=== PATIENT | female | born 1940 | race Caucasian/White ===

== ENCOUNTER 2020-03-16 07:57 | Outpatient (REF) | payer MEDICARE, SELFPAY ==
[2020-03-16 11:24] LABS: Hematocrit 42.5 % (37-47); Hemoglobin 13.8 g/dl (12.0-16.0); Mean Corpuscular HGB Conc 32.5 g/dl (31.0-35.0); Mean Corpuscular Hemoglobin 29.2 pg (27.0-33.0); Mean Corpuscular Volume 89.9 fL (80-98); Mean Platelet Volume 10.1 fL (9.4-12.3); Platelet Count 266 X10*3/uL (160-400); Red Blood Count 4.73 X10*6/uL (4.20-5.50); Red Cell Distribution Width 13.2 % (11.0-16.0); White Blood Count 9.8 X10*3/uL (4.8-10.8)
[2020-03-16 11:44] LABS: Estimated Average Glucose 180 mg/dL; Hemoglobin A1c % 7.9 %
[2020-03-16 12:00] LABS: Alanine Aminotransferase 17 U/L (0-31); Albumin Level 3.8 g/dL (3.5-5.0); Alkaline Phosphatase 76 U/L (39-117); Anion Gap 14 (12-20); Aspartate Amino Transferase 21 U/L (5-31); Bilirubin Total 0.8 mg/dL (0.0-1.0); Blood Urea Nitrogen 22 mg/dL (9-16); Calcium 8.6 mg/dL (8.4-10.2); Carbon Dioxide 26 mmol/L (22-29); Chloride 103 mmol/L (96-108); Estimated Glomerular Filt Rate > 60; Glucose Fasting 116 mg/dL (60-99); Potassium 4.3 mmol/l (3.3-5.1); Sodium 139 mmol/L (135-145); Total Protein 7.3 g/dL (6.5-8.0)
== END 2020-03-16 07:58 | disposition home or self-care (01) ==
LOC: HO.HMGCLDS 07:57
PROVIDERS: PCP Internal Medicine; Visit Provider Internal Medicine
DX: E11.9 Type 2 diabetes mellitus without complications (principal); I10 Essential (primary) hypertension; E78.5 Hyperlipidemia, unspecified
CPT/HCPCS: 36415; 80053; 83036; 85027

== ENCOUNTER 2020-06-19 15:31 | Emergency (ER) | payer MEDICARE, SELFPAY ==
--- NOTE | ~2020-06-19 | XR_ITS ---
EXAMINATION: LUMBAR SPINE AND RIGHT HIP X-RAY CLINICAL INFORMATION: Pain post fall COMPARISON: Lumbar spine x-ray December 2018 TECHNIQUE: 3 views of the lumbar spine and 2 views of the right hip and one view of the pelvis FINDINGS: Lumbar spine: Bone alignment is normal. No fracture or dislocation is seen. There is degenerative disc disease at L5-S1. There is lower lumbar spine facet arthritis. There is evidence of atherosclerotic disease. Right hip: Bone alignment is normal. No fracture or dislocation is seen. There is bilateral hip arthritis with joint space narrowing and osteophyte formation. Bones of the pelvis are unremarkable. There is evidence of atherosclerotic disease. XR/XR hip RT min 2V IMPRESSION: Degenerative changes. No fracture or dislocation seen.
--- NOTE | ~2020-06-19 | XR_ITS ---
EXAMINATION: LUMBAR SPINE AND RIGHT HIP X-RAY CLINICAL INFORMATION: Pain post fall COMPARISON: Lumbar spine x-ray December 2018 TECHNIQUE: 3 views of the lumbar spine and 2 views of the right hip and one view of the pelvis FINDINGS: Lumbar spine: Bone alignment is normal. No fracture or dislocation is seen. There is degenerative disc disease at L5-S1. There is lower lumbar spine facet arthritis. There is evidence of atherosclerotic disease. Right hip: Bone alignment is normal. No fracture or dislocation is seen. There is bilateral hip arthritis with joint space narrowing and osteophyte formation. Bones of the pelvis are unremarkable. There is evidence of atherosclerotic disease. XR/XR lumbar spine 2-3V IMPRESSION: Degenerative changes. No fracture or dislocation seen.
[2020-06-19 15:39] VITALS: BP 154/71; BP 158/70; PULSE 77; PULSE 88; RESP 16; TEMP 36.6; O2SAT 97; BMI 28.3
[2020-06-19 15:46] VITALS: BP 154/71; PULSE 73; RESP 20; TEMP 36.6; O2SAT 96
[2020-06-19 15:56] LABS: Glucose, Whole Blood 227 mg/dL (60-115)
--- NOTE | 2020-06-19 16:17 | ED.FALL ---
HPI - Fall General Chief Complaint: Fall Stated Complaint: mechanical fall Time Seen by Provider: 06/19/20 16:09 Source: patient Mode of arrival: ambulatory Limitations: no limitations History of Present Illness HPI Narrative: The patient comes emergency room complaining of lumbar pain. Patient states she was shopping at [employer], she was going down the electric stairs, by the time she reached the bottom, patient tripped and fell on her right side. Patient was able to get up and walk. Patient complaining of lumbar pain, and mild sided right hip pain. Patient did not take any pain medication and declined any medication. Patient did not hit her head, did not lose consciousness, denies being on any blood thinners. Patient has no pain anywhere else. Patient denies numbness or tingling in lower extremities, denies urinary/fecal incontinence or retention. MD complaint: fall Related Data Home Medications Medication Instructions Recorded Confirmed atorvastatin 80 mg tablet 80 mg PO DAILY 03/22/20 03/22/20 blood sugar diagnostic #10 ea 03/22/20 03/22/20 insulin glargine 100 unit/mL (3 unit SUBCUT 03/22/20 03/22/20 mL) subcutaneous pen Previous Rx's Medication Instructions Recorded carvedilol 25 mg tablet 25 mg PO BID #180 tab 02/10/20 lisinopril 40 mg tablet 40 mg PO DAILY #90 tab 02/10/20 amlodipine 10 mg tablet 10 mg PO DAILY #90 tab 03/13/20 metformin 1,000 mg tablet 1,000 mg PO BID #180 tab 06/06/20 Allergies Allergy/AdvReac Type Severity Reaction Status Date / Time Iodinated Contrast Media Allergy Unknown ANAPHYLAXIS Verified 06/19/20 15:48 [IV CONTRAST] Review of Systems Review of Systems: Constitutional : No Weight loss, No Fever, No Chills, No Night Sweats, No Fatigue, No Malaise ENT/Mouth : No Hearing loss, No Ear Pain, No Nasal Congestion, No Sinus Pain, No Hoarseness, No sore throat, No Rhinorrhea, No Swallowing Difficulty Eyes: No Eye Pain, No Swelling, No Redness, No Foreign Body, No Discharge, No Vision Changes Cardiovascular : No Chest Pain, No SOB, No Dyspnea on Exertion, No Orthopnea, No Edema, No Palpitations Respiratory : No Cough, No Sputum, No Wheezing, No Smoke Exposure, No Dyspnea Gastrointestinal : No Nausea, No Vomiting, No Diarrhea, No Constipation, No abdominal Pain, No Hematochezia, No Melena Genitourinary : no irregular bleeding, No Dysuria, No Urinary Frequency, No Hematuria, No Urinary Incontinence, No Urgency, No Flank Pain, No Urinary Flow Changes, No Hesitancy Musculoskeletal : Complaining of mild lumbar pain and mild right-sided hip pain on the posterior aspect, No Myalgias, No Joint Swelling Skin : No Skin Lesions, No rash Neuro : No Weakness, No Numbness, No Paresthesias, No Loss of Consciousness, No Dizziness, No Headache Psych : No Anxiety/Panic, No Depression, No SI/HI/AH/VH, No Social Issues, Heme/Lymph: No Bruising, No Bleeding,No Lymphadenopathy Endocrine : No Polyuria, No Polydipsia, No Temperature Intolerance [facility] Past Medical History Medical History CVA (cerebral vascular accident) Diabetes History of mammogram HTN (hypertension) Hyperlipidemia Surgical History H/O colonoscopy No pertinent past surgical history Family History Family History (Updated 03/21/20 @ 07:40 by NAVI Reed, [facility]) Father Unknown family medical history Mother Unknown family medical history Social History Social History (Updated 03/22/20 @ 07:57 by Jodi Damon [facility]) Alcohol intake: never Smoking Status: Never smoker Use of substances other than those prescribed or required for medical reasons: No Advance Directives: No Advance Directives Information Provided: No Physical Exam Vital Signs: Vital Signs: Last Vital Signs Temp 97.8 F 06/19/20 15:46 Pulse 73 06/19/20 15:46 Resp 20 06/19/20 15:46 BP 154/71 H 06/19/20 15:46 Pulse Ox 96 06/19/20 15:46 Body Mass Index 28.3 Appearance: Alert. Oriented X3. No acute distress. Eyes: Pupils equal, round and reactive to light. ENT: Pharynx normal. Neck: Normal inspection. Neck supple. No lymph nodes noted. No crepitus CVS: Normal heart rate and rhythm. Pulses normal. Normal S1 and S2 Respiratory: No respiratory distress. Breath sounds normal. No Wheezing. No rales Abdomen: Soft and nontender. No rigidity. No distention. good BS x4 Skin: Skin warm and dry. Normal skin color. Normal skin turgor. No abrasions Extremities: No lower extremity edema. Patient is able to flex and extend bilateral knees, bilateral hips, normal rotation on both hips, negative straight leg raise test bilaterally, mild pain to palpation over posterior aspect of the right hip and over the lumbar region, no ecchymosis or abrasions Neuro: Oriented X 3. No motor deficit. No sensory deficit. Moving all extermities. No slurred speech. Course Course Course Narrative: I discussed with the patient that her x-rays show no acute pathology. MDM - Fall Lab Data Labs: Lab Results 06/19/20 Range/Units 15:51 POC Glucose 227 H (60-115) mg/dL Imaging Data Right hip and lumbar x-ray: Radiologist's impression: FINDINGS: Lumbar spine: Bone alignment is normal. No fracture or dislocation is seen. There is degenerative disc disease at L5-S1. There is lower lumbar spine facet arthritis. There is evidence of atherosclerotic disease. Right hip: Bone alignment is normal. No fracture or dislocation is seen. There is bilateral hip arthritis with joint space narrowing and osteophyte formation. Bones of the pelvis are unremarkable. There is evidence of atherosclerotic disease. XR/XR hip RT min 2V IMPRESSION: Degenerative changes. No fracture or dislocation seen. Discharge Plan Discharge Clinical Impression: Fall Qualifiers: Encounter type: initial encounter Qualified Code(s): W19.XXXA - Unspecified fall, initial encounter Pain in lower back Qualifiers: Chronicity: acute Back pain laterality: right Sciatica presence: without sciatica Qualified Code(s): M54.5 - Low back pain Patient Disposition: Home, Self-Care Instructions: Acute Low Back Pain (ED) Additional Instructions: Please follow-up with your primary care physician tomorrow. If you have any worsening or new symptoms, please return to the emergency room or call 911 Prescriptions: No Action carvedilol 25 mg tablet 25 mg PO BID Qty: 180 RF: 2 lisinopril 40 mg tablet 40 mg PO DAILY Qty: 90 RF: 2 amlodipine 10 mg tablet 10 mg PO DAILY Qty: 90 RF: 3 metformin 1,000 mg tablet 1,000 mg PO BID Qty: 180 RF: 3 Basaglar KwikPen U-100 Insulin 100 unit/mL (3 mL) insulin pen subcut RF: 0 (DME) Freestyle [employer] Strip See Rx Instructions ea .ROUTE BID Qty: 10 RF: 0 atorvastatin 80 mg tablet 80 mg PO DAILY RF: 0
[2020-06-19] MEDS: Acetaminophen 325 MG TABLET 650 MG PO (17:27)
[2020-06-19 17:29] VITALS: BP 155/65; PULSE 78; RESP 16; TEMP 36.6; O2SAT 96
--- NOTE | 2020-06-19 17:30 | PC.NURSE ---
Pt ambulate with steady gait to bathroom.
== END 2020-06-19 17:49 | disposition home or self-care (01) ==
PROVIDERS: Emergency Provider Emergency Medicine; PCP Internal Medicine
DX: G89.11 Acute pain due to trauma (principal); M54.5 Low back pain; I10 Essential (primary) hypertension; E11.9 Type 2 diabetes mellitus without complications; E78.5 Hyperlipidemia, unspecified; Z86.73 Personal history of transient ischemic attack (TIA), and cerebral infarction without residual deficits; Z79.4 Long term (current) use of insulin
CPT/HCPCS: 72100; 73502; 82947; 99283; 99284

== ENCOUNTER 2020-07-18 07:43 | Outpatient (REF) | payer MEDICARE, SELFPAY ==
[2020-07-18 10:28] LABS: Estimated Average Glucose 186 mg/dL; Hemoglobin A1c % 8.1 %
[2020-07-18 10:42] LABS: Alanine Aminotransferase 19 U/L (0-31); Albumin Level 3.8 g/dL (3.5-5.0); Alkaline Phosphatase 97 U/L (39-117); Anion Gap 12 (12-20); Aspartate Amino Transferase 19 U/L (5-31); Bilirubin Total 1.1 mg/dL (0.0-1.0); Blood Urea Nitrogen 20 mg/dL (9-16); Calcium 8.8 mg/dL (8.4-10.2); Carbon Dioxide 29 mmol/L (22-29); Chloride 102 mmol/L (96-108); Cholesterol 152 mg/dL; Estimated Glomerular Filt Rate > 60; Glucose Fasting 109 mg/dL (60-99); HDL Cholesterol 53 mg/dL; LDL Cholesterol Calculated 83 mg/dl; Potassium 4.1 mmol/L (3.3-5.1); Sodium 139 mmol/L (135-145); Total Protein 7.2 g/dL (6.5-8.0); Triglycerides 84 mg/dL
[2020-07-18 10:54] LABS: Creatinine Urine 91.15 mg/dL; Microalbum/Creatinine Ratio Ur 25.2 ug/mg cr
== END 2020-07-18 07:44 | disposition home or self-care (01) ==
LOC: HO.10HDL 07:43
PROVIDERS: Visit Provider Internal Medicine
DX: E78.5 Hyperlipidemia, unspecified (principal); E11.9 Type 2 diabetes mellitus without complications; I10 Essential (primary) hypertension
CPT/HCPCS: 36415; 80053; 80061; 82043; 83036

== ENCOUNTER 2020-11-09 07:13 | Outpatient (REF) | payer MEDICARE, SELFPAY ==
[2020-11-09 11:40] LABS: Estimated Average Glucose 186 mg/dL; Hemoglobin A1c % 8.1 %
[2020-11-09 11:51] LABS: Alanine Aminotransferase 20 U/L (0-31); Albumin Level 3.7 g/dL (3.5-5.0); Alkaline Phosphatase 86 U/L (39-117); Anion Gap 12 (12-20); Aspartate Amino Transferase 22 U/L (5-31); Bilirubin Total 1.1 mg/dL (0.0-1.0); Blood Urea Nitrogen 18 mg/dL (9-16); Calcium 8.9 mg/dL (8.4-10.2); Carbon Dioxide 28 mmol/L (22-29); Chloride 104 mmol/L (96-108); Cholesterol 120 mg/dL; Creatinine Urine 106.48 mg/dL; Estimated Glomerular Filt Rate > 60; Glucose Fasting 96 mg/dL (60-99); HDL Cholesterol 45 mg/dL; LDL Cholesterol Calculated 59 mg/dl; Microalbum/Creatinine Ratio Ur 29.1 ug/mg cr; Potassium 3.9 mmol/L (3.3-5.1); Sodium 140 mmol/L (135-145); Total Protein 7.1 g/dL (6.5-8.0); Triglycerides 80 mg/dL
== END 2020-11-09 07:14 | disposition home or self-care (01) ==
LOC: HO.HMGCLDS 07:13
PROVIDERS: PCP Internal Medicine; Visit Provider Internal Medicine
DX: E11.9 Type 2 diabetes mellitus without complications (principal); E78.5 Hyperlipidemia, unspecified; I10 Essential (primary) hypertension
CPT/HCPCS: 36415; 80053; 80061; 82043; 83036

== ENCOUNTER 2021-03-08 07:43 | Outpatient (REF) | payer MEDICARE, SELFPAY ==
[2021-03-08 10:30] LABS: Hematocrit 40.6 % (37.0-47.0); Hemoglobin 13.3 g/dl (12.0-16.0); Mean Corpuscular HGB Conc 32.8 g/dl (31.0-35.0); Mean Corpuscular Hemoglobin 29.4 pg (27.0-33.0); Mean Corpuscular Volume 89.6 fL (80.0-98.0); Platelet Count 255 X10*3/uL (160-400); Red Blood Count 4.53 X10*6/uL (4.20-5.50); Red Cell Distribution Width 13.4 % (11.0-16.0); White Blood Count 9.1 X10*3/uL (4.8-10.8)
[2021-03-08 10:43] LABS: Alanine Aminotransferase 20 U/L (0-31); Albumin Level 3.8 g/dL (3.5-5.0); Alkaline Phosphatase 83 U/L (39-117); Anion Gap 13 (12-20); Aspartate Amino Transferase 21 U/L (5-31); Bilirubin Total 0.9 mg/dL (0.0-1.0); Blood Urea Nitrogen 24 mg/dL (9-16); Carbon Dioxide 27 mmol/L (22-29); Chloride 103 mmol/L (96-108); Estimated Glomerular Filt Rate > 60; Glucose Fasting 101 mg/dL (60-99); Potassium 3.9 mmol/L (3.3-5.1); Sodium 139 mmol/L (135-145); Total Protein 7.1 g/dL (6.5-8.0)
[2021-03-08 10:52] LABS: Estimated Average Glucose 189 mg/dL; Hemoglobin A1c % 8.2 %
== END 2021-03-08 07:44 | disposition home or self-care (01) ==
LOC: HO.10HDL 07:43
PROVIDERS: Visit Provider Internal Medicine
DX: E11.9 Type 2 diabetes mellitus without complications (principal); E78.5 Hyperlipidemia, unspecified; I10 Essential (primary) hypertension
CPT/HCPCS: 36415; 80053; 83036; 85027

== ENCOUNTER 2021-07-30 07:51 | Outpatient (REF) | payer MEDICARE, SELFPAY ==
[2021-07-30 11:09] LABS: Hematocrit 41.4 % (37.0-47.0); Hemoglobin 13.5 g/dl (12.0-16.0); Mean Corpuscular HGB Conc 32.6 g/dl (31.0-35.0); Mean Corpuscular Hemoglobin 29.1 pg (27.0-33.0); Mean Corpuscular Volume 89.2 fL (80.0-98.0); Mean Platelet Volume 9.9 fL (9.4-12.3); Platelet Count 285 X10*3/uL (160-400); Red Blood Count 4.64 X10*6/uL (4.20-5.50); Red Cell Distribution Width 13.9 % (11.0-16.0); White Blood Count 9.5 X10*3/uL (4.8-10.8)
[2021-07-30 11:20] LABS: Alanine Aminotransferase 25 U/L (0-31); Albumin Level 3.8 g/dL (3.5-5.0); Alkaline Phosphatase 90 U/L (39-117); Anion Gap 10 (12-20); Aspartate Amino Transferase 20 U/L (5-31); Bilirubin Total 1.2 mg/dL (0.0-1.0); Blood Urea Nitrogen 24 mg/dL (9-16); Carbon Dioxide 29 mmol/L (22-29); Chloride 103 mmol/L (96-108); Cholesterol 158 mg/dL; Estimated Average Glucose 209 mg/dL; Estimated Glomerular Filt Rate 59; Glucose Random 193 mg/dL (60-115); HDL Cholesterol 53 mg/dL; Hemoglobin A1c % 8.9 %; LDL Cholesterol Calculated 89 mg/dl; Potassium 4.4 mmol/L (3.3-5.1); Sodium 138 mmol/L (135-145); Total Protein 7.3 g/dL (6.5-8.0); Triglycerides 83 mg/dL
[2021-07-30 12:36] LABS: Creatinine Urine 80.61 mg/dL; Microalbum/Creatinine Ratio Ur 43.4 ug/mg cr
== END 2021-07-30 07:52 | disposition home or self-care (01) ==
LOC: HO.10HDL 07:51
PROVIDERS: Visit Provider Internal Medicine
DX: E11.9 Type 2 diabetes mellitus without complications (principal); E78.5 Hyperlipidemia, unspecified; I10 Essential (primary) hypertension
CPT/HCPCS: 36415; 80053; 80061; 82043; 83036; 85027

== ENCOUNTER 2021-09-24 07:56 | Outpatient (REF) | payer MEDICARE, SELFPAY ==
[2021-09-24 10:42] LABS: Estimated Average Glucose 197 mg/dL; Hemoglobin A1c % 8.5 %
[2021-09-24 10:43] LABS: Hemoglobin 13.8 g/dl (12.0-16.0); Mean Corpuscular HGB Conc 32.9 g/dl (31.0-35.0); Mean Corpuscular Hemoglobin 28.9 pg (27.0-33.0); Mean Corpuscular Volume 87.9 fL (80.0-98.0); Platelet Count 278 X10*3/uL (160-400); Red Blood Count 4.78 X10*6/uL (4.20-5.50); Red Cell Distribution Width 13.5 % (11.0-16.0); White Blood Count 9.4 X10*3/uL (4.8-10.8)
[2021-09-24 10:59] LABS: Alanine Aminotransferase 17 U/L (0-31); Albumin Level 3.7 g/dL (3.5-5.0); Alkaline Phosphatase 83 U/L (39-117); Anion Gap 11 (12-20); Aspartate Amino Transferase 19 U/L (5-31); Bilirubin Total 0.9 mg/dL (0.0-1.0); Blood Urea Nitrogen 21 mg/dL (9-16); Carbon Dioxide 27 mmol/L (22-29); Chloride 106 mmol/L (96-108); Cholesterol 125 mg/dL; Estimated Glomerular Filt Rate > 60; Glucose Fasting 59 mg/dL (60-99); HDL Cholesterol 41 mg/dL; LDL Cholesterol Calculated 69 mg/dl; Potassium 4.2 mmol/L (3.3-5.1); Sodium 140 mmol/L (135-145); Total Protein 7.1 g/dL (6.5-8.0); Triglycerides 79 mg/dL
== END 2021-09-24 07:57 | disposition home or self-care (01) ==
LOC: HO.10HDL 07:56
PROVIDERS: Visit Provider Internal Medicine
DX: E11.9 Type 2 diabetes mellitus without complications (principal); E78.5 Hyperlipidemia, unspecified; I10 Essential (primary) hypertension
CPT/HCPCS: 36415; 80053; 80061; 83036; 85027

== ENCOUNTER 2022-01-04 11:09 | Outpatient (REF) | payer MEDICARE, SELFPAY ==
--- NOTE | ~2022-01-04 | XR_ITS ---
EXAMINATION: XR HIP, LEFT CLINICAL INFORMATION: Left hip pain. COMPARISON: None TECHNIQUE: Two views of the left hip. FINDINGS: Mild bilateral hip degenerative joint changes are seen. There is no acute fracture or dislocation. The bony pelvis is intact. The soft tissues are unremarkable. XR/XR hip LT w PEL1V IMPRESSION: Mild bilateral hip osteoarthritis.
== END 2022-01-04 11:10 | disposition home or self-care (01) ==
LOC: HO.HMGCX 11:09
PROVIDERS: PCP Internal Medicine; Visit Provider Nurse Practitioner Family
DX: M46.1 Sacroiliitis, not elsewhere classified (principal)
CPT/HCPCS: 73502

== ENCOUNTER 2022-01-05 09:24 | Emergency (ER) | payer MEDICARE, SELFPAY ==
--- NOTE | ~2022-01-05 | CT_ITS ---
EXAMINATION: CT CHEST WITHOUT CONTRAST CLINICAL INFORMATION: Pericardial effusion COMPARISON: CT abdomen pelvis 01/05/2022 and 08/21/2013 TECHNIQUE: Multidetector volumetric CT imaging of the chest was done. Axial MIP volume rendering provided. Sagittal and coronal reformatted images were obtained. This CT examination was performed using dose optimization techniques as appropriate, variously including the following: *Automated exposure control *Adjustment of mA and/or kV according to patient size (this includes techniques or standardized protocols for targeted exams where dose is matched to indication/reason for exam; i.e. extremities or head) *Use of iterative reconstruction technique DLP: 220 mGy-cm FINDINGS: CHEST WALL/AXILLA: No axillary lymphadenopathy. LUNGS: Tiny calcified pulmonary granulomas. Few tiny noncalcified pulmonary micronodules for example in the right lower lobe, 9:246 and 245. Diffuse mild bronchial wall thickening with right upper lobe predominance cylindrical bronchiectasis. Right basilar atelectasis. MEDIASTINUM: Heart is mildly enlarged. Moderate to large simple fluid density pericardial effusion increased from remote priors. No mediastinal lymphadenopathy. Calcified left hilar nodes. Mitral annular calcifications. CORONARY ARTERY CALCIFICATION: Coronary artery calcification is present. PLEURA: There is no pleural effusion. UPPER ABDOMEN: Unremarkable OSSEOUS STRUCTURES: Unremarkable. CT/CT chest wo IV con IMPRESSION: Moderate to large simple fluid density pericardial effusion increased from remote priors with mild cardiomegaly. Recommend correlation with echocardiogram. Diffuse mild bronchial wall thickening suggesting airways inflammation with right upper lobe predominant bronchiectasis. Few tiny noncalcified pulmonary micronodules. Assuming patient has no history of malignancy, recommend follow-up per Fleischner Society recommendations. According to the UPDATED 2017 Fleischner Society recommendations, the advised followup imaging for solid nodules < 6 mm is: LOW RISK PATIENT: No routine follow up. HIGH RISK PATIENT: Optional CT at 12 months.
--- NOTE | ~2022-01-05 | CT_ITS ---
EXAMINATION: CT ABDOMEN AND PELVIS WITHOUT CONTRAST CLINICAL INFORMATION: Low back pain. Rule out mass or aortic aneurysm COMPARISON: Previous CT of the abdomen and pelvis most recent August 2013 and renal ultrasound most recent June 2019 TECHNIQUE: Multidetector volumetric imaging was performed from the superior aspect of the liver through the pubic symphysis. Sagittal and coronal reformatted images were obtained on the technologist's workstation. This CT examination was performed using dose optimization techniques as appropriate, variously including the following: *Automated exposure control *Adjustment of mA and/or kV according to patient size (this includes techniques or standardized protocols for targeted exams where dose is matched to indication/reason for exam; i.e. extremities or head) *Use of iterative reconstruction technique DLP: 469 mGy-cm FINDINGS: LUNG BASES: There is a moderate-sized pericardial effusion. This is slightly increased from 2014 exam. There is coronary artery and mitral annular calcification. There may be is a attenuation at the lung bases. LIVER, GALLBLADDER, AND BILIARY TREE: The liver is normal in size, shape, and attenuation. No focal hepatic lesion or biliary ductal dilatation is present. Gallbladder is difficult to evaluate due to respiratory motion artifact. The gallbladder does not appear enlarged. There may be high attenuation material in the gallbladder. This could be better evaluated with ultrasound if clinically indicated. PANCREAS: Unremarkable. SPLEEN: There are small calcifications in the spleen similar to previous exam. ADRENAL GLANDS: Unremarkable. KIDNEYS AND URETERS: There is a duplicated left renal collecting system. No stone or hydronephrosis. There is a small cyst exophytic to the lateral upper pole of the left kidney. No imaging follow-up. BLADDER: Unremarkable. GASTROINTESTINAL TRACT: There is stool in the colon suggestive of constipation. There is diverticulosis of the colon. No evidence of diverticulitis is seen. Small and large bowel is otherwise unremarkable. The appendix is normal. The stomach is normal. ABDOMINAL WALL: No significant hernia is appreciated. LYMPH NODES: Normal. VASCULAR: The abdominal aorta is normal in caliber. No aneurysm or myxoma is seen. PELVIC VISCERA: There are calcifications in the uterus probably representing calcified fibroids. Uterus and adnexa are otherwise unremarkable. OSSEOUS STRUCTURES: There are degenerative changes of the spine and hip joints. No fracture or suspicious bone lesion. CT/CT abdomen pelvis wo IV con IMPRESSION: Normal caliber abdominal aorta. No aneurysm or retroperitoneal hemorrhage. Degenerative changes of the spine. Diverticulosis and constipation. Duplicated left renal collecting system. Limited evaluation of the gallbladder due to respiratory motion artifact. There is high attenuation in the gallbladder. The gallbladder is normal in size. This could be better evaluated with ultrasound if clinically indicated. Moderate pericardial effusion increased in size from previous exam from 2014. Fleischner guidelines were followed.
[2022-01-05 09:35] VITALS: BP 140/57; PULSE 63; RESP 18; TEMP 36.2; O2SAT 96; BMI 25.7
--- NOTE | 2022-01-05 09:52 | ED.GENADULT ---
HPI - General Adult General Chief complaint: Back Pain/Injury Stated complaint: l leg pain Time Seen by Provider: 01/05/22 09:52 History of Present Illness HPI narrative: Patient complains of increasingly severe left side low back and hip pain radiating to the left thigh, there is no numbness or weakness there is no changes to bowel or bladder no incontinence no dysuria no frequency no new constipation, patient is able to walk Related Data Home Medications Medication Instructions Recorded Confirmed blood sugar diagnostic #10 ea 03/22/20 01/04/22 aspirin 325 mg tablet 325 mg PO DAILY 03/15/21 01/04/22 Previous Rx's Medication Instructions Recorded pen needle, diabetic 31 gauge x #200 ea 03/27/2106/20 amlodipine 10 mg tablet 10 mg PO DAILY #90 tabs 04/18/21 donepezil 5 mg tablet 5 mg PO DAILY #90 tabs 07/24/21 insulin glargine 100 unit/mL (3 30 unit (0.3 mL) subcut QAM #15 mL 08/02/21 mL) subcutaneous pen ([employer]oo.rsaglar KwikPen U-100 Insulin) lisinopril 40 mg tablet 40 mg PO DAILY #90 tabs 10/19/21 atorvastatin 80 mg tablet 80 mg PO DAILY #90 tabs 12/20/21 carvedilol 25 mg tablet 25 mg PO BID #180 tabs 12/20/21 metformin 1,000 mg tablet 1,000 mg PO BID #180 tabs 12/25/21 Custom heat molded inserts #3 ea 12/26/21 extra depth diabetic shoes #1 ea 12/26/21 naproxen 500 mg tablet 500 mg PO BID PRN pain 14 days #30 01/04/22 tabs acetaminophen 500 mg tablet 1,000 mg PO QID PRN pain #30 tabs 01/05/22 docusate sodium 100 mg capsule 100 mg PO BID PRN Stool softener 01/05/22 (Colace) #14 caps oxycodone 5 mg tablet 5 mg PO Q8H PRN pain #14 tabs 01/05/22 Allergies Allergy/AdvReac Type Severity Reaction Status Date / Time Iodinated Contrast Media Allergy Unknown ANAPHYLAXIS Verified 01/04/22 10:55 [IV CONTRAST] Review of Systems Review of Systems: Positive for left-sided low back pain negatives are no fever no chills no dizziness no weakness no fainting no feeling faint no headache no neck pain no chest pain no shortness of breath no exertional symptoms no dizziness no cough no abdominal pain no nausea vomiting or diarrhea no loss of appetite no dysuria no incontinence no frequency no changes to bowel or bladder, no skin rash no leg swelling no muscle weakness no loss of sensation Yes all other systems are reviewed and are negative [facility] Past Medical History Source: nursing notes reviewed Medical History Back pain CVA (cerebral vascular accident) Diabetes History of mammogram HTN (hypertension) Hyperlipidemia Surgical History H/O colonoscopy No pertinent past surgical history Family History Family History Father Unknown family medical history Mother Unknown family medical history Social History Social History Housing: House Alcohol intake: never Patient Tobacco Use Status: Never used Tobacco e-Cigarette/Vaping Use: Never Used Current occupational status: retired Cognitive needs: No Hearing needs: No Vision needs: Yes Physical Exam ED Vital Signs: Vital Signs - 24 hr 01/05/22 09:35 01/05/22 11:48 01/05/22 15:45 Temperature 97.2 F 98.2 F Pulse Rate 63 68 57 Respiratory Rate 18 16 16 Blood Pressure 140/57 H 134/58 L 148/61 H Pulse Oximetry 96 97 95 Oxygen Delivery Method Room Air Room Air Room Air BMI result Body Mass Index 25.7 General appearance is no acute distress The head is normocephalic atraumatic Pupils equal round reactive to light extraocular motions intact The neck is supple no JVD The chest is clear to auscultation bilateral the heart no murmur auscultated The abdomen is soft nontender The back had left upper gluteal and lower lumbar tenderness, skin was normal in appearance, pain was reproducible with movement, there was no focal bony tenderness Extremities full range of motion x4, no edema Skin no rash Neuro no focal motor sensory deficits, patient has normal comprehension and expression, balance was norm Course Course Course Narrative: Patient went to CT for this new onset of low back pain to rule out any chance of malignancy or enlargement of the aorta CT had incidental finding of a pericardial effusion, as well as showing degenerative changes in the back, aorta was normal and no evidence of metastatic or malignant disease Cardiology was consulted regarding the pericardial effusion, which was also detected as a smaller effusion in [address] abdomen done here Patient was not aware of the fact that she had this small effusion it had never been worked up We consulted Cardiology Dr. hester , he also saw and evaluated and examined the patient in the ER He evaluated the echo and felt there were no urgent needs to remove fluid from the pericardial effusion, he does not believe it is causing any symptoms, and it is likely been there a long time His plan for the effusion is to re-evaluate and follow in the office and repeat the echo probably in about 8 weeks Patient is aware to return to the ER any time she experiences dizziness fainting chest pain shortness of breath any exertional symptoms For the back pain she is prescribed analgesics and advised to follow closely with primary doctor On discharge patient's pain had been relieved with analgesics and had no other complaint except the pain in her back, she remained stable throughout ER visit Medical Decision Making Lab Data Labs: Lab Results 01/05/22 Range/Units 16:29 C-Reactive Protein 0.02 (< or = 0.50) mg/dL TSH 1.51 (0.32-4.0) uIU/mL Rheumatoid Factor 29.4 H (<15.0) IU/mL Discharge Plan Discharge Clinical Impression: Back pain, Pericardial effusion Patient Disposition: Home, Self-Care Additional Instructions: Discussion with the cement contractor about the pericardial effusion resulted in him doing the echocardiogram and finding that it was not an imminently dangerous effusion He will follow with you as an outpatient and will arrange for repeat echocardiogram in about 8 weeks For both the back pain and the pericardial effusion you should follow closely with primary care doctor to evaluate for what might be causing the pericardial effusion as well as for follow-up care for the back pain Return to the ER any time for symptoms related to the effusion such as chest pain shortness of breath dizziness weakness feeling faint or fainting For the back if you develop incontinence, severe pain out of control, weakness in the limbs, fever, any worse condition or any concerns return to the ER immediately Prescriptions: New oxycodone 5 mg tablet 5 mg PO Q8H PRN (Reason: pain) Qty: 14 0RF Rx Instructions: Partial Fill upon patient request. acetaminophen 500 mg tablet 1,000 mg PO QID PRN (Reason: pain) Qty: 30 0RF docusate sodium [Colace] 100 mg capsule 100 mg PO BID PRN (Reason: Stool softener) Qty: 14 0RF No Action (DME) pen needle, diabetic 31 gauge x 3/16 needle See Rx Instructions .Route Qty: 200 2RF Rx Instructions: Use to inject insulin twice a day amlodipine 10 mg tablet 10 mg PO DAILY Qty: 90 3RF donepezil 5 mg tablet 5 mg PO DAILY Qty: 90 3RF lisinopril 40 mg tablet 40 mg PO DAILY Qty: 90 3RF carvedilol 25 mg tablet 25 mg PO BID Qty: 180 3RF Rx Instructions: must administer with a meal/food atorvastatin 80 mg tablet 80 mg PO DAILY Qty: 90 3RF metformin 1,000 mg tablet 1,000 mg PO BID Qty: 180 3RF (DME) Custom heat molded inserts See Rx Instructions .Route .MEDSUPPLY Qty: 3 0RF Rx Instructions: 3 pair (DME) extra depth diabetic shoes See Rx Instructions .Route .MEDSUPPLY Qty: 1 0RF Rx Instructions: 1 pair (DME) Freestyle [employer] Strip See Rx Instructions .ROUTE BID Qty: 10 Rx Instructions: As directed aspirin 325 mg tablet 325 mg PO DAILY Basaglar KwikPen U-100 Insulin 100 unit/mL (3 mL) insulin pen 30 unit subcut QAM Qty: 15 3RF naproxen 500 mg tablet 500 mg PO BID PRN (Reason: pain) 14 Days Qty: 30 0RF Referrals: Jc Avila MD [Physician] - (Follow-up for pericardial effusion) Interventions: ED Discharge Assessment Last Done: 01/05/22 17:11 Discharge Date/Time: 01/05/22 17:11
--- OUTSIDE RECORDS SUMMARY | 2022-01-05 10:08 | XMS_ITS ---
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 Problem Other hammer M20.42 Active 4427896 [id number] toe(s) (acquired), left foot Problem Other hammer M20.41 Active 9931022 [id number] toe(s) (acquired), right foot Problem Venous I87.2 Active [id number] insufficiency ALLERGIES Substance Reaction Event Type Date Status Red Dye Unknown Non Drug Allergy Dec, Active IVP Dye Unknown Non Drug Allergy Dec, Active ENCOUNTERS Encounter Location Date Diagnosis [facility] [address] Dec, Tin ea unguium B35.1 ; Type [place], [place] 2 diabetes [place] [address] diabetic polyneu ropathy E11.42 ; Pain in right toe(s) M79.674 ; Pain in left toe(s) M79. 675 ; Other hammer toe (s) (acquired), righ t foot M20.41 ; Other h ammer toe(s) (acquired ), left foot M20.42 ; Lo calized edema R60.0 ; Ve nous insufficiency I8 7.2 ; Venous insuffici ency of both lower extre mities I87.2 and Tinea pedis B35.3 [facility] [address] Dec, Tin ea unguium B35.1 ; Type [place] 2 diabetes [place]us with [address] diabetic polyneu ropathy E11.42 ; Pain in right toe(s) M79.674 ; Pain in left toe(s) M79. 675 ; Other hammer toe (s) (acquired), righ t foot M20.41 ; Other h ammer toe(s) (acquired ), left foot M20.42 ; Lo calized edema R60.0 ; Ve nous insufficiency I8 7.2 ; Venous insuffici ency of both lower extre mities I87.2 and Tinea pedis B35.[address] [facility] Dec, Tin e[place] unguium B35.1 ; Type [place] 2 diabetes [place]us with [address] diabetic polyneu ropathy E11.42 ; Pain in right toe(s) M79.674 ; Pain in left toe(s) M79. 675 ; Other hammer toe (s) (acquired), righ t foot M20.41 ; Other h ammer toe(s) (acquired ), left foot M20.42 ; Lo calized edema R60.0 ; Ve nous insufficiency I8 7.2 and Venous insuffici ency of both lower extre mities I87.[address] Nov, Tin e[place] unguium B35.1 ; Type [place] 2 diabetes dre [place]us with [address] diabetic polyneu ropathy E11.42 ; Pain in right toe(s) M79.674 ; Pain in left toe(s) M79. 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 675 ; Other hammer toe (s) (acquired), righ t foot M20.41 ; Other h ammer toe(s) (acquired ), left foot M20.42 and Calcaneal spur, left foot M77.[address] Nov, Tin ea unguium B35.1 ; Type [place] 2 diabetes [place]us [place] [address] diabetic polyneu ropathy E11.42 ; Pain in right toe(s) M79.674 ; Pain in left toe(s) M79. 675 ; Other hammer toe (s) (acquired), righ t foot M20.41 and Other hammer toe(s) (acquired ), left foot M20.[address] Nov, Tin ea unguium B35.1 ; Type [place] 2 diabetes dre itus with [address] diabetic polyneu ropathy E11.42 ; Pain in right toe(s) M79.674 ; Pain in left toe(s) M79. 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 ; Hallux Valgus 735.0 and Tinea Pedis 110.[address] Oct, [place] [address] Jul, Shorty n in Limb 729.5 ; [place] Diabetic - [address] NIDDM/Neuropathy 250.60 ; Onychomycosis 11 0.1 ; Arthritis - Dege nerative 719.97 ; Flat Fo ot, 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 and Hallux Valgus [address] May, Shorty n in Limb 729.5 ; [place] Diabetic - [address] NIDDM/Neuropathy 250.60 ; Onychomycosis 11 0.1 ; Arthritis - Dege nerative 719.97 ; Flat Fo ot, 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 and Hallux Valgus [address] Feb, Shayna betic - [place] CT NIDDM/Neuropath y 250.60 ; [address] Onychomycosis 11 0.1 ; Pain in Limb 729.5 ; Arthritis - Degenerative 7 19.97 ; Flat Foot, Conge nital 754.61 and Hallu x Valgus 735.0 IMMUNIZATIONS Vaccine Route Administration Date Status COVID-19 Moderna Vaccine Unknown August 16, 2020 Adminis tered SOCIAL HISTORY Qualifiers Date Never Smoker REASON FOR REFERRAL FUNCTIONAL STATUS PLAN OF CARE Activity Details Follow Up 1 Year Reason: Future Appointment Provider Name:Joaquin Maza, 2022-12-23 08:00:00 AM, [address] [place], [address], Pending Test X ray : Foot, left 2V Pending Test X ray : Foot, left 2V Pending Test X ray : Foot, right 2V Future/Pending Procedure 15886-QWTD SKIN LESIONS, OVE R 4 Future/Pending Procedure 75480-GPVO SKIN LESIONS, OVE R 4 Future/Pending Procedure 94382-FOGA SKIN LESIONS, 2 T O 4 Future/Pending Procedure P9240-QMFQKDTY DYSTROPHIC NA ILS ANY # Future/Pending Procedure 09373,G6426-PNN TENDON SHEAT H/LIGAMENT Future/Pending Procedure 58187-KSTGUOZ NAIL, 1-5 Future/Pending Procedure 90068-PVZR SKIN LESIONS, 2 T O 4 Future/Pending Procedure J4533-VTGCBURT DYSTROPHIC NA ILS ANY # Future/Pending Procedure 01153-DWYEGZK NAIL, 1-5 Future/Pending Procedure 34932-OJYV SKIN LESIONS, 2 T O 4 Future/Pending Procedure 66981-ZEBU NAIL(S) Future/Pending Procedure 91423-EOBNPFD NAIL, 6 OR MOR E Future/Pending Procedure 89056-MHGD SKIN LESIONS, OVE R 4 Future/Pending Procedure 18189-SXMWIZZ NAIL, 6 OR MOR E Future/Pending Procedure 79372-DQKY SKIN LESIONS, OVE R 4 Future/Pending Procedure 33559-TLIRYTU NAIL, 6 OR MOR E Future/Pending Procedure 55789-JRTE SKIN LESIONS, OVE R 4 Future/Pending Procedure 21874-UEPEHPL NAIL, 6 OR MOR E Future/Pending Procedure 17567-IZXM SKIN LESIONS, OVE R 4 Future/Pending Procedure 64253-WVCNRXY NAIL, 6 OR MOR E Future/Pending Procedure 88495-GQLG SKIN LESIONS, 2 T O 4 VITAL SIGNS Height 5 ft 3 in in 2021-12-17 Weight 144 lbs 2021-12-17 BMI 25.51 kg/m2 2021-12-17 Heart Rate 70 /min 2017-11-19 Blood pressure systolic 120 mm Hg 2021-12-17 Blood pressure diastolic 80 mm Hg 2021-12-17 MEDICATIONS Medication Instructions Dosage Frequency Start End Duration Statu s Date Date Metformin & as directed Active Diet Manage Prod 500 MG Lisinopril 40 Orally Once a 1 tablet 24h 30 day(s) A ctive MG day Ciclopirox Externally 1 application 08 Sep, 30 days Acti ve Olamine 0.77 % Twice a day to to affected 2020 effected areas area on feet Night Splint as directed Nov, AFO - L1930 2017 Extra Depth for 1 year Active Diabetic Shoes with 3 Pair Custom heat-molded multi-density innersoles Januvia 50 MG Orally Once a 2 tablets 24h Ac tive day Physical . 2-3x/week . 3-4 weeks Not-Taki Therapy . ng Carvedilol 25 Orally Twice a 1 tablet with 12h 30 da y(s) Active MG day food Atorvastatin Orally Once a 1 tablet 24h 30 day(s) Ac tive Calcium 20 MG day glyBURIDE 5 MG Orally Once a 1 tablet 24h 30 day(s) Active day amLODIPine Orally Once a 1 tablet 24h 30 day(s) Acti ve Besylate 10 MG day baby asprin as directed Active Insulin Active PROCEDURES Procedure Date Ordered Result Body Site DEBRIDE NAIL, 6 OR MORE Dec 15, 2013 TRIMMING DYSTROPHIC NAILS ANY # Nov 19, 2017 X-RAY EXAM OF LEFT FOOT 2V Dec 01, 2017 DEBRIDE NAIL, 1-5 Nov 19, 2017 DEBRIDE NAIL, 6 OR MORE Dec 13, 2020 TRIMMING DYSTROPHIC NAILS ANY # Nov 18, 2018 DEBRIDE NAIL, 6 OR MORE Dec 09, 2019 INJ BETAMETHSN ACTAT&SOD PHOSPH-3MG Dec 01, 2017 DEBRIDE NAIL, 6 OR MORE Dec 17, 2021 TRIM SKIN LESIONS, OVER 4 May 10, 2013 X-RAY EXAM OF RIGHT FOOT 2V May 10, 2013 DEBRIDE NAIL, 6 OR MORE Feb 25, 2013 TRIM SKIN LESIONS, OVER 4 August 02, 2013 X-RAY EXAM OF LEFT FOOT 2V May 10, 2013 DEBRIDE NAIL, 6 OR MORE May 10, 2013 DEBRIDE NAIL, 6 OR MORE August 02, 2013 DEBRIDE NAIL, 1-5 Nov 18, 2018 EVAL ON FOOT DOCUMENTED Apr 13, 2014 INJ TENDON SHEATH/LIGAMENT Dec 01, 2017 TRIM SKIN LESIONS, 2 TO 4 Nov 19, 2017 TRIM SKIN LESIONS, OVER 4 Apr 13, 2014 TRIM SKIN LESIONS, OVER 4 Dec 15, 2013 EVAL ON FOOT DOCUMENTED Dec 15, 2013 DEBRIDE NAIL, 1-5 Nov 20, 2016 DEBRIDE NAIL, 6 OR MORE Apr 13, 2014 TRIM SKIN LESIONS, OVER 4 Dec 09, 2019 AFO PLASTIC/OTH MATERIAL PREFAB Dec 01, 2017 TRIM SKIN LESIONS, 2 TO 4 Nov 18, 2018 LOW EXTEMITY NEUR EXAM DOCUM Feb 25, 2013 TRIM SKIN LESIONS, OVER 4 Dec 13, 2020 TRIM NAIL(S) Nov 20, 2016 TRIM SKIN LESIONS, 2 TO 4 Nov 20, 2016 TRIM SKIN LESIONS, 2 TO 4 Feb 25, 2013 TRIM SKIN LESIONS, OVER 4 Dec 17, 2021 RESULTS Name Result Date Reference Range HEMOGLOBIN A1C (GLYCOHEMOGLOBIN) 2021-08-06 TOTAL HEMOGLOBIN (HGBA1C) 9 HEMOGLOBIN A1C (HH) HEMOGLOBIN A1C % (HH) ESTIMATED AVG GLUCOSE Hemoglobin A1c Hemoglobin A1c unknown REASON FOR VISIT Insurance Providers [facility] Member Patient Patient Patient Patient Patient Subscriber Subscriber Subscriber Group Insurance Plan Plan Plan Plan ID Relationship Address Phone Name Date of ID Name Date of No Type Insurance Insurance Insurance Coverage to Subscriber Address Phone Name Dates Medicare National [id number] Medicare self [place] [id number] Govt Sv[address] [employer] [facility] [address] [place] [address] [employer] [phone] [employer] self [place] [phone] [id number] Kenneth [phone] [facility] [address] MEDICAL (GENERAL) HISTORY Type Description Date Medical History diabetic type ll Medical History high blood pressure Surgical History bladder surgery 03/11/2013
[2022-01-05 11:48] VITALS: BP 134/58; PULSE 68; RESP 16; O2SAT 97
[2022-01-05] MEDS: oxyCODONE HCl Immed Release 5 MG TABLET 2.5 MG PO ×2 (11:50→13:13)
[2022-01-05] MEDS: Acetaminophen 325 MG TABLET 975 MG PO (13:13)
--- NOTE | 2022-01-05 13:53 | PC.NURSE ---
Provider does not want paatient on monitor at this time.
--- NOTE | 2022-01-05 14:19 | PM.CNCAR ---
History of Present Illness History of Present Illness Date of Service: 01/05/22 Requesting physician: Rey Garcia Chief complaint: back pain, pericardial effusion Narrative: 81-year-old female who is presenting from low back pain and sciatica. She had abdominal CT scan to rule out abdominal aortic aneurysm as cause for back pain which showed pericardial effusion and this was confirmed on the CT chest. She is denying any dizziness, shortness of breath or syncope. She is complaining of low back pain and is receiving some medications for that. Denying any other symptoms. No pleuritic chest pain recently. She had a small pericardial effusion previously on the CT scan from 2013. [facility] Past Medical History Medical History Back pain CVA (cerebral vascular accident) Diabetes History of mammogram HTN (hypertension) Hyperlipidemia Family History Family History Father Unknown family medical history Mother Unknown family medical history Surgical History Surgical History H/O colonoscopy No pertinent past surgical history Social History Social History Housing: House Alcohol intake: never Patient Tobacco Use Status: Never used Tobacco e-Cigarette/Vaping Use: Never Used Advance Directives: Yes Advance Directives Information Provided: Yes Advance Directives on File: No Current occupational status: retired Cognitive needs: No Hearing needs: No Vision needs: Yes Meds Allergies Allergy/AdvReac Type Severity Reaction Status Date / Time Iodinated Contrast Media Allergy Unknown ANAPHYLAXIS Verified 01/04/22 10:55 [IV CONTRAST] Home Medications Medication Instructions Recorded Confirmed Last Taken Type blood sugar diagnostic #10 ea 03/22/20 01/04/22 Unknown History aspirin 325 mg tablet 325 mg PO DAILY 03/15/21 01/04/22 Unknown History Physical Exam Vital Signs: Vital Signs: Last Vital Signs Temp 97.2 F 01/05/22 09:35 Pulse 68 01/05/22 11:48 Resp 16 01/05/22 11:48 BP 134/58 L 01/05/22 11:48 Pulse Ox 97 01/05/22 11:48 O2 Del Method 01/05/22 11:48 BMI result Body Mass Index 25.7 GENERAL APPEARANCE: in no acute distress, pleasant. NECK: no carotid bruit, no jugular venous distention. SKIN: no suspicious lesions, warm and dry. HEART: no murmurs, regular rate and rhythm. LUNGS: clear to auscultation bilaterally. ABDOMEN: soft, nontender. EXTREMITIES: no edema. PERIPHERAL PULSES: equal. NEUROLOGIC: No gross deficits, AAO X 3 Objective Imaging Radiologist's impression: Impressions Abdomen/Pelvis CT 01/05/22 10:26 IMPRESSION: Normal caliber abdominal aorta. No aneurysm or retroperitoneal hemorrhage. Degenerative changes of the spine. Diverticulosis and constipation. Duplicated left renal collecting system. Limited evaluation of the gallbladder due to respiratory motion artifact. There is high attenuation in the gallbladder. The gallbladder is normal in size. This could be better evaluated with ultrasound if clinically indicated. Moderate pericardial effusion increased in size from previous exam from 2014. Fleischner guidelines were followed. Chest CT 01/05/22 10:40 IMPRESSION: Moderate to large simple fluid density pericardial effusion increased from remote priors with mild cardiomegaly. Recommend correlation with echocardiogram. Diffuse mild bronchial wall thickening suggesting airways inflammation with right upper lobe predominant bronchiectasis. Few tiny noncalcified pulmonary micronodules. Assuming patient has no history of malignancy, recommend follow-up per Fleischner Society recommendations. According to the UPDATED 2017 Fleischner Society recommendations, the advised followup imaging for solid nodules < 6 mm is: LOW RISK PATIENT: No routine follow up. HIGH RISK PATIENT: Optional CT at 12 months. Assessment and Plan (1) Pericardial effusion: Status: Acute Plan Pleasant 81-year-old female who previously had small pericardial effusion based on CT scan in 2014 who is presenting with back pain and did not leave was found to have a moderate to large-sized pericardial effusion by CT scan. Clinically she does not have any symptoms/signs of tamponade. She does not have any symptoms of pericarditis 2. I would do an EKG to make sure there is no changes of pericarditis. Will recommend an echocardiogram and we will arrange this today to understand if there is any tamponade physiology. If there is tamponade physiology then she will need drainage of pericardial fluid and to be sent for appropriate studies. Would review the echocardiogram and then give further recommendations. Thank you for allowing me to participate in the care of your patient. Please feel free to contact me if you have any questions. Procedures Date of Service Date of Service: 01/05/22
--- NOTE | 2022-01-05 14:24 | CA_ITS ---
Transthoracic Echocardiogram Patient (Last, First, Middle): Madeline Duff J Gender: Female Date of : 1940 Age: 81 Procedure Date: 01/05/2022 Procedure Type: Transthoracic Echocardiogram Location: ER Height: 160.02 cm Weight: 65.77 kg BSA: 1.69 m2 Heart Rate: bpm BP: 134 / 58 mmHg Hat Blocking Machine Operator: MIRIAM Dry Talc Racker: Jc Avila MD Symptoms: Pericardial effusion ECG Rhythm: Sinus Conclusions: - Normal left ventricular cavity size. There is mildly increased left ventricular wall thickness. The left ventricular systolic function is hyperdynamic. The visually estimated ejection fraction is >70%. - Spectral Doppler is indicative of an impaired relaxation filling pattern. E/E prime ratio is >15, consistent with elevated filling pressures. - Normal right ventricular cavity size and systolic function. - Small to moderate circumferential pericardial effusion is present. No tamponade physiology is noted. Findings Left Ventricle Normal left ventricular cavity size. There is mildly increased left ventricular wall thickness. The left ventricular systolic function is hyperdynamic. The visually estimated ejection fraction is >70%. There is no evidence of regional wall motion abnormalities. Abnormal diastolic function is noted. Spectral Doppler is indicative of an impaired relaxation filling pattern. E/E prime ratio is >15, consistent with elevated filling pressures. Right Ventricle Normal right ventricular cavity size and systolic function. Atria The left atrium is likely dilated. Aortic Valve There is a normal trileaflet aortic valve. There is mild calcification of the aortic valve. There is no aortic valve stenosis. There is no aortic valve regurgitation. Mitral Valve There is moderate mitral annular calcification. There is no mitral valve regurgitation. There is no mitral valve stenosis. Pulmonic Valve The pulmonic valve is likely normal. Tricuspid Valve Normal tricuspid valve structure and function. There is trace tricuspid valve regurgitation. Tricuspid regurgitation envelope is inadequate for calculation of right ventricular systolic pressure. Normal right atrial pressure. Great Vessels All visible segments of the aorta are normal in size. The visualized portions of the pulmonary artery and branches are normal. Venous The inferior vena cava is normal in size and collapses less than 50% with inspiration. Pericardium/Pleural Small to moderate circumferential pericardial effusion is present. No tamponade physiology is noted. Measurements 2D Linear Measurements IVSd: 1.10 0.6-0.9/0.6-1.0 cm LVIDd: 4.04 3.9-5.3/4.2-5.9 cm LVIDd Index: 2.39 2.4-3.2/2.2-3.1 cm/m2 LVIDs: 2.80 2.0-3.6 cm LVPWd: 0.98 0.7-1.1 cm LA Diam: 3.00 2.7-3.8/3.0-4.0 cm LAIDs Index: 1.78 1.5-2.3 cm/m2 LV Mass: 169.81 67-162/88-224 g LV Mass Index: 100.48 43-95/49-115 g/m2 LVOT Diam: 1.90 3.0+(-)1.3 cm 2D Systolic Function EF 4C: 78.00 >55% EF 2C: 71.80 >55% EF BiP: 74.90 >55% Mitral Valve MV VTI: 0.61 MV Pk Sina: 2.22 MV Mn Sina: 1.09 MV Pk Grad: 20.00 MV Mn Grad: 6.00 MV Pk E: 1.72 MV PK A: 1.03 MV Decel Time: 268.00 E/A: 1.70 E'Lateral: 3.48 E'Medial: 4.03 E/E' Med: 42.70 E/E' Lat: 49.40 PHT: 78.00 MVA PHT: 2.82 MVA Continuity: 1.18 Decel [place]: 6.41 Aortic Valve AoV Pk Sina: 1.20 AoV Mn Sina: 0.81 AoV VTI: 0.27 AoV Pk Grad: 6.00 Aov Mn Grad: 3.00 MARTIN Cont.VTI: 2.69 LVOT LVOT Pk Sina: 1.00 LVOT Mn Sina: 0.65 LVOT VTI: 0.25 LVOT Pk Grad: 4.00 LVOT Mn Grad: 2.00 LVOT Diam: 1.90 LVOT Area: 2.84 Diastolic Function MV Pk E: 1.72 MV Pk A: 1.03 E/A: 1.70 E'Medial: 4.03 E/E' Med: 42.70 E' Laterial: 3.48 E/E' Lat: 49.40 Tricuspid Valve TR Pk Sina: 2.55 TR Pk Grad: 26.00 Great Vessels Aorta Ao Asc: 3.50 2.1-3.4 cm Updated in Other Vendor System with Status of Final Jc Avila MD electronically signed on 01/05/2022 4:15:08 PM with status of Final
[2022-01-05 15:45] VITALS: BP 148/61; PULSE 57; RESP 16; TEMP 36.8; O2SAT 95
[2022-01-05 16:47] LABS: C Reactive Protein 0.02 mg/dL (< or = 0.50); Rheumatoid Factor 29.4 IU/mL (<15.0)
[2022-01-05 17:09] LABS: TSH reflex Free T4 1.51 uIU/mL (0.32-4.0)
== END 2022-01-05 17:11 | disposition home or self-care (01) ==
PROVIDERS: Physician Assistant Medical; Emergency Provider Emergency Medicine; PCP Internal Medicine
DX: M54.50 Low back pain, unspecified (principal); I31.39 Other pericardial effusion (noninflammatory); E11.9 Type 2 diabetes mellitus without complications; I10 Essential (primary) hypertension; E78.5 Hyperlipidemia, unspecified; Z86.73 Personal history of transient ischemic attack (TIA), and cerebral infarction without residual deficits; Z79.4 Long term (current) use of insulin; Z79.899 Other long term (current) drug therapy; Z79.02 Long term (current) use of antithrombotics/antiplatelets
CPT/HCPCS: 36415; 71250; 74176; 84443; 86140; 86431; 93306; 99284

== ENCOUNTER 2022-01-25 07:53 | Outpatient (REF) | payer MEDICARE, SELFPAY ==
[2022-01-25 10:53] LABS: MANUAL DIFF FLAG NO
[2022-01-25 10:59] LABS: Basophils Absolute Auto 0.1 X10*3/uL (0.0-0.2); Basophils Percent Auto 0.5 % (0-2); Eosinophils Absolute Auto 0.2 X10*3/uL (0.0-0.4); Eosinophils Percent Auto 2.1 % (0-4); Hematocrit 46.3 % (37.0-47.0); Hemoglobin 15.6 g/dl (12.0-16.0); Imm Gran Abs Auto 0.03 X10*3/uL (0.00-0.03); Imm Gran Pct Auto 0.3 % (0.0-0.4); Lymphocytes Absolute Auto 2.7 X10*3/uL (1.2-4.9); Mean Corpuscular HGB Conc 33.7 g/dl (31.0-35.0); Mean Corpuscular Hemoglobin 29.5 pg (27.0-33.0); Mean Corpuscular Volume 87.5 fL (80.0-98.0); Mean Platelet Volume 9.4 fL (9.4-12.3); Monocytes Absolute Auto 1.1 X10*3/uL (0.1-1.2); Monocytes Percent Auto 9.3 % (2-11); Neutrophils Absolute Auto 7.6 x10*3/uL (2.0-8.3); Neutrophils Percent Auto 64.8 % (45-73); Platelet Count 330 X10*3/uL (160-400); Red Blood Count 5.29 X10*6/uL (4.20-5.50); White Blood Count 11.7 X10*3/uL (4.8-10.8)
[2022-01-25 11:10] LABS: Estimated Average Glucose 151 mg/dL; Hemoglobin A1c % 6.9 %
[2022-01-25 11:17] LABS: Alanine Aminotransferase 16 U/L (0-31); Alkaline Phosphatase 79 U/L (39-117); Anion Gap 17 (12-20); Aspartate Amino Transferase 19 U/L (5-31); Bilirubin Total 1.2 mg/dL (0.0-1.0); Blood Urea Nitrogen 22 mg/dL (9-16); Calcium 9.4 mg/dL (8.4-10.2); Carbon Dioxide 27 mmol/L (22-29); Chloride 99 mmol/L (96-108); Cholesterol 113 mg/dL; Estimated Glomerular Filt Rate > 60; Glucose Fasting 164 mg/dL (60-99); HDL Cholesterol 41 mg/dL; LDL Cholesterol Calculated 55 mg/dl; Potassium 4.3 mmol/L (3.3-5.1); Sodium 139 mmol/L (135-145); Total Protein 7.4 g/dL (6.5-8.0); Triglycerides 88 mg/dL
== END 2022-01-25 07:54 | disposition home or self-care (01) ==
LOC: HO.10HDL 07:53
PROVIDERS: Visit Provider Internal Medicine
DX: E11.9 Type 2 diabetes mellitus without complications (principal); E78.5 Hyperlipidemia, unspecified; I10 Essential (primary) hypertension
CPT/HCPCS: 36415; 80053; 80061; 83036; 85025

== ENCOUNTER → 2022-03-06 07:35 | Outpatient (REF) | payer MEDICARE, SELFPAY ==
--- NOTE | 2022-03-06 07:46 | CA_ITS ---
Transthoracic Echocardiogram Patient (Last, First, Middle): Madeline Duff J Gender: Female Date of : 1940 Age: 81 Procedure Date: 03/06/2022 Procedure Type: Transthoracic Echocardiogram Location: OP Height: 160.02 cm Weight: 61.24 kg BSA: 1.64 m2 Heart Rate: bpm BP: 120 / 60 mmHg Boiler Engineer: TO Referring MD: Jc Avila MD Dining Room Maid: Jc Avila MD Symptoms: I31.3 - Pericardial effusion (noninflammatory) Study Quality: Fair Conclusions: - There are no definitive echocardiographic findings of tamponade physiology. Small to moderate circumferential pericardial effusion noted. Findings Left Ventricle Normal left ventricular cavity size. The left ventricular systolic function is hyperdynamic. The visually estimated ejection fraction is >70%. Right Ventricle Normal right ventricular cavity size and systolic function. Pericardium/Pleural There are no definitive echocardiographic findings of tamponade physiology. Small to moderate circumferential pericardial effusion noted. Prior Study Comparison No significant change compared to prior study dated: 01/05/2022. Measurements Tricuspid Valve RA Press: 3.00 Updated in Other Vendor System with Status of Final Jc Avila MD electronically signed on 03/07/2022 3:42:15 PM with status of Final
== END ==
LOC: HO.CARD 07:35
PROVIDERS: PCP Internal Medicine; Visit Provider Internal Medicine Cardiovascular Disease
DX: I31.39 Other pericardial effusion (noninflammatory) (principal)
CPT/HCPCS: 93308

== ENCOUNTER 2022-03-08 | Outpatient (REF) | payer MEDICARE, SELFPAY | END 2022-03-08 00:01 | disposition home or self-care (01) | LOC: CF | PROVIDERS: Visit Provider Physician Assistant | DX: M53.3 Sacrococcygeal disorders, not elsewhere classified (principal); M54.30 Sciatica, unspecified side; G89.29 Other chronic pain; E11.9 Type 2 diabetes mellitus without complications; I10 Essential (primary) hypertension; E78.5 Hyperlipidemia, unspecified | CPT/HCPCS: 99202 ==

== ENCOUNTER 2022-04-24 09:00 | Outpatient (RCR) | payer MEDICARE, SELFPAY ==
[2022-03-20 09:48] VITALS: BP 141/65; PULSE 65
--- NOTE | 2022-03-20 10:48 | MHC.PT.EP ---
[facility] [place] Office [place] Office [place] Office [address] Vijay Coon [address] [phone] F: [phone] F: [phone] F: [phone] F: [phone] Physical Therapy Plan of Care Date of Evaluation: Date of Surgery: NA Diagnosis: Sciatica Assessment: Madeline is a 81 year old female who is referred to PT for sciatica . She reports of having sudden onset of pain in L glute which has been radiating down her L LE about 2 months back. She denies any trauma or falls. On PT examination she presented with TTP over L SI joint, L border of sacrum 5/10 pain in L LE with standing and walking, decreased lumbar ROM, decreased muscle strength, altered posture, altered SI symmetry, and altered gait. She lives with her daughter and is independent with all ADLS but modifies them due to pain. She would benefit from skilled PT to address the aforementioned impairments and improve tolerance to functional activities. Frequency and Duration: The patient will be seen 2/week for 5 weeks Short Term Goals: 1. Pt will have 50% decrease in pain which will enable to walk for 20 minutes in 2 weeks. 2. Pt will be able to move trunk through all planes of motion without pain which will enable her to dress her lower body without pain in 3 weeks. Light Bulb Tester Goals: 1. Pt will demonstrate an increase in muscle strength by 1 grade which will help her walk and negotiate stairs without pain in 5 weeks. 2. Pt will be independent with [facility] for symptom management and maintenance following d/c in 5 weeks. Treatment Plan: Modalities to reduce pain, spasms and effusion. Manual therapy to restore motion and function. Therapeutic exercise to improve strength and flexibility. Neuromuscular re-education for posture and balance. Therapeutic activities to return to functional activities of daily living. Electronically signed by: Mirtha Menezes PT DPT Please sign and return to therapist. Thank you for your referral.
--- NOTE | 2022-05-07 15:38 | MHC.PT.DC ---
[facility] [place] Office [place] Office [place] Office [address] Vijay Coon [address] [phone] F: [phone] F: [phone] F: [phone] F: [phone] Physical Therapy Discharge Report Diagnosis: Sciatica Date of Surgery: NA Date of Evaluation: 03/20/22 Date of Discharge: 05/07/22 Treatments to Date: 8 Cancellations to Date: 0 No Shows to Date: Discharge Status: Discharge Summary: 04/24 pt has attended 8 sessions of PT. Pt continues to report her pain when walking. pt has a HEP she reports doing at home however unable to demonstrate exercises in session. D/C today. Pt Ed to check back with her MD as needed. Electronically signed by: Mirtha Menezes PT DPT Please sign and return to therapist. Thank you for your referral.
== END 2022-05-07 15:38 | disposition home or self-care (01) ==
LOC: HO.PT 09:00
PROVIDERS: PCP Internal Medicine; Visit Provider Physician Assistant
DX: M54.30 Sciatica, unspecified side (principal); M70.62 Trochanteric bursitis, left hip
CPT/HCPCS: 97110; 97112; 97140; 97161

== ENCOUNTER 2022-08-19 08:23 | Outpatient (REF) | payer MEDICARE, SELFPAY ==
[2022-08-19 10:37] LABS: MANUAL DIFF FLAG NO
[2022-08-19 10:47] LABS: Basophils Absolute Auto 0.1 X10*3/uL (0.0-0.2); Basophils Percent Auto 0.4 % (0-2); Eosinophils Absolute Auto 0.4 X10*3/uL (0.0-0.4); Eosinophils Percent Auto 3.2 % (0-4); Hematocrit 39.2 % (37.0-47.0); Imm Gran Abs Auto 0.04 X10*3/uL (0.00-0.03); Imm Gran Pct Auto 0.3 % (0.0-0.4); Lymphocytes Absolute Auto 2.5 X10*3/uL (1.2-4.9); Lymphocytes Percent Auto 20.7 % (20-40); Mean Corpuscular HGB Conc 33.2 g/dl (31.0-35.0); Mean Corpuscular Volume 87.5 fL (80.0-98.0); Mean Platelet Volume 9.9 fL (9.4-12.3); Monocytes Absolute Auto 1.1 X10*3/uL (0.1-1.2); Monocytes Percent Auto 9.1 % (2-11); Neutrophils Absolute Auto 8.1 x10*3/uL (2.0-8.3); Neutrophils Percent Auto 66.3 % (45-73); Platelet Count 288 X10*3/uL (160-400); Red Blood Count 4.48 X10*6/uL (4.20-5.50); Red Cell Distribution Width 13.2 % (11.0-16.0); White Blood Count 12.3 X10*3/uL (4.8-10.8)
[2022-08-19 11:11] LABS: Alanine Aminotransferase 12 U/L (0-31); Albumin Level 3.4 g/dL (3.5-5.0); Alkaline Phosphatase 94 U/L (39-117); Anion Gap 10 (12-20); Aspartate Amino Transferase 15 U/L (5-31); Bilirubin Total 0.8 mg/dL (0.0-1.0); Blood Urea Nitrogen 20 mg/dL (9-16); Calcium 8.6 mg/dL (8.4-10.2); Carbon Dioxide 27 mmol/L (22-29); Chloride 107 mmol/L (96-108); Estimated Glomerular Filt Rate > 60; Glucose Fasting 161 mg/dL (60-99); Potassium 4.3 mmol/L (3.3-5.1); Sodium 140 mmol/L (135-145); Total Protein 6.7 g/dL (6.5-8.0)
[2022-08-19 11:22] LABS: TSH reflex Free T4 1.73 uIU/mL (0.32-4.0)
[2022-08-19 11:41] LABS: Creatinine Urine 109.34 mg/dL
[2022-08-19 12:29] LABS: Estimated Average Glucose 160 mg/dL; Hemoglobin A1c % 7.2 %
== END 2022-08-19 08:24 | disposition home or self-care (01) ==
LOC: HO.10HDL 08:23
PROVIDERS: Visit Provider Internal Medicine
DX: E11.9 Type 2 diabetes mellitus without complications (principal); E78.5 Hyperlipidemia, unspecified; I10 Essential (primary) hypertension
CPT/HCPCS: 36415; 80053; 82043; 83036; 84443; 85025

== ENCOUNTER 2022-08-20 09:16 | Outpatient (REF) | payer MEDICARE, SELFPAY ==
--- NOTE | ~2022-08-20 | XR_ITS ---
EXAMINATION: XR KNEE, LEFT CLINICAL INFORMATION: Pain COMPARISON: Previous x-ray September 2013 TECHNIQUE: Two views of the left knee. FINDINGS: Osteopenia. Bone alignment is normal. No fracture or dislocation. Joint spaces are normal. Osteophyte at the quadriceps tendon insertion to the patella and patellar tendon insertion. No joint effusion. Soft tissue arterial calcification. XR/XR knee LT 2V IMPRESSION: Osteopenia. Atherosclerotic disease.
== END 2022-08-20 09:17 | disposition home or self-care (01) ==
LOC: HO.HMGCX 09:16
PROVIDERS: PCP Internal Medicine; Visit Provider Internal Medicine
DX: M25.562 Pain in left knee (principal)
CPT/HCPCS: 73560

== ENCOUNTER 2022-10-02 08:00 | Outpatient (RCR) | payer MEDICARE, SELFPAY | END 2022-11-25 09:03 | disposition home or self-care (01) | LOC: HO.PT 08:00 | PROVIDERS: PCP Internal Medicine; Visit Provider Internal Medicine | DX: M25.562 Pain in left knee (principal) | CPT/HCPCS: 97110; 97161 ==

== ENCOUNTER 2022-12-13 07:55 | Outpatient (REF) | payer MEDICARE, SELFPAY ==
[2022-12-13 10:25] LABS: MANUAL DIFF FLAG NO
[2022-12-13 10:32] LABS: Basophils Absolute Auto 0.1 X10*3/uL (0.0-0.2); Basophils Percent Auto 0.6 % (0-2); Eosinophils Absolute Auto 0.3 X10*3/uL (0.0-0.4); Eosinophils Percent Auto 3.4 % (0-4); Hematocrit 41.2 % (37.0-47.0); Hemoglobin 13.4 g/dl (12.0-16.0); Imm Gran Abs Auto 0.02 X10*3/uL (0.00-0.03); Imm Gran Pct Auto 0.2 % (0.0-0.4); Lymphocytes Absolute Auto 2.6 X10*3/uL (1.2-4.9); Lymphocytes Percent Auto 26.7 % (20-40); Mean Corpuscular HGB Conc 32.5 g/dl (31.0-35.0); Mean Corpuscular Hemoglobin 29.3 pg (27.0-33.0); Mean Platelet Volume 10.1 fL (9.4-12.3); Monocytes Absolute Auto 1.1 X10*3/uL (0.1-1.2); Monocytes Percent Auto 11.4 % (2-11); Neutrophils Absolute Auto 5.7 x10*3/uL (2.0-8.3); Neutrophils Percent Auto 57.7 % (45-73); Platelet Count 284 X10*3/uL (160-400); Red Blood Count 4.58 X10*6/uL (4.20-5.50); Red Cell Distribution Width 14.9 % (11.0-16.0); White Blood Count 9.9 X10*3/uL (4.8-10.8)
[2022-12-13 10:46] LABS: Alanine Aminotransferase 17 U/L (0-31); Albumin Level 3.8 g/dL (3.5-5.0); Alkaline Phosphatase 84 U/L (39-117); Anion Gap 12 (12-20); Aspartate Amino Transferase 20 U/L (5-31); Bilirubin Total 1.2 mg/dL (0.0-1.0); Blood Urea Nitrogen 22 mg/dL (9-16); Calcium 9.4 mg/dL (8.4-10.2); Carbon Dioxide 28 mmol/L (22-29); Chloride 106 mmol/L (96-108); Cholesterol 131 mg/dL (<200); Estimated Glomerular Filt Rate > 60; Glucose Fasting 117 mg/dL (60-99); HDL Cholesterol 47 mg/dL (>40); LDL Cholesterol Calculated 71 mg/dL (<100); Potassium 4.1 mmol/L (3.3-5.1); Sodium 142 mmol/L (135-145); Total Protein 7.2 g/dL (6.5-8.0); Triglycerides 68 mg/dL (<150)
[2022-12-13 10:48] LABS: Estimated Average Glucose 151 mg/dL; Hemoglobin A1c % 6.9 % (<6.0)
== END 2022-12-13 07:56 | disposition home or self-care (01) ==
LOC: HO.10HDL 07:55
PROVIDERS: Visit Provider Internal Medicine
DX: I10 Essential (primary) hypertension (principal); E78.5 Hyperlipidemia, unspecified; E11.9 Type 2 diabetes mellitus without complications
CPT/HCPCS: 36415; 80053; 80061; 83036; 85025

== ENCOUNTER 2022-12-16 08:12 | Outpatient (AMB) | payer MEDICARE, SELFPAY ==
[2022-12-16 08:21] VITALS: BP 128/66; PULSE 63; O2SAT 95; BMI 24.8
--- NOTE | 2022-12-16 08:25 | AM.OFFVISMDC ---
Intake Vital Signs 12/16/22 08:21 12/16/22 08:30 Height 5 ft 3 in Weight 140 lb BMI 24.8 24.8 BP 128/66 Blood Pressure Location Lt brachial Position Sitting Pulse 63 Pulse Source Pulse Oximeter Pulse Oximetry (%) 95 Oxygen Delivery Method Room Air Intake Visit Reasons: SWV G0439 Allergies Iodinated Contrast Media [IV CONTRAST] Allergy (Unknown, Verified 12/16/22 08:25) ANAPHYLAXIS Medication List - Last Reconciled 12/16/22 by Yola Rowell MD acetaminophen 1,000 mg (2 x 500 mg) PO QID PRN amlodipine 5 mg PO DAILY aspirin 325 mg PO DAILY atorvastatin 80 mg PO DAILY blood sugar diagnostic As directed calamine phenolated 1 appl topical TID PRN carvedilol 25 mg PO BID [Custom heat molded inserts 3 pair] docusate sodium (Colace) 100 mg PO BID PRN donepezil 5 mg PO DAILY [extra depth diabetic shoes 1 pair] insulin glargine (Basaglar KwikPen U-100 Insulin) 30 units (0.3 mL) subcut QAM lidocaine 4% 1 patch topical Q24H PRN lisinopril 40 mg PO DAILY metformin 1,000 mg PO BID pen needle, diabetic Use to inject insulin twice a day HPI SWV G0439 HPI Details Pt presents for ANNUAL Initiated the conversation about Advanced Directives. Advanced Directives help? patients prepare for current and future decisions about their medical treatment? and place of care. Discussed with patient that it is a process where a patients? current condition and prognosis are reviewed, their wishes for information? regarding their illness are elicited, and likely medical dilemmas are presented? and options discussed. The form can be amended as needed, reviewed yearly and? make changes as needed IPPE/AWV ? year old presents? for her ? Annual? Wellness Visit, initial visit.? Medical / Social History Reviewed? Past Medical History ?Yes? . ? [place]? of Care / Care Team list updated ?Yes . ? Surgical/Hospitalization? History ?Yes . ? Current Medications? (including OTC and supplements) ?Yes . ? Family History ?Yes? . ? Tobacco? Control form ?Yes . ? AUDIT-C (Alcohol use) form? ?Yes . ? Illicit drug use in Social? History ?Yes . ? Current diagnosis of? depression? ?No ? Appropriate PHQ2/PHQ9? completed ?Yes . ? Data entered by ?Medical? Plan Examiner and reviewed by provider ? Fall Risk ? Fall? History? Have you had any falls with? injury in the past year? ?No . ? Have you had two or more? falls in the past year? ?No . ? Fall Risk Assessment: ?No? falls in the past year . ? HRA filled out by? the patient, reviewed by Provider and scanned. ? IPPE/AWV ? Balance? Romberg? ?Yes . ? Tandem? walk ?Yes . ? Walk and? Turn ?Yes . ? Rise from? sit to stand ?Yes . ?Vision? Corrective? lens ?Yes ? Vision? screen ? Up-to-date, has an appointment [] for vision? screening and glaucoma screening ?Hearing? Whisper? test ?pass .? Initiated the conversation about Advanced Directives. Advanced Directives help? patients prepare for current and future decisions about their medical treatment? and place of care. Discussed with patient that it is a process where a patients? current condition and prognosis are reviewed, their wishes for information? regarding their illness are elicited, and likely medical dilemmas are presented? and options discussed. The form can be amended as needed, reviewed yearly and? make changes as needed Written? Plan?Completed. See Patient? Documents. [facility] Medical History Back pain CVA (cerebral vascular accident) Diabetes History of mammogram HTN (hypertension) Hyperlipidemia Surgical History H/O colonoscopy No pertinent past surgical history Family History Father Unknown family medical history Mother Unknown family medical history Social History Housing: House Alcohol intake: never Patient Tobacco Use Status: Never used Tobacco e-Cigarette/Vaping Use: Never Used Current occupational status: retired Cognitive needs: No Hearing needs: No Vision needs: Yes Questionnaire Medicare Wellness Checkup What is your age?: 80 or older What gender do you identify with?: female During the past 4 weeks, how much have you been bothered by emotional problems such as feeling anxious, depressed, irritable, sad or downhearted, and blue?: not at all During the past 4 weeks, has your physical & emotional health limited your social activities with family, friends, neighbors, or groups?: not at all During the past 4 weeks, how much bodily pain have you generally had?: mild pain During the past 4 weeks, was someone available to help you if you needed & wanted help?: yes, as much as I wanted During the past 4 weeks, what was the hardest physical activity you could do for at least 2 minutes?: very heavy Can you get to places out of walking distance without help? (For eg., can you travel alone on buses, taxis or drive your car?): Yes Can you go shopping for groceries or clothes without someone's help?: Yes Can you prepare your own meals?: Yes Can you do your housework without help?: Yes Because of any health problems, do you need the help of another person with your personal care needs such as eating, bathing, dressing or getting around the house?: No Can you handle your own money without help?: Yes During the past 4 weeks, how would you rate your health in general?: fair During the past 4 weeks how have things been going for you?: pretty well Are you having difficulties driving your car?: no Do you always fasten your seat belt when you are in a car?: yes, usually During past 4 weeks, have you been bothered by the following: never: Falling or dizzy when standing up, Sexual problems?, Trouble eating well?, Teeth or denture problems? and Problems using the telephone? and seldom: Tiredness or fatigue? Have you fallen 2 or more times in the past year?: No Are you afraid of falling?: Yes Are you a smoker?: no During the past 4 weeks, how many drinks of wine, beer, or other alcoholic beverages did you have?: no alcohol at all Do you exercise for about 20 minutes 3 or more times a week?: no, I usually do not exercise this much Have you been given information to help with the following?: yes: Keeping track of your medications? and no: Hazards in your house that might hurt you? How often do you have trouble taking medicines the way you have been told to take them?: I seldom take medications as prescribed How confident are you that you can control & manage most of your health problems?: very confident What is your race?: White Mini Mental State Exam (MMSE) Orientation What is the (year) (season) (date) (day) (month)?: year, season, date, day and month Where are we (state) (county) (town or city) (hospital) (floor)?: state, county, town or city and hospital/clinic Registration Name of 3 unrelated objects clearly and slowly, then ask patient to repeat all 3 of them. (1st repeat determines score. Make sure they can repeat all three): object 1, object 2 and object 3 Attention & Calculation (CHOOSE ONE) Ask pt to begin with 100 & count backward by 7. Stop after 5 repeats. If pt cannot ask them to spell the word WORLD backward.: 93 Spell WORLD backwards (DLROW): 5 letters Recall Ask patient to repeat the 3 items from question #3.: object 1, object 2 and object 3 Language Show patient a wristwatch & ask what it is. Repeat for pencil.: watch and pencil Ask the patient to repeat the phrase 'No ifs, ands, or buts' after you.: correct Ask the patient to 'take a piece of paper with their right hand' 'fold paper in half' 'place paper on floor': take paper in right hand, fold paper in half and place paper on floor Print the sentence 'CLOSE YOUR EYES' on a piece. If patient actually closes eyes then score.: followed written direction Give patient a blank piece of paper & ask to write a sentence. Score if it contains a noun & verb.: sentence contains subject and verb Ask patient to copy figure of intersecting pentagons exactly. Score if all 10 angles & 2 intersects are included.: all 10 angles present & 2 are intersected Score Score: 30 Activity of Daily Living Bathing - sponge bath, tub bath or shower: receives no assistance (gets in/out by self, if usual bathing means Dressing - getting clothes from closets & drawers, including inner/outer garments & fasteners.: gets clothes & gets completely dressed without help Toileting - going to the 'toilet room' for urine/bowel elimination & cleaning self/arranging clothes: goes to toilet room, cleans self, arranges clothes without help Transfer: moves in & out of bed and chair without help (may use support object) Continence: controls urination/bowel movements completely by self Feeding: feeds self without help Total Score: 0 Information obtained from: patient Using telephone: independent Traveling: independent Shopping: independent Preparing meals: independent Housework: independent Taking medicine: independent Managing money: independent PHQ-9 Over the last 2 weeks, how often have you been bothered by any of the following problems? 1. Little interest or pleasure in doing things: not at all 2. Feeling down, depressed, or hopeless: not at all 3. Trouble falling or staying asleep, or sleeping too much: not at all 4. Feeling tired or having little energy: several days 5. Poor appetite or overeating: not at all 6. Feeling bad about yourself - or that you are a failure or have let yourself or your family down: not at all 7. Trouble concentrating on things, such as reading the newspaper or watching television: not at all 8. Moving or speaking so slowly that other people could have noticed. Or the opposite - being so fidgety or restless that you have been moving around a lot more than usual: not at all 9. Thoughts that you would be better off or of hurting yourself in some way: not at all Total score: 1 Depression Screening Interpretation: Negative Source: Developed by Drs. Garry Lock, Amanda Donovan, Moe Mariee and colleagues, with an educational herminia from [employer]. Review of Systems Const All systems reviewed & are unremarkable except as noted in HPI and below Reports no additional complaints Eyes Reports no additional complaints ENT Reports no additional complaints Card Reports no additional complaints Resp Reports no additional complaints GI Reports no additional complaints Reports no additional complaints Physical Exam Vital Signs: Last Vital Signs Pulse 63 12/16/22 08:21 BP 128/66 12/16/22 08:21 Pulse Ox 95 12/16/22 08:21 Oxygen Delivery Method Room Air 12/16/22 08:21 BMI result Body Mass Index 24.8 Const General: comfortable HEENT Head: Yes normal to inspection Neck Neck: Yes no lymphadenopathy and Yes supple Resp Effort & Inspection: normal respiratory effort Auscultation: clear to auscultation bilaterally Cardio Rhythm: regular rhythm Heart sounds: S1 normal heart sound present and S2 normal heart sound present GI Inspection: Yes normal to inspection Palpation (GI): Soft to palpation Percussion: Yes normal to percussion Auscultation: normal bowel sounds Extrem Other: TRACE PITTING EDEMA BILATERALLY Assessment & Plan Assessment & Plan (1) Hyperlipidemia: Code(s): E78.5 - Hyperlipidemia, unspecified Plan: Continue statin (2) HTN (hypertension): Comment: goal <130/80 Code(s): I10 - Essential (primary) hypertension Plan: Continue current medications (3) Diabetes: Comment: A1C <9 Code(s): E11.9 - Type 2 diabetes mellitus without complications Plan: A1c is 6.9, continue current medications ADA diet regular physical activity, follow-up in 4 months with a month before Orders: Orders Hemoglobin A1c 4 Months E11.9 - Type 2 diabetes mellitus without complications, E78.5 - Hyperlipidemia, unspecified, I10 - Essential (primary) hypertension TSH reflex Free T4 4 Months E11.9 - Type 2 diabetes mellitus without complications, E78.5 - Hyperlipidemia, unspecified, I10 - Essential (primary) hypertension Comprehensive [place]. Panel Fast 4 Months E11.9 - Type 2 diabetes mellitus without complications, E78.5 - Hyperlipidemia, unspecified, I10 - Essential (primary) hypertension Complete Blood Count Man Dif 4 Months E11.9 - Type 2 diabetes mellitus without complications, E78.5 - Hyperlipidemia, unspecified, I10 - Essential (primary) hypertension Microalbumin, Random (w Creat) 4 Months E11.9 - Type 2 diabetes mellitus without complications, E78.5 - Hyperlipidemia, unspecified, I10 - Essential (primary) hypertension Quality Reporting (2019) Depression/Bipolar (159/160/161/177) PHQ-9: Total score: 1 Coding Level of Care Code Medicare Subsequent (G0439) Diagnoses Hyperlipidemia E78.5 HTN (hypertension) I10 Diabetes E11.9 CPT Codes Advance Care Planning - Time spent: 1-15 minutes, not on file ([id number]) Advance Care Planning Advance Care Planning discussion: Exists, not on file Forms completed: Health Care Proxy Time spent: 1-15 minutes, not on file
[2022-12-16 08:30] VITALS: BMI 24.8
== END 2022-12-16 08:53 | disposition home or self-care (01) ==
PROVIDERS: Visit Provider Internal Medicine
DX: Z00.00 Encounter for general adult medical examination without abnormal findings (principal); I10 Essential (primary) hypertension; E11.9 Type 2 diabetes mellitus without complications; E78.5 Hyperlipidemia, unspecified
CPT/HCPCS: 1124F; G0439

== ENCOUNTER 2023-04-16 08:34 | Outpatient (REF) | payer MEDICARE, SELFPAY ==
[2023-04-16 09:53] LABS: Baso%MD 0.6 %; Eos%MD 2.9 %; Hematocrit 41.7 % (37.0-47.0); Hemoglobin 13.9 g/dl (12.0-16.0); IG%MD 0.3 %; Lymph%MD 24.6 %; Mean Corpuscular HGB Conc 33.3 g/dl (31.0-35.0); Mean Corpuscular Hemoglobin 29.1 pg (27.0-33.0); Mean Corpuscular Volume 87.4 fL (80.0-98.0); Mean Platelet Volume 10.3 fL (9.4-12.3); Mono%MD 9.9 %; Neut%MD 61.7 %; Platelet Count 245 X10*3/uL (160-400); Red Blood Count 4.77 X10*6/uL (4.20-5.50); Red Cell Distribution Width 13.6 % (11.0-16.0); White Blood Count 10.1 X10*3/uL (4.8-10.8)
[2023-04-16 10:11] LABS: Estimated Average Glucose 160 mg/dL; Hemoglobin A1c % 7.2 % (<6.0)
[2023-04-16 10:58] LABS: Creatinine Urine 82.44 mg/dL; Microalbum/Creatinine Ratio Ur 61.8 ug/mg cr (<30)
[2023-04-16 11:01] LABS: Alanine Aminotransferase 12 U/L (0-31); Albumin Level 3.8 g/dL (3.5-5.0); Alkaline Phosphatase 78 U/L (39-117); Anion Gap 13 (12-20); Aspartate Amino Transferase 17 U/L (5-31); Bilirubin Total 0.9 mg/dL (0.0-1.0); Blood Urea Nitrogen 25 mg/dL (9-16); Calcium 9.2 mg/dL (8.4-10.2); Carbon Dioxide 25 mmol/L (22-29); Chloride 107 mmol/L (96-108); Estimated Glomerular Filt Rate > 60; Glucose Fasting 146 mg/dL (60-99); Potassium 4.1 mmol/L (3.3-5.1); Sodium 141 mmol/L (135-145); Total Protein 7.6 g/dL (6.5-8.0)
[2023-04-16 11:02] LABS: TSH reflex Free T4 2.18 uIU/mL (0.32-4.0)
[2023-04-16 11:17] LABS: Basophils Abs Manual 0.3 X10*3/uL (0.0-0.2); Basophils Percent Manual 3 % (0-2); Lymphocytes Absolute Manual 2.9 X10*3/uL (1.2-4.9); Lymphocytes Percent Manual 29 % (20-40); Monocytes Absolute Manual 0.3 X10*3/uL (0.1-1.2); Monocytes Percent Manual 3 % (2-11); Neutrophils Percent Manual 65 % (45-73)
[2023-04-16 11:18] LABS: Band Neutrophils Percent 0 % (3-5); Neutrophils Absolute Manual 6.6 X10*3/uL (2.0-8.3); Platelet Estimate NORMAL (NORMAL); Platelet Morphology Comment NORMAL; RBC Morphology NORMAL
== END 2023-04-16 08:35 | disposition home or self-care (01) ==
LOC: HO.LAB 08:34
PROVIDERS: PCP Internal Medicine; Visit Provider Internal Medicine
DX: E78.5 Hyperlipidemia, unspecified (principal); I10 Essential (primary) hypertension; E11.9 Type 2 diabetes mellitus without complications
CPT/HCPCS: 36415; 80053; 82043; 82570; 83036; 84443; 85007; 85027

== ENCOUNTER 2023-04-17 08:05 | Outpatient (AMB) | payer MEDICARE, SELFPAY ==
[2023-04-17 08:43] VITALS: BP 128/64; PULSE 62; O2SAT 95; BMI 25.3
--- NOTE | 2023-04-17 08:43 | A.OFFPC_ITS ---
Vital Signs 04/17/23 08:43 Height 5 ft 3 in Weight 143 lb BMI 25.3 BP 128/64 Blood Pressure Location Lt brachial Position Sitting Pulse 62 Pulse Source Pulse Oximeter Pulse Oximetry (%) 95 Oxygen Delivery Method Room Air Intake Visit Reasons: 4 month follow up DM Intake Note: Pt is here today for 4 months follow up visit on DM. Allergies Iodinated Contrast Media [IV CONTRAST] Allergy (Unknown, Verified 04/17/23 08:44) ANAPHYLAXIS Medication List - Last Reconciled 04/17/23 by Yola Rowell MD acetaminophen 1,000 mg (2 x 500 mg) PO QID PRN amlodipine 5 mg PO DAILY aspirin 325 mg PO DAILY atorvastatin 80 mg PO DAILY blood sugar diagnostic As directed calamine phenolated 1 appl topical TID PRN carvedilol 25 mg PO BID [Custom heat molded inserts 3 pair] docusate sodium (Colace) 100 mg PO BID PRN donepezil 5 mg PO DAILY [extra depth diabetic shoes 1 pair] insulin glargine (Basaglar KwikPen U-100 Insulin) 30 units (0.3 mL) subcut QAM lidocaine 4% 1 patch topical Q24H PRN lisinopril 40 mg PO DAILY metformin 1,000 mg PO BID pen needle, diabetic Use to inject insulin twice a day Tobacco use date assessed: 04/17/23 Fall risk assessment: No Falls in past year Last assessed Fall Risk: 04/17/23 Dental Screening Dental Screen Date: 04/17/23 Did you have a dental visit in the last 12 months?: No Did you have a dental problem in the last 6 months where you did not have access to dental care?: No Was dental information given to patient?: Patient declined HPI 4 month follow up DM HPI Details Patient presents for the follow-up of type 2 diabetes hypertension hyperlipidemia, stable on current medications PFSH Medical History Back pain CVA (cerebral vascular accident) Diabetes History of mammogram HTN (hypertension) Hyperlipidemia Surgical History H/O colonoscopy No pertinent past surgical history Family History Father Unknown family medical history Mother Unknown family medical history Social History Housing: House Alcohol intake: never Patient Tobacco Use Status: Never used Tobacco e-Cigarette/Vaping Use: Never Used Current occupational status: retired Cognitive needs: No Hearing needs: No Vision needs: Yes Questionnaire PHQ-9 Over the last 2 weeks, how often have you been bothered by any of the following problems? 1. Little interest or pleasure in doing things: not at all 2. Feeling down, depressed, or hopeless: not at all 3. Trouble falling or staying asleep, or sleeping too much: not at all 4. Feeling tired or having little energy: not at all 5. Poor appetite or overeating: not at all 6. Feeling bad about yourself - or that you are a failure or have let yourself or your family down: not at all 7. Trouble concentrating on things, such as reading the newspaper or watching television: not at all 8. Moving or speaking so slowly that other people could have noticed. Or the opposite - being so fidgety or restless that you have been moving around a lot more than usual: not at all 9. Thoughts that you would be better off or of hurting yourself in some way: not at all Total score: 0 Depression Screening Interpretation: Negative Depression Screening Done: Yes Source: Developed by Drs. Garry Lock, Amanda Donovan, Moe Mariee and colleagues, with an educational herminia from [employer]. Thrive Questionnaire Date Thrive assessed: 04/17/23 I am a: Patient What is your living situation today?: I have a steady place to live Within the past 12 months, did the food you bought not last and you didn't have the money to get more?: Never true Within the past 12 months, did you worry whether your food would run out before you got money to buy more?: Never true Do you have trouble paying for medicines?: No Do you have trouble getting transportation to medical appointments?: No Do you have trouble paying your heating and electricity bill?: No Do you have trouble taking care of your child, family member or friend?: No Do you have trouble with day-to-day activities such as bathing, preparing meals, shopping, managing finances, etc.?: No Are you currently unemployed and looking for a job?: No Are you interested in more education?: No Please select the resources that you would like help with: None Currently or been in a relationship where the following occur: no concerns reported AUDIT C Alcohol Use Questionnaire (AUDIT-C) 1. How often do you have a drink containing alcohol?: Never 3. How often do you have six or more drinks on one occasion?: Never Total Score: 0 EMILE-7 AMB Questionnaire EMILE-7 Date EMILE - 7 assessed: 04/17/23 Feeling nervous, anxious, or on edge: 0 = Not at all Not being able to stop or control worryin = Not at all Worrying too much about different things: 0 = Not at all Trouble relaxin = Not at all Being so restless that it is hard to sit still: 0 = Not at all Becoming easily annoyed or irritable: 0 = Not at all Feeling afraid as if something awful might happen: 0 = Not at all Total EMILE-7 score (0-4 normal; 5-9 mild; 10-14 moderate; 15-21 severe): 0 Source: Developed by Drs. Garry Lock, Amanda Donovan, Moe Mariee and colleagues, with an educational herminia from [employer]. Review of Systems Const All systems reviewed & are unremarkable except as noted in HPI and below Reports no additional complaints Eyes Reports no additional complaints ENT Reports no additional complaints Card Reports no additional complaints Resp Reports no additional complaints GI Reports no additional complaints Reports no additional complaints Physical exam (Primary Care) Vital Signs: Last Vital Signs Pulse 62 04/17/23 08:43 BP 128/64 04/17/23 08:43 Pulse Ox 95 04/17/23 08:43 Oxygen Delivery Method Room Air 04/17/23 08:43 BMI result Body Mass Index 25.3 Tobacco/Smoking Status: Tobacco use Status Tobacco use date assessed 04/17/23 04/17/23 09:07 Patient Tobacco Use Status Never used Tobacco 04/17/23 09:07 e-Cigarette/Vaping Use Never Used 04/17/23 08:43 PHQ-9: PHQ-9 Score PHQ-9: Total score 0 04/17/23 09:07 Depression Screening Interpretation: Negative Thrive Assessment: Date of Thrive Assessment Date Thrive assessed 04/17/23 04/17/23 09:07 Currently or been in a relationship where the following occur: no concerns reported Const General: no acute distress HENMT Head: Yes normal to inspection General nose exam: Normal external nose present Mouth: Normal oral and palatal mucosa present Eyes General: appearance normal, both eyes and all related structures Neck Neck: Yes supple Resp Effort & Inspection: normal respiratory effort Auscultation: clear to auscultation bilaterally Cardio Rhythm: regular rhythm Heart sounds: S1 normal heart sound present and S2 normal heart sound present GI Inspection: Yes normal to inspection Palpation (GI): Soft to palpation Percussion: Yes normal to percussion Auscultation: normal bowel sounds Assessment and Plan Assessment & Plan (1) Hyperlipidemia: Code(s): E78.5 - Hyperlipidemia, unspecified Plan: Continue statin (2) HTN (hypertension): Comment: goal <130/80 Code(s): I10 - Essential (primary) hypertension Plan: Continue current medications (3) Diabetes: Comment: A1C <9 Code(s): E11.9 - Type 2 diabetes mellitus without complications Plan: A1c is 7.2, continue current treatment ADA diet activity. Follow-up in 4 months with a fasting labs before Orders: Orders Hemoglobin A1c 4 Months E11.9 - Type 2 diabetes mellitus without complications, E78.5 - Hyperlipidemia, unspecified, I10 - Essential (primary) hypertension Microalbumin, Random (w Creat) 4 Months E11.9 - Type 2 diabetes mellitus without complications, E78.5 - Hyperlipidemia, unspecified, I10 - Essential (primary) hypertension Comprehensive [place]. Panel Fast 4 Months E11.9 - Type 2 diabetes mellitus without complications, E78.5 - Hyperlipidemia, unspecified, I10 - Essential (primary) hypertension Lipid Panel 4 Months E11.9 - Type 2 diabetes mellitus without complications, E78.5 - Hyperlipidemia, unspecified, I10 - Essential (primary) hypertension Complete Blood Count Auto Diff 4 Months E11.9 - Type 2 diabetes mellitus without complications, E78.5 - Hyperlipidemia, unspecified, I10 - Essential (primary) hypertension Medications: Refilled insulin glargine (Basaglar KwikPen U-100 Insulin) 30 units (0.3 mL) subcut QAM 15 mL 3RF atorvastatin 80 mg PO DAILY 90 tabs 3RF amlodipine 5 mg PO DAILY 90 tabs 3RF Coding Level of Care Code Est Pt Level 4 (11254) Diagnoses Hyperlipidemia E78.5 HTN (hypertension) I10 Diabetes E11.9
== END 2023-04-17 09:42 | disposition home or self-care (01) ==
PROVIDERS: PCP Internal Medicine; Visit Provider Internal Medicine
DX: E78.5 Hyperlipidemia, unspecified (principal); I10 Essential (primary) hypertension; E11.69 Type 2 diabetes mellitus with other specified complication
CPT/HCPCS: 99214

== ENCOUNTER 2023-08-29 07:26 | Outpatient (REF) | payer MEDICARE, SELFPAY ==
[2023-08-29 07:36] LABS: MANUAL DIFF FLAG NO
[2023-08-29 07:45] LABS: Basophils Absolute Auto 0.1 X10*3/uL (0.0-0.2); Basophils Percent Auto 0.5 % (0-2); Eosinophils Absolute Auto 0.4 X10*3/uL (0.0-0.4); Eosinophils Percent Auto 2.9 % (0-4); Hematocrit 41.5 % (37.0-47.0); Hemoglobin 13.8 g/dl (12.0-16.0); Imm Gran Abs Auto 0.05 X10*3/uL (0.00-0.03); Imm Gran Pct Auto 0.4 % (0.0-0.4); Lymphocytes Absolute Auto 2.4 X10*3/uL (1.2-4.9); Lymphocytes Percent Auto 19.7 % (20-40); Mean Corpuscular HGB Conc 33.3 g/dl (31.0-35.0); Mean Corpuscular Hemoglobin 29.6 pg (27.0-33.0); Mean Corpuscular Volume 89.1 fL (80.0-98.0); Mean Platelet Volume 9.2 fL (9.4-12.3); Monocytes Absolute Auto 1.3 X10*3/uL (0.1-1.2); Monocytes Percent Auto 10.6 % (2-11); Neutrophils Percent Auto 65.9 % (45-73); Platelet Count 264 X10*3/uL (160-400); Red Blood Count 4.66 X10*6/uL (4.20-5.50); Red Cell Distribution Width 14.1 % (11.0-16.0); White Blood Count 12.1 X10*3/uL (4.8-10.8)
[2023-08-29 08:05] LABS: Estimated Average Glucose 186 mg/dL; Hemoglobin A1c % 8.1 % (<6.0)
[2023-08-29 08:14] LABS: Alanine Aminotransferase 16 U/L (0-31); Albumin Level 3.7 g/dL (3.5-5.0); Alkaline Phosphatase 83 U/L (39-117); Anion Gap 12 (12-20); Aspartate Amino Transferase 19 U/L (5-31); Blood Urea Nitrogen 20 mg/dL (9-16); Carbon Dioxide 28 mmol/L (22-29); Chloride 107 mmol/L (96-108); Cholesterol 122 mg/dL (<200); Estimated Glomerular Filt Rate > 60; Glucose Fasting 126 mg/dL (60-99); HDL Cholesterol 41 mg/dL (>40); LDL Cholesterol Calculated 67 mg/dL (<100); Potassium 4.1 mmol/L (3.3-5.1); Sodium 143 mmol/L (135-145); Total Protein 7.4 g/dL (6.5-8.0); Triglycerides 74 mg/dL (<150)
[2023-08-29 09:27] LABS: Creatinine Urine 103.76 mg/dL; Microalbum/Creatinine Ratio Ur 35.6 ug/mg cr (<30)
== END 2023-08-29 07:27 | disposition home or self-care (01) ==
LOC: HO.LAB 07:26
PROVIDERS: PCP Internal Medicine; Visit Provider Internal Medicine
DX: I10 Essential (primary) hypertension (principal); E11.9 Type 2 diabetes mellitus without complications; E78.5 Hyperlipidemia, unspecified
CPT/HCPCS: 36415; 80053; 80061; 82043; 82570; 83036; 85025

== ENCOUNTER 2023-09-02 08:00 | Outpatient (AMB) | payer MEDICARE, SELFPAY ==
[2023-09-02 08:22] VITALS: PULSE 64; O2SAT 94; BMI 25.5
--- NOTE | 2023-09-02 08:22 | A.OFFPC_ITS ---
Vital Signs 09/02/23 08:22 Height 5 ft 3 in Weight 144 lb BMI 25.5 Pulse 64 Pulse Source Pulse Oximeter Pulse Oximetry (%) 94 Oxygen Delivery Method Room Air Intake Visit Reasons: 4 Month follow up Intake Note: Pt is here today for 4 months follow up visit. Allergies Iodinated Contrast Media [IV CONTRAST] Allergy (Unknown, Verified 09/02/23 08:29) ANAPHYLAXIS Medication List - Last Reconciled 09/02/23 by Yola Rowell MD acetaminophen 1,000 mg (2 x 500 mg) PO QID PRN amlodipine 5 mg PO DAILY aspirin 325 mg PO DAILY atorvastatin 80 mg PO DAILY blood sugar diagnostic As directed calamine phenolated 1 appl topical TID PRN carvedilol 25 mg PO BID [Custom heat molded inserts 3 pair] docusate sodium (Colace) 100 mg PO BID PRN donepezil 5 mg PO DAILY [extra depth diabetic shoes 1 pair] insulin glargine (Basaglar KwikPen U-100 Insulin) 30 units (0.3 mL) subcut QAM lidocaine 4% 1 patch topical Q24H PRN lisinopril 40 mg PO DAILY metformin 1,000 mg PO BID pen needle, diabetic Use to inject insulin twice a day Tobacco use date assessed: 09/02/23 Fall risk assessment: No Falls in past year Last assessed Fall Risk: 09/02/23 Dental Screening Dental Screen Date: 09/02/23 Did you have a dental visit in the last 12 months?: No Did you have a dental problem in the last 6 months where you did not have access to dental care?: No Was dental information given to patient?: Patient declined HPI 4 Month follow up HPI Details Pt presents for f/u DM 2, hyperlipid, HTN, stable on current medications [facility] Medical History (Updated 09/02/23 @ 14:43 by Yola Rowell MD) Back pain History of mammogram CVA (cerebral vascular accident) Diabetes Hyperlipidemia HTN (hypertension) Surgical History H/O colonoscopy No pertinent past surgical history Family History Father Unknown family medical history Mother Unknown family medical history Social History (Reviewed 09/02/23 @ 08:33 by DANY Morejon Housing: House Alcohol intake: never Patient Tobacco Use Status: Never used Tobacco e-Cigarette/Vaping Use: Never Used service: No Current occupational status: retired Cognitive needs: No Hearing needs: No Vision needs: Yes Questionnaire Thrive Questionnaire Date Thrive assessed: 04/17/23 EMILE-7 AMB Questionnaire EMILE-7 Date EMILE - 7 assessed: 04/17/23 Source: Developed by Drs. Garry Lock, Amanda Donovan, Moe Mariee and colleagues, with an educational herminia from [employer]. Review of Systems Const All systems reviewed & are unremarkable except as noted in HPI and below Eyes Reports no additional complaints ENT Reports no additional complaints Card Reports no additional complaints Resp Reports no additional complaints GI Reports no additional complaints Reports no additional complaints Physical exam (Primary Care) Vital Signs: Last Vital Signs Pulse 64 09/02/23 08:22 Pulse Ox 94 09/02/23 08:22 Oxygen Delivery Method Room Air 09/02/23 08:22 BMI result Body Mass Index 25.5 Tobacco/Smoking Status: Tobacco use Status Tobacco use date assessed 09/02/23 09/02/23 08:34 Patient Tobacco Use Status Never used Tobacco 09/02/23 08:34 e-Cigarette/Vaping Use Never Used 09/02/23 08:23 Thrive Assessment: Date of Thrive Assessment Date Thrive assessed 04/17/23 09/02/23 08:23 Const General: no acute distress HENMT Head: Yes normal to inspection Eyes General: appearance normal, both eyes and all related structures Resp Effort & Inspection: normal respiratory effort Auscultation: clear to auscultation bilaterally Cardio Rhythm: regular rhythm Heart sounds: S1 normal heart sound present and S2 normal heart sound present GI Inspection: Yes normal to inspection Palpation (GI): Soft to palpation Assessment and Plan Assessment & Plan (1) Ankle pain, left: Code(s): M25.572 - Pain in left ankle and joints of left foot Plan: Check x-ray of left ankle patient declined physical therapy (2) Hyperlipidemia: Code(s): E78.5 - Hyperlipidemia, unspecified Plan: Continue statin (3) HTN (hypertension): Comment: goal <130/80 Code(s): I10 - Essential (primary) hypertension Plan: Continue current medications (4) Diabetes: Comment: A1C <9 Code(s): E11.9 - Type 2 diabetes mellitus without complications Plan: A1c is 8.2, ADA diet increase physical activity discussed with the patient ,follow-up in 3 months with a fasting labs before Orders: Orders Microalbumin, Random (w Creat) 3 Months E11.9 - Type 2 diabetes mellitus without complications, E78.5 - Hyperlipidemia, unspecified, I10 - Essential (primary) hypertension Comprehensive [place]. Panel Fast 3 Months E11.9 - Type 2 diabetes mellitus without complications, E78.5 - Hyperlipidemia, unspecified, I10 - Essential (primary) hypertension Hemoglobin A1c 3 Months E11.9 - Type 2 diabetes mellitus without complications, E78.5 - Hyperlipidemia, unspecified, I10 - Essential (primary) hypertension Lipid Panel 3 Months E11.9 - Type 2 diabetes mellitus without complications, E78.5 - Hyperlipidemia, unspecified, I10 - Essential (primary) hypertension Coding Level of Care Code Est Pt Level 4 (00764) Diagnoses Ankle pain, left M25.572 Hyperlipidemia E78.5 HTN (hypertension) I10 Diabetes E11.9
== END 2023-09-02 11:58 | disposition home or self-care (01) ==
PROVIDERS: PCP Internal Medicine; Visit Provider Internal Medicine
DX: M25.572 Pain in left ankle and joints of left foot (principal); E78.5 Hyperlipidemia, unspecified; I10 Essential (primary) hypertension; E11.69 Type 2 diabetes mellitus with other specified complication
CPT/HCPCS: 99214

== ENCOUNTER 2023-09-02 09:20 | Outpatient (REF) | payer MEDICARE, SELFPAY ==
--- NOTE | ~2023-09-02 | XR_ITS ---
EXAMINATION: XR ANKLE, LEFT CLINICAL INFORMATION: Pain in left ankle and joints of foot. COMPARISON: None available. TECHNIQUE: AP, lateral, and mortise views of the left ankle. FINDINGS: Bones are diffusely demineralized. Extensive vascular calcifications. Large dorsal and plantar calcaneal spurs. Ankle joint effusion. Soft tissue swelling particularly along the medial aspect of the ankle. Ankle mortise maintained. Hypertrophic change with bony exostoses along the inferior aspect of the medial malleolus. Multiple ossicles along the inferior aspect of the medial malleolus of indeterminate age and etiology. Small density overlying the distal shaft of the fibula may represent a bony lesion such as a bone island versus soft tissue calcification. XR/XR ankle LT min 3V IMPRESSION: Multiple ossicles/hypertrophic change along the inferior aspect of the medial malleolus of indeterminate age and etiology. Hypertrophic change with bony exostoses along the inferior aspect of the medial malleolus. Correlation with clinical exam recommended to determine further management including possible additional imaging.
== END 2023-09-02 09:21 | disposition home or self-care (01) ==
LOC: HO.HMGCX 09:20
PROVIDERS: PCP Internal Medicine; Visit Provider Internal Medicine
DX: M25.572 Pain in left ankle and joints of left foot (principal)
CPT/HCPCS: 73610

== ENCOUNTER 2023-10-31 09:43 | Outpatient (AMB) | payer MEDICARE, SELFPAY ==
[2023-10-31 09:45] VITALS: BMI 25.5
--- NOTE | 2023-10-31 09:45 | MHC.OFFVIS ---
Vital Signs 10/31/23 09:45 Height 5 ft 3 in Weight 144 lb BMI 25.5 Intake Visit Reasons: New prob- LT ankle pain & JT of LT foot Intake Note: Madeline is a 82 year old female who presents today with her daughter for a evaluation of her left ankle pain. Patient reports off and on pain for about a year. No hx of injury. She states that her pain starts from her great toe and it radiates up to her [place]. Pain is worse when the weather changes. Patient is having numbness and tingling in her toes for about a year. Allergies Iodinated Contrast Media [IV CONTRAST] Allergy (Unknown, Verified 10/31/23 09:51) ANAPHYLAXIS poison den extract Adverse Reaction (Verified 10/31/23 09:52) Swelling HPI HPI New prob- LT ankle pain & JT of LT foot: Details: 82-year-old female who presents in the office today for an evaluation of left ankle pain. The patient was seen by her PCP on 09/02/23 with a complaint of left ankle pain. X-rays were obtained and they discussed physical therapy. However, this was declined. ? ? While in the office today, the patient reports having intermittent pain for the past year from her left foot radiating up to her left hip. She confirms numbness and tingling that also radiated up the left lower extremity. Her daughter reports the pain, numbness, and tingling are affecting her ability and willingness to ambulate. She denies any known injury. ? ? Patient is currently followed by a Site Inspector, Dr. Maza. ? ? Patient has a significant medical history of diabetes mellitus. ? ? Patient presents in the office today with her daughter Carmen, who is translating for her. Her daughter expresses issues with getting her mother to appointments. ? [facility] Medical History (Updated 10/31/23 @ 10:11 by Bridgette Hopper) Back pain History of mammogram CVA (cerebral vascular accident) Diabetes Hyperlipidemia HTN (hypertension) Surgical History H/O colonoscopy No pertinent past surgical history Family History Father Unknown family medical history Mother Unknown family medical history Social History (Reviewed 10/31/23 @ 09:52 by Yonis Salcedo Housing: House Alcohol intake: never Patient Tobacco Use Status: Never used Tobacco e-Cigarette/Vaping Use: Never Used service: No Current occupational status: retired Cognitive needs: No Hearing needs: No Vision needs: Yes Review of Systems Const All systems reviewed & are unremarkable except as noted in HPI and below Physical Exam Vital Signs: BMI result Body Mass Index 25.5 Const General: cooperative and no acute distress Orientation/consciousness: patient oriented x3 Resp Effort & Inspection: normal respiratory effort and able to speak in complete sentences Cardio Peripheral pulses: Peripheral pulses 2+ throughout Skin General skin exam: no rashes or lesions noted Neuro General: patient oriented x3 Extrem Other: Left ankle/foot: Normal to inspection. No ecchymosis, erythema, or edema. Patient is able to demonstrate dorsiflexion, plantar flexion, pronation and supination. Negative anterior drawer. Reports numbness and tingling from the lower back down to the left foot. Pedal Pulse intact.? ? Assessment & Plan Assessment & Plan (1) Osteoarthritis of left foot: Code(s): M19.072 - Primary osteoarthritis, left ankle and foot Category: Medical (2) Osteoarthritis of left ankle: Code(s): M19.072 - Primary osteoarthritis, left ankle and foot Category: Medical (3) Lumbar radiculopathy: Code(s): M54.16 - Radiculopathy, lumbar region Category: Medical Plan Ms. Duff is a 82-year-old female who presents in the office today for an evaluation of left ankle pain. The patient was seen by her PCP on 09/02/23 with a complaint of left ankle pain. X-rays were obtained and they discussed physical therapy. However, this was declined. ? ? While in the office today, the patient reports having intermittent pain for the past year from her left foot radiating up to her left hip. She confirms numbness and tingling that also radiated up the left lower extremity. Her daughter reports the pain, numbness, and tingling are affecting her ability and willingness to ambulate. She denies any known injury. ? ? Patient is currently followed by a Site Inspector, Dr. Maza. ? ? Patient has a significant medical history of diabetes mellitus. ? ? Patient presents in the office today with her daughter Carmen, who is translating for her. Her daughter expresses issues with getting her mother to appointments.? ? We discussed a referral to [facility] for possible cortisone injection. We also discussed a referral to [facility] due to the patient's daughter expressed a concern about not being able to take her mother to the appointment due to her upcoming work schedule. Her daughter declined a referral to [facility]. Therefore, a referral to [facility] was placed today. We also discussed possibly a referral to Physiatry for further evaluation of her lower back. A referral to Physiatry was made in the office today. I also let the patient and her daughter know they are able to call her current Site Inspector if they will do a cortisone injection. Follow-up will be PRN, or sooner if needed. ? ? X-rays of the left ankle, obtained on 09/02/23 revealed:? Multiple ossicles/hypertrophic change along the inferior aspect of the? medial malleolus of indeterminate age and etiology. Hypertrophic change? with bony exostoses along the inferior aspect of the medial malleolus. ? ? Correlation with clinical exam recommended to determine further? management including possible additional imaging.? Orders: Referrals Orthopedics Referral M19.079 - Primary osteoarthritis, unspecified ankle and foot, M25.572 - Pain in left ankle and joints of left foot Patient Instructions: Scribed by Bridgette Hopper medical billing coordinator, for Fozia Vallejo PA-C on 10/31/2023 at 10:04 am, EST.? Coding Level of Care Code New Pt Level 3 (78116) Diagnoses Osteoarthritis of left foot M19.072 Osteoarthritis of left ankle M19.072 Lumbar radiculopathy M54.16
== END 2023-10-31 10:03 | disposition home or self-care (01) ==
PROVIDERS: PCP Internal Medicine; Visit Provider Physician Assistant
DX: M19.072 Primary osteoarthritis, left ankle and foot (principal); M54.16 Radiculopathy, lumbar region
CPT/HCPCS: 99213

== ENCOUNTER → 2023-10-31 09:43 | Outpatient (BNVA) | payer MEDICARE, SELFPAY | PROVIDERS: PCP Internal Medicine; Visit Provider Physician Assistant | DX: M19.072 Primary osteoarthritis, left ankle and foot (principal); M54.16 Radiculopathy, lumbar region | CPT/HCPCS: 99212 ==

== ENCOUNTER 2023-12-09 14:50 | Outpatient (AMB) | payer MEDICARE, SELFPAY ==
--- NOTE | 2023-12-09 14:55 | A.OFFVIS_ITS ---
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 Pt states she has intermittent pain for the past year from her left foot radiating up to her left hip. Pt states she had a cortisone injection on the top of her foot on 11/10/[address] Irizarry which the pt states didn't help her pain.Patients daughter states she cant walk long distances and states she has pain when she walks up and down stairs. Accompanied by: Daughter Allergies Iodinated Contrast Media [IV CONTRAST] Allergy (Unknown, Verified 12/09/23 14:55) ANAPHYLAXIS poison den extract Adverse Reaction (Verified 12/09/23 14:55) Swelling Medication List - Last Reconciled 12/09/23 by Nanda Carreon MD acetaminophen 1,000 mg (2 x 500 mg) PO QID PRN amlodipine 5 mg PO DAILY aspirin 325 mg PO DAILY atorvastatin 80 mg PO DAILY blood sugar diagnostic As directed blood sugar diagnostic (FreeStyle Lite Strips) Test blood sugar 3 times per day blood-glucose meter (FreeStyle Lite Meter kit) As directed calamine phenolated 1 appl topical TID PRN carvedilol 25 mg PO BID [Custom heat molded inserts 3 pair] donepezil 5 mg PO DAILY [extra depth diabetic shoes 1 pair] insulin glargine (Basaglar KwikPen U-100 Insulin) 30 units (0.3 mL) subcut QAM lancets (FreeStyle Lancets) Test blood sugar 3 times per day lisinopril 40 mg PO DAILY metformin 1,000 mg PO BID pen needle, diabetic Use to inject insulin twice a day HPI Comments Details: Here with daughter who helps with history and translation. She was seen by ortho left ankle/foot pain. 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 Maza who did injection 11/10/2023. Denies any improvement after injection. Referred to physiatry for back pain but patient/daughter says it is actually pain on left ankle that goes up to knee. Before she was stating that foot pain went up to hip but today it does not. She denies back pain or any proximal pain that radiates down to left foot. History of DM, with pins/needles on big toe. Which now she says spread to fingers. Functional decline since onset of pain. But still drives. [facility] Medical History (Updated 12/09/23 @ 15:34 by Nanda Carreon MD) Back pain History of mammogram CVA (cerebral vascular accident) Diabetes Hyperlipidemia HTN (hypertension) Surgical History H/O colonoscopy No pertinent past surgical history Family History Father Unknown family medical history Mother Unknown family medical history Social History Housing: House Alcohol intake: never Patient Tobacco Use Status: Never used Tobacco e-Cigarette/Vaping Use: Never Used service: No Current occupational status: retired Cognitive needs: No Hearing needs: No Vision needs: Yes Review of Systems Const All systems reviewed & are unremarkable except as noted in HPI and below Physical Exam Constitutional: Patient appears to be in no acute distress, well nourished and well developed. Patient was appropriately conversant and oriented. MSK: No specific abnormalities found on inspection of the spine and all extremities. No pain with palpation over the lumbar area. Lumbar ROM was full. Neurological: 4/5 on left EHL and dorsiflexion. Rest of MMT 5/5. Gallegos?s negative bilaterally. Babinski was down going bilaterally. Clonus was negative. Gait is non-antalgic without loss of balance but very careful. Results Reviewed Results Reviewed: Lumbar x-ray done 2020 reported spondylosis especially L5-S1. 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 Discussed with patient and daughter how pain/numbness can spread in a stocking- glove distribution. Dear interested in starting physical therapy for mobility and to get her back independent functionally. I recommend at least a cane for better gait and stability. Lower suspicion that this is lumbar radiculopathy because symptoms started distally. Weakness on left foot can be neuropathy, but can also be lumbar L5 radiculopathy. Still continued PT. Will re-evaluate after 4-6 weeks. Assessment and plan discussed with patient, and patient was agreeable. All questions were answered thoroughly. Nanda Carreon MD, PERRY Board Certified, [place] [employer] and Rehabilitation (ABPMR) Board Certified, [place] Board [employer] Electrodiagnostic [employer] (ABEM) Orders: Orders PT Evaluation and Treatment Today E11.40 - Type 2 diabetes mellitus with diabetic neuropathy, unspecified, M54.16 - Radiculopathy, lumbar region Coding Level of Care Code New Pt Level 4 (68772) Diagnoses Diabetic polyneuropathy associated with type 2 diabetes mellitus E11.42 Diabetes mellitus complication detail: diabetic polyneuropathy Diabetes mellitus type: type 2 Lumbar radiculopathy M54.16
== END 2023-12-09 15:34 | disposition home or self-care (01) ==
PROVIDERS: PCP Internal Medicine; Visit Provider Physical Medicine & Rehabilitation
DX: E11.42 Type 2 diabetes mellitus with diabetic polyneuropathy (principal); M54.16 Radiculopathy, lumbar region
CPT/HCPCS: 99203

== ENCOUNTER → 2023-12-09 14:50 | Outpatient (BNVA) | payer MEDICARE, SELFPAY | PROVIDERS: PCP Internal Medicine; Visit Provider Physical Medicine & Rehabilitation | DX: E11.42 Type 2 diabetes mellitus with diabetic polyneuropathy (principal); M54.16 Radiculopathy, lumbar region | CPT/HCPCS: 99202 ==

== ENCOUNTER 2023-12-16 07:14 | Outpatient (REF) | payer MEDICARE, SELFPAY ==
[2023-12-16 08:05] LABS: Estimated Average Glucose 183 mg/dL
[2023-12-16 08:19] LABS: Creatinine Urine 75.44 mg/dL; Microalbum/Creatinine Ratio Ur 66.2 ug/mg cr (<30)
[2023-12-16 08:20] LABS: Alanine Aminotransferase 19 U/L (0-31); Albumin Level 3.7 g/dL (3.5-5.0); Alkaline Phosphatase 88 U/L (39-117); Anion Gap 12 (12-20); Aspartate Amino Transferase 18 U/L (5-31); Bilirubin Total 1.1 mg/dL (0.0-1.0); Blood Urea Nitrogen 21 mg/dL (9-16); Carbon Dioxide 27 mmol/L (22-29); Chloride 106 mmol/L (96-108); Cholesterol 133 mg/dL (<200); Estimated Glomerular Filt Rate > 60; Glucose Fasting 117 mg/dL (60-99); HDL Cholesterol 43 mg/dL (>40); LDL Cholesterol Calculated 76 mg/dL (<100); Sodium 141 mmol/L (135-145); Total Protein 7.1 g/dL (6.5-8.0); Triglycerides 71 mg/dL (<150)
== END 2023-12-16 07:15 | disposition home or self-care (01) ==
LOC: HO.LAB 07:14
PROVIDERS: PCP Internal Medicine; Visit Provider Internal Medicine
DX: E78.5 Hyperlipidemia, unspecified (principal); I10 Essential (primary) hypertension; E11.9 Type 2 diabetes mellitus without complications
CPT/HCPCS: 36415; 80053; 80061; 82043; 82570; 83036

== ENCOUNTER 2023-12-19 08:28 | Outpatient (AMB) | payer MEDICARE, SELFPAY ==
[2023-12-19 08:36] VITALS: BP 138/78; PULSE 66; O2SAT 94; BMI 25.3
--- NOTE | 2023-12-19 08:36 | AM.OFFVISMDC ---
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 Accompanied by: Self / Same As Patient Allergies Iodinated Contrast Media [IV CONTRAST] Allergy (Unknown, Verified 12/19/23 08:37) ANAPHYLAXIS poison den extract Adverse Reaction (Verified 12/19/23 08:37) Swelling Medication List - Last Reconciled 12/19/23 by Yola Rowell MD acetaminophen 1,000 mg (2 x 500 mg) PO QID PRN amlodipine 5 mg PO DAILY aspirin 325 mg PO DAILY atorvastatin 80 mg PO DAILY blood sugar diagnostic As directed blood sugar diagnostic (FreeStyle Lite Strips) Test blood sugar 3 times per day blood-glucose meter (FreeStyle Lite Meter kit) As directed calamine phenolated 1 appl topical TID PRN carvedilol 25 mg PO BID [Custom heat molded inserts 3 pair] donepezil 5 mg PO DAILY [extra depth diabetic shoes 1 pair] insulin glargine (Basaglar KwikPen U-100 Insulin) 30 units (0.3 mL) subcut QAM lancets (FreeStyle Lancets) Test blood sugar 3 times per day lisinopril 40 mg PO DAILY metformin 1,000 mg PO BID pen needle, diabetic Use to inject insulin twice a day Do you need a note to return to daycare/school/sports/work: No HPI [facility] G0439 HPI Details Initiated the conversation about Advanced Directives. Advanced Directives help? patients prepare for current and future decisions about their medical treatment? and place of care. Discussed with patient that it is a process where a patients? current condition and prognosis are reviewed, their wishes for information? regarding their illness are elicited, and likely medical dilemmas are presented? and options discussed. The form can be amended as needed, reviewed yearly and? make changes as needed IPPE/AWV ? year old presents? for her ? Annual? Wellness Visit, initial visit.? Medical / Social History Reviewed? Past Medical History ?Yes? . ? [place]? of Care / Care Team list updated ?Yes . ? Surgical/Hospitalization? History ?Yes . ? Current Medications? (including OTC and supplements) ?Yes . ? Family History ?Yes? . ? Tobacco? Control form ?Yes . ? AUDIT-C (Alcohol use) form? ?Yes . ? Illicit drug use in Social? History ?Yes . ? Current diagnosis of? depression? ?No ? Appropriate PHQ2/PHQ9? completed ?Yes . ? Data entered by ?Medical? [employer] Seagrass Gatherer and reviewed by provider ? Fall Risk ? Fall? History? Have you had any falls with? injury in the past year? ?No . ? Have you had two or more? falls in the past year? ?No . ? Fall Risk Assessment: ?No? falls in the past year . ? HRA filled out by? the patient, reviewed by Provider and scanned. ? IPPE/AWV ? Balance? Romberg? ?Yes . ? Tandem? walk ?Yes . ? Walk and? Turn ?Yes . ? Rise from? sit to stand ?Yes . ?Vision? Corrective? lens ?Yes ? Vision? screen ? Up-to-date, has an appointment [] for vision? screening and glaucoma screening ?Hearing? Whisper? test ?pass .? Initiated the conversation about Advanced Directives. Advanced Directives help? patients prepare for current and future decisions about their medical treatment? and place of care. Discussed with patient that it is a process where a patients? current condition and prognosis are reviewed, their wishes for information? regarding their illness are elicited, and likely medical dilemmas are presented? and options discussed. The form can be amended as needed, reviewed yearly and? make changes as needed Written? Plan?Completed. See Patient? Documents. [facility] Medical History Back pain History of mammogram CVA (cerebral vascular accident) Diabetes Hyperlipidemia HTN (hypertension) Surgical History H/O colonoscopy No pertinent past surgical history Family History Father Unknown family medical history Mother Unknown family medical history Social History Housing: House Alcohol intake: never Patient Tobacco Use Status: Never used Tobacco e-Cigarette/Vaping Use: Never Used service: No Current occupational status: retired Cognitive needs: No Hearing needs: No Vision needs: Yes Questionnaire Mini Mental State Exam (MMSE) Orientation What is the (year) (season) (date) (day) (month)?: year, season, date, day and month Where are we (state) (county) (town or city) (hospital) (floor)?: state, county, town or city and floor Registration Name of 3 unrelated objects clearly and slowly, then ask patient to repeat all 3 of them. (1st repeat determines score. Make sure they can repeat all three): object 1, object 2 and object 3 Attention & Calculation (CHOOSE ONE) Spell WORLD backwards (DLROW): 5 letters Recall Ask patient to repeat the 3 items from question #3.: object 1, object 2 and object 3 Language Show patient a wristwatch & ask what it is. Repeat for pencil.: watch and pencil Ask the patient to repeat the phrase 'No ifs, ands, or buts' after you.: correct Ask the patient to 'take a piece of paper with their right hand' 'fold paper in half' 'place paper on floor': take paper in right hand, fold paper in half and place paper on floor Print the sentence 'CLOSE YOUR EYES' on a piece. If patient actually closes eyes then score.: followed written direction Give patient a blank piece of paper & ask to write a sentence. Score if it contains a noun & verb.: sentence contains subject and verb Score Score: 28 Review of Systems Const All systems reviewed & are unremarkable except as noted in HPI and below Reports no additional complaints Eyes Reports no additional complaints ENT Reports no additional complaints Card Reports no additional complaints Resp Reports no additional complaints GI Reports no additional complaints Reports no additional complaints Musc Reports no additional complaints Physical Exam Vital Signs: Last Vital Signs Pulse 66 12/19/23 08:36 BP 138/78 12/19/23 08:36 Pulse Ox 94 12/19/23 08:36 BMI result Body Mass Index 25.3 Const General: no acute distress HEENT Head: Yes normal to inspection Ears: hearing grossly normal bilaterally Neck Neck: Yes supple Resp Effort & Inspection: normal respiratory effort Auscultation: clear to auscultation bilaterally Cardio Rhythm: regular rhythm Heart sounds: S1 normal heart sound present and S2 normal heart sound present GI Inspection: Yes normal to inspection Palpation (GI): Soft to palpation Percussion: Yes normal to percussion Auscultation: normal bowel sounds Extrem Other: Diabetic foot exam decreased sensation to monofilament bilaterally General: Yes no clubbing, cyanosis or edema Assessment & Plan Assessment & Plan (1) HTN (hypertension): Comment: goal <130/80 Code(s): I10 - Essential (primary) hypertension Plan: Continue current medications (2) Hyperlipidemia: Code(s): E78.5 - Hyperlipidemia, unspecified Plan: Continue statin (3) Diabetes: Comment: A1C <9 Code(s): E11.9 - Type 2 diabetes mellitus without complications Plan: A1c is 8.0, ADA diet increase exercise discussed with the patient continue current medications. It is medically necessary for patient to have diabetic shoes due to diabetic neuropathy and increase risk of diabetic ulcers (4) Annual physical exam: Code(s): Z00.00 - Encounter for general adult medical examination without abnormal findings Plan: Well-balanced diet regular physical activity discussed with the patient (5) Diabetic neuropathy: Code(s): E11.40 - Type 2 diabetes mellitus with diabetic neuropathy, unspecified Qualifiers: Diabetes mellitus type: type 2 Diabetes mellitus complication detail: diabetic polyneuropathy Qualified Code(s): E11.42 - Type 2 diabetes mellitus with diabetic polyneuropathy Plan: It is medically necessary for patient to have diabetic shoes to prevent diabetic ulcers Orders: Orders Hemoglobin A1c 4 Months E11.9 - Type 2 diabetes mellitus without complications, E78.5 - Hyperlipidemia, unspecified, I10 - Essential (primary) hypertension, Z00.00 - Encounter for general adult medical examination without abnormal findings Complete Blood Count Auto Diff 4 Months E11.9 - Type 2 diabetes mellitus without complications, E78.5 - Hyperlipidemia, unspecified, I10 - Essential (primary) hypertension, Z00.00 - Encounter for general adult medical examination without abnormal findings Microalbumin, Random (w Creat) 4 Months E11.9 - Type 2 diabetes mellitus without complications, E78.5 - Hyperlipidemia, unspecified, I10 - Essential (primary) hypertension, Z00.00 - Encounter for general adult medical examination without abnormal findings Comprehensive Beals. Panel Fast 4 Months E11.9 - Type 2 diabetes mellitus without complications, E78.5 - Hyperlipidemia, unspecified, I10 - Essential (primary) hypertension, Z00.00 - Encounter for general adult medical examination without abnormal findings Lipid Panel 4 Months E11.9 - Type 2 diabetes mellitus without complications, E78.5 - Hyperlipidemia, unspecified, I10 - Essential (primary) hypertension, Z00.00 - Encounter for general adult medical examination without abnormal findings Medications: New diabetic supplies, miscellan. diabetic shoes 1 ea 1RF E11.42 - Type 2 diabetes mellitus with diabetic polyneuropathy, E11.9 - Type 2 diabetes mellitus without complications Coding Level of Care Code Medicare Subsequent (G0439) Diagnoses HTN (hypertension) I10 Hyperlipidemia E78.5 Diabetes E11.9 Annual physical exam Z00.00 Diabetic polyneuropathy associated with type 2 diabetes mellitus E11.42 Diabetes mellitus type: type 2 Diabetes mellitus complication detail: diabetic polyneuropathy CPT Codes Advance Care Planning - Time spent: 1-15 minutes, not on file ([id number]) Advance Care Planning Advance Care Planning discussion: Exists, not on file Forms completed: Health Care Proxy Time spent: 1-15 minutes, not on file Did not discuss due to Cultural/Spiritual beliefs: Yes
== END 2023-12-19 09:17 | disposition home or self-care (01) ==
PROVIDERS: PCP Internal Medicine; Visit Provider Internal Medicine
DX: Z00.00 Encounter for general adult medical examination without abnormal findings (principal); E11.69 Type 2 diabetes mellitus with other specified complication; E11.42 Type 2 diabetes mellitus with diabetic polyneuropathy; I10 Essential (primary) hypertension; E78.5 Hyperlipidemia, unspecified
CPT/HCPCS: 1124F; G0439

== ENCOUNTER 2024-01-20 09:00 | Outpatient (RCR) | payer MEDICARE, SELFPAY ==
--- NOTE | 2024-03-12 10:08 | MHC.PT.DC ---
[facility] [place] Office [place] Office [place] Office [address] Vijay Coon [address] [phone] F: [phone] F: [phone] F: [phone] F: [phone] Physical Therapy Discharge Report Diagnosis: LOW BACK PAIN WITH LEFT LE RADICULOPATHY (KP) Date of Surgery: Date of Evaluation: 12/29/23 Date of Discharge: 01/22/24 Treatments to Date: 7 Cancellations to Date: 0 No Shows to Date: 0 Discharge Status: Patient Elected to Stop Recommend MD Follow-up Discharge Summary: KAYS SYMPTOMS HAVE NOT CHANGED WITH THERAPY. SHE FINDS RELIEF WITH HEATING PAD AND HAS A HOME PROGRAM WITH WHICH SHE IS INDEPENDENT. Electronically signed by: KEENAN HALL PT DPT Please sign and return to therapist. Thank you for your referral.
== END 2024-03-12 10:08 | disposition home or self-care (01) ==
LOC: HO.PT 09:00
PROVIDERS: PCP Internal Medicine; Visit Provider Physical Medicine & Rehabilitation
DX: M54.16 Radiculopathy, lumbar region (principal); E11.40 Type 2 diabetes mellitus with diabetic neuropathy, unspecified
CPT/HCPCS: 97110; 97161

== ENCOUNTER 2024-02-01 08:40 | Emergency (ER) | payer MEDICARE, SELFPAY ==
--- NOTE | ~2024-02-01 | XR_ITS ---
EXAMINATION: XR HIP, RIGHT WITH AP PELVIS CLINICAL INFORMATION: Right hip pain COMPARISON: Pelvic x-rays of 01/04/2022 and pelvic and right hip x-rays of 06/19/2020 TECHNIQUE: Two views of the right hip. AP view of the pelvis. FINDINGS: The femoral heads are well-seated in their expected acetabula. Narrowing of the hip joint spaces is noted with small osteophytic changes along the superior lateral margins of the acetabula. There is no evidence of acute fracture or dislocation in the pelvis and right hip. Changes of enthesopathy are noted at the iliac spines, ischial tuberosities and greater trochanters. Prominent vascular calcifications are noted. There are coarse popcorn type calcifications in the pelvis representing calcified fibroids. No suspicious lytic or blastic osseous lesions are noted. XR/XR hip RT w PEL1V IMPRESSION: No evidence of acute fracture or dislocation in the pelvis and right hip. Mild degenerative/arthritic changes at the bilateral hips. Electronically signed by: Arjun Dumont MD 02/01/2024 09:55 AM EDT
[2024-02-01 08:54] VITALS: BP 139/64; PULSE 69; RESP 18; TEMP 36.5; O2SAT 94; BMI 25.3
--- NOTE | 2024-02-01 09:00 | ED_ITS ---
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 Patient's daughter at bedside helped with providing history. She is now minimally bearing weight on the right leg and has been ambulating with a cane at home. The pain is more in her gluteal area and is traveling down to her knee. She has a history of chronic hip pain for which she seen by Dr. Carreon which has referred her to physical therapy twice with minimal benefit. She has tried topical muscle rubs with minimal relief. Patient states that her PCP has identified mild osteoarthritis of the right hip. No recent falls. Denies SCOTT, N/V, SOB, or chest pain. Relieving factors: none Exacerbating factors: movement Associated symptoms: denies other symptoms Treatments prior to arrival: other (physical therapy) Related Data Home Medications ?Medication ?Instructions ?Recorded ?Confirmed blood sugar diagnostic #10 ea 03/22/20 12/19/23 aspirin 325 mg tablet 325 mg PO DAILY 03/15/21 12/19/23 Previous Rx's ?Medication ?Instructions ?Recorded pen needle, diabetic 31 gauge x #200 ea 03/27/2106/20 acetaminophen 500 mg tablet 1,000 mg (2 x 500 mg) PO QID PRN 01/05/22 pain #30 tabs Custom heat molded inserts #3 ea 01/29/22 extra depth diabetic shoes #1 ea 01/29/22 calamine phenolated lotion 1 appl topical TID PRN itching 10/10/22 #180 mL metformin 1,000 mg tablet 1,000 mg PO BID #180 tabs 11/22/22 amlodipine 5 mg tablet 5 mg PO DAILY #90 tabs 04/17/23 atorvastatin 80 mg tablet 80 mg PO DAILY #90 tabs 04/17/23 insulin glargine 100 unit/mL (3 30 unit (0.3 mL) subcut QAM #15 mL 04/17/23 mL) subcutaneous pen (Basaglar KwikPen U-100 Insulin) donepezil 5 mg tablet 5 mg PO DAILY #90 tabs 08/12/23 blood sugar diagnostic (FreeStyle #100 ea 09/10/23 Lite Strips) blood-glucose meter (FreeStyle #1 ea 09/10/23 Lite Meter kit) lancets 28 gauge (FreeStyle #100 ea 09/10/23 Lancets) carvedilol 25 mg tablet 25 mg PO BID #180 tabs 11/12/23 diabetic supplies, miscellan. #1 ea 12/19/23 lisinopril 40 mg tablet 40 mg PO DAILY #90 tabs 01/16/24 Allergies Allergy/AdvReac Type Severity Reaction Status Date / Time Iodinated Contrast Media Allergy Unknown ANAPHYLAXIS Verified 02/01/24 08:55 [IV CONTRAST] poison den extract AdvReac Swelling Verified 02/01/24 08:55 Review of Systems Constitutional: Constitutional: Reports no additional constitutional complaints, Denies chills, Denies fever(s) and Denies night sweats Eyes: Eyes: Reports no additional eye complaints, Denies blurry vision, Denies change in vision, Denies diplopia, Denies eye discharge, Denies loss of vision and Denies eye pain ENT: Denies dizziness Cardiovascular: Cardiovascular: Reports no additional cardiovascular complaints, Denies chest pain, Denies lightheadedness, Denies Loss of Consciousness and Denies dyspnea Respiratory: Respiratory: Reports no additional respiratory complaints and Denies dyspnea Gastrointestinal: Gastrointestinal: Reports no additional gastrointestinal complaints, Denies abdominal pain, Denies melena, Denies hematochezia, Denies change in bowel habits and Denies change in stool character Genitourinary: Genitourinary: Denies hematuria, Denies urinary frequency, Denies dysuria, Denies urinary incontinence, Denies urinary hesitancy and Denies urinary urgency Musculoskeletal: Musculoskeletal: Denies numbness, Reports radiating pain into limb (radiating from R glute down thigh to knee) and Denies tingling Comments: pain in R gluteal area Neurologic: Denies dizziness, Denies loss of vision, Denies numbness, Denies Sensory deficit (Neuro) and Denies tingling Psychiatric: Psychiatric: Reports no additional psychiatric complaints Endocrine: Endocrine: Reports no additional endocrine complaints Hematologic/Lymphatic: Hematologic/Lymphatic: Reports no additional hematologic/lymphatic complaints Allergic/Immunologic: Allergic/Immunologic: Reports no additional aller gic/immunologic complaints PMFSH Past Medical History Attestation statement: The following information was validated with the patient. (all information validated with the patient's daughter) Source: old records reviewed, obtained from family (patient's daughter provided additional history and confirmed the history provided by the patient.) and nursing notes reviewed Medical History Back pain History of mammogram CVA (cerebral vascular accident) Diabetes Hyperlipidemia HTN (hypertension) Surgical History H/O colonoscopy No pertinent past surgical history Family History Family History Father Unknown family medical history Mother Unknown family medical history Social History Social History Housing: House Alcohol intake: current Alcohol intake frequency: holidays/special occasions only Patient Tobacco Use Status: Never used Tobacco Smoked in Last 30 Days: No e-Cigarette/Vaping Use: Never Used Use of substances other than those prescribed or required for medical reasons: No Advance Directives: Yes Advance Directives Information Provided: Yes Advance Directives on File: No Do you have a plan to hurt others: No Plan service: No Current occupational status: retired Cognitive needs: No Hearing needs: No Vision needs: Yes Physical Exam ED Vital Signs: Vital Signs - 24 hr 02/01/24 08:54 Temperature 97.7 F Pulse Rate 69 Respiratory Rate 18 Blood Pressure 139/64 Pulse Oximetry 94 Oxygen Delivery Method Room Air BMI result Body Mass Index 25.3 Const General: cooperative, no acute distress, alert and awake Nutritional Appearance: well nourished Orientation/consciousness: patient oriented x3 Limitations: no limitations HENMT Head: Yes normal to inspection and Yes atraumatic Ears: hearing grossly normal bilaterally and external ears normal General nose exam: Normal external nose present, no nasal discharge noted and no epistaxis Face and sinus: Yes normal facial exam, No abrasion and No laceration Mouth: Normal oral and palatal mucosa present, no drooling and no muffled voice Eyes General: appearance normal, both eyes and all related structures Periorbital: periorbital findings normal Eyelids: Yes eyelids normal Conjunctivae: conjunctivae normal Pupils: Equal, round and reactive pupils present EOM: EOMs intact bilaterally Neck Neck: Yes normal visual inspection, Yes full ROM and Yes no lymphadenopathy Chest Chest palpation & inspection: normal inspection of the chest Resp Effort & Inspection: normal respiratory effort and able to speak in complete sentences Auscultation: no rhonchi and no wheezes Cardio Rate: regular rate Rhythm: regular rhythm Heart sounds: no gallops, no murmurs and no rubs GI Inspection: Yes normal to inspection and No distended Neuro General: patient oriented x3 and moves all extremities Cranial nerves: Yes Equal, round and reactive pupils present Cognition (Neuro): normal cognition Motor exam (neuro): 5/5 motor strength present throughout Sensory Exam: No Sensory deficit (Neuro) Extrem General: Yes normal to inspection, Yes full ROM, Yes capillary refill normal and Yes other (tenderness to palpation over lateral aspect of R glute) Right lower extremity: normal to inspection and full ROM Psych Appearance: grossly normal Mental Status: mental status grossly normal Affect: normal affect Attitude: cooperative Thought process: Normal thought process present Thought content: Normal thought content present Insight: Good insight present (Psych) Medical Decision Making Medical Decision Making MDM Narrative: Patient is an 83 year old assigned female at with a history of OA, ne uropathy, lumbar radiculopathy, HTN, HLD, and DM presenting to the emergency department today with right hip pain. Patient's physical exam was as noted in the physical exam portion of this note. Patient's right hip x-ray showed no acute process but did show OA. I explained my physical exam findings as well as all test results to the patient and the patient's daughter. I answered all questions asked by the patient and the patient's daughter. Patient received IM Toradol which, upon re-evaluation, she stated it helped her symptoms. I stressed the importance of the patient taking her medication as directed (either prescribed or as the over the counter packaging recommends). I stressed the importance of the patient following up with her primary care provider and an orthopedic provider. I stressed the importance of the patient returning to the emergency department immediately if her symptoms were to worsen or if she were to develop any dizziness, shortness of breath, difficulty breathing, chest pain, blurry vision, loss of vision, nausea, vomiting, abdominal pain, fever, chills, back pain, or any other complaints. Patient and the patient's daughter verbalized agreement and understanding with this treatment plan and discharge. Differential Diagnosis Differential Diagnoses: The differential diagnosis associated with the prese ntation includes Osteoarthritis Right hip pain Chronic pain Gluteal bursitis Admission/Observation Consideration of admission/observation: Escalation of care including admission/observation considered Patient would have been admitted to the hospital had her work up had any findings where hospital admission was appropriate and her clinical presentation warranted hospital admission. Independent Interpretation I performed an independent interpretation of an: Plain X-Ray Interpretation: My interpretation is in agreement with the radiologist's impression of this imaging study. EXAMINATION: XR HIP, RIGHT WITH AP PELVIS CLINICAL INFORMATION: Right hip pain COMPARISON: Pelvic x-rays of 01/04/2022 and pelvic and right hip x-rays of 06/19/2020 TECHNIQUE: Two views of the right hip. AP view of the pelvis. FINDINGS: The femoral heads are well-seated in their expected acetabula. Narrowing of the hip joint spaces is noted with small osteophytic changes along the superior lateral margins of the acetabula. There is no evidence of acute fracture or dislocation in the pelvis and right hip. Changes of enthesopathy are noted at the iliac spines, ischial tuberosities and greater trochanters. Prominent vascular calcifications are noted. There are coarse popcorn type calcifications in the pelvis representing calcified fibroids. No suspicious lytic or blastic osseous lesions are noted. XR/XR hip RT w PEL1V IMPRESSION: No evidence of acute fracture or dislocation in the pelvis and right hip. Mild degenerative/arthritic changes at the bilateral hips. Electronically signed by: Arjun Dumont MD 02/01/2024 09:55 AM EDT Dictated By: Arjun Dumont MD Signed By: Electronically signed by Arjun Dumont MD 02/01/24 0945 Radiology Impression Discussion of test interpretation with radiology: I have reviewed the radiologist's reading. Independent Historian Clinical information obtained from an independent historian. History obtained from or confirmed by: Other (patient's daughter provided additional history and confirmed the history provided by the patient.) Discharge Plan Discharge Clinical Impression: Chronic hip pain, Osteoarthritis Patient Disposition: Home, Self-Care Instructions: Osteoarthritis (DC), Chronic Pain (ED) Additional Instructions: Follow up with your primary care provider and your orthopedic provider. Return to the emergency department immediately if your symptoms worsen or if you develop any dizziness, shortness of breath, difficulty breathing, chest pain, blurry vision, loss of vision, nausea, vomiting, abdominal pain, fever, chills, back pain, or any other complaints. Prescriptions: No Action (DME) pen needle, diabetic 31 gauge x 3/16 needle See Rx Instructions .Route Qty: 200 2RF Rx Instructions: Use to inject insulin twice a day metformin 1,000 mg tablet 1,000 mg PO BID Qty: 180 3RF donepezil 5 mg tablet 5 mg PO DAILY Qty: 90 3RF (DME) blood-glucose meter [FreeStyle Lite Meter] Kit See Rx Instructions .Route Qty: 1 0RF Rx Instructions: As directed (DME) lancets [FreeStyle Lancets] 28 gauge misc See Rx Instructions .Route Qty: 100 5RF Rx Instructions: Test blood sugar 3 times per day (DME) FreeStyle Lite Strips Strip See Rx Instructions .Route Qty: 100 5RF Rx Instructions: Test blood sugar 3 times per day carvedilol 25 mg tablet 25 mg PO BID Qty: 180 3RF Rx Instructions: must administer with a meal/food lisinopril 40 mg tablet 40 mg PO DAILY Qty: 90 3RF acetaminophen 500 mg tablet 1,000 mg PO QID PRN (Reason: pain) Qty: 30 0RF (DME) Freestyle InsuLinx Strip See Rx Instructions .ROUTE BID Qty: 10 Rx Instructions: As directed aspirin 325 mg tablet 325 mg PO DAILY (DME) Custom heat molded inserts See Rx Instructions .Route .MEDSUPPLY Qty: 3 0RF Rx Instructions: 3 pair (DME) extra depth diabetic shoes See Rx Instructions .Route .MEDSUPPLY Qty: 1 0RF Rx Instructions: 1 pair calamine phenolated Lotion 1 appl topical TID PRN (Reason: itching) Qty: 180 0RF Basaglar KwikPen U-100 Insulin 100 unit/mL (3 mL) insulin pen 30 unit subcut QAM Qty: 15 3RF atorvastatin 80 mg tablet 80 mg PO DAILY Qty: 90 3RF amlodipine 5 mg tablet 5 mg PO DAILY Qty: 90 3RF (DME) diabetic supplies, miscellan. Misc See Rx Instructions .Route Qty: 1 1RF Rx Instructions: diabetic shoes Referrals: Yola Rowell MD [Primary Care Provider] - Print Language: Uzbek
[2024-02-01 10:50] VITALS: BP 127/66; PULSE 64; RESP 18; TEMP 37.1; O2SAT 95
[2024-02-01] MEDS: Ketorolac Tromethamine 15 MG/ML VIAL IM (10:52)
[2024-02-01 10:57] VITALS: BP 127/66; PULSE 64; RESP 18; TEMP 37.1; O2SAT 95
== END 2024-02-01 10:58 | disposition home or self-care (01) ==
PROVIDERS: Emergency Provider Emergency Medicine; PCP Internal Medicine
DX: M16.11 Unilateral primary osteoarthritis, right hip (principal); M25.551 Pain in right hip; I10 Essential (primary) hypertension; Z79.899 Other long term (current) drug therapy
CPT/HCPCS: 73502; 96372; 99284; J1885

== ENCOUNTER 2024-02-12 08:56 | Outpatient (AMB) | payer MEDICARE, SELFPAY ==
--- NOTE | 2024-02-12 09:10 | A.OFFVIS_ITS ---
Intake Visit Reasons: OV : Low back pain, no known injury-follow up Intake Note: Madeline is a 83 year old female who presents today with her daughter Carmen for a follow up visit of her low back pain. She utilizes a cane today for ambulation. Patient's daughter reports her back pain is worse than before. She went to [facility] ED two weeks ago and received an injection for her pain. Yesterday she went to stand up and experienced severe pain in her right hip. Patient reports she did PT and it was not helpful. When she applies heat to her back she finds relief. She also finds relief with Tylenol at night. Denies numbness and tingling. Allergies Iodinated Contrast Media [IV CONTRAST] Allergy (Unknown, Verified 02/12/24 09:19) ANAPHYLAXIS poison den extract Adverse Reaction (Verified 02/12/24 09:19) Swelling HPI Comments Details: Here with daughter who helps with history and translation. She was seen by ortho left ankle/foot pain. She was referred to [facility] for injection, but ended up going to her slope hoist operator Dr. Maza who did injection 11/10/2023. Denies any improvement after injection. Referred to physiatry for back pain but patient/daughter says it is actually pain on left ankle that goes up to knee. Before she was stating that foot pain went up to hip but today it does not. She denies back pain or any proximal pain that radiates down to left foot. History of DM, with pins/needles on big toe. Which now she says spread to fingers. Functional decline since onset of pain. But still drives. Noted notes from PCP. Patient had gone to ED for right hip pain 02/01/24. 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 She is complaining of right hip pain, points to lateral side. Does not radiate down. No new numbness. It wasn't from a fall. Says it was gradual onset. Denies groin pain. Needing cane. [facility] Medical History Back pain History of mammogram CVA (cerebral vascular accident) Diabetes Hyperlipidemia HTN (hypertension) Surgical History H/O colonoscopy No pertinent past surgical history Family History Father Unknown family medical history Mother Unknown family medical history Social History Housing: House Alcohol intake: current Alcohol intake frequency: holidays/special occasions only Patient Tobacco Use Status: Never used Tobacco e-Cigarette/Vaping Use: Never Used service: No Current occupational status: retired Cognitive needs: No Hearing needs: No Vision needs: Yes Physical Exam Constitutional: Patient appears to be in no acute distress, well nourished and well developed. Patient was appropriately conversant and oriented. MSK: Focal tenderness in right piriformis area. Milder tenderness over right greater trochanter. Denies tenderness over lumbar spine. Neurological: Babinski was down going bilaterally. Clonus was negative. Gait is non-antalgic without loss of balance but very careful. Office Procedures Therapeutic Injection Therapeutic Injection Details: Consent obtained. Patient preferred to stand up, flex forward towards the bed. Focal tenderness, approximately middle third along line from sacrum to greater trochangter palpated and identified, right. Area is cleansed with betadine solution. Using a 27 gauge needle, do ml of 2% lidocaine is injected. Patient tolerated procedure well without complications. Post-injection instructions given. 18542-[id number] Point Injection 1 or 2 sites All charges added?: Procedure code (CPT) selection complete Results Reviewed Results Reviewed: Ordering Physician: Leonora Cheng Date of Service: 02/01/24 Procedure(s): XR hip RT w PEL1V Accession Number(s): [id number] cc: Yola Rowell MD; Leonora Cheng~ EXAMINATION: XR HIP, RIGHT WITH AP PELVIS CLINICAL INFORMATION: Right hip pain COMPARISON: Pelvic x-rays of 01/04/2022 and pelvic and right hip x-rays of 06/19/2020 TECHNIQUE: Two views of the right hip. AP view of the pelvis. FINDINGS: The femoral heads are well-seated in their expected acetabula. Narrowing of the hip joint spaces is noted with small osteophytic changes along the superior lateral margins of the acetabula. There is no evidence of acute fracture or dislocation in the pelvis and right hip. Changes of enthesopathy are noted at the iliac spines, ischial tuberosities and greater trochanters. Prominent vascular calcifications are noted. There are coarse popcorn type calcifications in the pelvis representing calcified fibroids. No suspicious lytic or blastic osseous lesions are noted. XR/XR hip RT w PEL1V IMPRESSION: No evidence of acute fracture or dislocation in the pelvis and right hip. Mild degenerative/arthritic changes at the bilateral hips. Electronically signed by: Arjun Dumont MD 02/01/2024 09:55 AM EDT RP Workstation: [email or web address] Ordering Physician: ADDY HERNANDEZ MD Date of Service: 06/19/20 Procedure(s): XR lumbar spine 2-3V Accession Number(s): [id number] cc: ADDY HERNANDEZ MD~ EXAMINATION: LUMBAR SPINE AND RIGHT HIP X-RAY CLINICAL INFORMATION: Pain post fall COMPARISON: Lumbar spine x-ray December 2018 TECHNIQUE: 3 views of the lumbar spine and 2 views of the right hip and one view of the pelvis FINDINGS: Lumbar spine: Bone alignment is normal. No fracture or dislocation is seen. There is degenerative disc disease at L5-S1. There is lower lumbar spine facet arthritis. There is evidence of atherosclerotic disease. Right hip: Bone alignment is normal. No fracture or dislocation is seen. There is bilateral hip arthritis with joint space narrowing and osteophyte formation. Bones of the pelvis are unremarkable. There is evidence of atherosclerotic disease. XR/XR lumbar spine 2-3V IMPRESSION: Degenerative changes. No fracture or dislocation seen. Assessment & Plan Assessment & Plan (1) Piriformis syndrome of right side: Code(s): G57.01 - Lesion of sciatic nerve, right lower limb Category: Medical (2) Trochanteric bursitis, right hip: Code(s): M70.61 - Trochanteric bursitis, right hip Category: Medical (3) Diabetic neuropathy: Code(s): E11.40 - Type 2 diabetes mellitus with diabetic neuropathy, unspecified Category: Medical Qualifiers: Diabetes mellitus type: type 2 Diabetes mellitus complication detail: diabetic polyneuropathy Qualified Code(s): E11.42 - Type 2 diabetes mellitus with diabetic polyneuropathy Plan Previously seen for left-sided symptoms, which we thought was from neuropathy. Patient has poorly controlled diabetes. Main concern today is right hip/buttocks pain. Denies lower back/lumbar pain. On exam it appears to have just tenderness on right piriformis and milder on greater trochanter. Offered to do piriformis injection but she has poorly controlled diabetes. We decided on doing a diagnostic trigger point injection to right piriformis, with lidocaine only. We will see if that at least helps her a little bit. We will see her in about 2 weeks to re-evaluate, possibly do a steroid injection if needed at that time. Patient tolerated trigger point injection well. Assessment and plan discussed with patient, and patient was agreeable. All questions were answered thoroughly. Follow up 2 weeks. Nanda Carreon MD, PERRY Board Certified, [place] [employer] and [employer] (ABPMR) Board Certified, [place] [employer] Electro[employer] (ABEM) Orders: Orders AMB Trigger Point Injection Today M79.18 - Myalgia, other site Coding Level of Care Code Est Pt Level 4 (00183) Diagnoses Piriformis syndrome of right side G57.01 Trochanteric bursitis, right hip M70.61 Diabetic polyneuropathy associated with type 2 diabetes mellitus E11.42 Diabetes mellitus type: type 2 Diabetes mellitus complication detail: diabetic polyneuropathy CPT Codes Therapeutic Injection - Ther Injection 1: 89447-[place] Point Injection 1 or 2 sites ([id number])
== END 2024-02-12 10:05 | disposition home or self-care (01) ==
LOC: HO.HOS 08:57
PROVIDERS: PCP Internal Medicine; Visit Provider Physical Medicine & Rehabilitation
DX: G57.01 Lesion of sciatic nerve, right lower limb (principal); M70.61 Trochanteric bursitis, right hip; E11.42 Type 2 diabetes mellitus with diabetic polyneuropathy
CPT/HCPCS: 20552; 99214

== ENCOUNTER → 2024-02-12 08:56 | Outpatient (BNVA) | payer MEDICARE, SELFPAY | PROVIDERS: PCP Internal Medicine; Visit Provider Physical Medicine & Rehabilitation | DX: G57.01 Lesion of sciatic nerve, right lower limb (principal); M70.61 Trochanteric bursitis, right hip; E11.42 Type 2 diabetes mellitus with diabetic polyneuropathy; M79.18 Myalgia, other site | CPT/HCPCS: 20552; 99212; J2003 ==

== ENCOUNTER 2024-02-27 11:10 | Outpatient (AMB) | payer MEDICARE, SELFPAY ==
[2024-02-27 11:11] VITALS: BMI 25.2
--- NOTE | 2024-02-27 11:11 | A.OFFVIS_ITS ---
Vital Signs 02/27/24 11:11 Height 5 ft 3 in Weight 142 lb BMI 25.2 Intake Visit Reasons: OV-lower back pain-2 week follow up Intake Note: Madeline is an 83 year old female who presents today with her daughter Carmen for a follow up visit of her low back pain. Patient states the injection did not help. She is taking Tylenol at night to help alleviate the pain. Allergies Iodinated Contrast Media [IV CONTRAST] Allergy (Unknown, Verified 02/27/24 11:11) ANAPHYLAXIS poison den extract Adverse Reaction (Verified 02/27/24 11:11) Swelling HPI Comments Details: Here with daughter who helps with history and translation. She was seen by ortho left ankle/foot pain. She was referred to Arpita Tapia for injection, but ended up going to her furnace door tender Dr. Maza who did injection 11/10/2023. Denies any improvement after injection. Referred to physiatry for back pain but patient/daughter says it is actually pain on left ankle that goes up to knee. Before she was stating that foot pain went up to hip but today it does not. She denies back pain or any proximal pain that radiates down to left foot. History of DM, with pins/needles on big toe. Which now she says spread to fingers. Functional decline since onset of pain. But still drives. Noted notes from PCP. Patient had gone to ED for right hip pain 02/01/24. 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 On last visit, she was complaining of right hip pain, points to lateral side. Does not radiate down. No new numbness. It wasn't from a fall. Says it was gradual onset. Denies groin pain. Needing cane. On exam it appears to have just tenderness on right piriformis and milder on greater trochanter. Offered to do piriformis injection but she has poorly controlled diabetes. We decided on doing a diagnostic trigger point injection to right piriformis, with lidocaine only. She says that it actually helped for one hour only. I explained that it was just lidocaine and that would still be improvement . But then the pain returned right away. Same area of pain. She has had steroid injection on the foot before without severe complications. Blood sugars went up to about 200. She denies any ongoing infection straight now. They would like to try steroid injection to piriformis today. [facility] Medical History Back pain History of mammogram CVA (cerebral vascular accident) Diabetes Hyperlipidemia HTN (hypertension) Surgical History H/O colonoscopy No pertinent past surgical history Family History Father Unknown family medical history Mother Unknown family medical history Social History Housing: House Alcohol intake: current Alcohol intake frequency: holidays/special occasions only Patient Tobacco Use Status: Never used Tobacco e-Cigarette/Vaping Use: Never Used service: No Current occupational status: retired Cognitive needs: No Hearing needs: No Vision needs: Yes Physical Exam Vital Signs: BMI result Body Mass Index 25.2 Constitutional: Patient appears to be in no acute distress, well nourished and well developed. Patient was appropriately conversant and oriented. MSK: Focal tenderness in right piriformis area. Milder tenderness over right greater trochanter. Denies tenderness over lumbar spine. Neurological: Babinski was down going bilaterally. Clonus was negative. Gait is antalgic without loss of balance but very careful. Office Procedures Therapeutic Injection Therapeutic Injection Details: Consent obtained. Patient lies prone. Focal tenderness, approximately middle third along line from sacrum to greater trochangter palpated and identified, right side. Area is cleansed with betadine solution. Using a 27 gauge needle., 2 1/2 inch needle, 20mg Kenalog with 3 ml of 2% lidocaine is injected. Patient tolerated procedure well without complications. Post-injection instructions given. 36013-Dctypao Point Injection 1 or 2 sites All charges added?: Procedure code (CPT) selection complete Office Meds triamcinolone acetonide 40 mg/mL suspension for injection Performing Provider: Nanda Carreon MD Performing Location: [facility] Documented (not given) by: Nanda Carreon MD on 02/27/24 11:34 Dose Route Admin Location Dispensed Lot Number Expiration Date NDC Joint Terminal Attack Controller 20 mg IM mL Assessment & Plan Assessment & Plan (1) Piriformis syndrome of right side: Code(s): G57.01 - Lesion of sciatic nerve, right lower limb Category: Medical Plan Steroid injection to right piriformis performed. Patient tolerated procedure well. Also referring her to physical therapy to work on piriformis specifically. Assessment and plan discussed with patient, and patient was agreeable. All questions were answered thoroughly. Follow-up 1 month. Nanda Carreon MD, PERRY Board Certified, [place] [employer] and Rehabilitation (ABPMR) Board Certified, [place] [employer] Electrodiagnostic Medicine (ABEM) Orders: Orders AMB Trigger Point Injection Today G57.01 - Lesion of sciatic nerve, right lower limb PT Evaluation and Treatment Today G57. - Lesion of sciatic nerve, right lower limb, M70.61 - Trochanteric bursitis, right hip Medications: New triamcinolone acetonide 20 mg (0.5 mL) IM ONCE 0.5 mL 0RF G57. - Lesion of sciatic nerve, right lower limb Coding Level of Care Code Est Pt Level 4 (08587) Complex EM visit Add On G2211 Diagnoses Piriformis syndrome of right side G57. CPT Codes Therapeutic Injection - Ther Injection 1: 36038-Zyxrqrw Point Injection 1 or 2 sites ([id number])
== END 2024-02-27 11:37 | disposition home or self-care (01) ==
PROVIDERS: PCP Internal Medicine; Visit Provider Physical Medicine & Rehabilitation
DX: G57.01 Lesion of sciatic nerve, right lower limb (principal)
CPT/HCPCS: 20552; 99214

== ENCOUNTER → 2024-02-27 11:10 | Outpatient (BNVA) | payer MEDICARE, SELFPAY | PROVIDERS: PCP Internal Medicine; Visit Provider Physical Medicine & Rehabilitation | DX: G57.01 Lesion of sciatic nerve, right lower limb (principal) | CPT/HCPCS: 20552; 99212; J2003; J3301 ==

== ENCOUNTER 2024-04-16 09:10 | Outpatient (AMB) | payer MEDICARE, SELFPAY ==
--- NOTE | 2024-04-16 09:14 | A.OFFVIS_ITS ---
Intake Visit Reasons: OV-lower back pain-one month follow up Intake Note: Madeline is an 83 year old female who presents today with her daughter Carmen for a low back pain follow up. Patient states the steroid injection to right piriformis performed on 02/27/24 did not provide relief. She has done two sessions of PT but feels this has not been helpful. Patient would like to have MRI done. 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 She was seen by ortho left ankle/foot pain. She was referred to Arpita Tapia for injection, but ended up going to her marketing operations consultant Dr. Maza who did injection 11/10/2023. Denies any improvement after injection. Referred to physiatry for back pain but patient/daughter says it is actually pain on left ankle that goes up to knee. Before she was stating that foot pain went up to hip but today it does not. She denies back pain or any proximal pain that radiates down to left foot. History of DM, with pins/needles on big toe. Which now she says spread to fingers. Functional decline since onset of pain. But still drives. Noted notes from PCP. Patient had gone to ED for right hip pain 02/01/24. 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 Started complaining of right hip pain, points to lateral side. Does not radiate down. No new numbness. It wasn't from a fall. Says it was gradual onset. Denies groin pain. Needing cane. On exam it appeared to have just tenderness on right piriformis and milder on greater trochanter. Offered to do piriformis injection but she has poorly controlled diabetes. We decided on doing a diagnostic trigger point injection to right piriformis, with lidocaine only. That diagnostic injection helped for at least 1 hour. Last seen 02/27/2024. We did steroid injection to the right piriformis. They said she had post injection pain and then was good for 2 days. Continues to have right buttocks pain, goes to right lateral calf. Now complaining of pain on right lateral calf. History of DM, with pins/needles on big toe. Using cane. [facility] Medical History Back pain History of mammogram CVA (cerebral vascular accident) Diabetes Hyperlipidemia HTN (hypertension) Surgical History H/O colonoscopy No pertinent past surgical history Family History Father Unknown family medical history Mother Unknown family medical history Social History Housing: House Alcohol intake: current Alcohol intake frequency: holidays/special occasions only Patient Tobacco Use Status: Never used Tobacco e-Cigarette/Vaping Use: Never Used service: No Current occupational status: retired Cognitive needs: No Hearing needs: No Vision needs: Yes Physical Exam Constitutional: Patient appears to be in no acute distress, well nourished and well developed. Patient was appropriately conversant and oriented. MSK: Focal tenderness in right piriformis area. Also today more focal tenderness over right SI joint. No tenderness over lumbar spinous processes, facets or paraspinals. Neurological: Babinski was down going bilaterally. Clonus was negative. Gait is antalgic without loss of balance but very careful. Uses cane. Results Reviewed Results Reviewed: Ordering Physician: Leonora Cheng Date of Service: 02/01/24 Procedure(s): XR hip RT w PEL1V Accession Number(s): [id number] cc: Yola Rowell MD; Leonora Cheng~ EXAMINATION: XR HIP, RIGHT WITH AP PELVIS CLINICAL INFORMATION: Right hip pain COMPARISON: Pelvic x-rays of 01/04/2022 and pelvic and right hip x-rays of 06/19/2020 TECHNIQUE: Two views of the right hip. AP view of the pelvis. FINDINGS: The femoral heads are well-seated in their expected acetabula. Narrowing of the hip joint spaces is noted with small osteophytic changes along the superior lateral margins of the acetabula. There is no evidence of acute fracture or dislocation in the pelvis and right hip. Changes of enthesopathy are noted at the iliac spines, ischial tuberosities and greater trochanters. Prominent vascular calcifications are noted. There are coarse popcorn type calcifications in the pelvis representing calcified fibroids. No suspicious lytic or blastic osseous lesions are noted. XR/XR hip RT w PEL1V IMPRESSION: No evidence of acute fracture or dislocation in the pelvis and right hip. Mild degenerative/arthritic changes at the bilateral hips. Electronically signed by: Arjun Dumont MD 02/01/2024 09:55 AM EDT RP Workstation: [place] Ordering Physician: ADDY HERNANDEZ MD Date of Service: 06/19/20 Procedure(s): XR lumbar spine 2-3V Accession Number(s): [id number] cc: ADDY HERNANDEZ MD~ EXAMINATION: LUMBAR SPINE AND RIGHT HIP X-RAY CLINICAL INFORMATION: Pain post fall COMPARISON: Lumbar spine x-ray December 2018 TECHNIQUE: 3 views of the lumbar spine and 2 views of the right hip and one view of the pelvis FINDINGS: Lumbar spine: Bone alignment is normal. No fracture or dislocation is seen. There is degenerative disc disease at L5-S1. There is lower lumbar spine facet arthritis. There is evidence of atherosclerotic disease. Right hip: Bone alignment is normal. No fracture or dislocation is seen. There is bilateral hip arthritis with joint space narrowing and osteophyte formation. Bones of the pelvis are unremarkable. There is evidence of atherosclerotic disease. XR/XR lumbar spine 2-3V IMPRESSION: Degenerative changes. No fracture or dislocation seen. Assessment & Plan Assessment & Plan (1) Piriformis syndrome of right side: Code(s): G57.01 - Lesion of sciatic nerve, right lower limb Category: Medical (2) Sacroiliac joint dysfunction of right side: Code(s): M53.3 - Sacrococcygeal disorders, not elsewhere classified Category: Medical (3) Lumbar radiculopathy: Code(s): M54.16 - Radiculopathy, lumbar region Category: Medical Plan Initially seen several months ago for ankle pain left side. Then started complaining of right hip/piriformis pain. We know from past imaging that she has hip arthritis and lumbar spondylosis, L5-S1. Discussed that she has arthritis most likely diffusely which may cause any of her musculoskeletal complaints. Today she is showing a very tender right SI joint. However they think they need an MRI. Discussed that the value of MRI would be to rule out lumbar spinal stenosis, although they expressed that they will not go for any surgical management. They may however consider lumbar epidural injections or even SI joint injection. MRI lumbar spine ordered. Discussed that epidural or SI joint injections should be done under fluoroscopy, therefore referring them to pain management. Assessment and plan discussed with patient, and patient was agreeable. All questions were answered thoroughly. Appropriate expectations were set. Nanda Carreon MD, PERRY Board Certified, [place] [employer] Physical [employer] and Rehabilitation (ABPMR) Board Certified, [place] [employer] Electrodiagnostic Medicine (ABEM) Orders: Orders MR lumbar spine wo con Today M54.16 - Radiculopathy, lumbar region Referrals Pain Management Referral M53.3 - Sacrococcygeal disorders, not elsewhere classified, M54.16 - Radiculopathy, lumbar region Coding Level of Care Code Est Pt Level 4 (39518) Diagnoses Piriformis syndrome of right side G57.01 Sacroiliac joint dysfunction of right side M53.3 Lumbar radiculopathy M54.16
== END 2024-04-16 09:41 | disposition home or self-care (01) ==
PROVIDERS: PCP Internal Medicine; Visit Provider Physical Medicine & Rehabilitation
DX: G57.01 Lesion of sciatic nerve, right lower limb (principal); M53.3 Sacrococcygeal disorders, not elsewhere classified
CPT/HCPCS: 99214

== ENCOUNTER → 2024-04-16 09:10 | Outpatient (BNVA) | payer MEDICARE, SELFPAY | PROVIDERS: PCP Internal Medicine; Visit Provider Physical Medicine & Rehabilitation | DX: G57.01 Lesion of sciatic nerve, right lower limb (principal); M53.3 Sacrococcygeal disorders, not elsewhere classified; M54.16 Radiculopathy, lumbar region | CPT/HCPCS: 99212 ==

== ENCOUNTER 2024-04-21 07:43 | Outpatient (REF) | payer MEDICARE, SELFPAY ==
[2024-04-21 08:12] LABS: MANUAL DIFF FLAG NO
[2024-04-21 08:33] LABS: Estimated Average Glucose 174 mg/dL; Hemoglobin A1C 219.7011 umol/L; Hemoglobin A1c % 7.7 % (<6.0); Total Hemoglobin (HGBA1C) 3615.5329 umol/L
[2024-04-21 08:48] LABS: Basophils Absolute Auto 0.1 X10*3/uL (0.0-0.2); Basophils Percent Auto 0.4 % (0-2); Eosinophils Absolute Auto 0.2 X10*3/uL (0.0-0.4); Eosinophils Percent Auto 1.9 % (0-4); Hematocrit 40.7 % (37.0-47.0); Hemoglobin 13.6 g/dl (12.0-16.0); Imm Gran Abs Auto 0.05 X10*3/uL (0.00-0.03); Imm Gran Pct Auto 0.4 % (0.0-0.4); Lymphocytes Absolute Auto 2.3 X10*3/uL (1.2-4.9); Lymphocytes Percent Auto 19.8 % (20-40); Mean Corpuscular HGB Conc 33.4 g/dl (31.0-35.0); Mean Corpuscular Hemoglobin 28.8 pg (27.0-33.0); Mean Corpuscular Volume 86.2 fL (80.0-98.0); Mean Platelet Volume 9.4 fL (9.4-12.3); Monocytes Absolute Auto 1.3 X10*3/uL (0.1-1.2); Neutrophils Absolute Auto 7.6 x10*3/uL (2.0-8.3); Neutrophils Percent Auto 66.5 % (45-73); Platelet Count 273 X10*3/uL (160-400); Red Blood Count 4.72 X10*6/uL (4.20-5.50); Red Cell Distribution Width 14.9 % (11.0-16.0); White Blood Count 11.4 X10*3/uL (4.8-10.8)
[2024-04-21 08:55] LABS: Alanine Aminotransferase 17 U/L (0-31); Albumin Level 3.5 g/dL (3.5-5.0); Alkaline Phosphatase 85 U/L (39-117); Anion Gap 12 (12-20); Aspartate Amino Transferase 25 U/L (5-31); Bilirubin Total 1.1 mg/dL (0.0-1.0); Blood Urea Nitrogen 16 mg/dL (9-16); Calcium 8.7 mg/dL (8.4-10.2); Carbon Dioxide 25 mmol/L (22-29); Chloride 108 mmol/L (96-108); Cholesterol 126 mg/dL (<200); Estimated Glomerular Filt Rate > 60; Glucose Fasting 87 mg/dL (60-99); HDL Cholesterol 43 mg/dL (>40); LDL Cholesterol Calculated 68 mg/dL (<100); Potassium 3.9 mmol/L (3.3-5.1); Sodium 141 mmol/L (135-145); Total Protein 7.1 g/dL (6.5-8.0); Triglycerides 75 mg/dL (<150)
[2024-04-21 09:59] LABS: Creatinine Urine 107.32 mg/dL; Microalbum/Creatinine Ratio Ur 44.7 ug/mg cr (<30)
== END 2024-04-21 07:44 | disposition home or self-care (01) ==
LOC: HO.LAB 07:43
PROVIDERS: PCP Internal Medicine; Visit Provider Internal Medicine
DX: Z00.00 Encounter for general adult medical examination without abnormal findings (principal); E11.9 Type 2 diabetes mellitus without complications; I10 Essential (primary) hypertension; E78.5 Hyperlipidemia, unspecified
CPT/HCPCS: 36415; 80053; 80061; 82043; 82570; 83036; 85025

== ENCOUNTER 2024-04-23 08:33 | Outpatient (RCR) | payer MEDICARE, SELFPAY ==
--- NOTE | 2024-04-09 13:38 | MHC.PT.EP ---
[facility] [place] Office [place] Office [place] Office [address] Vijay Coon [address] [phone] F: [phone] F: [phone] F: [phone] F: [phone] Physical Therapy Plan of Care Date of Evaluation: 04/09/24 Date of Surgery: N/A Diagnosis: right trochanteric bursitis (RL) Assessment: pt is a 83 y/o female presenting to physical therapy w/ referring diagnosis of trochanteric bursitis. Impairments include pain, decreased range of motion, decreased strength, impaired functional mobility, impaired postural awareness, and altered ambulation mechanics. pt is a fair candidate for skilled PT due to age, potential remediation of impairments, typical disease/condition progression and prognosis, comorbidities, and motivation. pt would benefit from skilled PT intervention to provide a tailored strengthening and stretching exercise program, functional training, gait training, postural re-training, neuromuscular re-education, modalities as needed for pain, equipment safety demonstration. Frequency and Duration: The patient will be seen 2x/wk for 3 wks Short Term Goals: pt will be I w/ HEP to promote self-management of condition. pt will improve R hip flexor strength by 1 MMT grade to promote ease in stair navigation. Prison Goals: pt will report a statistically significant improvement in self-reported outcome measure, LEFI, to promote return to PLOF. pt will perform sit<>stand transfer in one attempt to upright posture to reduce fall risk w/ functional mobility. Treatment Plan: Modalities to reduce pain, spasms and effusion. Manual therapy to restore motion and function. Therapeutic exercise to improve strength and flexibility. Neuromuscular re-education for posture and balance. Therapeutic activities to return to functional activities of daily living. Electronically signed by: Malgorzata Sparks PT, DPT Please sign and return to therapist. Thank you for your referral.
--- NOTE | 2024-05-13 14:13 | MHC.PT.DC ---
[facility] [place] [facility] [place] [facility] [address] Vijay Coon [address] [phone] F: [phone] F: [phone] F: [phone] F: [phone] Physical Therapy Discharge Report Diagnosis: right trochanteric bursitis (RL) Date of Surgery: N/A Date of Evaluation: 04/09/24 Date of Discharge: 05/13/24 Treatments to Date: 4 Cancellations to Date: 2 No Shows to Date: 1 Discharge Status: Patient Elected to Stop Discharge Summary: The patient overall was reporting no changes in her severe back pain. She only attended 4 visits. She had difficulty tolerating different positions for therapeutic exercise and gentle soft tissue work. She cancelled her last scheduled appointment and did not rebook. She is discharged per her request. Electronically signed by: Malgorzata Sparks PT, DPT Please sign and return to therapist. Thank you for your referral.
== END 2024-05-13 14:14 | disposition home or self-care (01) ==
LOC: HO.PT 08:33
PROVIDERS: PCP Internal Medicine; Visit Provider Physical Medicine & Rehabilitation
DX: G57.01 Lesion of sciatic nerve, right lower limb (principal); M70.61 Trochanteric bursitis, right hip
CPT/HCPCS: 97110; 97140; 97162

== ENCOUNTER 2024-04-26 08:20 | Outpatient (AMB) | payer MEDICARE, SELFPAY ==
--- NOTE | 2024-04-26 08:27 | A.OFFVIS_ITS ---
Vital Signs 04/26/24 08:28 Height 5 ft 3 in Weight 138 lb BMI 24.4 BP 158/72 H Blood Pressure Location Lt brachial Position Sitting Respiration 16 Pulse 69 Pulse Source Pulse Oximeter Pulse Oximetry (%) 93 Oxygen Delivery Method Room Air Intake Visit Reasons: Lumbar Radiculopathy Allergies Iodinated Contrast Media [IV CONTRAST] Allergy (Unknown, Verified 04/26/24 08:29) ANAPHYLAXIS poison den extract Adverse Reaction (Verified 04/26/24 08:29) Swelling Medication List - Last Reconciled 04/26/24 by Leonora Gallegos LPN acetaminophen 1,000 mg (2 x 500 mg) PO QID PRN amlodipine 5 mg PO DAILY aspirin 325 mg PO DAILY atorvastatin 80 mg PO DAILY blood sugar diagnostic As directed blood sugar diagnostic (FreeStyle Lite Strips) Test blood sugar 3 times per day blood-glucose meter (FreeStyle Lite Meter kit) As directed calamine phenolated 1 appl topical TID PRN carvedilol 25 mg PO BID [Custom heat molded inserts 3 pair] diabetic supplies, [employer]. diabetic shoes donepezil 5 mg PO DAILY [extra depth diabetic shoes 1 pair] insulin glargine (Basaglar KwikPen U-100 Insulin) 30 units (0.3 mL) subcut QAM lancets (FreeStyle Lancets) Test blood sugar 3 times per day lisinopril 40 mg PO DAILY metformin 1,000 mg PO BID pen needle, diabetic Use to inject insulin twice a day HPI Comments Details: Madeline is very pleasant 83 years old female who presents in my office with complains on pain in the lower back with radiation of the pain to the right lower extremity. She presents here with her daughter who on patient insistence was interpreting the conversation into [place] of the patient. She reports her pain started on 01/25/2024. She reports this pain 8 to 12/15. She reports pain starting slightly to the right of the midline and radiates down to the right lower extremity. Because of her pain she can not do activities of daily living. She is able to sleep normally, she is able to take care of herself and she can function normally. She is using cane for ambulation. 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 She reports that weather changes in movements aggravate her pain. Heat application and oral medication including Tylenol and ibuprofen make her pain better. She reports the pain is constant throughout the day 6 to 11/14. She had an x-ray of the lumbar spine and x-ray of the pelvis joints, she is scheduled for MRI. She completed 2 rounds of physical therapy at [facility], she completed 6 sessions in January and now she continuous another 3 sessions is done at the same place. She received non image guided piriformis steroid injection unfortunately this injection did not result in pain improvement. Her past medical history significant for diabetes type 2 she is on insulin and metformin. She denies any heart or lung problems. The surgical history bladder lift surgery long time ago. Social history she is retired individual, she denies smoking cigarettes denies drinking alcohol drinks soda 1 time a week and coffee twice a day. She denies recreational drugs. [facility] Medical History Back pain History of mammogram CVA (cerebral vascular accident) Diabetes Hyperlipidemia HTN (hypertension) Surgical History H/O colonoscopy No pertinent past surgical history Family History Father Unknown family medical history Mother Unknown family medical history Social History Housing: House Alcohol intake: current Alcohol intake frequency: holidays/special occasions only Patient Tobacco Use Status: Never used Tobacco e-Cigarette/Vaping Use: Never Used service: No Current occupational status: retired Cognitive needs: No Hearing needs: No Vision needs: Yes Review of Systems Const All systems reviewed & are unremarkable except as noted in HPI and below Reports no additional complaints Eyes Reports no additional complaints ENT Reports no additional complaints and Reports Normal hearing present Card Reports no additional complaints Resp Reports no additional complaints GI Reports no additional complaints Reports no additional complaints Musc Reports no additional complaints Neuro Reports Normal hearing present, Denies Abnormal speech present, Denies confusion and Denies Sensory deficit (Neuro) Psych Denies confusion Physical Exam Vital Signs: Last Vital Signs Pulse 69 04/26/24 08:28 Resp 16 04/26/24 08:28 BP 158/72 H 04/26/24 08:28 Pulse Ox 93 04/26/24 08:28 Oxygen Delivery Method Room Air 01/20/25 08:28 BMI result Body Mass Index 24.4 Const General: no acute distress; No confusion Nutritional Appearance: average body habitus and well nourished Orientation/consciousness: patient oriented x3 and No confusion Limitations: ambulation with cane Eyes General: appearance normal, both eyes and all related structures Pupils: Equal, round and reactive pupils present EOM: EOMs intact bilaterally Neck Neck: Yes full ROM Chest Chest palpation & inspection: normal inspection of the chest Resp Effort & Inspection: normal respiratory effort, able to speak in complete sentences, normal respiratory pattern, no audible wheezes and no cough Cardio Jugular venous distension: no JVD GI Inspection: Yes normal to inspection Back/Spine/Pelvis Other: There is minimal tenderness on palpation in paraspinal spinal region on the lumbar spine there is significant tenderness on palpation in the projection of the right sacroiliac joint. Keshawn test, pelvic compression test but not pelvic distraction test is positive on the right. Thigh trust test is positive on the right. SLR is positive on the right. Dorsiflexion of the foot at maximum SLR is positive on the right. Neuro General: patient oriented x3, gait normal and No confusion Cranial nerves: Yes CN's II-XII intact bilaterally, Yes Equal, round and reactive pupils present, Yes Normal hearing present and Yes Ability to bilaterally elevate shoulders present Speech: No Abnormal speech present Gait exam (Neuro): Normal gait present Motor exam (neuro): 5/5 motor strength present throughout Sensory Exam: No Sensory deficit (Neuro) Extrem General: No pedal edema Psych Speech and movement: Normal speech and movement present Affect: normal affect Attitude: cooperative Thought process: Normal thought process present Thought content: Normal thought content present Insight: Good insight present (Psych) Judgement: Good judgement present (Psych) Assessment & Plan Assessment & Plan (1) Sacroiliac joint dysfunction of right side: Code(s): M53.3 - Sacrococcygeal disorders, not elsewhere classified Category: Medical (2) Lumbar radiculopathy: Code(s): M54.16 - Radiculopathy, lumbar region Category: Medical (3) SI (sacroiliac) joint inflammation: Code(s): M46.1 - Sacroiliitis, not elsewhere classified Category: Medical Plan Dr. Martinez performed piriformis injection and it did not result in any pain improvement. She suspected patient has sacroiliitis and send her here. There is also suspicion that patient might have radiculopathy of the lumbar spine, the patient is scheduled for MRI on 05/02/2024. I offered the patient and she agreed to go for diagnostic sacroiliac joint injection, this will be image guided injection without steroids. The patient will be filling up pain diary after the procedure. By the time she will be scheduled for follow-up after the injection her MRI also will be read and we can decide what pathology this patient is suffering from. She reported that Tylenol helps her pain in significant extent when she takes 2 pills of Tylenol. I told her that she can not take this 2 pills of Tylenol twice a day. I told her to watch after the medications for cold or flu because they also contain Tylenol. Coding Level of Care Code New Pt Level 3 (43658) Diagnoses Sacroiliac joint dysfunction of right side M53.3 Lumbar radiculopathy M54.16 SI (sacroiliac) joint inflammation M46.1
[2024-04-26 08:28] VITALS: BP 158/72; PULSE 69; RESP 16; O2SAT 93; BMI 24.4
== END 2024-04-26 09:02 | disposition home or self-care (01) ==
PROVIDERS: PCP Internal Medicine; Referring Provider Physical Medicine & Rehabilitation; Visit Provider Anesthesiology
DX: M53.3 Sacrococcygeal disorders, not elsewhere classified (principal); M54.16 Radiculopathy, lumbar region; M46.1 Sacroiliitis, not elsewhere classified
CPT/HCPCS: 99203

== ENCOUNTER → 2024-04-26 08:20 | Outpatient (BNVA) | payer MEDICARE, SELFPAY | PROVIDERS: PCP Internal Medicine; Referring Provider Physical Medicine & Rehabilitation; Visit Provider Anesthesiology | DX: M53.3 Sacrococcygeal disorders, not elsewhere classified (principal); M54.16 Radiculopathy, lumbar region; M46.1 Sacroiliitis, not elsewhere classified | CPT/HCPCS: 99202 ==

== ENCOUNTER 2024-04-27 10:03 | Outpatient (AMB) | payer MEDICARE, SELFPAY ==
[2024-04-27 10:04] VITALS: BP 138/76; PULSE 65; O2SAT 96; BMI 25.0
--- NOTE | 2024-04-27 10:04 | A.OFFPC_ITS ---
Vital Signs 04/27/24 10:04 Height 5 ft 3 in Weight 141 lb BMI 25.0 BP 138/76 Blood Pressure Location Lt brachial Position Sitting Pulse 65 Pulse Source Pulse Oximeter Pulse Oximetry (%) 96 Oxygen Delivery Method Room Air Intake Visit Reasons: 4 months follow up Intake Note: Pt is here today for 4 months follow up visit. Allergies Iodinated Contrast Media [IV CONTRAST] Allergy (Unknown, Verified 04/27/24 10:06) ANAPHYLAXIS poison den extract Adverse Reaction (Verified 04/27/24 10:06) Swelling Tobacco use date assessed: 04/27/24 Fall risk assessment: No Falls in past year Last assessed Fall Risk: 04/27/24 Dental Screening Dental Screen Date: 04/27/24 Did you have a dental visit in the last 12 months?: No Did you have a dental problem in the last 6 months where you did not have access to dental care?: No Was dental information given to patient?: Patient declined HPI 4 months follow up HPI Details Patient presents for the follow-up of type 2 diabetes hypertension hyperlipidemia stable on current medications. She complains of chronic right side lower back radiating to right lower extremity pain worse when walking on sleeping on the right side. Patient had cortisone injections, physical therapy without significant relief and is waiting for the lumbar spine MRI. She denies any weakness or numbness in extremities or change in bowel bladder function. [facility] Medical History Back pain History of mammogram CVA (cerebral vascular accident) Diabetes Hyperlipidemia HTN (hypertension) Surgical History H/O colonoscopy No pertinent past surgical history Family History Father Unknown family medical history Mother Unknown family medical history Social History Housing: House Alcohol intake: current Alcohol intake frequency: holidays/special occasions only Patient Tobacco Use Status: Never used Tobacco e-Cigarette/Vaping Use: Never Used service: No Current occupational status: retired Cognitive needs: No Hearing needs: No Vision needs: Yes Questionnaire PHQ-9 Over the last 2 weeks, how often have you been bothered by any of the following problems? 1. Little interest or pleasure in doing things: not at all 2. Feeling down, depressed, or hopeless: not at all 3. Trouble falling or staying asleep, or sleeping too much: not at all 4. Feeling tired or having little energy: not at all 5. Poor appetite or overeating: not at all 6. Feeling bad about yourself - or that you are a failure or have let yourself or your family down: not at all 7. Trouble concentrating on things, such as reading the newspaper or watching television: not at all 8. Moving or speaking so slowly that other people could have noticed. Or the opposite - being so fidgety or restless that you have been moving around a lot more than usual: not at all 9. Thoughts that you would be better off or of hurting yourself in some way: not at all Total score: 0 Depression Screening Interpretation: Negative Depression Screening Done: Yes 19265 - PHQ-9 Billing: Yes Source: Developed by Drs. Garry Lock, Amanda Donovan, Moe Mariee and colleagues, with an educational herminia from [employer]. Thrive Questionnaire Date Thrive assessed: 04/27/24 I am a: Patient What is your living situation today?: I have a steady place to live Within the past 12 months, did the food you bought not last and you didn't have the money to get more?: Never true Within the past 12 months, did you worry whether your food would run out before you got money to buy more?: Never true Do you have trouble paying for medicines?: No Do you have trouble getting transportation to medical appointments?: No Do you have trouble paying your heating and electricity bill?: No Do you have trouble taking care of your child, family member or friend?: No Do you have trouble with day-to-day activities such as bathing, preparing meals, shopping, managing finances, etc.?: No Are you currently unemployed and looking for a job?: No Are you interested in more education?: No Please select the resources that you would like help with: None THRIVE Score: 0 AUDIT C Alcohol Use Questionnaire (AUDIT-C) 1. How often do you have a drink containing alcohol?: Never 3. How often do you have six or more drinks on one occasion?: Never Total Score: 0 EMILE-7 AMB Questionnaire EMILE-7 Date EMILE - 7 assessed: 04/27/24 Feeling nervous, anxious, or on edge: 0 = Not at all Not being able to stop or control worryin = Not at all Worrying too much about different things: 0 = Not at all Trouble relaxin = Not at all Being so restless that it is hard to sit still: 0 = Not at all Becoming easily annoyed or irritable: 0 = Not at all Feeling afraid as if something awful might happen: 0 = Not at all Total EMILE-7 score (0-4 normal; 5-9 mild; 10-14 moderate; 15-21 severe): 0 Source: Developed by Drs. Garry Lock, Amanda Donovan, Moe Mariee and colleagues, with an educational herminia from [employer]. EMILE-7 Assessment Billing EMILE-7 Assessment Tool: EMILE-7 Assessment 64326 Review of Systems Const All systems reviewed & are unremarkable except as noted in HPI and below Eyes Reports no additional complaints ENT Reports no additional complaints Card Reports no additional complaints Resp Reports no additional complaints GI Reports no additional complaints Reports no additional complaints Physical exam (Primary Care) Vital Signs: Last Vital Signs Pulse 65 04/27/24 10:04 BP 138/76 04/27/24 10:04 Pulse Ox 96 04/27/24 10:04 Oxygen Delivery Method Room Air 04/27/24 10:04 BMI result Body Mass Index 25.0 Tobacco/Smoking Status: Tobacco use Status Tobacco use date assessed 04/27/24 04/27/24 10:07 Patient Tobacco Use Status Never used Tobacco 04/27/24 10:07 e-Cigarette/Vaping Use Never Used 04/27/24 10:05 PHQ-9: PHQ-9 Score PHQ-9: Total score 0 04/27/24 10:17 Depression Screening Interpretation: Negative Thrive Assessment: Date of Thrive Assessment Date Thrive assessed 04/27/24 04/27/24 10:17 Const General: no acute distress HENMT Head: Yes normal to inspection Neck Neck: Yes no lymphadenopathy and Yes supple Resp Effort & Inspection: normal respiratory effort Auscultation: clear to auscultation bilaterally Cardio Rhythm: regular rhythm Heart sounds: S1 normal heart sound present and S2 normal heart sound present GI Inspection: Yes normal to inspection Palpation (GI): Soft to palpation Percussion: Yes normal to percussion Auscultation: normal bowel sounds Back/Spine/Pelvis Other: Paraspinal tenderness in her right lower lumbar region, straight leg rising 40 degrees on the right 90 degrees on the left, there is a decreased range of motion of the right hip Coding Level of Care Code Est Pt Level 4 (85016) Diagnoses Diabetic polyneuropathy associated with type 2 diabetes mellitus E11.42 Diabetes mellitus type: type 2 Diabetes mellitus complication detail: diabetic polyneuropathy Diabetes E11.9 Hyperlipidemia E78.5 HTN (hypertension) I10 Sciatica M54.30 Additional Codes EMILE-7 Assessment Billing - EMILE-7 Assessment Tool: EMILE-7 Assessment 17487 ([id number]) PHQ-9 - 78019 - PHQ-9 Billing: Yes ([id number]) Assessment & Plan Assessment & Plan (1) Diabetic neuropathy: Code(s): E11.40 - Type 2 diabetes mellitus with diabetic neuropathy, unspecified Category: Medical Qualifiers: Diabetes mellitus type: type 2 Diabetes mellitus complication detail: diabetic polyneuropathy Qualified Code(s): E11.42 - Type 2 diabetes mellitus with diabetic polyneuropathy Plan: Continue current medications (2) Diabetes: Comment: A1C <9 Code(s): E11.9 - Type 2 diabetes mellitus without complications Category: Medical Plan: A1c 7.7, ADA diet increase physical activity discussed with the patient. She was advised to have a snack before bedtime to avoid hypoglycemia at night. Follow-up in 4 months with a fasting labs before (3) Hyperlipidemia: Code(s): E78.5 - Hyperlipidemia, unspecified Category: Medical Plan: Continue statin (4) HTN (hypertension): Comment: goal <130/80 Code(s): I10 - Essential (primary) hypertension Category: Medical Plan: Continue current medications (5) Sciatica: Code(s): M54.30 - Sciatica, unspecified side Category: Medical Plan: Patient was advised to continue daily stretching exercises. She will have an MRI and follow-up with pain management at [facility] – [place], [place] Orders: Orders Hemoglobin A1c 4 Months E11.9 - Type 2 diabetes mellitus without complications, E78.5 - Hyperlipidemia, unspecified, I10 - Essential (primary) hypertension Comprehensive [place]. Panel Fast 4 Months E11.9 - Type 2 diabetes mellitus without complications, E78.5 - Hyperlipidemia, unspecified, I10 - Essential (primary) hypertension Microalbumin, Random (w Creat) 4 Months E11.9 - Type 2 diabetes mellitus without complications, E78.5 - Hyperlipidemia, unspecified, I10 - Essential (primary) hypertension Lipid Panel 4 Months E11.9 - Type 2 diabetes mellitus without complications, E78.5 - Hyperlipidemia, unspecified, I10 - Essential (primary) hypertension Complete Blood Count Auto Diff 4 Months E11.9 - Type 2 diabetes mellitus without complications, E78.5 - Hyperlipidemia, unspecified, I10 - Essential (primary) hypertension TSH reflex Free T4 4 Months E11.9 - Type 2 diabetes mellitus without complications, E78.5 - Hyperlipidemia, unspecified, I10 - Essential (primary) hypertension
== END 2024-04-27 10:40 | disposition home or self-care (01) ==
PROVIDERS: PCP Internal Medicine; Visit Provider Internal Medicine
DX: E11.42 Type 2 diabetes mellitus with diabetic polyneuropathy (principal); E78.5 Hyperlipidemia, unspecified; I10 Essential (primary) hypertension; M54.30 Sciatica, unspecified side

== ENCOUNTER → 2024-04-27 10:03 | Outpatient (BNVA) | payer MEDICARE, SELFPAY | PROVIDERS: PCP Internal Medicine; Visit Provider Internal Medicine | DX: E11.42 Type 2 diabetes mellitus with diabetic polyneuropathy (principal); I10 Essential (primary) hypertension; M54.30 Sciatica, unspecified side | CPT/HCPCS: 96127; 99212 ==

== ENCOUNTER 2024-05-02 11:07 | Outpatient (REF) | payer MEDICARE, SELFPAY ==
--- NOTE | ~2024-05-02 | MR_ITS ---
CLINICAL HISTORY: M54.16 - Radiculopathy, lumbar region Low back pain, bilat leg weakness, getting w orse MR lumbar spine without gadolinium Comparison: CR - XR LUMBAR SPINE 2-3V - 06/19/20 16:32 EDT Findings: Degenerative grade 1 spondylolisthesis of L3 and L4. No spondylolysis. Minute retrolisthesis of L5. No other significant alteration in alignment. Normal vertebral body height. No acute fracture evident. Generalized disc desiccation throughout. No focal abnormality at T12-L1. L1-2: Mild annular disc bulge and small central protrusion without significant mass effect. L2-3: Annular disc bulge eccentric to the left with fissuring of the posterior annulus. Mild left lateral recess narrowing without mass effect. No central canal stenosis. Patent L2 foramina. L3-4: Disc bulge with superimposed inferiorly directed right paracentral protrusion and moderate facet arthritis. Severe right [id number]-nhsa-left lateral recess stenosis and severe central canal stenosis. L4 foraminal narrowing greater to the right. Prominent facet joint synovitis with posterior projecting 12 mm synovial cyst posteriorly well away from the thecal sac. L4-5: Annular disc bulge and right lateral endplate osteophyte complex with marked facet arthritis. Severe central and lateral canal stenosis slightly greater to the right. Further compromise of the right lateral recess from focally prominent ligamentum flavum thickening. Associated bilateral facet joint synovitis greater to the right. Right L4 foraminal stenosis. Patent left L4 foramen. L5-S1: Disc osteophyte complex and superimposed central to slightly right paracentral protrusion. Mild facet arthritis. Nlhzi-[id number]-[id number]-left lateral recess stenosis, mild central canal stenosis and bilateral L5 foraminal stenosis. Conus terminating L1-2. No intradural signal abnormality evident although cauda equina poorly delineated at the L3-4 and L4-5 levels due to extent of stenosis. No acute appearing abnormality of the paralumbar soft tissues. Impression: Severe spinal stenosis greater to the right at L3-4 and L4-5 from multiple factors as detailed. Lateral recess and mild central canal stenosis greater to the right at L5-S1. Foraminal narrowing at each level as detailed. Pronounced facet arthritis L3-4 through L5-S1 with synovitis most pronounced on the right at L3-4 and L4-5. Mild degenerative changes upper lumbar levels. This document has been electronically signed by: Maycol Fuller MD on 05/02/2024 12:32:34
--- OUTSIDE RECORDS SUMMARY | 2024-05-02 11:10 | XMS_ITS ---
[facility] Organization [facility] Address [address] [place] [address] Care Team Providers Care Prosthetist Name Role Phone Yola Rowell MD Primary Care Provider Joaquin Covington Unavailable [phone] Allergies Allergen (clinical drug ingredient) Drug/Non Drug Allergy documented on EMR Reaction Allergy Type Onset Date Status IVP Dye (uncoded) Unknown Allergy Ac tive Red Dye (uncoded) Unknown Allergy Ac tive REASON FOR VISIT Painful nail(s) aggrevated by shoes and causing difficulty standing/walking. Medications Medication SIG (Take, Route, Frequency, Duration) Notes Start Date End Date Status Insulin Active Metformin & Diet Manage Prod 500 MG as directed Orally Active Physical Therapy . . . 2-3x/week for 3- 4 weeks Not-Taking Night Splint AFO - L1930 as directed 12/01/2017 Active Lisinopril 40 MG 1 tablet Orally Once a day for 30 day(s) Active glyBURIDE 5 MG 1 tablet Orally Once a day for 30 day(s) Active Ciclopirox Olamine 0.77 % 1 application to affected area Externally Twice a day to effected areas on feet for 30 days 12/13/2020 Active Carvedilol 25 MG 1 tablet with food Orally Twice a day for 30 day(s) Active Extra Depth Diabetic Shoes with 3 Pair Custom heat-molded multi-density innersoles for 1 year Dx: Active Januvia 50 MG 2 tablets Orally Onc e a day Active baby asprin as directed Active amLODIPine Besylate 10 MG 1 tablet Orall y Once a day for 30 day(s) Active Atorvastatin Calcium 20 MG 1 tablet Orally Once a day for 30 day(s) Active Social History Tobacco Use: Social History Observation Description Date Details (start date - stop date) Never Smoker NA - NA Tobacco Use/Smoking Question Answer Notes Are you a: nonsmoker Additional Findings: Tobacco Non-User Current no n-smoker Alcohol Screen Question Answer Notes Did you have a drink containing alcohol in the p ast year? No Points 0 Interpretation Negative Tobacco use other than smoking: Question Answer Notes Are you an other tobacco user? No Problems Problem Type SNOMED Code ICD Code Onset Dates Problem Status W/U Status Risk Notes Problem Acquired hallux rigidus (7579113) Hallux rigidus, left foot (M20.22) Active confirmed Vital Signs Height 5 ft 3 in in 2023 Weight 144 lbs 2023 BMI 25.51 kg/m2 2023 Procedures Procedure Date Ordered Date Performed Result Body Sit e 92484-RZAP SKIN LESIONS, 2 TO 4 2023 N/A 68927, K4428-QKDXM/INJECT, JOINT/BURSA 2023 N/A Encounters Encounter Location Date Provider Diagnosis [facility] [place] [address] [place] [address] 2023 Joaquin Maza Tinea unguium B35.1 ; Type 2 diabetes mellitus with diabetic polyneuropathy E11.42 ; Pain in right toe(s) M79.674 ; Pain in left toe(s) M79.675 ; Other hammer toe(s) (acquired), right foot M20.41 ; Other hammer toe(s) (acquired), left foot M20.42 ; Tinea pedis B35.3 ; Metatarsalgia, left foot M77.42 and Hallux rigidus, left foot M20.22 Assessments Encounter Date Diagnosis (ICD Code) Assessment Notes Treatment Notes Treatment Clinical Notes Section Notes 2023 Tinea unguium (ICD-10 - B35.1) 2023 Type 2 diabetes mellitus with diabetic polyneuropathy (ICD-10 - E11.42) 2023 Pain in right toe(s) (ICD-10 - M79.674) 2023 Pain in left toe(s) (ICD-10 - M79.675) 2023 Other hammer toe(s) (acquired), right foot (ICD-10 - M20.41) 2023 Other hammer toe(s) (acquired), left foot (ICD-10 - M20.42) 2023 Tinea pedis (ICD-10 - B35.3) 2023 Metatarsalgia, left foot (ICD-10 - M77.42) 2023 Hallux rigidus, left foot (ICD-10 - M20.22) Plan Of Treatment Medication Medication Name Sig Start Date Stop Date Notes Extra Depth Diabetic Shoes w ith 3 Pair Custom heat-molded multi-density innersoles for 1 year Dx: Pending Test Test Name Order Date X ray : Foot, left 3V 2023 99158-KAHQ SKIN LESIONS, 2 TO 4 11/10/19 24 , Q7613-LWTFW/INJECT, JOINT/BURSA 0 2023 Next Appt Details Follow Up: 1 Year, Reason: Provider Name:Cielo adair, 11/08/2024 09:00:00 AM, [address] [place] [address], [phone], Procedure Notes * Category Sub-Category Detail Notes Injection Sm. Joint, Bursa , J0702 In jection - sm/med joint bursa/capsule with 1cc of 1 percent Xylo.pl with 3mg Celestone Soluspan utilizing aseptic technique. The patient tolerated the procedure well. A dry sterile dressing was applied. Post injection instructions were dispensed, verbally discussed, and confirmed understood by the patient. I explained that a steroid and local anesthetic injection usually decreases pain and inflammation. I explained the possible complications including but not limited to signs/symptoms of steroid flare, change/deviation in toe position, infection, bruising, atrophy, discoloration of skin, and that additional injections may be necessary. Patient relates post-procedural pain assessment improved at ( 0-1) out of 10, LEFT first mtpj--dorsum Debride Nail 6-10 Nail debridement Nail debridem ent performed extensively to reduce/remove overall nail length and girth, subungual debris, and necrotic tissue, by manual and electrical means with use of a nail nipper and/or dremel, to more viable healthy nail plate or bed tissue 6-10. Silver nitrate used for any petechial bleeding as necessary. Patient chooses, no pharmaceutical tx (78507) Keratoma Treatment Parring or Cutting o f Benign Hyperkeratotic Lesion(s) 20758 ( 2-4 Lesions ) - The Benign hyperkeratotic lesions, as described above were pared, and/or cut utilizing a sterile 15 blade, tissue nippers, and/or dremel Progress Notes * Hoa HSIEHB:[birth year] (82 yo F)Acc No.[id number]:2023 Progress Note Patient:?Madeline sHieh Provider:?Joaquin Maza DPM :1940???Age:82 Y???Sex:Female D ate:2023 [facility] Pcp:Yola Rowell MD Subjective: * Chief Complaints: * ??? Painful nail(s) aggrevat ed by shoes and causing difficulty standing/walking. * HPI: ???Painful Nails:?Pt States Last PCP Visit:?Date:?12/16/2022 ???Skin problems:?Nature:?itching, redness.?Location:?B/L , 4th, 5th, Toe(s).?Course:?improved.?Treatments:?Topical antifungal.?Foot Pain:?Nature:?numbness, aching, dull, sharp.?Location:?Great toe joint, LEFT, Forefoot, Midfoot, Rearfoot.?Duration:?1 year or more.?Onset:?unknown, denies trauma.?Course:?worse.?Aggravated:?any pressure, standing, walking.?Treatments:?tx at [facility] [place] [place] [facility] .?Severity/Quality:?moderate.? * ROS:?General/Constitutional:?Nausea?denies.?Vomiting?denies.?Hunger Thirst?denies.?Loss appetite?denies.?Chills?denies.?Fatigue?denies.?Fever?denies.?Night Sweats?denies.?Unexplained weight loss?denies.?Unexplained weight gain?denies.?HEENTM:?Dentures?denies.?Dizziness?denies.?Glasses/contacts?admits.?Retinopathy?de nies.?Blurred/double vision?denies.?TMJ?denies.?Discharge/drainage?denies.?Implants?denies.?Sore throat?denies.?Dental implants?denies.?Hard of hearing ?denies.?Difficulty chewing/swallowing/speaking?denies.?Nose bleeds?denies.?Sore mouth?denies.?Respiratory:?On Oxygen?denies.?Pneumonia/pleurisy?denies.?Bronchitis?denies.?Emphysema?denies.?C oughing?denies.?Cough blood?denies.?Shortness of breath?denies.?Wheezing?denies.?Cardiovascular:?Pacemaker?denies.?MVP?denies.?WPW?denies.?CHF?denies.?Heart attack?denies.?Septal defect?denies.?Rapid beat?denies.?Chest pain ?denies.?Atrial Fib.?denies.?Murmur/Palpitations?denies.?Gastrointestinal:?Hemorrhoids?denies.?Stomach/Abdominal pain?denies.?Dark blood stool?denies.?Irritable bowel ?denies.?Constipation?denies.?Diarrhea?denies.?Hematology:?Swelling?denies.?Clots?denies.?Varicose Veins?denies.?Bruising?denies.?Bleeding problem?denies.?Genitourinary:?Blood urine?denies.?Frequent/Painfu/urination/bladder control?denies.?Kidney stones?denies.?Infection (UTI)?denies.?Nephropathy?denies.?sex trans dis (STD)?denies.?Prostate?denies.?Musculoskeletal:?Hammertoes?denies.?Bunions?denies.?Back Pain?denies.?Muscle Cramps/ Resting?denies.?Muscle cramps / walking?denies.?Generalized aches and pains?denies.?Weakness?denies.?Integ.:?Vgea?denies.?Scars?denies.?Corns/calluses?denies.?Ingrown nails?denies.?Painful nails?denies.?Open Sores?denies.?Rashes?denies.?Neurologic:?Difficulty sleeping?denies.?Brain disorder?denies.?Numbness?denies.?Balance trouble?denies.?Confusion?denies.?Fainting/blackouts?denies.?Tingling?denies.?Tr emors?denies.? * Medical History:? * Surgical History:?bladder dinero rgery 03/11/2013 * Hospitalization/Major Diagno stic Procedure:?Denies Past Hospitalization * Family History:?Mother: dece ased.?Father: .?Siblings: diabetes.? * Social History:?Tobacco Use:?Tobacco Use/Smoking?Are you a:?nonsmoker ?Additional Findings: Tobacco Non-User?Current non-smoker ?Tobacco use other than smoking?Are you an other tobacco user??No ???Drugs/Alcohol:?Drugs?Have you used drugs other than those for medical reasons in the past 12 months??No ?Alcohol Screen?Did you have a drink containing alcohol in the past year??No ?Points?0 ?Interpretation?Negative ???Miscellaneous:?Caffeine: yes, frequency:, 1-2 cups per day. ?Children: yes. ?Exercise: yes, walking. ?Marital status: . ?Occupation: Retired. * Medications:?TakingExtra Dep th Diabetic Shoes with 3 Pair Custom heat-molded multi-density innersoles for 1 year Dx:Atorvastatin Calcium 20 MG Tablet 1 tablet Orally Once a dayamLODIPine Besylate 10 MG Tablet 1 tablet Orally Once a daybaby asprin as directed Carvedilol 25 MG Tablet 1 tablet with food Orally Twice a dayCiclopirox Olamine 0.77 % Cream 1 application to affected area Externally Twice a day to effected areas on feetglyBURIDE 5 MG Tablet 1 tablet Orally Once a dayJanuvia 50 MG Tablet 2 tablets Orally Once a dayLisinopril 40 MG Tablet 1 tablet Orally Once a dayMetformin & Diet Manage Prod 500 MG Miscellaneous as directed Orally Insulin Night Splint AFO - L1930 as directed Taking Extra Depth Diabetic Shoes with 3 Pair Custom heat-molded multi-density innersoles for 1 year Dx:Taking Atorvastatin Calcium 20 MG Tablet 1 tablet Orally Once a dayTaking amLODIPine Besylate 10 MG Tablet 1 tablet Orally Once a dayTaking baby asprin as directed Taking Carvedilol 25 MG Tablet 1 tablet with food Orally Twice a dayTaking Ciclopirox Olamine 0.77 % Cream 1 application to affected area Externally Twice a day to effected areas on feetTaking glyBURIDE 5 MG Tablet 1 tablet Orally Once a dayTaking Januvia 50 MG Tablet 2 tablets Orally Once a dayTaking Lisinopril 40 MG Tablet 1 tablet Orally Once a dayTaking Metformin & Diet Manage Prod 500 MG Miscellaneous as directed Orally Taking Insulin Taking Night Splint AFO - L1930 as directed Not-Taking/PRNPhysical Therapy . . . . 2-3x/weekMedication List reviewed and reconciled with the patientNot-Taking/PRN Physical Therapy . . . . 2-3x/weekMedication List reviewed and reconciled with the patient * Allergies:?Red DyeIVP Dyeyes [Allergies Verified] Objective: * Vitals:?Ht: 5 ft 3 in, Wt:14 4, BMI:25.51, Shoe size:8, BS:98. * ???Past Orders: ???Lab:HEMOGLOBIN A1C (GLYCO HEMOGLOBIN) (Order Date - 12/17/2021) (Collection Date - 08/06/2021) ? Value Reference Range ?TOTAL HEMOGLOBIN (HGBA1C) 9 * Examination: ???Neurological: ?SENSORY:?exam demonstrates, reduced vibration lower extremity, B/L, at forefoot and midfoot, 5.07 monofilament test performed at plantar aspects of 5 varied sites per foot shows sensation, reduced , B/L, Neurological exam demonstrates pop lef fisrt and 2nd mtpj's.?Vascular: ?DP PULSES:? 1/4, B/L.?PT PULSES:? 0/4, B/L.?CAPILLARY FILL TIME:?3 secs. per digit. B/L .?SKIN TEMPERTURE GRADIENT OF THE LOWER EXTERMITIES:?normal, B/L .?HAIR GROWTH/TEXTURE/ELASTICITY/TURGOR:?normal, B/L .?PIGMENTATION:?normal, B/L .?VARICOSITIES:? present, moderate, nonpainful, B/L.?Nails: ?NAILS are:?Elongated, overgrown, dystrophic, lytic, greater than 3mm thick, discolored and friable with crumbly malodorous subungual debris, with dull to no pain on palpation due to neuropathy, TA, T1, T3, T4, T5, T6, T8, T9.?Dermatologic: ?SKIN FINDINGS:?Skin exam reveals Keratotic lesion(s) located at, Dorsal, T9, Plantar, Heel(s), B/L, SUB MTH (s), 1, Left , Right .?Orthopedic: ?MUSCLE STRENGTH:?5/5 all groups in a symmetrical fashion , B/L.?FOOT MORPHOLOGY:?Pes Planus structure .?BUNION:? Dorsally prominent 1st MPJ, (+) Pain on palpation, LEFT, Limited 1st MPJ Dorsal ROM, Limited 1st MPJ Plantar ROM.?DIGITAL DEFORMITIES:? Digital contracture cade 5th toes.?FOOTWEAR:?worn, nonsupportive.?General Examination: ?GENERAL APPEARANCE:?pleasant, alert, well nourished, well developed, well hydrated, with good attention to hygene/body habitus, and in no acute distress.?ORIENTED:?person,place, and time.?FOOT EXAM:?Footwear Evaluation?Ophthalmology Referral: ?DIABETES EYE EXAM?X-Rays - IMAGING REPORT: ?Clinical Indication(s):? Evaluate Biomechanical Deformity.?Views:? 3 views of Foot, LEFT.?Findings:? mild generalized decrease in bone density.?HAV:? there is asymmetrical narrowing of the 1st MPJ joint space, there is an exostosis located at the dorsal aspect of the 1st MTH.? Assessment: * Assessment: 1.?Tinea unguium - B35.1 (Pr imary)?2.?Type 2 diabetes mellitus with diabetic polyneuropathy - E11.42?3.?Pain in right toe(s) - M79.674?4.?Pain in left toe(s) - M79.675?5.?Other hammer toe(s) (acquired), right foot - M20.41?6.?Other hammer toe(s) (acquired), left foot - M20.42?7.?Tinea pedis - B35.3?8.?Metatarsalgia, left foot - M77.42?9.?Hallux rigidus, left foot - M20.22? Plan: * Treatment: 2.?Pain in left toe(s)?Imaging: X ray : Foot, left 3V 3.?Hallux rigidus, left foot ?Procedure: , Q9197-XQBBJ/INJECT, JOINT/BURSA * Procedures:?Debride Nail 6-10:?Nail debridement?Nail debridement performed extensively to reduce/remove overall nail length and girth, subungual debris, and necrotic tissue, by manual and electrical means with use of a nail nipper and/or dremel, to more viable healthy nail plate or bed tissue 6-10. Silver nitrate used for any petechial bleeding as necessary. Patient chooses, no pharmaceutical tx (70778).?Injection:?Sm. Joint, Bursa?, Injection - sm/med joint bursa/capsule with 1cc of 1 percent Xylo.pl with 3mg Celestone Soluspan utilizing aseptic technique. The patient tolerated the procedure well. A dry sterile dressing was applied. Post injection instructions were dispensed, verbally discussed, and confirmed understood by the patient. I explained that a steroid and local anesthetic injection usually decreases pain and inflammation. I explained the possible complications including but not limited to signs/symptoms of steroid flare, change/deviation in toe position, infection, bruising, atrophy, discoloration of skin, and that additional injections may be necessary. Patient relates post-procedural pain assessment improved at ( 0-1) out of 10, LEFT first mtpj--dorsum.?Keratoma Treatment:?Parring or Cutting of Benign Hyperkeratotic Lesion(s)?01471 ( 2-4 Lesions ) - The Benign hyperkeratotic lesions, as described above were pared, and/or cut utilizing a sterile 15 blade, tissue nippers, and/or dremel.? * Procedure Codes:?30758 DEBRI DE NAIL, 6 OR MORE, Modifiers: XS 06629 X-RAY EXAM OF LEFT FOOT 3V, Modifiers: 26 , [id number] INJ BETAMETHSN ACTAT&SOD [id number] DRAIN/INJECT, JOINT/BURSA, Modifiers: XS 27163 TRIM SKIN LESIONS, 2 TO 4, Modifiers: XS * Preventive Medicine:? ??Counseling:?Discussion:?-14: Office or other outpatient visit for the evaluation and management of an established patient, which required a medically appropriate history and/or examination and MODERATE level of DECISION MAKING for: 1 OR MORE CHRONIC PROBLEM(S) THATS WORSENING, 2 STABLE CHRONIC PROBLEMS, A NEWLY DIAGNOSED PROBLEM WITH UNCERTAIN PROGNOSIS, AN ACUTE COMPLICATED INJURY WITH MULTIPLE TREATMENT OPTIONS, OR AN ACUTE PROBLEM WITH ACCOMPANYING SYSTEMIC SYMPTOMS, THAT POSE(S) A MODERATE RISK OF MORBIDITY. THIS CONDITION MAY ALSO INCLUDE RX DRUG MANAGEMENT, OR A DECISON FOR MINOR SURGERY. The visit on the day of the encounter encompassed interpreting the data and educating the patient as to the nature of their condition, treatment options available according to their individual PMH, meds, allergies, and overall health/living conditions, as well as any potential risks or complications that may occur from a failure to adhere to, and participate in, the recommended course of therapy. The discussion included a complete verbal, and/or written explanation of the examination results, any x-rays taken, the proposed diagnosis, and outline of the treatment plan. A schedule for future care needs was also explained. The patient verbalized an understanding of the instructions at this time and agreed to be an active participant in their treatment. If the patient should think of any questions or concerns after the visit, I have encouraged the patient to call the office.? * Follow Up:?1 Year * Images: * Sign off status: Completed true * Provider:?oJaquin Maza DPM Date:? 024 Generated for Ruthie cowan/Clint/Jan on:?05/02/2024 11:10 AM EST History and Physical Notes * HPI (History of Present Illness) Category Sub-Category Detail Notes Category Not es Painful Nails Pt States Last PCP Visit: Date:: 12/16/2022 Skin problems Nature: itching, redness Location: B/L , 4th, 5th, Toe( s) Course: improved Treatments: Topical antifungal Foot Pain Nature: numbness, aching, dull, dmitry p Location: Great toe joint, LEF T, Forefoot, Midfoot, Rearfoot Duration: 1 year or more Onset: unknown, dileepies twin brown Course: worse Aggravated: any pressure, standi ng, walking Treatments: tx at [facility] [place] [facility] Severity/Quality: moderate Examination Category Sub-Category Detail Notes Category Not es Neurological SENSORY: exam demonstrate s, reduced vibration lower extremity, B/L, at forefoot and midfoot, 5.07 monofilament test performed at plantar aspects of 5 varied sites per foot shows sensation, reduced , B/L, Neurological exam demonstrates pop lef fisrt and 2nd mtpj's Dermatologic SKIN FINDINGS: Skin exam reveal s Keratotic lesion(s) located at, Dorsal, T9, Plantar, Heel(s), B/L, SUB MTH (s), 1, Left , Right Orthopedic FOOT MORPHOLOGY: Pes Planus structure BUNION: Dorsally prominent 1 st MPJ, (+) Pain on palpation, LEFT, Limited 1st MPJ Dorsal ROM, Limited 1st MPJ Plantar ROM FOOTWEAR: worn, nonsupportive DIGITAL DEFORMITIES: Digital contracture cade 5th toes MUSCLE STRENGTH: 5/5 all groups in a symmetrical fashion , B/L General Examination GENERAL APPEARANCE: pleasant , alert, well nourished, well developed, well hydrated, with good attention to hygene/body habitus, and in no acute distress FOOT EXAM: Lower Extremity Neurological Exa m performed:: Yes Visual exam of foot performed:: Yes Date: 2023 Sensory testing performed:: sensations d iminished Pedal pulse taking performed:: 1+ ORIENTED: person,place, and ti me Footwear Evaluation Footwear Evaluation performe d:: Yes Ophthalmology Referral DIABETES EYE EXAM Diabetic Reti nopathy Screening:: Yes 2020 Vascular DP PULSES (B): 1/4, B/L PT PULSES (B): 0/4, B/L CAPILLARY FILL TIME: 3 secs. per digit. B/L TEMPERTURE GRADIENT (C): normal, B/L TROPHIC CONDITION-TEXTURE/EL ASTICITY/TURGOR/HAIR GROWTH (B): normal, B/L VARICOSITIES: present, moderate, n onpainful, B/L PIGMENTATION: normal, B/L Nails NAILS are: Elongated, overg rown, dystrophic, lytic, greater than 3mm thick, discolored and friable with crumbly malodorous subungual debris, with dull to no pain on palpation due to neuropathy, TA, T1, T3, T4, T5, T6, T8, T9 X-Rays - IMAGING REPORT Findings: mild generalized decrease in bone density HAV: there is asymmetrica l narrowing of the 1st MPJ joint space, there is an exostosis located at the dorsal aspect of the 1st MTH Views: 3 views of Foot, LEF T Clinical Indication(s): Evaluate Biomech anical Deformity
--- OUTSIDE RECORDS SUMMARY | 2024-05-02 11:10 | XMS_ITS | Clinical Summary ---
Author Organization [facility] Address [address] [place] [address] Care Team Providers Care Senior Software Development Manager Name Role Phone Yola Rowell MD Primary Care Provider [phone] Surgical History Surgery Date Site/Laterality Comments OTHER SURGICAL HISTORY 03/11/13 PROCEDURE: [place] ANTERIOR COLPORRAPHY RPR CYSTOCELE W/CYSTO; COMMENT: also rectocele repair Medical History Medical History Date Comments Mixed hyperlipidemia DX:Mixed hy perlipidemia Type II or unspecified type diabetes mellitus with unspecified complication, not stated as uncontrolled DX:Type II or unspecified t ype diabetes mellitus with unspecified complication, not stated as uncontrolled Essential hypertension, benign D X:Essential hypertension, benign Family History Medical History Relation Name Comments No Known Problems Daughter No Known Problems Father No Known Problems Maternal Grandfather No Known Problems Maternal Grandmother No Known Problems Mother Colon cancer Other 1 negative histor y No Known Problems Other 2 No Known Problems Paternal Grandfather No Known Problems Paternal Grandmother No Known Problems Sister Breast cancer Neg Hx Relation Name Status Comments Daughter Father Maternal Grandfather Maternal Grandmother Mother Other 1 Other 2 Paternal Grandfather Paternal Grandmother Sister Social History Tobacco Use Types Packs/Day Years Used Date Smoking Tobacco: Never Smokeless Tobacco: Never Alcohol Use Standard Drinks/Week Comments No 0 (1 standard drink = 0.6 oz pur e alcohol) Sex and Gender Information Value Date Recorded Sex Assigned at Not on file Gender Identity Not on file Sexual Orientation Not on file Obstetrics History Plan of Treatment Upcoming Encounters Date Type Department Care Team ([facility] st Contact Info) Description 06/15/2024 8:20 AM EDT Appointment Radiology Department [address] [address] Health Maintenance Due Date Last Done Comments Diabetes: Annual GFR (Glomer ular Filtration Rate) 1940 Diabetes: Annual Foot Exam 1950 Diabetes: Annual Retina Eye Exam 1950 DTaP,Tdap,and Td Vaccines (1 - Tdap) 11/11/1959 Zoster Vaccines (1 of 2) 1990 Pneumococcal Vaccine: 65+ Ye ars (1 of 1 - PCV) 2005 RSV Immunization Patients 60 + Years Old (1 - 1-dose 75+ series) 11/11/2015 Cholesterol Screening (Lipid Panel) 03/16/2022 Depression Screening 03/16/2022 Falls Risk Assessment 03/16/2022 Social Influencers of Health Screening 03/16/2022 Diabetes: Annual Urine Albumin-Creatinine Ratio (uACR) 03/21/2022 Diabetes: Blood Sugar Contro l Test (HGBA1C) 03/21/2022 COVID-19 Vaccine ( - 2023-2 5 season) 2023 Influenza Vaccine (#1) 2023 03/23/2009 Osteoporosis Screening (Bone Density Screening) 08/26/2026 08/26/2016 HIB Vaccines Aged Out No longer eligi ble based on patient's age to complete this topic HPV Vaccines Aged Out No longer eligi ble based on patient's age to complete this topic Hepatitis A Vaccines Aged Out No long er eligible based on patient's age to complete this topic Hepatitis B Vaccines Aged Out No long er eligible based on patient's age to complete this topic IPV Vaccines Aged Out No longer eligi ble based on patient's age to complete this topic MMR Vaccines Aged Out No longer eligi ble based on patient's age to complete this topic Meningococcal ACWY Vaccine Aged Out N o longer eligible based on patient's age to complete this topic RSV Immunization Patients Un bo 20 months Aged Out No longer eligible b ased on patient's age to complete this topic Varicella Vaccines Aged Out No longer eligible based on patient's age to complete this topic Procedures Procedure Name Priority Date/Time Associated Diagnosis Comments DXA BONE DENSITY STUDY 1+ SITS AXIAL SKEL Routine 08/26/2016 9:26 AM EDT Menopausal and female climacteric states Other specified disorders of bone density and structure, unspecified site from Last 3 Months or Most Recently Relevant to Health Maintenance Results * DXA BONE DENSITY STUDY 1+ SITS AXIAL SKEL (08/26/2016 9:26 AM EDT) Anatomical Region Laterality Modality Bone Densitometr y 07/29/2016 11:3 3 AM EDT Narrative 08/26/2016 12:31 PM EDT BONE DENSITY ? Lumbar Spine T-score is -0.4 ?? (SD relative to 20-29 y/o adult) Z-score is +2.0 ??(SD relative to age matched peers) This is normal by criteria defined by the WHO. Left Hip T-score is -1.4 Z-score is +0.8 This is consistent with osteopenia by criteria defined by the WHO. Comparison exam(s): significant increase in bone density of ??lumbar spine when compared to most recent bone density examination ?? Confidence level is +/-95%. Impression: Based on the World Health Organization criteria, Madeline Duff should be classified as having osteopenia. This patient has a 11% risk of major osteoporotic fracture and a 2.0% risk of hip fracture over the next 10 years. (World Health Organization Fracture Risk Assessment) The [facility] Department of Internal Medicine recommends using National Osteoporosis Foundation (NOF) guidelines in treatment decisions related to osteoporosis. NOF guidelines suggest considering treatment for postmenopausal women and men aged 50 or older presenting with the following: History of hip or vertebral fracture. T-score less than or equal to -2.5 (DXA) at the femoral neck, total hip, or spine, after appropriate evaluation to exclude secondary causes. Low bone mass (T-score between -1.0 and -2.5 at the femoral neck or spine) AND a 10-year probability of a hip fracture greater than or equal to 3% OR a 10-year probability of a major osteoporosis-related fracture greater than or equal to 20% based on the [place]-adapted WHO algorithm Please note that all treatment decisions require clinical judgment and consideration of individual patient factors, including patient preferences, co-morbidities, previous drug use, risk factors not captured in the FRAX model (e.g., frailty, falls, vitamin D deficiency, increased bone turnover, interval significant decline in bone density) and possible under- or over-estimation of fracture risk by FRAX. Procedure Note Keshawn Aguirre MD - 05/09/2023 BONE DENSITY Lumbar Spine T-score is -0.4 (SD relative to 20-29 y/o adult) Z-score is +2.0 (SD relative to age matched peers) This is normal by criteria defined by the WHO. Left Hip T-score is -1.4 Z-score is +0.8 This is consistent with osteopenia by criteria defined by the WHO. Comparison exam(s): significant increase in bone density of lumbar spinewhen compared to most recent bone density examination Confidence level is +/-95%. Impression: Based on the World Health Organization criteria, Madeline Duff should beclassified as having osteopenia. This patient has a 11% risk of majorosteoporotic fracture and a 2.0% risk of hip fracture over the next 10years. (World Health Organization Fracture Risk Assessment) [facility] Department of Internal Medicine recommendsusing National Osteoporosis Foundation (NOF) guidelines in treatmentdecisions related to osteoporosis. NOF guidelines suggest consideringtreatment for postmenopausal women and men aged 50 or older presentingwith the following: History of hip or vertebral fracture. T-score less than or equal to -2.5 (DXA) at the femoral neck, total hip,or spine, after appropriate evaluation to exclude secondary causes. Low bone mass (T-score between -1.0 and -2.5 at the femoral neck or spine)AND a 10-year probability of a hip fracture greater than or equal to 3% ORa 10-year probability of a major osteoporosis-related fracture greaterthan or equal to 20% based on the [place]-adapted WHO algorithm Please note that all treatment decisions require clinical judgment andconsideration of individual patient factors, including patientpreferences, co-morbidities, previous drug use, risk factors not capturedin the FRAX model (e.g., frailty, falls, vitamin D deficiency, increasedbone turnover, interval significant decline in bone density) and possibleunder- or over-estimation of fracture risk by FRAX. Dewayne Mcginnis MD IMG DXA PROCEDURES from Last 3 Months or Most Recently Relevant to Health Maintenance Care Teams Senior Software Development Manager Relationship Specialty Start Date End Date Yola Rowell MD PCP - General 01/06/08
--- OUTSIDE RECORDS SUMMARY | 2024-05-02 11:10 | XMS_ITS ---
Author Organization [facility] Address [address] [place] [address] Care Team Providers Care Senior Animal Trainer Name Role Phone Yola Rowell MD Primary Care Provider Joaquin Covington [phone] REASON FOR VISIT seen sooner Encounters Encounter Location Date Provider Diagnosis [facility] [address] [place] [address] 12/29/2023 Joaquin Maza Plan Of Treatment Next Appt Details Provider Name:Cielo adair, 11/08/2024 09:00:00 AM, [address] [place], [address], Progress Notes * Hoa HSIEHB:[birth year] (83 yo F)Acc No.[id number]:12/29/2023 Progress Note Patient:?Madeline HSIEH Provider:?Joaquin Maza DPM :1940???Age:83 Y???Sex:Female D ate:12/29/2023 Address:[address] [id number] Pcp:Yola Rowell MD Subjective: * Chief Complaints: * ???1. Seen sooner. * Medical History:? Objective: * Vitals:? Assessment: Plan: * Treatment: * Images: * The named appointment provid er may or may not be the originator of this progress note, and it is not deemed complete until electronically signed by the appointment provider. Sign off status: Pending * Provider:?Joaquin Maza DPM Date:? 024 Generated for Ruthie cowan/Clint/Jan on:?05/02/2024 11:09 AM EST
--- OUTSIDE RECORDS SUMMARY | 2024-05-02 11:10 | XMS_ITS ---
[facility] Address [address] [facility] [place] [address] Care Team Providers Care Virginia Line Attendant Name Role Phone Yola Rowell MD Primary Care Provider Joaquin Covington Unavailable [phone] Allergies Allergen (clinical drug ingredient) Drug/Non Drug Allergy documented on EMR Reaction Allergy Type Onset Date Status IVP Dye (uncoded) Unknown Allergy Ac tive Red Dye (uncoded) Unknown Allergy Ac tive REASON FOR VISIT Painful nail(s) aggrevated by shoes and causing difficulty standing/walking. Medications Medication SIG (Take, Route, Frequency, Duration) Notes Start Date End Date Status Extra Depth Diabetic Shoes with 3 Pair Custom heat-molded multi-density innersoles for 1 year Dx: Active Insulin Active Metformin & Diet Manage Prod 500 MG as directed Orally Active Physical Therapy . . . 2-3x/week for 3- 4 weeks Not-Taking Night Splint AFO - L1930 as directed 12/01/2017 Active glyBURIDE 5 MG 1 tablet Orally Once a day for 30 day(s) Active Ciclopirox Olamine 0.77 % 1 application to affected area Externally Twice a day to effected areas on feet for 30 days 12/13/2020 Active Carvedilol 25 MG 1 tablet with food Orally Twice a day for 30 day(s) Active Lisinopril 40 MG 1 tablet Orally Once a day for 30 day(s) Active Januvia 50 MG 2 tablets Orally Onc e a day Active amLODIPine Besylate 10 MG 1 tablet Orall y Once a day for 30 day(s) Active Atorvastatin Calcium 20 MG 1 tablet Orally Once a day for 30 day(s) Active baby asprin as directed Active Social History Tobacco Use: Social History [...] Are you an other tobacco user? No Vital Signs Blood pressure systolic 120 mm Hg 12/24/19 23 Blood pressure diastolic 80 mm Hg 023 Height 5 ft 3 in in 12/23/2022 Weight 144 lbs 12/23/2022 BMI 25.51 kg/m2 12/23/2022 Encounters Encounter Location Date Provider Diagnosis [facility] [address] [address] 12/23/2022 Joaquin Maza Tinea unguium B35.1 ; Type 2 diabetes mellitus with diabetic polyneuropathy E11.42 ; Pain in right toe(s) M79.674 ; Pain in left toe(s) M79.675 ; Other hammer toe(s) (acquired), right foot M20.41 ; Other hammer toe(s) (acquired), left foot M20.42 ; Localized edema R60.0 ; Venous insufficiency I87.2 ; Venous insufficiency of both lower extremities I87.2 and Tinea pedis B35.3 Assessments Encounter Date Diagnosis (ICD Code) Assessment Notes Treatment Notes Treatment Clinical Notes Section Notes 12/23/2022 Tinea unguium (ICD-10 - B35.1) 12/23/2022 Type 2 diabetes mellitus with diabetic polyneuropathy (ICD-10 - E11.42) 12/23/2022 Pain in right toe(s) (ICD-10 - M79.674) 12/23/2022 Pain in left toe(s) (ICD-10 - M79.675) 12/23/2022 Other hammer toe(s) (acquired), right foot (ICD-10 - M20.41) 12/23/2022 Other hammer toe(s) (acquired), left foot (ICD-10 - M20.42) 12/23/2022 Localized edema (ICD-10 - R60.0) 12/23/2022 Venous insufficiency (ICD-10 - I87.2) 12/23/2022 Venous insufficiency of both lower extremities (ICD-10 - I87.2) 12/23/2022 Tinea pedis (ICD-10 - B35.3) Plan Of Treatment Medication Medication Name Sig Start Date Stop Date Notes Extra Depth Diabetic Shoes w ith 3 Pair Custom heat-molded multi-density innersoles for 1 year Dx: Next Appt Details Follow Up: 1 Year, Reason: Provider Name:Cielo Pazautumn adair, 11/08/2024 09:00:00 AM, [address] [place], [address], Procedure Notes * Category Sub-Category Detail Notes Debride Nail 6-10 Nail debridement Nail debridem ent performed extensively to reduce/remove overall nail length and girth, subungual debris, and necrotic tissue, by manual and electrical means with use of a nail nipper and/or dremel, to more viable healthy nail plate or bed tissue 6-10. Silver nitrate used for any petechial bleeding as necessary. Patient chooses, no pharmaceutical tx (24097) Keratoma Treatment Parring or Cutting o f Benign Hyperkeratotic Lesion(s) 46092 ( >4 Lesions) - The Benign hyperkeratotic lesions, as described above were pared, and/or cut utilizing a sterile #15 blade, tissue nippers, and/or dremel Progress Notes * Jose HSIEHaDOB:[birth year] (82 yo F)Acc No.[id number]:12/23/2022 Progress Note Patient:?Jose Hsieha Provider:?Joaquin Maza DPM :1940???Age:82 Y???Sex:Female D ate:12/23/2022 Address: [address] [place] Pcp:Yola Rowell MD Subjective: * Chief Complaints: * ??? Painful nail(s) aggrevat ed by shoes and causing difficulty standing/walking. * HPI: ???Painful Nails:?Pt States Last PCP Visit:?Date:?12/16/2022 ???Skin problems:?Nature:?itching, redness.?Location:?B/L , 4th, 5th, Toe(s).?Course:?improved.?Treatments:?Topical antifungal.? * ROS:?General/Constitutional:?Nausea?denies.?Vomiting?denies.?Hunger Thirst?denies.?Loss appetite?denies.?Chills?denies.?Fatigue?denies.?Fever?denies.?Night Sweats?denies.?Unexplained weight loss?denies.?Unexplained weight gain?denies.?HEENTM:?Dentures?denies.?Dizziness?denies.?Glasses/contacts?admits.?Retinopathy?de nies.?Blurred/double vision?denies.?TMJ?denies.?Discharge/drainage?denies.?Implants?denies.?Sore throat?denies.?Dental implants?denies.?Hard of hearing ?denies.?Difficulty chewing/swallowing/speaking?denies.?Nose bleeds?denies.?Sore mouth?denies.?Respiratory:?On Oxygen?denies.?Pneumonia/pleurisy?denies.?Bronchitis?denies.?Emphysema?denies.?C oughing?denies.?Cough blood?denies.?Shortness of breath?denies.?Wheezing?denies.?Cardiovascular:?Pacemaker?denies.?MVP?denies.?WPW?denies.?CHF?denies.?Heart attack?denies.?Septal defect?denies.?Rapid beat?denies.?Chest pain ?denies.?Atrial Fib.?denies.?Murmur/Palpitations?denies.?Gastrointestinal:?Hemorrhoids?denies.?Stomach/Abdominal pain?denies.?Dark blood stool?denies.?Irritable bowel ?denies.?Constipation?denies.?Diarrhea?denies.?Hematology:?Swelling?denies.?Clots?denies.?Varicose Veins?denies.?Bruising?denies.?Bleeding problem?denies.?Genitourinary:?Blood urine?denies.?Frequent/Painfu/urination/bladder control?denies.?Kidney stones?denies.?Infection (UTI)?denies.?Nephropathy?denies.?sex trans dis (STD)?denies.?Prostate?denies.?Musculoskeletal:?Hammertoes?denies.?Bunions?denies.?Back Pain?denies.?Muscle Cramps/ Resting?denies.?Muscle cramps / walking?denies.?Generalized aches and pains?denies.?Weakness?denies.?Integ.:?Vega?denies.?Scars?denies.?Corns/calluses?denies.?Ingrown nails?denies.?Painful nails?denies.?Open Sores?denies.?Rashes?denies.?Neurologic:?Difficulty sleeping?denies.?Brain disorder?denies.?Numbness?denies.?Balance trouble?denies.?Confusion?denies.?Fainting/blackouts?denies.?Tingling?denies.?Tr emors?denies.? [...] reconciled with the patient * Allergies:?Red DyeIVP Tanja [Allergies Verified] Objective: * Vitals:?Ht: 5 ft 3 in, Wt:14 4, BMI:25.51, BP:120/80 mm Hg, BS:89. * ???Past Orders: ???Lab:HEMOGLOBIN A1C (GLYCO HEMOGLOBIN) (Order Date - 12/17/2021) (Collection Date - 08/06/2021) ? Value Reference Range ?TOTAL HEMOGLOBIN (HGBA1C) 9 * Examination: ???Neurological: ?SENSORY:?exam demonstrates, reduced vibration lower extremity, B/L, at forefoot and midfoot, 5.07 monofilament test performed at plantar aspects of 5 varied sites per foot shows sensation, reduced , B/L.?Vascular: ?DP PULSES:? 1/4, B/L.?PT PULSES:? 0/4, B/L.?CAPILLARY FILL TIME:?3 secs. per digit. B/L .?SKIN TEMPERTURE GRADIENT OF THE LOWER EXTERMITIES:?normal, B/L .?HAIR GROWTH/TEXTURE/ELASTICITY/TURGOR:?normal, B/L .?PIGMENTATION:?normal, B/L .?EDEMA:? 2/4, B/L, Feet, Ankle(s), Leg(s).?VARICOSITIES:? present, moderate, nonpainful, B/L.?Nails: ?NAILS are:?Elongated, overgrown, [...] symmetrical fashion , B/L.?FOOT MORPHOLOGY:?Pes Planus structure .?BUNION:?Medially prominent 1st MPJ, Dorsal prominent 1st MPJ , B/L .?DIGITAL DEFORMITIES:? Digital contracture cade 5th toes.?FOOTWEAR:?worn, nonsupportive.?General Examination: ?GENERAL APPEARANCE:?pleasant, alert, well nourished, well developed, well hydrated, with good attention to hygene/body habitus, and in no acute distress.?ORIENTED:?person,place, and time.?FOOT EXAM:?Footwear Evaluation?Ophthalmology Referral: ?DIABETES EYE EXAM? Assessment: * Assessment: 1.?Tinea unguium - B35.1 (Pr imary)?2.?Type 2 diabetes mellitus with diabetic polyneuropathy - E11.42?3.?Pain in right toe(s) - M79.674?4.?Pain in left toe(s) - M79.675?5.?Other hammer toe(s) (acquired), right foot - M20.41?6.?Other hammer toe(s) (acquired), left foot - M20.42?7.?Localized edema - R60.0?8.?Venous insufficiency - I87.2?9.?Venous insufficiency of both lower extremities - I87.2?10.?Tinea pedis - B35.3? Plan: * Treatment: * Procedures:?Debride Nail 6-10:?Nail debridement?Nail debridement performed extensively to reduce/remove overall nail length and girth, subungual debris, and necrotic tissue, by manual and electrical means with use of a nail nipper and/or dremel, to more viable healthy nail plate or bed tissue 6-10. Silver nitrate used for any petechial bleeding as necessary. Patient chooses, no pharmaceutical tx (80308).?Keratoma Treatment:?Parring or Cutting of Benign Hyperkeratotic Lesion(s)?78040 ( >4 Lesions) - The Benign hyperkeratotic lesions, as described above were pared, and/or cut utilizing a sterile #15 blade, tissue nippers, and/or dremel.? * Procedure Codes:?89500 DEBRI DE NAIL, 6 OR MORE, Modifiers: XS 92718 TRIM SKIN LESIONS, OVER 4, Modifiers: XS * Preventive Medicine:? ??Counseling:?Discussion:?-13: Office or other outpatient visit for the evaluation and management of an established patient, which required a medically appropriate history and/or examination and LOW level of DECISION MAKING for: 1 STABLE ACUTE UNCOMPLICATED PROBLEM, 2 OR MORE MINOR PROBLEMS, OR 1 STABLE CHRONIC PROBLEM, THAT POSE(S) A LOW RISK FOR MORBIDITY/MORTALITY. The visit on the day of the [...] have encouraged the patient to call the office.?Diabetic Footcare:?The patient was advised against future self nail/callus care due to inherent risks for infection, loss of limb/life given diabetes, neuropathy.? * Follow Up:?1 Year * Images: * Sign off status: Completed true * Provider:?Joaquin Maza DPM Date:? 023 Generated for Printi ng/Faxing/eTransmitting on:?05/02/2024 11:10 AM EST History and Physical Notes * HPI (History of Present Illness) Category Sub-Category Detail Notes Category Not es Painful Nails Pt States Last PCP Visit: Date:: 12/16/2022 Skin problems Nature: itching, redness Location: B/L , 4th, 5th, Toe( s) Course: improved Treatments: Topical antifungal Examination Category Sub-Category Detail Notes Category Not es Neurological SENSORY: exam demonstrate s, reduced vibration lower extremity, B/L, at forefoot and midfoot, 5.07 monofilament test performed at plantar aspects of 5 varied sites per foot shows sensation, reduced , B/L Dermatologic SKIN FINDINGS: Skin exam reveal s Keratotic lesion(s) located at, Dorsal, T9, Plantar, Heel(s), B/L, SUB MTH (s), 1, Left , Right Orthopedic FOOT MORPHOLOGY: Pes Planus structure BUNION: Medially prominent 1 st MPJ, Dorsal prominent 1st MPJ , B/L FOOTWEAR: worn, nonsupportive DIGITAL DEFORMITIES: Digital contracture cade 5th toes MUSCLE STRENGTH: 5/5 all groups in a symmetrical fashion , B/L General Examination GENERAL APPEARANCE: pleasant , alert, well nourished, well developed, well hydrated, with good attention to hygene/body habitus, and in no acute distress FOOT EXAM: Lower Extremity Neurological Exa m performed:: Yes Visual exam of foot performed:: Yes Date: 12/23/2022 Sensory testing performed:: sensations d iminished Pedal [...] TROPHIC CONDITION-TEXTURE/EL ASTICITY/TURGOR/HAIR GROWTH (B): normal, B/L EDEMA (C): 2/4, B/L, Feet, Ankl e(s), Leg(s) VARICOSITIES: present, moderate, n onpainful, B/L PIGMENTATION: normal, B/L Nails NAILS are: Elongated, overg rown, dystrophic, lytic, greater than 3mm thick, discolored and friable with crumbly malodorous subungual debris, with dull to no pain on palpation due to neuropathy, TA, T1, T3, T4, T5, T6, T8, T9
== END 2024-05-02 11:08 | disposition home or self-care (01) ==
LOC: HO.MRI 11:07
PROVIDERS: PCP Internal Medicine; Visit Provider Physical Medicine & Rehabilitation
DX: M54.16 Radiculopathy, lumbar region (principal)
CPT/HCPCS: 72148

== ENCOUNTER → 2024-05-02 11:14 | Outpatient (BNV) | payer MEDICARE, SELFPAY | PROVIDERS: PCP Internal Medicine; Visit Provider Radiology Diagnostic Radiology | DX: M48.061 Spinal stenosis, lumbar region without neurogenic claudication (principal) | CPT/HCPCS: 72148 ==

== ENCOUNTER 2024-07-06 21:08 | Inpatient (IN) | payer MEDICARE, SELFPAY ==
--- NOTE | 2024-07-06 | ECG_ITS ---
Test Reason : ABD PAIN Blood Pressure : */* mmHG Vent. Rate : 56 BPM Atrial Rate : 56 BPM P-R Int : 138 ms QRS Dur : 82 ms QT Int : 462 ms P-R-T Axes : 24 15 58 degrees QTcB Int : 445 ms Sinus bradycardia Otherwise normal ECG When compared with ECG of 29-May-2012 08:59, No significant changes seen Referred By: Generic ED Physician Electronically Signed By: TOM CLARK
--- NOTE | ~2024-07-06 | NM_ITS ---
EXAMINATION: NM LUNG PERFUSION HISTORY: Hypoxia r/o PE. TECHNIQUE: A pulmonary perfusion scan was performed following the intravenous demonstration of 4.0 mCi technetium 99m-MAA. Images were obtained in multiple projections. COMPARISON: Correlation is made with a PA view of the chest dated 07/06/2024. FINDINGS: There is overall patchy uptake of the radiopharmaceutical bilaterally. There is a subsegmental perfusion defect involving the posterior segment of the right upper lobe and a larger perfusion defect involving the posterior left upper lobe/superior segment of the lower lobe. Findings are of intermediate probability for pulmonary emboli. NM/NM pul perfusion IMPRESSION: Intermediate probability examination for pulmonary emboli. Electronically signed by: Garry Mayfield MD 07/09/2024 09:04 AM EDT
--- NOTE | ~2024-07-06 | US_ITS ---
EXAMINATION: US LOWER EXTREMITY VEINS BILATERAL HISTORY: r/o DVT COMPARISON: There are no prior studies for comparison. TECHNIQUE: Duplex and color Doppler sonographic examination of the deep venous system of the bilateral lower extremities was performed. FINDINGS: The right common femoral, superficial femoral, and popliteal veins are patent demonstrating normal compressibility, spontaneous flow, and augmentation. There is a normal color and spectral Doppler waveform appearance of the visualized deep venous system above the knee. The posterior tibial and peroneal veins are patent. The left common femoral, superficial femoral, and popliteal veins are patent demonstrating normal compressibility, spontaneous flow, and augmentation. There is a normal color and spectral Doppler waveform appearance of the visualized deep venous system above the knee. The posterior tibial and peroneal veins are patent. US/US venous duplex LE BI IMPRESSION: No evidence of acute DVT in the bilateral lower extremities. Electronically signed by: Garry Mayfield MD 07/09/2024 02:05 PM EDT
--- NOTE | ~2024-07-06 | CT_ITS ---
CLINICAL HISTORY: hypoxia- ?PNA ?pl effusion CT chest without contrast. Comparison: CT/NE/SR - CT ABDOMEN PELVIS WO IV CON - 07/08/24 10:50 EDT CR - XR CHEST 1V - 07/06/24 22:[address]/NE/SR - CT CHEST WO IV CON - 01/05/22 10:28 EDT Findings: Cardiomegaly. Heavy burden mitral and mild aortic annular calcifications. Calcific atherosclerosis, including the coronary arteries. Large pericardial effusion which is increased in size since 01/05/2022. No intrathoracic lymphadenopathy. Posterior right upper lobe bronchiectasis and peribronchial thickening. Bibasilar atelectasis and peribronchial thickening. Mild interlobular septal thickening. Mild bilateral ground-glass densities. Small bilateral pleural effusions. Tiny foci of postoperative air within the gallbladder fossa, partially imaged. Nonspecific adrenal gland thickening, right more than left. Degenerative change of the spine. IMPRESSION: 1. Large pericardial effusion, increased in size since 01/05/2022. Cardiomegaly with heavy burden mitral annular calcifications. 2. Small bilateral pleural effusions with associated bibasilar passive atelectasis. Bilateral peribronchial and interlobular septal thickening and mild bilateral ground-glass densities suggestive of interstitial edema. Mild chronic posterior right upper lobe bronchiectasis. This document has been electronically signed by: Remington Yost DO on 07/10/2024 12:35:38
--- NOTE | ~2024-07-06 | XR_ITS ---
CLINICAL HISTORY: hypoxia 1 view chest x-ray Comparison: 01/05/2022 Findings: Lungs are clear without acute infiltrates. Chronic interstitial fibrosis pattern. No pneumothorax. Heart size enlarged. No acute bony abnormalities. Impression: No acute processes This document has been electronically signed by: Shaq Dooley MD on 07/06/2024 22:50:43
--- NOTE | ~2024-07-06 | US_ITS ---
CLINICAL HISTORY: RUQ pain US abdomen limited Comparison: None Findings: Liver homogeneous without focal abnormality. Main portal vein patent with antegrade flow. Visualized pancreas unremarkable. Gallbladder contracted and not well assessed. Gallbladder is filled with sludge and stones. Wall thickening noted at 6 mm. Common duct 5.6 mm diameter. No ultrasonographic Castro sign. Right kidney normal, 10.9 cm in length. Abdominal aorta patent and normal caliber. Impression: Cholelithiasis and gallbladder sludge with wall thickening Findings are consistent with acute cholecystitis This document has been electronically signed by: Shaq Dooley MD on 07/07/2024 01:02:22
--- NOTE | ~2024-07-06 | CT_ITS ---
EXAMINATION: CT ABDOMEN PELVIS WITHOUT IV CONTRAST HISTORY: Gallbladder ca, liver mets COMPARISON: Comparison is made with the prior examination dated 01/05/2022. TECHNIQUE: CT scan of the abdomen and pelvis was performed without contrast using standard departmental protocol. Coronal and sagittal reformatted images were generated and reviewed. The patient received oral contrast material. This CT exam was performed with one or more of the following dose reduction techniques: automated exposure control, adjustment of the mA and/or kV according to patient size, use of iterative reconstruction technique. DLP: 465 mGy-cm FINDINGS: LOWER CHEST: There are small bilateral pleural effusions with adjacent airspace opacity, consistent with atelectasis or pneumonia. CARDIOVASCULATURE: The heart is normal in size. There is a moderate pericardial effusion measuring up to 2.6 cm in thickness, similar to the prior study. LIVER: The liver is normal in size and contour. The liver has an unremarkable unenhanced appearance. GALLBLADDER / BILE DUCTS: Gas, fluid, and a LAURA drain are noted in the gallbladder fossa. There is no intra or extrahepatic biliary ductal dilatation. SPLEEN: The spleen is normal in size and has an unremarkable unenhanced appearance. PANCREAS: The pancreas has an unremarkable unenhanced appearance. ADRENAL GLANDS: Unremarkable. KIDNEYS/RETROPERITONEUM: No renal calculi are identified. There is no hydronephrosis. LYMPH NODES: No retroperitoneal lymphadenopathy is identified in the abdomen or pelvis. VASCULATURE: The abdominal aorta demonstrates atherosclerotic calcification, but is normal in caliber. MESENTERY/PERITONEUM: No free fluid. No masses. There is no free intraperitoneal gas. STOMACH: The stomach is collapsed, limiting evaluation. SMALL BOWEL: The small bowel is normal in caliber. COLON: There is extensive colonic diverticulosis, without evidence of diverticulitis. APPENDIX: The appendix is not seen, however no inflammatory changes are seen adjacent to the cecum. URINARY BLADDER/PELVIC ORGANS: The urinary bladder is unremarkable. There are multiple calcified masses in the uterus consistent with fibroids. BONES / SOFT TISSUES: No suspicious bony or soft tissue abnormalities. CT/CT abdomen pelvis wo IV con IMPRESSION: 1. Status post cholecystectomy with postoperative changes noted in the gallbladder fossa. The liver has an unremarkable unenhanced appearance. Please note it is not possible to exclude hepatic metastatic disease on unenhanced CT. This could be further evaluated with MRI of the liver without and with contrast, if indicated. 2. Small bilateral pleural effusions with adjacent atelectasis or pneumonia. 3. Moderate pericardial effusion without change. 4. Fibroid uterus. Colonic diverticulosis without evidence of diverticulitis. Electronically signed by: Garry Mayfield MD 07/08/2024 12:04 PM EDT
--- NOTE | ~2024-07-06 | XR_ITS ---
EXAMINATION: XR CHEST CLINICAL INFORMATION: chf, rales left lower lobe COMPARISON: 07/06/2024 CT chest dated 07/10/2024. TECHNIQUE: Frontal view of the chest was obtained. FINDINGS: Cardiac enlargement, with water bottle appearance suggestive of pericardial effusion. Aortic mural calcification. Normal hilar silhouettes. Lungs demonstrate coarsened markings in the retrocardiac region and medial right base. No overt CHF. No pneumothorax or definite effusion. No focal osseous or soft tissue abnormality. XR/XR chest 1V IMPRESSION: 1. Cardiac enlargement with water bottle appearance suggesting pericardial effusion (as seen on the CT chest examination 07/10/2024). 2. Coarsened markings in the left lower lobe and medial right base, findings which could represent atelectasis and/or pneumonia. Electronically signed by: Arley Pacheco MD 07/14/2024 03:26 PM EDT
[2024-07-06 21:45] VITALS: BP 140/110; PULSE 56; RESP 18; TEMP 36.4; O2SAT 92; BMI 27.4
--- OUTSIDE RECORDS SUMMARY | 2024-07-06 22:10 | XMS_ITS ---
[facility] Organization [facility] Address [address] [place] [address] Care Team Providers Care Printing Manager Name Role Phone Yola Rowell MD Primary Care Provider Joaquin Covington [phone] REASON FOR VISIT seen sooner Encounters Encounter Location Date Provider Diagnosis [facility] [address] [place] [address] 12/29/2023 Joaquin Maza Plan Of Treatment Next Appt Details Provider Name:Cielo adair, 11/08/2024 09:00:00 AM, [address] [place], [address], Progress Notes * Hoa HSIEHB:[birth year] (83 yo F)Acc No.[id number]:12/29/2023 Progress Note Patient:?Madeline HSIEH Provider:?Joaquin Maza DPM :1940???Age:83 Y???Sex:Female D ate:12/29/2023 Address:[address] [id number] Pcp:Yola Rowell MD Subjective: * Chief Complaints: * ???1. Seen sooner. * Medical History:? Objective: * Vitals:? Assessment: Plan: * Treatment: * Images: * The named appointment provid er may or may not be the originator of this progress note, and it is not deemed complete until electronically signed by the appointment provider. Sign off status: Pending * Provider:Nicole Maza DPM Date:? 024 Generated for Ruthie cowan/Clint/Jan on:?07/06/2024 10:09 PM EDT
--- OUTSIDE RECORDS SUMMARY | 2024-07-06 22:10 | XMS_ITS ---
[facility] Address [address] [facility] [place] [address] Care Team Providers Care Associate Professor Of Music Name Role Phone Yola Rowell MD Primary Care Provider Joaquin Covington Unavailable [phone] Allergies Allergen (clinical drug ingredient) Drug/Non Drug [...] Status Risk Notes Problem Acquired hallux rigidus (1763307) Hallux rigidus, left foot (M20.22) Active confirmed Vital Signs Height 5 ft 3 in in 2023 Weight 144 lbs 2023 BMI 25.51 kg/m2 2023 Procedures Procedure Date Ordered Date Performed Result Body Sit e 88541-DEAV SKIN LESIONS, 2 TO 4 2023 N/A 99259, G2611-QNCLW/INJECT, JOINT/BURSA 2023 N/A Encounters Encounter Location Date Provider Diagnosis [facility] [address] [place] [address] 2023 Joaquin Maza Tinea unguium B35.1 ; [...] X ray : Foot, left 3V 2023 50092-BIOE SKIN LESIONS, 2 TO 4 11/10/19 24 , Z4692-FGPBH/INJECT, JOINT/BURSA 0 2023 Next Appt Details Follow Up: 1 Year, Reason: Provider Name:Cielo adair, 11/08/2024 09:00:00 AM, [address] [place] [address], [phone], Procedure Notes * Category Sub-Category Detail Notes [...] as necessary. Patient chooses, no pharmaceutical tx (98081) Keratoma Treatment Parring or Cutting o f Benign Hyperkeratotic Lesion(s) 69262 ( 2-4 Lesions ) - The Benign hyperkeratotic lesions, as described above were pared, and/or cut utilizing a sterile 15 blade, tissue nippers, and/or dremel Progress Notes * Hoa HSIEHB:[birth year] (82 yo F)Acc No.[id number]:2023 Progress Note Patient:?Madeline Hsieh Provider:?Joaquin Maza DPM :1940???Age:82 Y???Sex:Female D ate:2023 [facility] Pcp:Yola Rowell MD Subjective: * Chief Complaints: * ??? Painful nail(s) aggrevat ed by shoes and causing difficulty standing/walking. * HPI: ???Painful Nails:?Pt States Last PCP Visit:?Date:?12/16/2022 ???Skin problems:?Nature:?itching, redness.?Location:?B/L , 4th, 5th, Toe(s).?Course:?improved.?Treatments:?Topical antifungal.?Foot Pain:?Nature:?numbness, aching, dull, sharp.?Location:?Great toe joint, LEFT, Forefoot, Midfoot, Rearfoot.?Duration:?1 year or more.?Onset:?unknown, denies trauma.?Course:?worse.?Aggravated:?any pressure, standing, walking.?Treatments:?tx at [facility] .?Severity/Quality:?moderate.? * ROS:?General/Constitutional:?Nausea?denies.?Vomiting?denies.?Hunger Thirst?denies.?Loss appetite?denies.?Chills?denies.?Fatigue?denies.?Fever?denies.?Night Sweats?denies.?Unexplained [...] and in no acute distress.?ORIENTED:?person,place, and time.?FOOT EXAM:?Lower Extremity Neurological Exam performed:?Yes ?Visual exam of foot performed:?Yes ?Date?2023 ?Sensory testing performed:?sensations diminished ?Pedal pulse taking performed:?1+ ?Footwear Evaluation?Footwear Evaluation performed:?Yes?Ophthalmology Referral: ?DIABETES EYE EXAM?Diabetic Retinopathy Screening:?Yes 2020?X-Rays - IMAGING REPORT: ?Clinical Indication(s):? Evaluate Biomechanical [...] 3V 3.?Hallux rigidus, left foot ?Procedure: , B4605-KEOFZ/INJECT, JOINT/BURSA * Procedures:?Debride Nail 6-10:?Nail debridement?Nail debridement performed extensively to reduce/remove overall nail length and girth, subungual debris, and necrotic tissue, by manual and electrical means with use of a nail nipper and/or dremel, to more viable healthy nail plate or bed tissue 6-10. Silver nitrate used for any petechial bleeding as necessary. Patient chooses, no pharmaceutical tx (26982).?Injection:?Sm. Joint, Bursa?, Injection - sm/med joint bursa/capsule [...] mtpj--dorsum.?Keratoma Treatment:?Parring or Cutting of Benign Hyperkeratotic Lesion(s)?17829 ( 2-4 Lesions ) - The Benign hyperkeratotic lesions, as described above were pared, and/or cut utilizing a sterile 15 blade, tissue nippers, and/or dremel.? * Procedure Codes:?24094 DEBRI DE NAIL, 6 OR MORE, Modifiers: XS 31624 X-RAY EXAM OF LEFT FOOT 3V, Modifiers: 26 , [id number] INJ BETAMETHSN ACTAT&SOD [id number] DRAIN/INJECT, JOINT/BURSA, Modifiers: XS 80795 TRIM SKIN LESIONS, 2 TO 4, Modifiers: [...] Completed true * Provider:?Joaquin Maza DPM Date:? 024 Generated for Printi ng/Fasoyg/eTransmitting on:?07/06/2024 10:10 PM EDT History and Physical Notes * HPI (History [...] Duration: 1 year or more Onset: unknown, denies twin brown Course: worse Aggravated: any pressure, standi ng, walking Treatments: tx at [facility] Severity/Quality: moderate Examination Category Sub-Category Detail [...] Dorsal ROM, Limited 1st MPJ Plantar ROM FOOTWEAR EVALUATION: worn, nonsupportive DIGITAL DEFORMITIES: Digital contracture cade [...]
[2024-07-06 22:42] LABS: MANUAL DIFF FLAG NO
[2024-07-06 22:43] LABS: Basophils Absolute Auto 0.1 X10*3/uL (0.0-0.2); Basophils Percent Auto 0.4 % (0-2); Eosinophils Absolute Auto 0.2 X10*3/uL (0.0-0.4); Eosinophils Percent Auto 1.6 % (0-4); Hematocrit 37.7 % (37.0-47.0); Hemoglobin 12.3 g/dl (12.0-16.0); Imm Gran Abs Auto 0.05 X10*3/uL (0.00-0.03); Imm Gran Pct Auto 0.4 % (0.0-0.4); Lymphocytes Absolute Auto 2.2 X10*3/uL (1.2-4.9); Lymphocytes Percent Auto 16.2 % (20-40); Mean Corpuscular HGB Conc 32.6 g/dl (31.0-35.0); Mean Corpuscular Hemoglobin 28.3 pg (27.0-33.0); Mean Corpuscular Volume 86.7 fL (80.0-98.0); Mean Platelet Volume 9.2 fL (9.4-12.3); Monocytes Absolute Auto 1.3 X10*3/uL (0.1-1.2); Monocytes Percent Auto 9.5 % (2-11); Neutrophils Absolute Auto 9.8 x10*3/uL (2.0-8.3); Neutrophils Percent Auto 71.9 % (45-73); Platelet Count 331 X10*3/uL (160-400); Red Blood Count 4.35 X10*6/uL (4.20-5.50); Red Cell Distribution Width 14.4 % (11.0-16.0); White Blood Count 13.5 X10*3/uL (4.8-10.8)
[2024-07-06 22:59] LABS: Anion Gap 8 (12-20); Blood Urea Nitrogen 18 mg/dL (9-16); Carbon Dioxide 29 mmol/L (22-29); Chloride 105 mmol/L (96-108); Creatinine Clr Calc Pharmacy 46.2; Estimated Glomerular Filt Rate > 60; Glucose Random 247 mg/dL (60-115); Lipase 30 U/L (8-78); Sodium 138 mmol/L (135-145)
[2024-07-06 23:00] LABS: Alanine Aminotransferase 18 U/L (0-31); Albumin Level 3.5 g/dL (3.5-5.0); Alkaline Phosphatase 135 U/L (39-117); Aspartate Amino Transferase 29 U/L (5-31); Bilirubin Direct 0.4 mg/dL (0.0-0.5); Bilirubin Total 0.9 mg/dL (0.0-1.0); Total Protein 7.4 g/dL (6.5-8.0)
--- NOTE | 2024-07-06 23:07 | ED_ITS ---
HPI - Abdominal Pain General Chief Complaint: Abdominal Pain Stated Complaint: Lower R abdominal pain Time Seen by Provider: 07/06/24 22:05 Source: patient and family Mode of arrival: ambulatory Limitations: no limitations History of Present Illness ED Provider: Dr. Estefanía Oropeza HPI narrative: Patient comes to the emergency room complaining of right-sided abdominal pain that started today after eating dinner. Patient states that since in her, the pain has been constant, nonradiating, Complaining of nausea but no vomiting or diarrhea. patient states that the pain is pretty much localized, nonradiating. Related Data Home Medications ?Medication ?Instructions ?Recorded ?Confirmed blood sugar diagnostic #10 ea 03/22/20 12/19/23 aspirin 325 mg tablet 325 mg PO DAILY 03/15/21 04/26/24 Previous Rx's ?Medication ?Instructions ?Recorded pen needle, diabetic 31 gauge x #200 ea 03/27/2106/20 acetaminophen 500 mg tablet 1,000 mg (2 x 500 mg) PO QID PRN 01/05/22 pain #30 tabs Custom heat molded inserts #3 ea 01/29/22 extra depth diabetic shoes #1 ea 01/29/22 calamine phenolated lotion 1 appl topical TID PRN itching 10/10/22 #180 mL blood sugar diagnostic (FreeStyle #100 ea 09/10/23 Lite Strips) blood-glucose meter (FreeStyle #1 ea 09/10/23 Lite Meter kit) lancets 28 gauge (FreeStyle #100 ea 09/10/23 Lancets) carvedilol 25 mg tablet 25 mg PO BID #180 tabs 11/12/23 diabetic supplies, miscellan. #1 ea 12/19/23 lisinopril 40 mg tablet 40 mg PO DAILY #90 tabs 01/16/24 metformin 1,000 mg tablet 1,000 mg PO BID #180 tabs 02/08/24 insulin glargine 100 unit/mL (3 30 unit (0.3 mL) subcut QAM #15 mL 02/15/24 mL) subcutaneous pen (Basaglar KwikPen U-100 Insulin) amlodipine 5 mg tablet 5 mg PO DAILY #90 tabs 05/26/24 atorvastatin 80 mg tablet 80 mg PO DAILY #90 tabs 05/26/24 donepezil 5 mg tablet 5 mg PO DAILY #90 tabs 06/24/24 Allergies Allergy/AdvReac Type Severity Reaction Status Date / Time Iodinated Contrast Media Allergy Unknown ANAPHYLAXIS Verified 07/06/24 21:47 [IV CONTRAST] poison den extract AdvReac Swelling Verified 07/06/24 21:47 Review of Systems Review of Systems Constitutional : No Weight loss, No Fever, No Chills, No Night Sweats, No Fatigue, No Malaise ENT/Mouth : No Hearing loss, No Ear Pain, No Nasal Congestion, No Sinus Pain, No Hoarseness, No sore throat, No Rhinorrhea, No Swallowing Difficulty Eyes: No Eye Pain, No Swelling, No Redness, No Foreign Body, No Discharge, No Vision Changes Cardiovascular : No Chest Pain, No SOB, No Dyspnea on Exertion, No Orthopnea, No Edema, No Palpitations Respiratory : No Cough, No Sputum, No Wheezing, No Smoke Exposure, No Dyspnea Gastrointestinal : complaining of Nausea, No Vomiting, No Diarrhea, No Constipation, complaining of right upper quadrant pain Genitourinary : no irregular bleeding, No Dysuria, No Urinary Frequency, No Hematuria, No Urinary Incontinence, No Urgency, No Flank Pain, No Urinary Flow Changes, No Hesitancy Musculoskeletal : No joint pain, No Myalgias, No Joint Swelling Skin : No Skin Lesions, No rash Neuro : No Weakness, No Numbness, No Paresthesias, No Loss of Consciousness, No Dizziness, No Headache Psych : No Anxiety/Panic, No Depression, No SI/HI/AH/VH, No Social Issues, Heme/Lymph: No Bruising, No Bleeding,No Lymphadenopathy Endocrine : No Polyuria, No Polydipsia, No Temperature Intolerance [facility] Past Medical History Medical History Back pain History of mammogram CVA (cerebral vascular accident) Diabetes Hyperlipidemia HTN (hypertension) Surgical History H/O colonoscopy No pertinent past surgical history Family History Family History Father Unknown family medical history Mother Unknown family medical history Social History Social History Housing: House Alcohol intake: current Alcohol intake frequency: holidays/special occasions only Patient Tobacco Use Status: Never used Tobacco Smoked in Last 30 Days: No e-Cigarette/Vaping Use: Never Used Use of substances other than those prescribed or required for medical reasons: No Advance Directives: Yes Advance Directives Information Provided: Yes Advance Directives on File: No Do you have a plan to hurt others: No Plan service: No Current occupational status: retired Cognitive needs: No Hearing needs: No Vision needs: Yes Physical Exam ED Vital Signs: Vital Signs - 24 hr 07/06/24 21:45 07/06/24 23:30 Temperature 97.6 F 98.0 F Pulse Rate 56 68 Respiratory Rate 18 20 Blood Pressure 140/110 H 136/54 L Pulse Oximetry 92 92 Oxygen Delivery Method Room Air Room Air BMI result Body Mass Index 27.4 Const Other: Appearance: Alert. Oriented X3. No acute distress. Eyes: Pupils equal, round and reactive to light. ENT: Pharynx normal. Neck: Normal inspection. Neck supple. No lymph nodes noted. No crepitus CVS: Normal heart rate and rhythm. Pulses normal. Normal S1 and S2 Respiratory: No respiratory distress. Breath sounds normal. No Wheezing. No rales Abdomen: Soft , tenderness to palpation in the right upper quadrant, no rebound or guarding. Positive Castro sign. Skin: Skin warm and dry. Normal skin color. Normal skin turgor. Extremities: No lower extremity edema. No Lacerations. No Rash Neuro: Oriented X 3. No motor deficit. No sensory deficit. Moving all extremities. No slurred speech. CN 2 through 12 grossly intact Psych: calm, cooperative, normal affect Course Course Course Narrative: patient complaining of right upper quadrant pain that started today after eating dinner. On physical exam patient has positive Castro sign. All of patient's labs pending patient receiving IV fluids, Zofran and morphine Medical Decision Making Medical Decision Making MDM Narrative: my interpretation of labs: Patient's white blood cell count 13.5, otherwise normal hematology and chemistry, normal LFTs, normal lipase ultrasound she was agreeable bladder with sludge and gallstones, 6 mm wall thickening, findings consistent with acute cholecystitis patient is started on Zosyn patient discussed with Dr. Ritchie from general surgery, patient being admitted I discussed the above-mentioned with the patient and her daughter, both agree with plan at this time, patient states that she feels more comfortable. Differential Diagnosis Differential Diagnoses: The differential diagnosis associated with the presentation includes ( gastritis, choledocholithiasis, cholecystitis) Admission/Observation Consideration of admission/observation: Escalation of care including admission/observation considered Consult Healthcare Provider Management of the patient was discussed with: Soaking Tank Worker Lab Data MDM Lab Attestation statement: I reviewed the patient's lab results. 07/06/24 22:34 07/06/24 22:34 Labs: Lab Results 07/06/24 Range/Units 22:34 WBC 13.5 H (4.8-10.8) X10*3/uL RBC 4.35 (4.20-5.50) X10*6/uL Hgb 12.3 (12.0-16.0) g/dl Hct 37.7 (37.0-47.0) % MCV 86.7 (80.0-98.0) fL MCH 28.3 (27.0-33.0) pg MCHC 32.6 (31.0-35.0) g/dl RDW 14.4 (11.0-16.0) % Plt Count 331 (160-400) X10*3/uL MPV 9.2 L (9.4-12.3) fL Immature Gran % (Auto) 0.4 (0.0-0.4) % Neut % (Auto) 71.9 (45-73) % Lymph % (Auto) 16.2 L (20-40) % [place] % (Auto) 9.5 (2-11) % Eos % (Auto) 1.6 (0-4) % Baso % (Auto) 0.4 (0-2) % Lymph # (Auto) 2.2 (1.2-4.9) X10*3/uL [place] # (Auto) 1.3 H (0.1-1.2) X10*3/uL Eos # (Auto) 0.2 (0.0-0.4) X10*3/uL Baso # (Auto) 0.1 (0.0-0.2) X10*3/uL Abs Immat Gran (auto) 0.05 H (0.00-0.03) X10*3/uL Absolute Neuts (auto) 9.8 H (2.0-8.3) x10*3/uL Absolute Nucleated RBC 0.000 (0.0-0.012) X10*3/uL Nucleated RBC % (auto) 0.0 (0.0-0.2) /100WBC Sodium 138 (135-145) mmol/L Potassium 4.0 (3.3-5.1) mmol/L Chloride 105 (96-108) mmol/L Carbon Dioxide 29 (22-29) mmol/L Anion Gap 8 L (12-20) BUN 18 H (9-16) mg/dL Creatinine 0.80 (0.5-1.4) mg/dL Estim Creat Clear Calc 46.2 Estimated GFR > 60 Random Glucose 247 H (60-115) mg/dL Calcium 9.0 (8.4-10.2) mg/dL Total Bilirubin 0.9 (0.0-1.0) mg/dL Direct Bilirubin 0.4 (0.0-0.5) mg/dL AST 29 (5-31) U/L ALT 18 (0-31) U/L Alkaline Phosphatase 135 H (39-117) U/L Troponin I High Sens 4.9 (<3.5-17.0) ng/L Total Protein 7.4 (6.5-8.0) g/dL Albumin 3.5 (3.5-5.0) g/dL Lipase 30 (8-78) U/L Independent Interpretation I performed an independent interpretation of an: Ultrasound Radiology Impression Discussion of test interpretation with radiology: I have reviewed the radiologist's reading. Radiologist Impression: Liver homogeneous without focal abnormality. Main portal vein patent with antegrade flow. Visualized pancreas unremarkable. Gallbladder contracted and not well assessed. Gallbladder is filled with sludge and stones. Wall thickening noted at 6 mm. Common duct 5.6 mm diameter. No ultrasonographic Castro sign. Right kidney normal, 10.9 cm in length. Abdominal aorta patent and normal caliber. Impression: Cholelithiasis and gallbladder sludge with wall thickening Findings are consistent with acute cholecystitis Medications Administered Discontinued Medications Generic Name Dose Route Start Last Admin Trade Name Freq PRN Reason Stop Dose Admin Sodium Chloride 1,000 mls @ 999 mls/hr 07/06/24 23:11 07/06/24 23:31 Ns IVCONT 07/07/24 00:11 999 mls/hr .Q1H1M ONE Administration Morphine Sulfate 2 mg 07/06/24 23:11 07/06/24 23:31 Morphine Sulfate 2 Mg/Ml Cartridge IVPUSH 07/06/24 23:12 2 mg ONCE ONE Administration Protocol Ondansetron HCl 4 mg 07/06/24 23:11 07/06/24 23:31 Ondansetron Hcl 4 Mg/2 Ml Vial IVPUSH 07/06/24 23:12 4 mg ONCE ONE Administration Critical Care Time Critical Care Time Critical Care Time: Yes Total Critical Care Time: 60 Attestation: I have personally provided critical care time. Time includes review of lab data, radiology results, discussion with consultants, and monitoring for potential decompensation. Intervention performed as documented. Discharge Plan Discharge Clinical Impression: Acute cholecystitis Patient Disposition: Admitted As Inpatient Print Language: Kittitian
[2024-07-06 23:08] LABS: Troponin-I High Sensitivity 4.9 ng/L (<3.5-17.0)
[2024-07-06 23:30] VITALS: BP 136/54; PULSE 68; RESP 20; TEMP 36.7; O2SAT 92
[2024-07-06] MEDS: Morphine Sulfate 2 MG/ML CARTRIDGE IVPUSH (23:31)
[2024-07-06] MEDS: 0.9 % Sodium Chloride 1,000 ML 999 ML IVCONT (23:31)
[2024-07-06] MEDS: ondansetron HCL 4 MG/2 ML VIAL IVPUSH (23:31)
[2024-07-07] VITALS (12 sets, daily range): BP systolic 126–199; BP diastolic 61–87; PULSE 62–72; RESP 14–22; TEMP 36.1–36.9; O2SAT 91–99
[2024-07-07] MEDS: Piperacillin Sodium/Tazobactam 3.375 GM in 0.9 % Sodium Chloride 50 ML IV ×3 (01:41→20:44)
[2024-07-07] MEDS: Lactated Ringers 1,000 ML 100 ML IVCONT ×2 (02:41→15:07)
--- NOTE | 2024-07-07 03:02 | PC.NURSE ---
pt ambulated to bathroom with 1 assist and cane, unsteady. UA collected and sent
[2024-07-07 03:16] LABS: Appearance Urine Cloudy; Color Urine Dark Yellow; Glucose Urine UA >=1000 mg/dL (Negative); Leukocyte Esterase Urine Small (1+) (Negative); Nitrite Urine Positive (Negative); Specific Gravity - Urine 1.025 (1.005-1.025); UMIC TRIGGER UACC YES; Urine Blood Negative (Negative); Urine Ketones Trace mg/dL (Negative); Urine Protein Trace mg/dL (Neg-Trace)
[2024-07-07 03:25] LABS: Bacteria Urine 4+ (None Seen); Hyaline Casts Urine 0-2 /LPF (0-2); RBC Urine 0-2 /HPF (0-2); UACC Culture Trigger YES
--- NOTE | 2024-07-07 05:01 | PC.NURSE ---
med rec completed with daughter at bedside
[2024-07-07 07:33] LABS: Glucose, Whole Blood 105 mg/dL (60-115)
--- NOTE | 2024-07-07 07:36 | P.HPGS_ITS ---
History of Present Illness History of Present Illness Date of Service: 07/07/24 Chief complaint: Abdominal Pain Narrative: Madeline Duff is a 83 year old female who presents here with her daughter. She has roughly a 1 day history of right upper quadrant pain of increasing severity. Because of progression of symptoms, she presents to the emergency department for further evaluation. She had a similar episode in the distant past. She has never been jaundiced before. She normally has regular bowel habits. No other prior G I issues or complaints. No previous abdominal surgeries. Ultrasound demonstrates findings consistent with acute cholecystitis. WBC 13.5 Chart was reviewed and patient evaluated [facility] Past Medical History Medical History Back pain History of mammogram CVA (cerebral vascular accident) Diabetes Hyperlipidemia HTN (hypertension) Family History Family History Father Unknown family medical history Mother Unknown family medical history Surgical History Surgical History H/O colonoscopy No pertinent past surgical history Social History Social History Housing: House Alcohol intake: current Alcohol intake frequency: holidays/special occasions only Patient Tobacco Use Status: Never used Tobacco Smoked in Last 30 Days: No e-Cigarette/Vaping Use: Never Used Use of substances other than those prescribed or required for medical reasons: No Advance Directives: Yes Advance Directives Information Provided: Yes Advance Directives on File: No Do you have a plan to hurt others: No Plan Nutrition Risks: No Nutritional Risk service: No Current occupational status: retired Cognitive needs: No Hearing needs: No Vision needs: Yes Meds Allergies Allergy/AdvReac Type Severity Reaction Status Date / Time Iodinated Contrast Media Allergy Unknown ANAPHYLAXIS Verified 07/06/24 21:47 [IV CONTRAST] poison den extract AdvReac Swelling Verified 07/06/24 21:47 Active Medications: Current Medications Acetaminophen (Acetaminophen 325 Mg Tablet) 650 mg PO Q6H PRN PRN Reason: Pain, Mild 1-3,fever,headache Hydromorphone HCl (Hydromorphone Hcl 1 Mg/Ml Syringe) 0.5 mg IVPUSH Q4H PRN; Protocol PRN Reason: Pain, Severe (Pain Scale 7-10) Lactated Ringer's (Lr) 1,000 mls @ 100 mls/hr IVCONT .Q10H [facility] Last Admin: 07/07/24 02:41 Dose: 100 mls/hr Melatonin (Melatonin 3 Mg Tablet) 6 mg PO BEDTIME PRN PRN Reason: Insomnia Ondansetron HCl (Ondansetron Hcl 4 Mg/2 Ml Vial) 4 mg IVPUSH Q8H PRN PRN Reason: Nausea and Vomiting Sodium Chloride (0.9 % Sodium Chloride Flush 3 Ml Syringe) 3 ml IVFLUSH QSHIFT [facility] Last Admin: 07/07/24 07:14 Dose: Not Given Home Medications ?Medication ?Instructions ?Recorded ?Confirmed ?Last Taken ?Type blood sugar diagnostic #10 ea 03/22/20 12/19/23 Unknown History aspirin 325 mg tablet 325 mg PO DAILY 03/15/21 07/07/24 Unknown History Physical Exam Vital Signs: Vital Signs: Last Vital Signs Temp 98.0 F 07/07/24 06:32 Pulse 70 07/07/24 06:32 Resp 20 07/07/24 06:32 BP 126/61 07/07/24 06:32 Pulse Ox 93 07/07/24 06:32 O2 Del Method Room Air 07/07/24 06:32 BMI result Body Mass Index 27.4 Const: Other: Pleasant elderly female in moderate abdominal distress secondary to gallbladder issues. Chest: Other: Chest breath sounds bilaterally, HS 1 in 2 GI: Other: Abdomen soft. Right upper quadrant marked tenderness and a positive Castro's sign Results Results Labs: Short CBC 07/06/24 Range/Units 22:34 WBC 13.5 H (4.8-10.8) X10*3/uL Hgb 12.3 (12.0-16.0) g/dl Hct 37.7 (37.0-47.0) % Plt Count 331 (160-400) X10*3/uL BMP 07/06/24 22:34 Sodium 138 Potassium 4.0 Chloride 105 Carbon Dioxide 29 BUN 18 H Creatinine 0.80 Calcium 9.0 Liver Function 07/06/24 Range/Units 22:34 Total Bilirubin 0.9 (0.0-1.0) mg/dL Direct Bilirubin 0.4 (0.0-0.5) mg/dL AST 29 (5-31) U/L ALT 18 (0-31) U/L Alkaline Phosphatase 135 H (39-117) U/L Albumin 3.5 (3.5-5.0) g/dL Urine 07/07/24 Range/Units 03:10 Urine Color Dark Yellow Urine Appearance Cloudy Urine pH 5.0 (5.0-9.0) Ur Specific [place] 1.025 (1.005-1.025) Urine Protein Trace (Neg-Trace) mg/dL Urine Glucose (UA) >=1000 H (Negative) mg/dL Assessment and Plan (1) Acute cholecystitis: Status: Acute Plan Risks, benefits, alternatives laparoscopic possible open cholecystectomy reviewed with the patient and her daughter which included but not limited to bleeding, infection, numbness, pain, scarring, bowel or bile duct injury or leak and they wished to proceed. All questions answered. Consent signed by patient. Patient will be made an add on case for today. Quality Stroke Does the patient have a stroke diagnosis?: No VTE Prior VTE?: No VTE Risk Level:: Surgical - low VTE Device Contraindication: Treatment Not Indicated VTE Drug Contraindication: Treatment Not Indicated Procedures Date of Service Date of Service: 07/07/24
--- NOTE | 2024-07-07 09:39 | PC.NURSE ---
Pt alert and oriented this morning. No signs of acute distress. Daughter at bedside. NPO since 5PM last night. Per surgeon, plan for surgery later this morning for gallbladder.
--- NOTE | 2024-07-07 10:05 | PC.NURSE ---
Report given to [facility] RN and pt transferred with no issues.
--- NOTE | 2024-07-07 10:32 | HO.ANESPROP2 ---
[facility] Active Problems Active Problems: All Active Problems Acute cholecystitis (Acute) Acute cholecystitis (Acute) Sacroiliac joint dysfunction of right side (Acute) Trochanteric bursitis, right hip (Acute) Piriformis syndrome of right side (Acute) Annual physical exam (Acute) Diabetic neuropathy (Acute) Lumbar radiculopathy (Acute) Osteoarthritis of left ankle (Acute) Osteoarthritis of left foot (Acute) Osteoarthritis of ankle (Acute) Ankle pain, left (Acute) Sinusitis (Acute) Knee pain, left (Acute) Chronic SI joint pain (Acute) Sciatica (Acute) Trochanteric bursitis of left hip (Acute) Pericardial effusion (Acute) Back pain (Acute) Hyperlipidemia (Acute) HTN (hypertension) (Acute) Diabetes (Acute) Past Medical History Medical History (Updated 07/07/24 @ 10:07 by Leah Araujo RN) Back pain History of mammogram Diabetes Hyperlipidemia HTN (hypertension) Functional capacity: independent ambulation Family History Family History Father Unknown family medical history Mother Unknown family medical history Surgical History Surgical History History of bladder surgery H/O colonoscopy No pertinent past surgical history History of Problems with Anesthesia: No Social History Social History Housing: House Alcohol intake: current Alcohol intake frequency: holidays/special occasions only Patient Tobacco Use Status: Never used Tobacco e-Cigarette/Vaping Use: Never Used Advance Directives Date on File: 07/07/24 service: No Current occupational status: retired Cognitive needs: No Hearing needs: No Vision needs: Yes Meds Allergies Allergy/AdvReac Type Severity Reaction Status Date / Time Iodinated Contrast Media Allergy Unknown ANAPHYLAXIS Verified 07/06/24 21:47 [IV CONTRAST] poison den extract AdvReac Swelling Verified 07/06/24 21:47 Active Medications: Current Medications Acetaminophen (Acetaminophen 325 Mg Tablet) 650 mg PO Q6H PRN PRN Reason: Pain, Mild 1-3,fever,headache Hydromorphone HCl (Hydromorphone Hcl 1 Mg/Ml Syringe) 0.5 mg IVPUSH Q4H PRN; Protocol PRN Reason: Pain, Severe (Pain Scale 7-10) Lactated Ringer's (Lr) 1,000 mls @ 100 mls/hr IVCONT .Q10H [facility] Last Admin: 07/07/24 02:41 Dose: 100 mls/hr Melatonin (Melatonin 3 Mg Tablet) 6 mg PO BEDTIME PRN PRN Reason: Insomnia Ondansetron HCl (Ondansetron Hcl 4 Mg/2 Ml Vial) 4 mg IVPUSH Q8H PRN PRN Reason: Nausea and Vomiting Sodium Chloride (0.9 % Sodium Chloride Flush 3 Ml Syringe) 3 ml IVFLUSH QSHIFT [facility] Last Admin: 07/07/24 07:14 Dose: Not Given Home Medications ?Medication ?Instructions ?Recorded ?Confirmed ?Last Taken ?Type blood sugar diagnostic #10 ea 03/22/20 12/19/23 Unknown History aspirin 325 mg tablet 325 mg PO DAILY 03/15/21 07/07/24 Unknown History Exam Height,Weight and Vital Signs: Height 5 ft 1 in Weight 65.771 kg Last Vital Signs Temp 97.0 F 07/07/24 10:19 Pulse 72 07/07/24 10:19 Resp 15 07/07/24 10:19 BP 150/64 H 07/07/24 10:19 Pulse Ox 91 L 07/07/24 10:19 O2 Del Method Room Air 07/07/24 10:19 Pertinent Lab Results Pertinent Lab Results: Laboratory Tests 07/06/24 07/07/24 07/07/24 22:34 03:10 07:29 WBC 13.5 H RBC 4.35 Hgb 12.3 Hct 37.7 MCV 86.7 MCH 28.3 MCHC 32.6 RDW 14.4 Plt Count 331 MPV 9.2 L Immature Gran % (Auto) 0.4 Neut % (Auto) 71.9 Lymph % (Auto) 16.2 L [place] % (Auto) 9.5 Eos % (Auto) 1.6 Baso % (Auto) 0.4 Lymph # (Auto) 2.2 [place] # (Auto) 1.3 H Eos # (Auto) 0.2 Baso # (Auto) 0.1 Abs Immat Gran (auto) 0.05 H Absolute Neuts (auto) 9.8 H Absolute Nucleated RBC 0.000 Nucleated RBC % (auto) 0.0 Sodium 138 Potassium 4.0 Chloride 105 Carbon Dioxide 29 Anion Gap 8 L BUN 18 H Creatinine 0.80 Estim Creat Clear Calc 46.2 Estimated GFR > 60 POC Glucose 105 Random Glucose 247 H Calcium 9.0 Total Bilirubin 0.9 Direct Bilirubin 0.4 AST 29 ALT 18 Alkaline Phosphatase 135 H Troponin I High Sens 4.9 Total Protein 7.4 Albumin 3.5 Lipase 30 Urine Color Dark Yellow Urine Appearance Cloudy Urine pH 5.0 Ur Specific [place] 1.025 Urine Protein Trace Urine Glucose (UA) >=1000 H Urine Ketones Trace Urine Blood Negative Urine Nitrite Positive H Ur Leukocyte Esterase Small (1+) H Urine RBC 0-2 Urine WBC 11-20 H Ur Squamous Epith Cells 3-5 Urine Bacteria 4+ Hyaline Casts 0-2 Airway Neck ROM: Full Denture: Upper Heart: RRR Lungs: CTA Assessment and Plan Assessment Anesthesia Assessment: Anesthesia Plan Discussed and Chart Reviewed Final Anesthetic Review History of Problems with Anesthesia: No NPO: Yes ASA Class: III and Emergency Final Preanesthetic Review: Meds/Allgs Chart Reviewed, Consent Obtained/Reviewed and Anes Risks/Benef Reviewed Patient Risk: Intermediate Procedure Risk: Intermediate Anesthetic Plan Anesthetic Plan: GA Disposition: Standard PACU
--- NOTE | 2024-07-07 10:46 | PC.NURSE ---
o2 sat 92% at best, dropping at times to 88%, anes made aware and o2 2l nc applied. o2 sat up to 96%
--- NOTE | 2024-07-07 11:02 | PHA.MEDREC ---
Pharmacy Consult ? Medication Reconciliation Pharmacy has completed the medication reconciliation. Spoke to patient and daughter Carmen at bedside to confirm medication list. Daughter said patient takes all the medications that are in the medical record from Dr. Yola Rowell. Daughter also said patient takes acetaminophen 500 mg once a day as needed for pain. Patient herself said (daughter translated) that she only uses 25 units of basaglar in the morning because 30 units make her blood sugar goes too low. Last dose of medications was 07/06/24 morning. We also received med list from Dr. Rowell's office.
[2024-07-07] MEDS: cefoTEtan disodium 2 GM VIAL IVPUSH (11:14)
[2024-07-07 12:06] LABS: Glucose, Whole Blood 78 mg/dL (60-115)
--- NOTE | 2024-07-07 13:21 | P.OP_ITS ---
Operative Note Operative Note Date of Service: 07/07/24 Narrative: Preoperative diagnosis: Acute cholecystitis, cholelithiasis Postoperative diagnosis: Gallbladder cancer with liver metastasis Procedure: Laparoscopic converted to open cholecystectomy, liver biopsy Surgeon: Kelby Arechiga MD Hydrodynamics Teacher: Kiki Robertson PA-C; MACK Calixto Anesthesia: General endotracheal Indications for procedure: 83-year-old female patient presenting with complaints of abdominal pain in the right upper quadrant found on ultrasound to have gallstones, sludge, thickened gallbladder wall with tenderness over the gallbladder by ultrasound consistent with acute cholecystitis. Operative findings: Hard mass of the gallbladder fundus suggestive of a gallbladder cancer. Multiple liver Mets noted. Specimen: Gallbladder, liver biopsy right lobe Estimated blood loss: 200 mls Complications: none Procedure details: Patient was brought to the OR and placed in a supine position. After administering general anesthesia the patient's abdomen was prepped with ChloraPrep and draped in a sterile fashion. A surgical time-out was called the consent confirmed. Patient received preoperative antibiotics and Venodyne boots were in place. Local anesthesia was infiltrated around the umbilicus and 5 mm incision made with a scalpel. A Veress needle was then inserted while elevating of the abdominal wall with towel clips. After positive drop test the abdomen was insufflated to a pressure 15 mmHg. The Veress needle was removed and a 5 mm trocar placed under direct vision. A 12 mm trocar was placed in the epigastrium and 2 5 mm trocar was placed in the right upper quadra nt. Patient was then placed in a reverse Trendelenburg position and rotated to the left. Abdomen was explored in the above findings noted. A mass was noted at the fundus of the gallbladder which was felt to be either an impacted gallstone verses a gallbladder mass. Attempts to dissect the gallbladder at the fundus were difficult due to a densely adherent stomach and mesentery of the transverse colon as well as a markedly distended gallbladder. After unsuccessful attempts at dissection the decision was made to convert to an open procedure. A subcostal incision was made on the right side (Amanda incision) and carried out through subcutaneous tissue through the anterior and posterior rectus sheath and into the peritoneum. A Bookwalter retractor was placed. The gallbladder was brought up through the incision. Further inspection of the gallbladder confirmed the presence of a probable gallbladder cancer. Also noted were multiple liver Mets which were not apparent through the scope. Findings were felt to be consistent with metastatic gallbladder cancer. Electrocautery was used to dissect the gallbladder off the liver bed in a retrograde fashion. Wall was thickened on the fundic portion of the gallbladder however the more distal gallbladder was soft heading towards the infundibulum. The cystic artery was identified and doubly ligated using hemoclips. Dissection was continued down to the neck of the gallbladder and the neck clamped with a right angle clamp. The gallbladder was then resected using a Metzenbaum scissors. Cystic duct was ligated using 2-0 silk ties. This was also hemoclipped. The gallbladder was passed off the table and sent to pathology for further examination. A right liver edge metastasis was noted just lateral to the gallbladder fossa. Electrocautery was used to excise this tumor for specimen. Hemostasis was assured using electrocautery. Some oozing was noted from the liver bed. This was cauterized using a combination of Surgicel and electrocautery. A large 10 Peter-Acevedo was placed in the gallbladder fossa brought out through a separate stab wound. This was connected to a small bulb suctioned. Abdomen was then irrigated and suctioned dry. Wounds were again checked for hemostasis. The Amanda incision was closed in layers using 0 Polysorb suture to close peritoneum, posterior sheath and anterior rectus sheath. Subcutaneous tissue and dermis were then reapproximated using interrupted 3-0 Polysorb sutures. Skin was closed using skin blossom. A trocar incision in the epigastrium with fascia was closed using a [id number] 0 Polysorb suture. The remaining trocar incisions were closed using skin blossom. Sterile dressings were then applied. The patient remained hemodynamically stable. She tolerated the procedure well and was transferred to PACU in stable condition. Sponge, instrument, and needle counts reported as correct.
--- NOTE | 2024-07-07 14:38 | MHC.CM.PN ---
pt reports she lives with daugter and that she had no services her dgter will transport her home when dcd l/m for dgter to confirm same and to ask about a hcp
[2024-07-07] MEDS: HYDROmorphone HCl 1 MG/ML SYRINGE 0.5 MG IVPUSH ×3 (15:14→23:29)
[2024-07-07 16:34] LABS: Glucose, Whole Blood 140 mg/dL (60-115)
--- NOTE | 2024-07-07 18:08 | HO.PM.IMCN ---
History of Present Illness Data of Consult Service Date: 07/07/24 Primary Care Provider: Yola Rowell MD [facility] Reason for consult: Medical management Pt is an 83-year-old female with a PMH significant for HTN, HLD, insulin-dependent type 2 diabetes, hx of pericardial effusion, and mood disorder/mild cognitive impairment who initially presented to the ED on 07/06/2024 complaining of RUQ pain x1 day and workup indicated acute cholecystitis. Pt was admitted to the hospital under general surgery services and underwent laparoscopic cholecystectomy. POD0. Pt reports pain moderately controlled under current analgesic regimen. Still experiencing some RUQ abdominal pain. Has not had either bowel movement or passed gas. Denies nausea or vomiting. Has been able to tolerate a clear liquid diet. Has not yet been out of bed. Denies any other acute medical complaint. No SOB or difficulty breathing. Review of Systems Review of Systems: RUQ abd pain Otherwise no acute medical complaints Denies N/V [facility] Medical History Back pain History of mammogram Diabetes Hyperlipidemia HTN (hypertension) Functional capacity: independent ambulation Family History Father Unknown family medical history Mother Unknown family medical history Surgical History History of bladder surgery H/O colonoscopy No pertinent past surgical history Social History Household Members: Family Housing: Homeless Do you presently have visiting nurse or other home services: No Alcohol intake: current Alcohol intake frequency: holidays/special occasions only Patient Tobacco Use Status: Never used Tobacco e-Cigarette/Vaping Use: Never Used Advance Directives Date on File: 07/07/24 service: No Current occupational status: retired Cognitive needs: No Hearing needs: No Vision needs: Yes Meds Allergies Allergy/AdvReac Type Severity Reaction Status Date / Time Iodinated Contrast Media Allergy Unknown ANAPHYLAXIS Verified 07/06/24 21:47 [IV CONTRAST] poison den extract AdvReac Swelling Verified 07/06/24 21:47 Active Medications: Current Medications Acetaminophen (Acetaminophen 325 Mg Tablet) 650 mg PO Q6H PRN PRN Reason: Pain, Mild 1-3,fever,headache Amlodipine Besylate (Amlodipine Besylate 5 Mg Tablet) 5 mg PO DAILY [facility]; Protocol Atorvastatin Calcium (Atorvastatin Calcium 80 Mg Tablet) 80 mg PO DAILY [facility] Carvedilol (Carvedilol 25 Mg Tablet) 25 mg PO BID [facility]; Protocol Dextrose (Dextrose 50 % 25 Gm/50 Ml Syringe) 25 gm IVPUSH Q15M PRN; Protocol PRN Reason: per Hypoglycemia Standing Ord. Donepezil HCl (Donepezil Hcl 5 Mg Tablet) 5 mg PO DAILY [facility] Glucose (Glucose Gel 15 Gm Gel..Gram.) 15 gm PO Q15M PRN; Protocol PRN Reason: per Hypoglycemia Standing Ord. Hydromorphone HCl (Hydromorphone Hcl 1 Mg/Ml Syringe) 0.5 mg IVPUSH Q4H PRN; Protocol PRN Reason: Pain, Severe (Pain Scale 7-10) Last Admin: 07/07/24 15:14 Dose: 0.5 mg Lactated Ringer's (Lr) 1,000 mls @ 100 mls/hr IVCONT .Q10H [facility] Last Admin: 07/07/24 15:07 Dose: 100 mls/hr Acetaminophen (Ofirmev) 1,000 mg in 100 mls @ 400 mls/hr IV Q6H PRN PRN Reason: Pain, Mild (Pain Scale 1-3) Piperacillin Sod/Tazobactam (Sod 3.375 gm/ Sodium Chloride) 50 mls @ 100 mls/hr IV Q6H [facility] Last Infusion: 07/07/24 15:56 Dose: Infused Insulin Human Lispro (Insulin Lispro 100 Unit/Ml 3 Ml Vial) 0 unit SUBCUT QIDACHS [facility]; Protocol Lisinopril (Lisinopril 40 Mg Tablet) 40 mg PO DAILY [facility]; Protocol Melatonin (Melatonin 3 Mg Tablet) 6 mg PO BEDTIME PRN PRN Reason: Insomnia Naloxone HCl (Naloxone Hcl 0.4 Mg/Ml Vial) 0.04 mg IVPUSH Q5M PRN PRN Reason: Excessive sedation or RR < 8 Ondansetron HCl (Ondansetron Hcl 4 Mg/2 Ml Vial) 4 mg IVPUSH Q8H PRN PRN Reason: Nausea and Vomiting Ondansetron HCl (Ondansetron Hcl 4 Mg/2 Ml Vial) 4 mg IVPUSH QID PRN PRN Reason: Nausea Oxycodone HCl (Oxycodone Hcl Immed Release 5 Mg Tablet) 5 mg PO Q6H PRN PRN Reason: Pain, Moderate(Pain Scale 4-6) Sodium Chloride (0.9 % Sodium Chloride Flush 3 Ml Syringe) 3 ml IVFLUSH QSHIFT [facility] Last Admin: 07/07/24 16:10 Dose: Not Given Home Medications ?Medication ?Instructions ?Recorded ?Confirmed ?Last Taken ?Type blood sugar diagnostic #10 ea 03/22/20 12/19/23 Unknown History aspirin 325 mg tablet 325 mg PO DAILY 03/15/21 07/07/24 07/06/24 History acetaminophen 500 mg tablet 500 mg PO DAILY PRN pain 07/07/24 07/07/24 Unknown History insulin glargine 100 unit/mL (3 25 unit subcut DAILY 07/07/24 07/07/24 07/06/24 History mL) subcutaneous pen (Basaglar KwikPen U-100 Insulin) Physical Exam Vital Signs and Narrative: Vital Signs: Last Vital Signs Temp 98.1 F 07/07/24 14:31 Pulse 62 07/07/24 14:31 Resp 18 07/07/24 14:31 BP 160/73 H 07/07/24 14:31 Pulse Ox 92 07/07/24 14:31 O2 Del Method Nasal Cannula 07/07/24 14:31 O2 Flow Rate 3.0 07/07/24 14:31 BMI result Body Mass Index 27.4 General: AOx3, no acute distress Resp: CTA bilaterally CVS: S1, S2, RRR GI: +BS, no distention; appropriate abdominal tenderness at surgical sites Skin: Warm, dry Neuro: Cranial nerves II-XII grossly intact bilaterally. Motor grossly intact bilaterally Extremities: No edema Psych: Appropriate affect Results Labs 07/06/24 22:34 07/06/24 22:34 Labs: Laboratory Results - last 24 hr 07/06/24 07/07/24 07/07/24 22:34 03:10 07:29 MCV 86.7 MCH 28.3 MCHC 32.6 RDW 14.4 Plt Count 331 MPV 9.2 L Immature Gran % (Auto) 0.4 Neut % (Auto) 71.9 Lymph % (Auto) 16.2 L [place] % (Auto) 9.5 Eos % (Auto) 1.6 Baso % (Auto) 0.4 Lymph # (Auto) 2.2 [place] # (Auto) 1.3 H Eos # (Auto) 0.2 Baso # (Auto) 0.1 Abs Immat Gran (auto) 0.05 H Absolute Neuts (auto) 9.8 H Absolute Nucleated RBC 0.000 Nucleated RBC % (auto) 0.0 Anion Gap 8 L Estim Creat Clear Calc 46.2 Estimated GFR > 60 POC Glucose 105 Random Glucose 247 H Calcium 9.0 Total Bilirubin 0.9 Direct Bilirubin 0.4 AST 29 ALT 18 Alkaline Phosphatase 135 H Total Protein 7.4 Albumin 3.5 Lipase 30 Urine Color Dark Yellow Urine Appearance Cloudy Urine pH 5.0 Ur Specific [place] 1.025 Urine Protein Trace Urine Glucose (UA) >=1000 H Urine Ketones Trace Urine Blood Negative Urine Nitrite Positive H Ur Leukocyte Esterase Small (1+) H Urine RBC 0-2 Urine WBC 11-20 H Ur Squamous Epith Cells 3-5 Urine Bacteria 4+ Hyaline Casts 0-2 07/07/24 07/07/24 10:43 16:30 MCV MCH MCHC RDW Plt Count MPV Immature Gran % (Auto) Neut % (Auto) Lymph % (Auto) [place] % (Auto) Eos % (Auto) Baso % (Auto) Lymph # (Auto) [place] # (Auto) Eos # (Auto) Baso # (Auto) Abs Immat Gran (auto) Absolute Neuts (auto) Absolute Nucleated RBC Nucleated RBC % (auto) Anion Gap Estim Creat Clear Calc Estimated GFR POC Glucose 78 140 H Random Glucose Calcium Total Bilirubin Direct Bilirubin AST ALT Alkaline Phosphatase Total Protein Albumin Lipase Urine Color Urine Appearance Urine pH Ur Specific [place] Urine Protein Urine Glucose (UA) Urine Ketones Urine Blood Urine Nitrite Ur Leukocyte Esterase Urine RBC Urine WBC Ur Squamous Epith Cells Urine Bacteria Hyaline Casts Assessment and Plan (1) Acute cholecystitis: Status: Acute Plan Pt is an 83-year-old female with a PMH significant for HTN, HLD, insulin-dependent type 2 diabetes, hx of pericardial effusion, and mood disorder/mild cognitive impairment who initially presented to the ED on 07/06/2024 complaining of RUQ pain x1 day and workup indicated acute cholecystitis. Pt was admitted to the hospital under general surgery services and underwent laparoscopic cholecystectomy. POD0. Acute cholecystitis Underwent laparoscopic cholecystectomy, POD0 Plan as per General surgery Acute UTI Pt being covered by Zosyn for acute cholecystitis Follow urine cultures Hypertension Pt hypertensive post-op as high as 199/87 Likely secondary to pain and not taking home antihypertensives today We will give hydralazine 5 mg IV x1 Continue amlodipine, carvedilol, and lisinopril Follow BP closely Insulin-dependent type 2 diabetes Hold metformin Will place on sliding scale insulin Continue Lantus HLD Continue statin Thank you for allowing us to participate in the care of this patient. Will continue to follow along with you for now.
[2024-07-07 20:42] LABS: Glucose, Whole Blood 148 mg/dL (60-115)
[2024-07-07] MEDS: carvediloL 25 MG TABLET PO (20:58)
[2024-07-08] VITALS (13 sets, daily range): BP systolic 114–165; BP diastolic 58–70; PULSE 59–83; RESP 16–20; TEMP 36.1–37.1; O2SAT 79–95
[2024-07-08] MEDS: Acetaminophen 1,000 MG/100 ML PIGGYBACK 400 MG IV (00:22)
[2024-07-08] MEDS: Lactated Ringers 1,000 ML 100 ML IVCONT ×2 (02:10→14:19)
[2024-07-08] MEDS: Piperacillin Sodium/Tazobactam 3.375 GM in 0.9 % Sodium Chloride 50 ML IV ×4 (03:04→19:43)
[2024-07-08] MEDS: HYDROmorphone HCl 1 MG/ML SYRINGE 0.5 MG IVPUSH ×2 (05:37→16:10)
[2024-07-08 06:50] LABS: Alanine Aminotransferase 20 U/L (0-31); Albumin Level 2.6 g/dL (3.5-5.0); Alkaline Phosphatase 91 U/L (39-117); Anion Gap 10 (12-20); Aspartate Amino Transferase 46 U/L (5-31); Bilirubin Direct 0.3 mg/dL (0.0-0.5); Bilirubin Total 0.7 mg/dL (0.0-1.0); Blood Urea Nitrogen 17 mg/dL (9-16); Calcium 7.9 mg/dL (8.4-10.2); Carbon Dioxide 26 mmol/L (22-29); Chloride 107 mmol/L (96-108); Creatinine Clr Calc Pharmacy 46.2; Estimated Glomerular Filt Rate > 60; Glucose Random 107 mg/dL (60-115); Potassium 4.2 mmol/L (3.3-5.1); Sodium 139 mmol/L (135-145); Total Protein 5.7 g/dL (6.5-8.0)
--- NOTE | 2024-07-08 06:56 | PM.PNGS ---
Subjective Subjective Date of Service: 07/08/24 <[employer] - Last Filed: 07/08/24 07:05> 07/08/24 <Kiki Robertson PA-C - Last Filed: 07/08/24 07:56> 07/08/24 <Kelby Arechiga MD - Last Filed: 07/08/24 10:50> Interval history: Patient reports a great deal of pain today, mainly over the incision on the right upper quadrant, rating her pain a 7/10. She has been unable to ambulate, and used a bed pain to urinate. No bowel movement or flatulence reported. <NuPatheo - Last Filed: 07/08/24 07:05> Physical Exam Vital Signs: Vital Signs: Last Vital Signs Temp 97.6 F 07/08/24 03:30 Pulse 59 07/08/24 03:30 Resp 16 07/08/24 03:30 BP 121/58 L 07/08/24 03:30 Pulse Ox 94 07/08/24 03:30 O2 Del Method Nasal Cannula 07/08/24 03:30 O2 Flow Rate 2.5 07/08/24 03:30 BMI result Body Mass Index 27.4 <NuPatheo - Last Filed: 07/08/24 07:05> Const: General: alert and awake <NuPatheo - Last Filed: 07/08/24 07:05> Orientation/consciousness: patient oriented x3 <NuPatheo - Last Filed: 07/08/24 07:05> Resp: Effort & Inspection: normal respiratory effort <NuPatheo - Last Filed: 07/08/24 07:05> Cardio: Rate: regular rate <NuPatheo - Last Filed: 07/08/24 07:05> Rhythm: regular rhythm <NuPatheo - Last Filed: 07/08/24 07:05> Peripheral pulses: radial pulses present <NuPatheo - Last Filed: 07/08/24 07:05> GI: Other: mild distension tender to palpation incision site covered with dressing, blood noted on the dressing near the drain drain port with minimal liquid present <NuPatheo - Last Filed: 07/08/24 07:05> Other: mild distension tender to palpation dressing intact drain port with some serosanguineous drainage <Kiki Robertson PA-C - Last Filed: 07/08/24 07:56> Skin: General skin exam: no rashes or lesions noted <Phyllis Storm - Last Filed: 07/08/24 07:05> General skin exam: no jaundice <Kiki Robertson PA-C - Last Filed: 07/08/24 07:56> Neuro: General: patient oriented x3 <Phyllis Storm - Last Filed: 07/08/24 07:05> Objective Data Active Medications Acetaminophen (Acetaminophen 325 Mg Tablet) 650 mg PO Q6H PRN PRN Reason: Pain, Mild 1-3,fever,headache Amlodipine Besylate (Amlodipine Besylate 5 Mg Tablet) 5 mg PO DAILY [facility]; Protocol Atorvastatin Calcium (Atorvastatin Calcium 80 Mg Tablet) 80 mg PO DAILY [facility] Carvedilol (Carvedilol 25 Mg Tablet) 25 mg PO BID [facility]; Protocol Dextrose (Dextrose 50 % 25 Gm/50 Ml Syringe) 25 gm IVPUSH Q15M PRN; Protocol PRN Reason: per Hypoglycemia Standing Ord. Donepezil HCl (Donepezil Hcl 5 Mg Tablet) 5 mg PO DAILY [facility] Glucose (Glucose Gel 15 Gm Gel..Gram.) 15 gm PO Q15M PRN; Protocol PRN Reason: per Hypoglycemia Standing Ord. Hydromorphone HCl (Hydromorphone Hcl 1 Mg/Ml Syringe) 0.5 mg IVPUSH Q4H PRN; Protocol PRN Reason: Pain, Severe (Pain Scale 7-10) Last Admin: 07/08/24 05:37 Dose: 0.5 mg Documented By: IKRA Lactated Ringer's (Lr) 1,000 mls @ 100 mls/hr IVCONT .Q10H [facility] Last Admin: 07/08/24 02:10 Dose: 100 mls/hr Documented By: ANTOINC Acetaminophen (Ofirmev) 1,000 mg in 100 mls @ 400 mls/hr IV Q6H PRN PRN Reason: Pain, Mild (Pain Scale 1-3) Last Infusion: 07/08/24 00:40 Dose: Infused Documented By: KIRA Piperacillin Sod/Tazobactam (Sod 3.375 gm/ Sodium Chloride) 50 mls @ 100 mls/hr IV Q6H [facility] Last Infusion: 07/08/24 03:38 Dose: Infused Documented By: ROSA Insulin Glargine (Insulin Glargine,Hum.Rec.Anlog 100 Unit/Ml 10 Ml Vial) 15 unit SUBCUT DAILY [facility] Insulin Human Lispro (Insulin Lispro 100 Unit/Ml 3 Ml Vial) 0 unit SUBCUT QIDACHS [facility]; Protocol Last Admin: 07/07/24 20:48 Dose: Not Given Documented By: ROSA Non-Admin Reason: No Insulin Coverage Lisinopril (Lisinopril 40 Mg Tablet) 40 mg PO DAILY [facility]; Protocol Melatonin (Melatonin 3 Mg Tablet) 6 mg PO BEDTIME PRN PRN Reason: Insomnia Naloxone HCl (Naloxone Hcl 0.4 Mg/Ml Vial) 0.04 mg IVPUSH Q5M PRN PRN Reason: Excessive sedation or RR < 8 Ondansetron HCl (Ondansetron Hcl 4 Mg/2 Ml Vial) 4 mg IVPUSH Q8H PRN PRN Reason: Nausea and Vomiting Ondansetron HCl (Ondansetron Hcl 4 Mg/2 Ml Vial) 4 mg IVPUSH QID PRN PRN Reason: Nausea Oxycodone HCl (Oxycodone Hcl Immed Release 5 Mg Tablet) 5 mg PO Q6H PRN PRN Reason: Pain, Moderate(Pain Scale 4-6) Sodium Chloride (0.9 % Sodium Chloride Flush 3 Ml Syringe) 3 ml IVFLUSH QSHIFT [facility] Last Admin: 07/07/24 20:49 Dose: Not Given Documented By: ROSA Non-Admin Reason: IV Running <Phyllis Emeterio - Last Filed: 07/08/24 07:05> Labs CBC & Chem 7: 07/06/24 22:34 07/08/24 06:13 <Phyllis Emeterio - Last Filed: 07/08/24 07:05> Labs: Laboratory Results - last 24 hr 07/07/24 07/07/24 07/07/24 07:29 10:43 16:30 Hold Purple Top Anion Gap Estim Creat Clear Calc Estimated GFR POC Glucose 105 78 140 H Random Glucose Calcium Total Bilirubin Direct Bilirubin AST ALT Alkaline Phosphatase Total Protein Albumin 07/07/24 07/08/24 07/08/24 20:38 05:25 06:13 Hold Purple Top SEE NOTE Anion Gap 10 L Estim Creat Clear Calc 46.2 Estimated GFR > 60 POC Glucose 148 H Random Glucose 107 Calcium 7.9 L D Total Bilirubin 0.7 Direct Bilirubin 0.3 AST 46 H ALT 20 Alkaline Phosphatase 91 Total Protein 5.7 L Albumin 2.6 L <Phyllis Emeterio - Last Filed: 07/08/24 07:05> Microbiology Microbiology Results: Microbiology 07/07/24 01:40 Blood Culture - Preliminary Blood - Venous No growth after 24 hours. 07/07/24 01:40 Blood Culture - Preliminary Blood - Venous No growth after 24 hours. <Phyllis Emeterio - Last Filed: 07/08/24 07:05> Procedures Date of Service Date of Service: 07/08/24 <Phylils Emeterio - Last Filed: 07/08/24 07:05> 07/08/24 <Kiki Robertson PA-C - Last Filed: 07/08/24 07:56> 07/08/24 <Kelby Arechiga MD - Last Filed: 07/08/24 10:50> Progress Note: A&P Assessment and plan (1) S/P cholecystectomy: Status: Acute <Phyllis Emeterio - Last Filed: 07/08/24 07:05> Assessment and Plan: Madeline is post op day 1 from open cholecystectomy and liver biopsy. Pain is reported mainly in the upper right quadrant near her larger incision and is being managed with ofirmev and hydromorphone. She is tolerating the clear liquids and ice chips. She will continue to take the zoysn, spirometry was encouraged 10 times per hour, and ambulation if she feels strong enough today. <Phyllis Emeterio - Last Filed: 07/08/24 07:05> Madeline is post op day 1 from open cholecystectomy and liver biopsy. Pain is reported mainly in the upper right quadrant near her larger incision and is being managed with ofirmev and hydromorphone. She is tolerating the clear liquids and ice chips. She will continue to take the zoysn, spirometry was encouraged 10 times per hour, and ambulation if she feels strong enough today. POD #1 s/p Laparoscopic converted to open cholecystectomy, liver biopsy. Found to have hard mass of the gallbladder fundus suggestive of a gallbladder cancer. Multiple liver Mets noted. Overall doing ok post op. VSS. Abd exam benign with clean dressings, appropriate post op tenderness. LAURA drain output scant nonbilious. Labs reviewed. Pain control. Encouraged OOB/ambulation and IS use today. PT consult for dispo planning. Regular diet. Will obtain CT scan to evaluate abd. <Kiki Robertson PA-C - Last Filed: 07/08/24 07:56> Madeline is post op day 1 from open cholecystectomy and liver biopsy. Pain is reported mainly in the upper right quadrant near her larger incision and is being managed with ofirmev and hydromorphone. She is tolerating the clear liquids and ice chips. She will continue to take the zoysn, spirometry was encouraged 10 times per hour, and ambulation if she feels strong enough today. POD #1 s/p Laparoscopic converted to open cholecystectomy, liver biopsy. Found to have hard mass of the gallbladder fundus suggestive of a gallbladder cancer. Multiple liver Mets noted. Overall doing ok post op. VSS. Abd exam benign with clean dressings, appropriate post op tenderness. LAURA drain output scant nonbilious. Labs reviewed. Pain control. Encouraged OOB/ambulation and IS use today. PT consult for dispo planning. Regular diet. Will obtain CT scan to evaluate abd. Patient seen and examined independently. Agree with the above assessment and plan. Patient was reasonably comfortable this morning but is taking shallow breaths. Her incision is clean and intact. LAURA is producing thin serosanguineous fluid. No bile was evident. I reviewed the findings from surgery with the patient with the assistance of her [id number]. The possibility of a gallbladder cancer with metastasis to the liver was discussed. I recommended obtaining a CT abdomen and pelvis today to better evaluate the liver findings. Awaiting path results. Patient encouraged to get out of bed and ambulate. We will advance diet today. Incentive spirometry strongly encouraged. <Kelby Arechiga MD - Last Filed: 07/08/24 10:50> Time Spent With Patient Time: Total time managing care of this patient today ____ minutes. <Phyllis Storm - Last Filed: 07/08/24 07:05> Quality Stroke Does the patient have a stroke diagnosis?: No <Phyllis Emeterio - Last Filed: 07/08/24 07:05> VTE Prior VTE?: No <Phyllis Emeterio - Last Filed: 07/08/24 07:05> VTE Risk Level:: Surgical - low <Phyllis Emeterio - Last Filed: 07/08/24 07:05> VTE Device Contraindication: Treatment Not Indicated <Phyllis Emeterio - Last Filed: 07/08/24 07:05> VTE Drug Contraindication: Treatment Not Indicated <Phyllis Emeterio - Last Filed: 07/08/24 07:05>
[2024-07-08 07:09] LABS: Glucose, Whole Blood 100 mg/dL (60-115)
--- NOTE | 2024-07-08 08:13 | HO.POSTANES ---
Post Anesthesia Evaluation Post Anesthesia Evaluation Date of Service: 07/08/24 Vital Signs: Vital Signs Temp Pulse Resp BP Pulse Ox O2 Del Method O2 Flow Rate 07/08/24 07:38 97.7 F 63 18 141/65 H 90 L Nasal Cannula 2 07/08/24 03:30 97.6 F 59 16 121/58 L 94 Nasal Cannula 2.5 07/07/24 23:50 97.8 F 69 16 129/84 94 Nasal Cannula 2.5 07/07/24 20:51 65 157/65 H 95 Nasal Cannula 3 Anesthesia: General Mental Status: Awake Pain Control: Satisfactory Nausea/Vomiting: None Hydration: Adequate Anesthesia-Related Issues: No Anes. Related Issues
[2024-07-08] MEDS: Atorvastatin Calcium 80 MG TABLET PO (08:29)
[2024-07-08] MEDS: amLODIPine Besylate 5 MG TABLET PO (08:29)
[2024-07-08] MEDS: Donepezil HCl 5 MG TABLET PO (08:29)
[2024-07-08] MEDS: lisinopriL 40 MG TABLET PO (08:29)
[2024-07-08] MEDS: Insulin Glargine,Hum.rec.anlog 100 UNIT/ML 10 ML VIAL 15 UNIT SUBCUT (08:30)
[2024-07-08] MEDS: carvediloL 25 MG TABLET PO ×2 (08:30→19:49)
[2024-07-08] MEDS: oxyCODONE HCl Immed Release 5 MG TABLET PO ×2 (09:02→19:42)
[2024-07-08 11:26] LABS: Glucose, Whole Blood 114 mg/dL (60-115)
[2024-07-08] MEDS: Diatrizoate Meglumine, Sodium 30 ML SOLUTION PO (11:51)
--- NOTE | 2024-07-08 15:45 | MHC.CM.PN ---
P.T. HAS RECOMMENDED HOME WITH SERVICES ON DC. DAUGHTER GABRIEL AWARE AND HAS NO PREFERENCE TO [facility], REFERRAL SENT TO [facility]. CM WILL CONTINUE TO FOLLOW
[2024-07-08] MEDS: Insulin Lispro 100 UNIT/ML 3 ML VIAL SUBCUT ×2 (16:18→20:42)
[2024-07-08 16:19] LABS: Glucose, Whole Blood 220 mg/dL (60-115)
--- NOTE | 2024-07-08 17:43 | PC.NURSE ---
Patient began desatting on 2L NC, O2 between 79-85%, O2 increased to 5L NC but patient still unable to maintain saturation above 88%, pt transitioned to 8L via oxymask to keep oxygen saturation above 90%. RT and MD called to bedside to evaluate, per Tawana PA will order CXR, BNP and IV fluids stopped
--- NOTE | 2024-07-08 18:03 | P.PNIM_ITS ---
Subjective Subjective Date of Service: 07/08/24 Interval History: Pt reports pain well-controlled with current analgesic regimen Has not yet been out of bed Diet has advanced to full, pt ate all of her dinner Has not yet had bowel movement or passed gas Denies nausea and vomiting Overall feels better CT of abdomen and pelvis today found small bilateral pleural effusions with adjacent atelectasis or pneumonia, as well as stable and unchanged moderate pericardial effusion Notified by nursing that pt desatted to 79% on 2 L NC Currently requiring 8 L OxyMask to maintain O2 sat of 92% Pt denies shortness or breath or difficulty breathing Review of Systems Negative except for that which is stated in the HPI Physical Exam 2 Vital Signs: Vital Signs: Last Vital Signs Temp 98.8 F 07/08/24 15:53 Pulse 78 07/08/24 15:53 Resp 16 07/08/24 15:53 BP 114/59 L 07/08/24 15:53 Pulse Ox 92 07/08/24 17:41 O2 Del Method Oxymask 07/08/24 17:41 O2 Flow Rate 8 07/08/24 17:41 BMI result Body Mass Index 27.4 General: AOx3, no acute distress Resp: CTA bilaterally, though auscultated anteriorly due to abdominal pain preventing proper pt positioning CVS: S1, S2, RRR GI: Appropriate pain at surgical sites Skin: Warm, dry Neuro: Cranial nerves II-XII grossly intact bilaterally. Motor grossly intact bilaterally Extremities: No edema Psych: Appropriate affect Objective Data Active Medications Acetaminophen (Acetaminophen 325 Mg Tablet) 650 mg PO Q6H PRN PRN Reason: Pain, Mild 1-3,fever,headache Amlodipine Besylate (Amlodipine Besylate 5 Mg Tablet) 5 mg PO DAILY [facility]; Protocol Last Admin: 07/08/24 08:29 Dose: 5 mg Documented By: ROSANA Atorvastatin Calcium (Atorvastatin Calcium 80 Mg Tablet) 80 mg PO DAILY [facility] Last Admin: 07/08/24 08:29 Dose: 80 mg Documented By: ROSANA Carvedilol (Carvedilol 25 Mg Tablet) 25 mg PO BID [facility]; Protocol Last Admin: 07/08/24 08:30 Dose: 25 mg Documented By: ROSANA Dextrose (Dextrose 50 % 25 Gm/50 Ml Syringe) 25 gm IVPUSH Q15M PRN; Protocol PRN Reason: per Hypoglycemia Standing Ord. Donepezil HCl (Donepezil Hcl 5 Mg Tablet) 5 mg PO DAILY [facility] Last Admin: 07/08/24 08:29 Dose: 5 mg Documented By: ROSANA Glucose (Glucose Gel 15 Gm Gel..Gram.) 15 gm PO Q15M PRN; Protocol PRN Reason: per Hypoglycemia Standing Ord. Hydromorphone HCl (Hydromorphone Hcl 1 Mg/Ml Syringe) 0.5 mg IVPUSH Q4H PRN; Protocol PRN Reason: Pain, Severe (Pain Scale 7-10) Last Admin: 07/08/24 16:10 Dose: 0.5 mg Documented By: CODY Acetaminophen (Ofirmev) 1,000 mg in 100 mls @ 400 mls/hr IV Q6H PRN PRN Reason: Pain, Mild (Pain Scale 1-3) Last Infusion: 07/08/24 00:40 Dose: Infused Documented By: KIRA Piperacillin Sod/Tazobactam (Sod 3.375 gm/ Sodium Chloride) 50 mls @ 100 mls/hr IV Q6H [facility] Last Infusion: 07/08/24 14:21 Dose: Infused Documented By: ROSANA Insulin Glargine (Insulin Glargine,Hum.Rec.Anlog 100 Unit/Ml 10 Ml Vial) 15 unit SUBCUT DAILY [facility] Last Admin: 07/08/24 08:30 Dose: 15 unit Documented By: ROSANA Insulin Human Lispro (Insulin Lispro 100 Unit/Ml 3 Ml Vial) 0 unit SUBCUT QIDACHS [facility]; Protocol Last Admin: 07/08/24 16:18 Dose: 2 unit Documented By: CODY Lisinopril (Lisinopril 40 Mg Tablet) 40 mg PO DAILY [facility]; Protocol Last Admin: 07/08/24 08:29 Dose: 40 mg Documented By: ROSANA Melatonin (Melatonin 3 Mg Tablet) 6 mg PO BEDTIME PRN PRN Reason: Insomnia Naloxone HCl (Naloxone Hcl 0.4 Mg/Ml Vial) 0.04 mg IVPUSH Q5M PRN PRN Reason: Excessive sedation or RR < 8 Ondansetron HCl (Ondansetron Hcl 4 Mg/2 Ml Vial) 4 mg IVPUSH Q8H PRN PRN Reason: Nausea and Vomiting Ondansetron HCl (Ondansetron Hcl 4 Mg/2 Ml Vial) 4 mg IVPUSH QID PRN PRN Reason: Nausea Oxycodone HCl (Oxycodone Hcl Immed Release 5 Mg Tablet) 5 mg PO Q6H PRN PRN Reason: Pain, Moderate(Pain Scale 4-6) Last Admin: 07/08/24 09:02 Dose: 5 mg Documented By: ROSANA Sodium Chloride (0.9 % Sodium Chloride Flush 3 Ml Syringe) 3 ml IVFLUSH QSHIFT [facility] Last Admin: 07/08/24 15:41 Dose: Not Given Documented By: ROSANA Non-Admin Reason: IV Running Labs 07/06/24 22:34 07/08/24 06:13 Labs: Laboratory Results - last 24 hr 07/07/24 07/08/24 07/08/24 20:38 05:25 06:13 Hold Purple Top SEE NOTE Anion Gap 10 L Estim Creat Clear Calc 46.2 Estimated GFR > 60 POC Glucose 148 H Random Glucose 107 Calcium 7.9 L D Total Bilirubin 0.7 Direct Bilirubin 0.3 AST 46 H ALT 20 Alkaline Phosphatase 91 Total Protein 5.7 L Albumin 2.6 L 07/08/24 07/08/24 07/08/24 07:05 11:22 16:14 Hold Purple Top Anion Gap Estim Creat Clear Calc Estimated GFR POC Glucose 100 114 220 H Random Glucose Calcium Total Bilirubin Direct Bilirubin AST ALT Alkaline Phosphatase Total Protein Albumin Microbiology Microbiology Results: Microbiology 07/07/24 03:10 Urine Culture - Preliminary Urine clean catch - Clean Catch Midstream Gram negative marjorie 07/07/24 01:40 Blood Culture - Preliminary Blood - Venous No growth after 24 hours. 07/07/24 01:40 Blood Culture - Preliminary Blood - Venous No growth after 24 hours. Assessment and Plan (1) S/P cholecystectomy: Status: Acute Plan Pt is an 83-year-old female with a PMH significant for HTN, HLD, insulin- dependent type 2 diabetes, hx of pericardial effusion, and mood disorder/mild cognitive impairment who initially presented to the ED on 07/06/2024 complaining of RUQ pain x1 day and workup indicated acute cholecystitis. Pt was admitted to the hospital under general surgery services and underwent laparoscopic cholecystectomy that was then converted to open cholecystectomy with liver biopsy. 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 POD1. Acute cholecystitis Underwent laparoscopic cholecystectomy that was converted to open cholecystectomy with liver biopsy Gallbladder found to have hard mass of the fundus suggestive of gallbladder cancer with multiple mets to the liver Being covered by Zosyn Plan as per General surgery Hypoxia Pt noted to desat to 79% on 2 L NC this afternoon Pt asymptomatic: Not complaining of SOB or difficulty breathing CT showing small bilateral pleural effusions with adjacent atelectasis or pneumonia Check D-dimer and BNP Hold fluids due to pleural effusions Will get V/Q perfusion scan to evaluate for possible PE Titrate supplemental O2> 92, wean as tolerated Acute UTI Pt being covered by Zosyn for acute cholecystitis Follow urine cultures HTN BP better controlled today Continue amlodipine, carvedilol, and lisinopril Insulin-dependent type 2 diabetes Hold metformin Will place on sliding scale insulin Continue Lantus HLD Continue statin Hx of pericardial effusion CT showing stable and unchanged pericardial infusion Pt follows with Cardiology No indication for additional workup or treatment at this time Thank you for allowing us to participate in the care of this pt. Will continue to follow along with you. Quality Stroke Does the patient have a stroke diagnosis?: No VTE Prior VTE?: No VTE Risk Level:: Surgical - low VTE Device Contraindication: Treatment Not Indicated VTE Drug Contraindication: Treatment Not Indicated
[2024-07-08 19:40] LABS: D Dimer High Sensitivity 1073 NG/ML
[2024-07-08] MEDS: 0.9 % Sodium Chloride Flush 3 ML SYRINGE IVFLUSH (19:43)
[2024-07-08 19:54] LABS: B Type Natriuretic Peptide 178 pg/mL (<100)
[2024-07-08 20:31] LABS: Glucose, Whole Blood 278 mg/dL (60-115)
[2024-07-08] MEDS: Enoxaparin Sodium 80 MG/0.8 ML SYRINGE 70 MG SUBCUT (20:41)
[2024-07-09] VITALS (8 sets, daily range): BP systolic 121–181; BP diastolic 58–78; PULSE 69–85; RESP 18; TEMP 36.4–37.2; O2SAT 92–97
[2024-07-09] MEDS: Piperacillin Sodium/Tazobactam 3.375 GM in 0.9 % Sodium Chloride 50 ML IV ×4 (02:07→20:09)
[2024-07-09 07:14] LABS: Glucose, Whole Blood 155 mg/dL (60-115)
--- NOTE | 2024-07-09 07:22 | PM.PNGS ---
Subjective Subjective Date of Service: 07/09/24 <Phyllis Emeterio - Last Filed: 07/09/24 07:26> 07/12/24 <Kiki Robertson PA-C - Last Filed: 07/12/24 14:41> Interval history: Patient reports no nausea, or vomiting and pain in abdomen has improved. <[employer] BankEm[employer]io - Last Filed: 07/09/24 07:26> Physical Exam Vital Signs: Vital Signs: Last Vital Signs Temp 97.5 F 07/09/24 03:33 Pulse 75 07/09/24 03:33 Resp 18 07/09/24 03:33 BP 144/70 H 07/09/24 03:33 Pulse Ox 94 07/09/24 03:33 O2 Del Method Oxymask 07/09/24 03:33 O2 Flow Rate 8 07/09/24 03:33 BMI result Body Mass Index 27.4 <[facility] - Last Filed: 07/09/24 07:26> Const: General: alert and awake <[facility] - Last Filed: 07/09/24 07:26> Orientation/consciousness: patient oriented x3 <[facility] - Last Filed: 07/09/24 07:26> Resp: Other: Mask for oxygen in place <[facility] - Last Filed: 07/09/24 07:26> Cardio: Rate: regular rate <[facility] - Last Filed: 07/09/24 07:26> Rhythm: regular rhythm <[facility] - Last Filed: 07/09/24 07:26> GI: Other: incision site covered with bandage drain with scant non-bilious fluid mild tenderness to palpation <[facility] - Last Filed: 07/09/24 07:26> Neuro: General: patient oriented x3 <[facility] - Last Filed: 07/09/24 07:26> Objective Data Active Medications Acetaminophen (Acetaminophen 325 Mg Tablet) 650 mg PO Q6H PRN PRN Reason: Pain, Mild 1-3,fever,headache Amlodipine Besylate (Amlodipine Besylate 5 Mg Tablet) 5 mg PO DAILY [facility]; Protocol Last Admin: 07/08/24 08:29 Dose: 5 mg Documented By: ROSANA Atorvastatin Calcium (Atorvastatin Calcium 80 Mg Tablet) 80 mg PO DAILY [facility] Last Admin: 07/08/24 08:29 Dose: 80 mg Documented By: ROSANA Carvedilol (Carvedilol 25 Mg Tablet) 25 mg PO BID [facility]; Protocol Last Admin: 07/08/24 19:49 Dose: 25 mg Documented By: JELENA Dextrose (Dextrose 50 % 25 Gm/50 Ml Syringe) 25 gm IVPUSH Q15M PRN; Protocol PRN Reason: per Hypoglycemia Standing Ord. Donepezil HCl (Donepezil Hcl 5 Mg Tablet) 5 mg PO DAILY [facility] Last Admin: 07/08/24 08:29 Dose: 5 mg Documented By: ROSANA Glucose (Glucose Gel 15 Gm Gel..Gram.) 15 gm PO Q15M PRN; Protocol PRN Reason: per Hypoglycemia Standing Ord. Hydromorphone HCl (Hydromorphone Hcl 1 Mg/Ml Syringe) 0.5 mg IVPUSH Q4H PRN; Protocol PRN Reason: Pain, Severe (Pain Scale 7-10) Last Admin: 07/08/24 16:10 Dose: 0.5 mg Documented By: CODY Acetaminophen ([facility]) 1,000 mg in 100 mls @ 400 mls/hr IV Q6H PRN PRN Reason: Pain, Mild (Pain Scale 1-3) Last Infusion: 07/08/24 00:40 Dose: Infused Documented By: KIRA Piperacillin Sod/Tazobactam (Sod 3.375 gm/ Sodium Chloride) 50 mls @ 100 mls/hr IV Q6H [facility] Last Infusion: 07/09/24 02:39 Dose: Infused Documented By: JELENA Insulin Glargine (Insulin Glargine,Hum.Rec.Anlog 100 Unit/Ml 10 Ml Vial) 15 unit SUBCUT DAILY [facility] Last Admin: 07/08/24 08:30 Dose: 15 unit Documented By: ROSANA Insulin Human Lispro (Insulin Lispro 100 Unit/Ml 3 Ml Vial) 0 unit SUBCUT QIDACHS [facility]; Protocol Last Admin: 07/09/24 07:15 Dose: Not Given Documented By: ROSANA Non-Admin Reason: No Insulin Coverage Lisinopril (Lisinopril 40 Mg Tablet) 40 mg PO DAILY [facility]; Protocol Last Admin: 07/08/24 08:29 Dose: 40 mg Documented By: ROSANA Melatonin (Melatonin 3 Mg Tablet) 6 mg PO BEDTIME PRN PRN Reason: Insomnia Naloxone HCl (Naloxone Hcl 0.4 Mg/Ml Vial) 0.04 mg IVPUSH Q5M PRN PRN Reason: Excessive sedation or RR < 8 Ondansetron HCl (Ondansetron Hcl 4 Mg/2 Ml Vial) 4 mg IVPUSH Q8H PRN PRN Reason: Nausea and Vomiting Ondansetron HCl (Ondansetron Hcl 4 Mg/2 Ml Vial) 4 mg IVPUSH QID PRN PRN Reason: Nausea Oxycodone HCl (Oxycodone Hcl Immed Release 5 Mg Tablet) 5 mg PO Q6H PRN PRN Reason: Pain, Moderate(Pain Scale 4-6) Last Admin: 07/08/24 19:42 Dose: 5 mg Documented By: JELENA Sodium Chloride (0.9 % Sodium Chloride Flush 3 Ml Syringe) [facility] Last Admin: 07/08/24 19:43 Dose: 3 ml Documented By: JELENA <Phyllis Emeterio - Last Filed: 07/09/24 07:26> Labs CBC & Chem 7: 07/12/24 07:29 07/12/24 07:29 <Phyllis Emeterio - Last Filed: 07/09/24 07:26> Labs: Laboratory Results - last 24 hr 07/08/24 07/08/24 07/08/24 11:22 16:14 19:21 D-Dimer High Sensitivty 1073 POC Glucose 114 220 H B-Natriuretic Peptide 178 H 07/08/24 07/09/24 20:27 07:10 D-Dimer High Sensitivty POC Glucose 278 H 155 H B-Natriuretic Peptide <Phyllis Emeterio - Last Filed: 07/09/24 07:26> Microbiology Microbiology Results: Microbiology 07/07/24 01:40 Blood Culture - Preliminary Blood - Venous No growth after 48 hours. 07/07/24 01:40 Blood Culture - Preliminary Blood - Venous No growth after 48 hours. 07/07/24 03:10 Urine Culture - Preliminary Urine clean catch - Clean Catch Midstream Gram negative marjorie <Phyllis Emeterio - Last Filed: 07/09/24 07:26> Procedures Date of Service Date of Service: 07/09/24 <Phyllis Emeterio - Last Filed: 07/09/24 07:26> 07/12/24 <Kiki Robertson PA-C - Last Filed: 07/12/24 14:41> Progress Note: A&P Assessment and plan Assessment and Plan: Madeline is post op day 2 from laparoscopic converted to open cholecystectomy, and liver biopsy. Found to have hard mass of the gallbladder fundus suggestive of a gallbladder cancer. Multiple liver Mets noted. Pain level was decreased today, still reported mainly in the upper right quadrant near her larger incision and is being managed with ofirmev and hydromorphone. She is tolerating the advanced diet, and clear liquids. No bowel movement or flatulence reported, she was able to ambulate to the bathroom to urinate with help from nursing. She will continue to take the zoysn, spirometry was encouraged 10 times per hour, and ambulation if she feels strong enough today. <Phyllis Emeterio - Last Filed: 07/09/24 07:26> Time Spent With Patient Time: Total time managing care of this patient today ____ minutes. <Phyllis Emeterio - Last Filed: 07/09/24 07:26> Quality Stroke Does the patient have a stroke diagnosis?: No <Phyllis Emeterio - Last Filed: 07/09/24 07:26> VTE Prior VTE?: No <Phyllis Emeterio - Last Filed: 07/09/24 07:26> VTE Risk Level:: Surgical - low <Phyllis Emeterio - Last Filed: 07/09/24 07:26> VTE Device Contraindication: Treatment Not Indicated <Phyllis Emeterio - Last Filed: 07/09/24 07:26> VTE Drug Contraindication: Treatment Not Indicated <Phyllis Emeterio - Last Filed: 07/09/24 07:26>
--- NOTE | 2024-07-09 07:31 | P.PNGS_ITS ---
Subjective Subjective Date of Service: 07/09/24 Interval history: Patient noted to have desaturation yesterday afternoon requiring increased FiO2. Patient is awaiting a V/Q scan this morning. Patient currently on 8 L facemask with no respiratory distress. She tolerated a regular diet yesterday without nausea or vomiting. Physical Exam 2 Vital Signs: Vital Signs: Last Vital Signs Temp 97.5 F 07/09/24 03:33 Pulse 75 07/09/24 03:33 Resp 18 07/09/24 03:33 BP 144/70 H 07/09/24 03:33 Pulse Ox 94 07/09/24 03:33 O2 Del Method Oxymask 07/09/24 03:33 O2 Flow Rate 8 07/09/24 03:33 BMI result Body Mass Index 27.4 Const: General: no acute distress Nutritional Appearance: well nourished Orientation/consciousness: patient oriented x3 Resp: Other: Facemask 8 L 94% sat. Shallow respirations Skin: General skin exam: no rashes or lesions noted Neuro: General: patient oriented x3 Extrem: General: No edema Objective Data Active Medications Acetaminophen (Acetaminophen 325 Mg Tablet) 650 mg PO Q6H PRN PRN Reason: Pain, Mild 1-3,fever,headache Amlodipine Besylate (Amlodipine Besylate 5 Mg Tablet) 5 mg PO DAILY [facility]; Protocol Last Admin: 07/08/24 08:29 Dose: 5 mg Documented By: ROSANA Atorvastatin Calcium (Atorvastatin Calcium 80 Mg Tablet) 80 mg PO DAILY [facility] Last Admin: 07/08/24 08:29 Dose: 80 mg Documented By: ROSANA Carvedilol (Carvedilol 25 Mg Tablet) 25 mg PO BID [facility]; Protocol Last Admin: 07/08/24 19:49 Dose: 25 mg Documented By: JELENA Dextrose (Dextrose 50 % 25 Gm/50 Ml Syringe) 25 gm IVPUSH Q15M PRN; Protocol PRN Reason: per Hypoglycemia Standing Ord. Donepezil HCl (Donepezil Hcl 5 Mg Tablet) 5 mg PO DAILY [facility] Last Admin: 07/08/24 08:29 Dose: 5 mg Documented By: ROSANA Glucose (Glucose Gel 15 Gm Gel..Gram.) 15 gm PO Q15M PRN; Protocol PRN Reason: per Hypoglycemia Standing Ord. Hydromorphone HCl (Hydromorphone Hcl 1 Mg/Ml Syringe) 0.5 mg IVPUSH Q4H PRN; Protocol PRN Reason: Pain, Severe (Pain Scale 7-10) Last Admin: 07/08/24 16:10 Dose: 0.5 mg Documented By: CODY Acetaminophen ([facility]) 1,000 mg in 100 mls @ 400 mls/hr IV Q6H PRN PRN Reason: Pain, Mild (Pain Scale 1-3) Last Infusion: 07/08/24 00:40 Dose: Infused Documented By: KIRA Piperacillin Sod/Tazobactam (Sod 3.375 gm/ Sodium Chloride) 50 mls @ 100 mls/hr IV Q6H [facility] Last Infusion: 07/09/24 02:39 Dose: Infused Documented By: JELENA Insulin Glargine (Insulin Glargine,Hum.Rec.Anlog 100 Unit/Ml 10 Ml Vial) 15 unit SUBCUT DAILY [facility] Last Admin: 07/08/24 08:30 Dose: 15 unit Documented By: ROSANA Insulin Human Lispro (Insulin Lispro 100 Unit/Ml 3 Ml Vial) 0 unit SUBCUT QIDACHS [facility]; Protocol Last Admin: 07/09/24 07:15 Dose: Not Given Documented By: ROSANA Non-Admin Reason: No Insulin Coverage Lisinopril (Lisinopril 40 Mg Tablet) 40 mg PO DAILY [facility]; Protocol Last Admin: 07/08/24 08:29 Dose: 40 mg Documented By: ROSANA Melatonin (Melatonin 3 Mg Tablet) 6 mg PO BEDTIME PRN PRN Reason: Insomnia Naloxone HCl (Naloxone Hcl 0.4 Mg/Ml Vial) 0.04 mg IVPUSH Q5M PRN PRN Reason: Excessive sedation or RR < 8 Ondansetron HCl (Ondansetron Hcl 4 Mg/2 Ml Vial) 4 mg IVPUSH Q8H PRN PRN Reason: Nausea and Vomiting Ondansetron HCl (Ondansetron Hcl 4 Mg/2 Ml Vial) 4 mg IVPUSH QID PRN PRN Reason: Nausea Oxycodone HCl (Oxycodone Hcl Immed Release 5 Mg Tablet) 5 mg PO Q6H PRN PRN Reason: Pain, Moderate(Pain Scale 4-6) Last Admin: 07/08/24 19:42 Dose: 5 mg Documented By: JELENA Sodium Chloride (0.9 % Sodium Chloride Flush 3 Ml Syringe) [facility] Last Admin: 07/08/24 19:43 Dose: 3 ml Documented By: TIFFANYILFuentes Labs 07/06/24 22:34 07/08/24 06:13 Labs: Laboratory Results - last 24 hr 07/08/24 07/08/24 07/08/24 11:22 16:14 19:21 D-Dimer High Sensitivty 1073 POC Glucose 114 220 H B-Natriuretic Peptide 178 H 07/08/24 07/09/24 20:27 07:10 D-Dimer High Sensitivty POC Glucose 278 H 155 H B-Natriuretic Peptide Microbiology Microbiology Results: Microbiology 07/07/24 03:10 Urine Culture - Final Urine clean catch - Clean Catch Midstream Escherichia coli 07/07/24 01:40 Blood Culture - Preliminary Blood - Venous No growth after 48 hours. 07/07/24 01:40 Blood Culture - Preliminary Blood - Venous No growth after 48 hours. Procedures Date of Service Date of Service: 07/09/24 Progress Note: A&P Assessment and plan (1) Metastasis to liver: Status: Acute (2) S/P cholecystectomy: Status: Acute Plan 83-year-old female patient status post laparoscopic converted to open cholecystectomy found to have a mass in the fundus of the gallbladder with multiple liver metastasis suggestive of a gallbladder carcinoma. CT abdomen and pelvis without contrast does not clearly reveal metastatic disease although patient is unable to receive IV contrast due to an allergy. She developed increased desaturation during the day yesterday requiring increased FiO2. Possibility of a pulmonary embolus is raised therefore a V/Q scan is pending. Anticoagulation initially held due to some liver bleeding during the procedure. LAURA currently producing thin serosanguineous fluid therefore if need be, patient can be anticoagulated. We will LAURA in as a sentinel drain. Discussed the plan with the patient and her daughter this morning. Time Spent With Patient Time: Total time managing care of this patient today ____ minutes. Quality Stroke Does the patient have a stroke diagnosis?: No VTE Prior VTE?: No VTE Risk Level:: Surgical - low VTE Device Contraindication: Treatment Not Indicated VTE Drug Contraindication: Treatment Not Indicated
[2024-07-09] MEDS: HYDROmorphone HCl 1 MG/ML SYRINGE 0.5 MG IVPUSH (08:04)
[2024-07-09] MEDS: ondansetron HCL 4 MG/2 ML VIAL IVPUSH (08:05)
[2024-07-09] MEDS: 0.9 % Sodium Chloride Flush 3 ML SYRINGE IVFLUSH ×3 (08:05→20:02)
[2024-07-09] MEDS: Donepezil HCl 5 MG TABLET PO (10:09)
[2024-07-09] MEDS: lisinopriL 40 MG TABLET PO (10:09)
[2024-07-09] MEDS: amLODIPine Besylate 5 MG TABLET PO (10:09)
[2024-07-09] MEDS: Atorvastatin Calcium 80 MG TABLET PO (10:09)
[2024-07-09] MEDS: carvediloL 25 MG TABLET PO ×2 (10:09→20:01)
[2024-07-09] MEDS: Insulin Glargine,Hum.rec.anlog 100 UNIT/ML 10 ML VIAL 15 UNIT SUBCUT (10:10)
[2024-07-09 11:22] LABS: Glucose, Whole Blood 290 mg/dL (60-115)
[2024-07-09] MEDS: Insulin Lispro 100 UNIT/ML 3 ML VIAL SUBCUT ×3 (11:55→20:15)
[2024-07-09] MEDS: Enoxaparin Sodium 80 MG/0.8 ML SYRINGE 70 MG SUBCUT (11:56)
--- NOTE | 2024-07-09 12:30 | CA_ITS ---
Transthoracic Echocardiogram Patient (Last, First, Middle): Madeline Duff, Gender: Female Date of : 1940 Age: 83 Procedure Date: 07/09/2024 Procedure Type: Transthoracic Echocardiogram Location: S3E Height: 154.94 cm Weight: 65.77 kg BSA: 1.65 m2 Heart Rate: bpm BP: 129 / 58 mmHg Electric Cutter Operator: Referring MD: Sonido Azevedo MD Symptoms: intermediate probability of PE Study Quality: Adequate ECG Rhythm: Sinus Conclusions: - The left ventricular systolic function is hyperdynamic. The visually estimated ejection fraction is >70%. - Evidence suggests grade II (moderate) diastolic dysfunction. - There is severe mitral annular calcification. - There is mild to moderate tricuspid valve regurgitation. - Moderate pulmonary hypertension is present. - There is a moderate circumferential pericardial effusion. Findings Left Ventricle Normal left ventricular cavity size. There is moderately increased left ventricular wall thickness. The left ventricular systolic function is hyperdynamic. The visually estimated ejection fraction is >70%. Evidence suggests grade II (moderate) diastolic dysfunction. Right Ventricle Mildly increased right ventricular cavity size. Aortic Valve There is a normal trileaflet aortic valve. There is no aortic valve stenosis. There is mild aortic valve regurgitation. Mitral Valve There is severe mitral annular calcification. There is trace mitral valve regurgitation. No significant mitral stenosis. Pulmonic Valve There is mild pulmonic valve regurgitation. Tricuspid Valve Normal tricuspid valve structure. There is mild to moderate tricuspid valve regurgitation. Moderate pulmonary hypertension is present. Great Vessels The asc aorta is normal in size. Venous The inferior vena cava is normal in size and collapses greater than 50% with inspiration. Pericardium/Pleural There is a moderate circumferential pericardial effusion. There are no definitive echocardiographic findings of tamponade physiology. Prior Study Comparison Changes noted compared to prior study dated: 03/06/2022. Slight increase in pericardial effusion size. Evidence of pulmonary hypertension. Measurements 2D Linear Measurements IVSd: 1.30 0.6-0.9/0.6-1.0 cm LVIDd: 3.44 3.9-5.3/4.2-5.9 cm LVIDd Index: 2.08 2.4-3.2/2.2-3.1 cm/m2 LVIDs: 2.31 2.0-3.6 cm LVPWd: 1.23 0.7-1.1 cm Ao Root: 3.10 2.1-3.5 cm LA Diam: 4.00 2.7-3.8/3.0-4.0 cm LAIDs Index: 2.42 1.5-2.3 cm/m2 LV Mass: 178.95 67-162/88-224 g LV Mass Index: 108.46 43-95/49-115 g/m2 LVOT Diam: 1.90 3.0+(-)1.3 cm 2D Systolic Function EF 4C: 76.30 >55% EF 2C: 62.90 >55% EF BiP: 69.70 >55% Mitral Valve MV VTI: 0.63 MV Pk Sina: 1.88 MV Mn Sina: 1.03 MV Pk Grad: 14.00 MV Mn Grad: 5.00 MV Pk E: 1.49 MV PK A: 1.25 MV Decel Time: 289.00 E/A: 1.20 E'Lateral: 6.74 E'Medial: 6.09 E/E' Med: 24.50 E/E' Lat: 22.10 PHT: 85.00 MVA PHT: 2.59 MVA Continuity: 1.42 Decel Boundary: 5.15 Aortic Valve AoV Pk Sina: 1.39 AoV Mn Sina: 0.96 AoV VTI: 0.34 AoV Pk Grad: 8.00 Aov Mn Grad: 5.00 MARTIN Cont.VTI: 2.66 LVOT LVOT Pk Sina: 1.27 LVOT Mn Sina: 0.87 LVOT VTI: 0.32 LVOT Pk Grad: 6.00 LVOT Mn Grad: 4.00 LVOT Diam: 1.90 LVOT Area: 2.84 Diastolic Function MV Pk E: 1.49 MV Pk A: 1.25 E/A: 1.20 E'Medial: 6.09 E/E' Med: 24.50 E' Laterial: 6.74 E/E' Lat: 22.10 Right Ventricle TAPSE (mm): 26.00 TVS' Sina: 14.00 Tricuspid Valve TR Pk Sina: 3.63 TR Pk Grad: 53.00 RA Press: 3.00 RVSP: 56.00 Great Vessels Aorta Ao Root-2D: 3.10 2.0-3.7 cm Ao Asc: 3.20 2.1-3.4 cm Pulmonary Valve PV Pk Sina: 1.16 Peak PV Grad: 5.00 Updated in Other Vendor System with Status of Final Eldon De León MD electronically signed on 07/09/2024 3:45:25 PM with status of Final
--- NOTE | 2024-07-09 13:23 | P.PNIM_ITS ---
Subjective Subjective Date of Service: 07/09/24 Interval History: tolerating diet without nausea or vomiting hypoxia, still on 8L oxymask interpretation by daughter between Bur[place]ian and Micronesian Review of Systems Review of Systems: Yes all other systems are reviewed and are negative Physical Exam 2 Vital Signs: Vital Signs: Last Vital Signs Temp 98.7 F 07/09/24 11:49 Pulse 72 07/09/24 11:49 Resp 18 07/09/24 11:49 BP 129/58 L 07/09/24 11:49 Pulse Ox 95 07/09/24 11:49 O2 Del Method Oxymask 07/09/24 11:49 O2 Flow Rate 8 07/09/24 11:49 BMI result Body Mass Index 27.4 Gen: in no acute distress HEENT: sclera anicteric, moist mucus membranes Neck: supple Lungs: clear to auscultation bilaterally Heart: regular rate and rhythm, no murmurs Abd: soft, surgical incisions dry/intact, LAURA drain with serosanguinous fluid Ext: no edema Skin: warm/well-perfused Neuro: alert and oriented x3, no focal findings Psych: appropriate affect Objective Data Active Medications Acetaminophen (Acetaminophen 325 Mg Tablet) 650 mg PO Q6H PRN PRN Reason: Pain, Mild 1-3,fever,headache Amlodipine Besylate (Amlodipine Besylate 5 Mg Tablet) 5 mg PO DAILY [facility]; Protocol Last Admin: 07/09/24 10:09 Dose: 5 mg Documented By: CITLALLI Atorvastatin Calcium (Atorvastatin Calcium 80 Mg Tablet) 80 mg PO DAILY [facility] Last Admin: 07/09/24 10:09 Dose: 80 mg Documented By: CITLALLI Carvedilol (Carvedilol 25 Mg Tablet) 25 mg PO BID [facility]; Protocol Last Admin: 07/09/24 10:09 Dose: 25 mg Documented By: CITLALLI Dextrose (Dextrose 50 % 25 Gm/50 Ml Syringe) 25 gm IVPUSH Q15M PRN; Protocol PRN Reason: per Hypoglycemia Standing Ord. Donepezil HCl (Donepezil Hcl 5 Mg Tablet) 5 mg PO DAILY [facility] Last Admin: 07/09/24 10:09 Dose: 5 mg Documented By: CITLALLI Enoxaparin Sodium (Enoxaparin Sodium 80 Mg/0.8 Ml Syringe) 70 mg SUBCUT Q12H [facility] Last Admin: 07/09/24 11:56 Dose: 70 mg Documented By: ROSANA Glucose (Glucose Gel 15 Gm Gel..Gram.) 15 gm PO Q15M PRN; Protocol PRN Reason: per Hypoglycemia Standing Ord. Hydromorphone HCl (Hydromorphone Hcl 1 Mg/Ml Syringe) 0.5 mg IVPUSH Q4H PRN; Protocol PRN Reason: Pain, Severe (Pain Scale 7-10) Last Admin: 07/09/24 08:04 Dose: 0.5 mg Documented By: CITLALLI Acetaminophen (Ofirmev) 1,000 mg in 100 mls @ 400 mls/hr IV Q6H PRN PRN Reason: Pain, Mild (Pain Scale 1-3) Last Infusion: 07/08/24 00:40 Dose: Infused Documented By: KIRA Piperacillin Sod/Tazobactam (Sod 3.375 gm/ Sodium Chloride) 50 mls @ 100 mls/hr IV Q6H [facility] Last Infusion: 07/09/24 10:38 Dose: Infused Documented By: ROSANA Insulin Glargine (Insulin Glargine,Hum.Rec.Anlog 100 Unit/Ml 10 Ml Vial) 15 unit SUBCUT DAILY [facility] Last Admin: 07/09/24 10:10 Dose: 15 unit Documented By: CITLALLI Insulin Human Lispro (Insulin Lispro 100 Unit/Ml 3 Ml Vial) 0 unit SUBCUT QIDACHS [facility]; Protocol Last Admin: 07/09/24 11:55 Dose: 6 unit Documented By: ROSANA Lisinopril (Lisinopril 40 Mg Tablet) 40 mg PO DAILY [facility]; Protocol Last Admin: 07/09/24 10:09 Dose: 40 mg Documented By: CITLALLI Melatonin (Melatonin 3 Mg Tablet) 6 mg PO BEDTIME PRN PRN Reason: Insomnia Naloxone HCl (Naloxone Hcl 0.4 Mg/Ml Vial) 0.04 mg IVPUSH Q5M PRN PRN Reason: Excessive sedation or RR < 8 Ondansetron HCl (Ondansetron Hcl 4 Mg/2 Ml Vial) 4 mg IVPUSH Q8H PRN PRN Reason: Nausea and Vomiting Last Admin: 07/09/24 08:05 Dose: 4 mg Documented By: CITLALLI Ondansetron HCl (Ondansetron Hcl 4 Mg/2 Ml Vial) 4 mg IVPUSH QID PRN PRN Reason: Nausea Oxycodone HCl (Oxycodone Hcl Immed Release 5 Mg Tablet) 5 mg PO Q6H PRN PRN Reason: Pain, Moderate(Pain Scale 4-6) Last Admin: 07/08/24 19:42 Dose: 5 mg Documented By: JELENA Sodium Chloride (0.9 % Sodium Chloride Flush 3 Ml Syringe) [facility] Last Admin: 07/09/24 08:05 Dose: 3 ml Documented By: CITLALLI Labs 07/06/24 22:34 07/08/24 06:13 Labs: Laboratory Results - last 24 hr 07/08/24 07/08/24 07/08/24 16:14 19:21 20:27 D-Dimer High Sensitivty 1073 POC Glucose 220 H 278 H B-Natriuretic Peptide 178 H 07/09/24 07/09/24 07:10 11:14 D-Dimer High Sensitivty POC Glucose 155 H 290 H B-Natriuretic Peptide Microbiology Microbiology Results: Microbiology 07/07/24 03:10 Urine Culture - Final Urine clean catch - Clean Catch Midstream Escherichia coli 07/07/24 01:40 Blood Culture - Preliminary Blood - Venous No growth after 48 hours. 07/07/24 01:40 Blood Culture - Preliminary Blood - Venous No growth after 48 hours. 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 coli - adequately covered by piperacillin-tazobactam HTN - continue amlodipine, carvedilol, and lisinopril DM2 - hold MTF, continue Lantus + correction-dose lispro HLD - continue statin pericardial effusion - stable/unchanged; followed by Cardiology as outpt MCI - donepezil VTE ppx - enoxaparin Thank you for allowing us to participate in the care of this pt. Will continue to follow along with you. Total time managing care of this patient today: 35 minutes. Quality Stroke Does the patient have a stroke diagnosis?: No VTE Prior VTE?: No VTE Risk Level:: Surgical - low VTE Device Contraindication: Treatment Not Indicated VTE Drug Contraindication: Treatment Not Indicated
[2024-07-09 16:30] LABS: Glucose, Whole Blood 242 mg/dL (60-115)
[2024-07-09] MEDS: guaiFENesin LA 600 MG TAB.ER.12H PO ×2 (17:08→20:01)
[2024-07-09] MEDS: oxyCODONE HCl Immed Release 5 MG TABLET PO (20:01)
[2024-07-09 20:20] LABS: Glucose, Whole Blood 256 mg/dL (60-115)
[2024-07-10] VITALS (8 sets, daily range): BP systolic 111–159; BP diastolic 56–71; PULSE 60–71; RESP 14–18; TEMP 36–36.7; O2SAT 93–100
[2024-07-10] MEDS: Enoxaparin Sodium 80 MG/0.8 ML SYRINGE 70 MG SUBCUT ×2 (00:04→11:42)
[2024-07-10] MEDS: Piperacillin Sodium/Tazobactam 3.375 GM in 0.9 % Sodium Chloride 50 ML IV ×4 (02:33→22:03)
[2024-07-10 07:38] LABS: Glucose, Whole Blood 122 mg/dL (60-115)
[2024-07-10 07:56] LABS: Hematocrit 29.8 % (37.0-47.0); Hemoglobin 9.7 g/dl (12.0-16.0); Mean Corpuscular HGB Conc 32.6 g/dl (31.0-35.0); Mean Corpuscular Hemoglobin 28.4 pg (27.0-33.0); Mean Corpuscular Volume 87.1 fL (80.0-98.0); Mean Platelet Volume 9.8 fL (9.4-12.3); Platelet Count 277 X10*3/uL (160-400); Red Blood Count 3.42 X10*6/uL (4.20-5.50); Red Cell Distribution Width 14.3 % (11.0-16.0); White Blood Count 13.2 X10*3/uL (4.8-10.8)
[2024-07-10] MEDS: amLODIPine Besylate 5 MG TABLET PO (08:07)
[2024-07-10] MEDS: carvediloL 25 MG TABLET PO ×2 (08:08→21:58)
[2024-07-10] MEDS: Donepezil HCl 5 MG TABLET PO (08:08)
[2024-07-10] MEDS: Atorvastatin Calcium 80 MG TABLET PO (08:08)
[2024-07-10] MEDS: oxyCODONE HCl Immed Release 5 MG TABLET PO ×2 (08:08→16:06)
[2024-07-10 08:09] LABS: Anion Gap 12 (12-20); Blood Urea Nitrogen 15 mg/dL (9-16); Calcium 8.1 mg/dL (8.4-10.2); Carbon Dioxide 27 mmol/L (22-29); Chloride 106 mmol/L (96-108); Creatinine Clr Calc Pharmacy 54.4; Estimated Glomerular Filt Rate > 60; Glucose Random 92 mg/dL (60-115); Potassium 3.8 mmol/L (3.3-5.1); Sodium 141 mmol/L (135-145)
[2024-07-10] MEDS: guaiFENesin LA 600 MG TAB.ER.12H PO ×2 (08:09→21:58)
[2024-07-10] MEDS: lisinopriL 40 MG TABLET PO (08:09)
[2024-07-10] MEDS: 0.9 % Sodium Chloride Flush 3 ML SYRINGE IVFLUSH ×2 (08:10→16:06)
[2024-07-10] MEDS: Insulin Glargine,Hum.rec.anlog 100 UNIT/ML 10 ML VIAL 15 UNIT SUBCUT (08:11)
--- NOTE | 2024-07-10 08:24 | PM.HEMONCCN ---
Subjective - Subjective Chief complaint: probable pulmonary embolism Patient: new to practice Consult date: 07/10/24 Primary Care Provider: Yola Rowell MD Medical Scientific Liaison Utilized?: Yes - Language Inspector [employer] HPI - Consult Narrative Reason for consult: probable PE Narrative: Madeline Duff is a 83 year old female presenting with SOB. She is allergic to IV contrast so a CTA cannot be done and MRI for PE is not available at [facility]. Her D-dimer is very elevated at 1073. She has normal renal function. An ultrasound of both legs is negative for DVT. A V\Q scan is intermediate. She has been empirically anticoagulated with enoxaparin. She is medically stable. Review of Systems - ENT Reports system reviewed and no additional complaints, except as documented - Cardiovascular Reports chest pain - Respiratory Reports dyspnea - Genitourinary Reports absent period ON LICENSE OF [facility] Medical History: Medical History (Last Reviewed 07/08/24 @ 12:27 by Ingrid Price, PT) Back pain Diabetes History of mammogram HTN (hypertension) Hyperlipidemia Functional capacity: independent ambulation Family History: Family History (Last Reviewed 07/07/24 @ 20:25 by GIO Purdy) Father Unknown family medical history Mother Unknown family medical history Surgical History: Surgical History (Last Reviewed 07/08/24 @ 12:27 by Ingrid Price, PT) H/O colonoscopy History of bladder surgery No pertinent past surgical history Social History: Social History (Last Reviewed 07/07/24 @ 20:25 by GIO Purdy) Living Situation History: Household Members: Family Housing: Homeless Do you presently have visiting nurse or other home services: No Tobacco History: Patient Tobacco Use Status: Never used Tobacco e-Cigarette/Vaping Use: Never Used Advance Directives: Advance Directives Date on File: 07/07/24 Occupation Assessmet: service: No Current occupational status: retired Home Medications and Allergies Current Medications: Current Medications Acetaminophen (Acetaminophen 325 Mg Tablet) 650 mg PO Q6H PRN PRN Reason: Pain, Mild 1-3,fever,headache Amlodipine Besylate (Amlodipine Besylate 5 Mg Tablet) 5 mg PO DAILY [facility]; Protocol Last Admin: 07/10/24 08:07 Dose: 5 mg Atorvastatin Calcium (Atorvastatin Calcium 80 Mg Tablet) 80 mg PO DAILY [facility] Last Admin: 07/10/24 08:08 Dose: 80 mg Carvedilol (Carvedilol 25 Mg Tablet) 25 mg PO BID [facility]; Protocol Last Admin: 07/10/24 08:08 Dose: 25 mg Dextrose (Dextrose 50 % 25 Gm/50 Ml Syringe) 25 gm IVPUSH Q15M PRN; Protocol PRN Reason: per Hypoglycemia Standing Ord. Donepezil HCl (Donepezil Hcl 5 Mg Tablet) 5 mg PO DAILY [facility] Last Admin: 07/10/24 08:08 Dose: 5 mg Enoxaparin Sodium (Enoxaparin Sodium 80 Mg/0.8 Ml Syringe) 70 mg SUBCUT Q12H [facility] Last Admin: 07/10/24 00:04 Dose: 70 mg Glucose (Glucose Gel 15 Gm Gel..Gram.) 15 gm PO Q15M PRN; Protocol PRN Reason: per Hypoglycemia Standing Ord. Guaifenesin (Guaifenesin La 600 Mg Tab.Er.12h) 600 mg PO BID [facility] Last Admin: 07/10/24 08:09 Dose: 600 mg Hydromorphone HCl (Hydromorphone Hcl 1 Mg/Ml Syringe) 0.5 mg IVPUSH Q4H PRN; Protocol PRN Reason: Pain, Severe (Pain Scale 7-10) Last Admin: 07/09/24 08:04 Dose: 0.5 mg Acetaminophen (Ofirmev) 1,000 mg in 100 mls @ 400 mls/hr IV Q6H PRN PRN Reason: Pain, Mild (Pain Scale 1-3) Last Infusion: 07/08/24 00:40 Dose: Infused Piperacillin Sod/Tazobactam (Sod 3.375 gm/ Sodium Chloride) 50 mls @ 100 mls/hr IV Q6H [facility] Last Admin: 07/10/24 08:17 Dose: 100 mls/hr Insulin Glargine (Insulin Glargine,Hum.Rec.Anlog 100 Unit/Ml 10 Ml Vial) 15 unit SUBCUT DAILY [facility] Last Admin: 07/10/24 08:11 Dose: 15 unit Insulin Human Lispro (Insulin Lispro 100 Unit/Ml 3 Ml Vial) 0 unit SUBCUT QIDACHS [facility]; Protocol Last Admin: 07/10/24 07:54 Dose: Not Given Lisinopril (Lisinopril 40 Mg Tablet) 40 mg PO DAILY [facility]; Protocol Last Admin: 07/10/24 08:09 Dose: 40 mg Melatonin (Melatonin 3 Mg Tablet) 6 mg PO BEDTIME PRN PRN Reason: Insomnia Naloxone HCl (Naloxone Hcl 0.4 Mg/Ml Vial) 0.04 mg IVPUSH Q5M PRN PRN Reason: Excessive sedation or RR < 8 Ondansetron HCl (Ondansetron Hcl 4 Mg/2 Ml Vial) 4 mg IVPUSH Q8H PRN PRN Reason: Nausea and Vomiting Last Admin: 07/09/24 08:05 Dose: 4 mg Ondansetron HCl (Ondansetron Hcl 4 Mg/2 Ml Vial) 4 mg IVPUSH QID PRN PRN Reason: Nausea Oxycodone HCl (Oxycodone Hcl Immed Release 5 Mg Tablet) 5 mg PO Q6H PRN PRN Reason: Pain, Moderate(Pain Scale 4-6) Last Admin: 07/10/24 08:08 Dose: 5 mg Sodium Chloride (0.9 % Sodium Chloride Flush 3 Ml Syringe) 3 ml IVFLUSH [facility] Last Admin: 07/10/24 08:10 Dose: 3 ml Home Medications ?Medication ?Instructions ?Recorded ?Confirmed ?Type blood sugar diagnostic #10 ea 03/22/20 12/19/23 History aspirin 325 mg tablet 325 mg PO DAILY 03/15/21 07/07/24 History acetaminophen 500 mg tablet 500 mg PO DAILY PRN pain 07/07/24 07/07/24 History insulin glargine 100 unit/mL (3 25 unit subcut DAILY 07/07/24 07/07/24 History mL) subcutaneous pen (Basaglar KwjohnnaPen U-100 Insulin) Allergies Allergy/AdvReac Type Severity Reaction Status Date / Time Iodinated Contrast Media Allergy Unknown ANAPHYLAXIS Verified 07/06/24 21:47 [IV CONTRAST] poison den extract AdvReac Swelling Verified 07/06/24 21:47 Physical Exam Vital signs: Vital Signs Temp 97.6 F 07/10/24 07:30 Pulse 71 07/10/24 07:30 Resp 18 07/10/24 07:30 BP 159/71 H 07/10/24 07:30 Pulse Ox 98 07/10/24 07:30 O2 Del Method Oxymask 07/10/24 07:30 O2 Flow Rate 8 07/10/24 07:30 Intake & Output 0407/10/24 07/10/24 18:59 06:59 18:59 Intake Total 820 / 1160 340 / 1160 Output Total 50 Balance 790 / 1110 320 / 1110 Intake: Intake, Oral Amount 720 / 960 240 / 960 Intake, IV Amount 100 / 200 100 / 200 Piperacillin Sodium/Tazobactam 100 / 200 100 / 200 3.375 gm In 0.9 % Sodium Chloride 50 ml @ 100 mls/hr IV Q6H [facility] Rx#:[id number] Output: Output, Tube Amount LAURA Drain Other: Meal Refused No NPO No Breakfast % Eaten 100% Lunch % Eaten 100% Dinner % Eaten 100% Eating (Feeding) Ability Independent Number of Incontinent Voids 1 Number of Unmeasured Voids 3 2 Urine Bathroom Weight 65.771 kg - Constitutional Present: mild distress - Routine HEENT Exam Head: Present: atraumatic - Routine Neck Exam Present: supple - Routine Respiratory Exam Present: decreased breath sounds, prolonged expiratory phase - Routine Cardiovascular Exam Cardiovascular: Present: RRR - Routine Abdominal Exam Present: diminished bowel sounds - Routine Extremities Exam Present: nontender Hem/Onc Consult Result - Labs CBC & Chem 7: 07/10/24 05:55 07/10/24 05:55 Labs: Short CBC 07/10/24 Range/Units 05:55 WBC 13.2 H (4.8-10.8) X10*3/uL Hgb 9.7 L D (12.0-16.0) g/dl Hct 29.8 L D (37.0-47.0) % Plt Count 277 (160-400) X10*3/uL BMP 07/10/24 05:55 Sodium 141 Potassium 3.8 Chloride 106 Carbon Dioxide 27 BUN 15 Creatinine 0.68 Calcium 8.1 L Assessment and Plan Patient Active problem list reviewed?: Yes (1) Pulmonary embolism Status: Acute Assessment and plan: The evidence for PE is a high D-dimer and an intermediate lung scan. I recommend she be anticoagulated fully for 3 or 4 months with a DOAC such as apixaban. - Time Spent With Patient Time Spent with Patient (in minutes): 15
[2024-07-10 09:59] LABS: Procalcitonin 0.05 ng/mL
[2024-07-10 11:06] LABS: Influenza A PCR NEGATIVE (Negative); Influenza B PCR NEGATIVE (Negative); Resp Syncy Virus RNA Qual PCR NEGATIVE (Negative); SARS COV2 PCR INHOUSE NEGATIVE (Negative)
[2024-07-10 11:18] LABS: Glucose, Whole Blood 230 mg/dL (60-115)
[2024-07-10] MEDS: Insulin Lispro 100 UNIT/ML 3 ML VIAL SUBCUT ×2 (11:41→16:07)
--- NOTE | 2024-07-10 12:58 | HO.PM.IMPN ---
Subjective Subjective Date of Service: 07/10/24 Interval History: still requiring 7-8L O2 via Oxymask minimal cough no leg edema no chest pain postop pain controlled Review of Systems Review of Systems: Yes all other systems are reviewed and are negative Physical Exam Vital Signs: Vital Signs: Last Vital Signs Temp 98.0 F 07/10/24 12:00 Pulse 60 07/10/24 12:00 Resp 14 07/10/24 12:00 BP 113/56 L 07/10/24 12:00 Pulse Ox 98 07/10/24 12:00 O2 Del Method Oxymask 07/10/24 12:00 O2 Flow Rate 8 07/10/24 12:00 BMI result Body Mass Index 27.4 Gen: in no acute distress HEENT: sclera anicteric, moist mucus membranes Neck: supple Lungs: diminished Heart: regular rate and rhythm, no murmurs Abd: soft, surgical incisions dry/intact, LAURA drain with serosanguinous fluid Ext: no edema Skin: warm/well-perfused Neuro: alert and oriented x3, no focal findings Psych: appropriate affect Objective Data Active Medications Acetaminophen (Acetaminophen 325 Mg Tablet) 650 mg PO Q6H PRN PRN Reason: Pain, Mild 1-3,fever,headache Amlodipine Besylate (Amlodipine Besylate 5 Mg Tablet) 5 mg PO DAILY [facility]; Protocol Last Admin: 07/10/24 08:07 Dose: 5 mg Documented By: THOMAS Atorvastatin Calcium (Atorvastatin Calcium 80 Mg Tablet) 80 mg PO DAILY [facility] Last Admin: 07/10/24 08:08 Dose: 80 mg Documented By: THOMAS Carvedilol (Carvedilol 25 Mg Tablet) 25 mg PO BID [facility]; Protocol Last Admin: 07/10/24 08:08 Dose: 25 mg Documented By: THOMAS Dextrose (Dextrose 50 % 25 Gm/50 Ml Syringe) 25 gm IVPUSH Q15M PRN; Protocol PRN Reason: per Hypoglycemia Standing Ord. Donepezil HCl (Donepezil Hcl 5 Mg Tablet) 5 mg PO DAILY [facility] Last Admin: 07/10/24 08:08 Dose: 5 mg Documented By: THOMAS Enoxaparin Sodium (Enoxaparin Sodium 80 Mg/0.8 Ml Syringe) 70 mg SUBCUT Q12H [facility] Last Admin: 07/10/24 11:42 Dose: 70 mg Documented By: THOMAS Furosemide (Furosemide 20 Mg/2 Ml Vial) 20 mg IVPUSH BID@0900,1800 [facility]; Protocol Glucose (Glucose Gel 15 Gm Gel..Gram.) 15 gm PO Q15M PRN; Protocol PRN Reason: per Hypoglycemia Standing Ord. Guaifenesin (Guaifenesin La 600 Mg Tab.Er.12h) 600 mg PO BID [facility] Last Admin: 07/10/24 08:09 Dose: 600 mg Documented By: THOMAS Hydromorphone HCl (Hydromorphone Hcl 1 Mg/Ml Syringe) 0.5 mg IVPUSH Q4H PRN; Protocol PRN Reason: Pain, Severe (Pain Scale 7-10) Last Admin: 07/09/24 08:04 Dose: 0.5 mg Documented By: CITLALLI Acetaminophen (Ofirmev) 1,000 mg in 100 mls @ 400 mls/hr IV Q6H PRN PRN Reason: Pain, Mild (Pain Scale 1-3) Last Infusion: 07/08/24 00:40 Dose: Infused Documented By: KIRA Piperacillin Sod/Tazobactam (Sod 3.375 gm/ Sodium Chloride) 50 mls @ 100 mls/hr IV Q6H [facility] Last Infusion: 07/10/24 09:06 Dose: Infused Documented By: THOMAS Insulin Glargine (Insulin Glargine,Hum.Rec.Anlog 100 Unit/Ml 10 Ml Vial) 15 unit SUBCUT DAILY [facility] Last Admin: 07/10/24 08:11 Dose: 15 unit Documented By: THOMAS Insulin Human Lispro (Insulin Lispro 100 Unit/Ml 3 Ml Vial) 0 unit SUBCUT QIDACHS [facility]; Protocol Last Admin: 07/10/24 11:41 Dose: 2 unit Documented By: THOMAS Lisinopril (Lisinopril 40 Mg Tablet) 40 mg PO DAILY [facility]; Protocol Last Admin: 07/10/24 08:09 Dose: 40 mg Documented By: THOMAS Melatonin (Melatonin 3 Mg Tablet) 6 mg PO BEDTIME PRN PRN Reason: Insomnia Naloxone HCl (Naloxone Hcl 0.4 Mg/Ml Vial) 0.04 mg IVPUSH Q5M PRN PRN Reason: Excessive sedation or RR < 8 Ondansetron HCl (Ondansetron Hcl 4 Mg/2 Ml Vial) 4 mg IVPUSH Q8H PRN PRN Reason: Nausea and Vomiting Last Admin: 07/09/24 08:05 Dose: 4 mg Documented By: CITLALLI Ondansetron HCl (Ondansetron Hcl 4 Mg/2 Ml Vial) 4 mg IVPUSH QID PRN PRN Reason: Nausea Oxycodone HCl (Oxycodone Hcl Immed Release 5 Mg Tablet) 5 mg PO Q6H PRN PRN Reason: Pain, Moderate(Pain Scale 4-6) Last Admin: 07/10/24 08:08 Dose: 5 mg Documented By: THOMAS Sodium Chloride (0.9 % Sodium Chloride Flush 3 Ml Syringe) 3 ml IVFLUSH [facility] Last Admin: 07/10/24 08:10 Dose: 3 ml Documented By: THOMAS Labs 07/10/24 05:55 07/10/24 05:55 Labs: Laboratory Results - last 24 hr 07/09/24 07/09/24 07/10/24 16:25 20:12 05:55 MCV 87.1 MCH 28.4 MCHC 32.6 RDW 14.3 Plt Count 277 MPV 9.8 Absolute Nucleated RBC 0.000 Nucleated RBC % (auto) 0.0 Anion Gap 12 Estim Creat Clear Calc 54.4 Estimated GFR > 60 POC Glucose 242 H 256 H Random Glucose 92 Calcium 8.1 L Procalcitonin Influenza Type A (PCR) Influenza Type B (PCR) RSV RNA Qual (PCR) SARS-CoV-2 RNA (RT-PCR) 07/10/24 07/10/24 07/10/24 07:34 09:00 10:15 MCV MCH MCHC RDW Plt Count MPV Absolute Nucleated RBC Nucleated RBC % (auto) Anion Gap Estim Creat Clear Calc Estimated GFR POC Glucose 122 H Random Glucose Calcium Procalcitonin 0.05 Influenza Type A (PCR) NEGATIVE Influenza Type B (PCR) NEGATIVE RSV RNA Qual (PCR) NEGATIVE SARS-CoV-2 RNA (RT-PCR) NEGATIVE 07/10/24 11:14 MCV MCH MCHC RDW Plt Count MPV Absolute Nucleated RBC Nucleated RBC % (auto) Anion Gap Estim Creat Clear Calc Estimated GFR POC Glucose 230 H Random Glucose Calcium Procalcitonin Influenza Type A (PCR) Influenza Type B (PCR) RSV RNA Qual (PCR) SARS-CoV-2 RNA (RT-PCR) ITS Impressions Abdomen/Pelvis CT 07/08/24 10:50 IMPRESSION: 1. Status post cholecystectomy with postoperative changes noted in the gallbladder fossa. The liver has an unremarkable unenhanced appearance. Please note it is not possible to exclude hepatic metastatic disease on unenhanced CT. This could be further evaluated with MRI of the liver without and with contrast, if indicated. 2. Small bilateral pleural effusions with adjacent atelectasis or pneumonia. 3. Moderate pericardial effusion without change. 4. Fibroid uterus. Colonic diverticulosis without evidence of diverticulitis. Electronically signed by: Garry Mayfield MD 07/08/2024 12:04 PM EDT RP Pulmonary Perfusion Imaging 07/09/24 08:25 IMPRESSION: Intermediate probability examination for pulmonary emboli. Electronically signed by: Garry Mayfield MD 07/09/2024 09:04 AM EDT RP Venous Duplex 07/09/24 13:27 IMPRESSION: No evidence of acute DVT in the bilateral lower extremities. Electronically signed by: Garry Mayfield MD 07/09/2024 02:[address] chest 07/10/24 1. Large pericardial effusion, increased in size since 01/05/2022. Cardiomegaly with heavy burden mitral annular calcifications. 2. Small bilateral pleural effusions with associated bibasilar passive atelectasis. Bilateral peribronchial and interlobular septal thickening and mild bilateral ground-glass densities suggestive of interstitial edema. Mild chronic posterior right upper lobe bronchiectasis. 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 - POD3, postop care per Gen Surg, pathology of gallbladder and liver biopsy pending, continue piperacillin-tazobactam 07/07- acute hypoxic respiratory failure - cannot get CT angio chest due to hx life-threatening anaphylaxis with IV contrast; V/Q intermediate-probability; empirically anticoagulate with enoxaparin 1 mg/kg q12h;US Duplex negative; no R heart strain on TTE; no MRPA available here per Radiology; consult Heme-Onc - appears to have interstitial edema/ground-glass infiltrates possibly due to diastolic HF [grade 2 on echo]; will give IV furosemide; also consult Cardiology pericardial effusion - larger on CT; consult Cardiology, who follows pt as outpt UTI, elias-sensitive E. coli - adequately covered by piperacillin-tazobactam HTN - continue amlodipine, carvedilol, and lisinopril DM2 - hold MTF, continue Lantus + correction-dose lispro HLD - continue statin MCI - donepezil VTE ppx - enoxaparin Thank you for allowing us to participate in the care of this pt. Will continue to follow along with you. Total time managing care of this patient today: 55 minutes. Quality Stroke Does the patient have a stroke diagnosis?: No VTE Prior VTE?: No VTE Risk Level:: Surgical - low VTE Device Contraindication: Treatment Not Indicated VTE Drug Contraindication: Treatment Not Indicated
[2024-07-10] MEDS: Furosemide 20 MG/2 ML VIAL IVPUSH ×2 (13:59→16:06)
[2024-07-10 15:53] LABS: Glucose, Whole Blood 245 mg/dL (60-115)
[2024-07-10] MEDS: Acetaminophen 325 MG TABLET 650 MG PO (16:06)
--- NOTE | 2024-07-10 16:06 | PM.PNGS ---
Subjective Subjective Date of Service: 07/10/24 Interval history: Patient feeling okay no chest pain no significant abdominal pain just baseline. On face mask with oxygen but not short of breath Physical Exam Vital Signs: Vital Signs: Last Vital Signs Temp 97.8 F 07/10/24 15:02 Pulse 67 07/10/24 15:02 Resp 16 07/10/24 15:02 BP 111/56 L 07/10/24 15:02 Pulse Ox 97 07/10/24 15:02 O2 Del Method Oxymask 07/10/24 15:02 O2 Flow Rate 8 07/10/24 15:02 BMI result Body Mass Index 27.4 GI: Other: Abdomen is soft nondistended LAURA drain putting out some serosanguineous fluid and dressings dry positive bowel sounds Objective Data Active Medications Acetaminophen (Acetaminophen 325 Mg Tablet) 650 mg PO Q6H PRN PRN Reason: Pain, Mild 1-3,fever,headache Amlodipine Besylate (Amlodipine Besylate 5 Mg Tablet) 5 mg PO DAILY [facility]; Protocol Last Admin: 07/10/24 08:07 Dose: 5 mg Documented By: THOMAS Atorvastatin Calcium (Atorvastatin Calcium 80 Mg Tablet) 80 mg PO DAILY [facility] Last Admin: 07/10/24 08:08 Dose: 80 mg Documented By: THOMAS Carvedilol (Carvedilol 25 Mg Tablet) 25 mg PO BID [facility]; Protocol Last Admin: 07/10/24 08:08 Dose: 25 mg Documented By: THOMAS Dextrose (Dextrose 50 % 25 Gm/50 Ml Syringe) 25 gm IVPUSH Q15M PRN; Protocol PRN Reason: per Hypoglycemia Standing Ord. Donepezil HCl (Donepezil Hcl 5 Mg Tablet) 5 mg PO DAILY [facility] Last Admin: 07/10/24 08:08 Dose: 5 mg Documented By: THOMAS Enoxaparin Sodium (Enoxaparin Sodium 80 Mg/0.8 Ml Syringe) 70 mg SUBCUT Q12H [facility] Last Admin: 07/10/24 11:42 Dose: 70 mg Documented By: THOMAS Furosemide (Furosemide 20 Mg/2 Ml Vial) 20 mg IVPUSH BID@0900,1800 [facility]; Protocol Last Admin: 07/10/24 13:59 Dose: 20 mg Documented By: THOMAS Glucose (Glucose Gel 15 Gm Gel..Gram.) 15 gm PO Q15M PRN; Protocol PRN Reason: per Hypoglycemia Standing Ord. Guaifenesin (Guaifenesin La 600 Mg Tab.Er.12h) 600 mg PO BID [facility] Last Admin: 07/10/24 08:09 Dose: 600 mg Documented By: THOMAS Hydromorphone HCl (Hydromorphone Hcl 1 Mg/Ml Syringe) 0.5 mg IVPUSH Q4H PRN; Protocol PRN Reason: Pain, Severe (Pain Scale 7-10) Last Admin: 07/09/24 08:04 Dose: 0.5 mg Documented By: CITLALLI Acetaminophen (Ofirmev) 1,000 mg in 100 mls @ 400 mls/hr IV Q6H PRN PRN Reason: Pain, Mild (Pain Scale 1-3) Last Infusion: 07/08/24 00:40 Dose: Infused Documented By: KIRA Piperacillin Sod/Tazobactam (Sod 3.375 gm/ Sodium Chloride) 50 mls @ 100 mls/hr IV Q6H [facility] Last Infusion: 07/10/24 14:37 Dose: Infused Documented By: THOMAS Insulin Glargine (Insulin Glargine,Hum.Rec.Anlog 100 Unit/Ml 10 Ml Vial) 15 unit SUBCUT DAILY [facility] Last Admin: 07/10/24 08:11 Dose: 15 unit Documented By: THOMAS Insulin Human Lispro (Insulin Lispro 100 Unit/Ml 3 Ml Vial) 0 unit SUBCUT QIDACHS [facility]; Protocol Last Admin: 07/10/24 11:41 Dose: 2 unit Documented By: THOMAS Lisinopril (Lisinopril 40 Mg Tablet) 40 mg PO DAILY [facility]; Protocol Last Admin: 07/10/24 08:09 Dose: 40 mg Documented By: THOMAS Melatonin (Melatonin 3 Mg Tablet) 6 mg PO BEDTIME PRN PRN Reason: Insomnia Naloxone HCl (Naloxone Hcl 0.4 Mg/Ml Vial) 0.04 mg IVPUSH Q5M PRN PRN Reason: Excessive sedation or RR < 8 Ondansetron HCl (Ondansetron Hcl 4 Mg/2 Ml Vial) 4 mg IVPUSH Q8H PRN PRN Reason: Nausea and Vomiting Last Admin: 07/09/24 08:05 Dose: 4 mg Documented By: CITLALLI Ondansetron HCl (Ondansetron Hcl 4 Mg/2 Ml Vial) 4 mg IVPUSH QID PRN PRN Reason: Nausea Oxycodone HCl (Oxycodone Hcl Immed Release 5 Mg Tablet) 5 mg PO Q6H PRN PRN Reason: Pain, Moderate(Pain Scale 4-6) Last Admin: 07/10/24 08:08 Dose: 5 mg Documented By: THOMAS Sodium Chloride (0.9 % Sodium Chloride Flush 3 Ml Syringe) 3 ml IVFLUSH [facility] Last Admin: 07/10/24 08:10 Dose: 3 ml Documented By: THOMAS Labs 07/10/24 05:55 07/10/24 05:55 Labs: Laboratory Results - last 24 hr 07/09/24 07/09/24 07/10/24 16:25 20:12 05:55 MCV 87.1 MCH 28.4 MCHC 32.6 RDW 14.3 Plt Count 277 MPV 9.8 Absolute Nucleated RBC 0.000 Nucleated RBC % (auto) 0.0 Anion Gap 12 Estim Creat Clear Calc 54.4 Estimated GFR > 60 POC Glucose 242 H 256 H Random Glucose 92 Calcium 8.1 L Procalcitonin Influenza Type A (PCR) Influenza Type B (PCR) RSV RNA Qual (PCR) SARS-CoV-2 RNA (RT-PCR) 07/10/24 07/10/24 07/10/24 07:34 09:00 10:15 MCV MCH MCHC RDW Plt Count MPV Absolute Nucleated RBC Nucleated RBC % (auto) Anion Gap Estim Creat Clear Calc Estimated GFR POC Glucose 122 H Random Glucose Calcium Procalcitonin 0.05 Influenza Type A (PCR) NEGATIVE Influenza Type B (PCR) NEGATIVE RSV RNA Qual (PCR) NEGATIVE SARS-CoV-2 RNA (RT-PCR) NEGATIVE 07/10/24 07/10/24 11:14 15:50 MCV MCH MCHC RDW Plt Count MPV Absolute Nucleated RBC Nucleated RBC % (auto) Anion Gap Estim Creat Clear Calc Estimated GFR POC Glucose 230 H 245 H Random Glucose Calcium Procalcitonin Influenza Type A (PCR) Influenza Type B (PCR) RSV RNA Qual (PCR) SARS-CoV-2 RNA (RT-PCR) Procedures Date of Service Date of Service: 07/10/24 Progress Note: A&P Assessment and plan (1) Pulmonary embolism: Status: Acute Assessment and Plan: The patient is an 83-year-old female who was admitted with cholecystitis underwent laparoscopic converted to open cholecystectomy what it was determined that there were some abnormal tissue in her gallbladder and 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 Open procedure was carried out drain left in place patient on the floor developing shortness of breath workup with intermediate V/Q scan showing potential for PE and as a result she is being anticoagulated. Today she is going up to telemetry for. From a surgical management she is doing well continue with advancing her diet and pain control pending the pathology final results. Medical team to follow management. This was discussed with the patient's family her son (2) Acute cholecystitis: Status: Acute Time Spent With Patient Time: Total time managing care of this patient today ____ minutes. Quality Stroke Does the patient have a stroke diagnosis?: No VTE Prior VTE?: No VTE Risk Level:: Surgical - low VTE Device Contraindication: Treatment Not Indicated VTE Drug Contraindication: Treatment Not Indicated
[2024-07-10 20:36] LABS: Glucose, Whole Blood 168 mg/dL (60-115)
[2024-07-11] VITALS (7 sets, daily range): BP systolic 117–151; BP diastolic 55–60; PULSE 65–74; RESP 14–20; TEMP 36.1–36.6; O2SAT 87–96; BMI 27.1
[2024-07-11] MEDS: Enoxaparin Sodium 80 MG/0.8 ML SYRINGE 70 MG SUBCUT ×2 (00:12→11:47)
[2024-07-11] MEDS: 0.9 % Sodium Chloride Flush 3 ML SYRINGE IVFLUSH ×4 (00:13→21:27)
[2024-07-11] MEDS: Piperacillin Sodium/Tazobactam 3.375 GM in 0.9 % Sodium Chloride 50 ML IV ×4 (02:17→21:28)
[2024-07-11 07:34] LABS: Anion Gap 10 (12-20); Blood Urea Nitrogen 18 mg/dL (9-16); Calcium 8.1 mg/dL (8.4-10.2); Carbon Dioxide 31 mmol/L (22-29); Chloride 105 mmol/L (96-108); Creatinine Clr Calc Pharmacy 48.4; Estimated Glomerular Filt Rate > 60; Glucose Random 139 mg/dL (60-115); Magnesium 1.7 mg/dL (1.6-2.6); Potassium 3.7 mmol/L (3.3-5.1); Sodium 142 mmol/L (135-145)
[2024-07-11 07:37] LABS: B Type Natriuretic Peptide 161 pg/mL (<100)
[2024-07-11 07:59] LABS: Glucose, Whole Blood 139 mg/dL (60-115)
[2024-07-11] MEDS: guaiFENesin LA 600 MG TAB.ER.12H PO ×2 (08:25→21:27)
[2024-07-11] MEDS: Acetaminophen 325 MG TABLET 650 MG PO ×2 (08:25→15:30)
[2024-07-11] MEDS: Furosemide 20 MG/2 ML VIAL IVPUSH ×2 (08:25→16:25)
[2024-07-11] MEDS: lisinopriL 40 MG TABLET PO (08:25)
[2024-07-11] MEDS: amLODIPine Besylate 5 MG TABLET PO (08:26)
[2024-07-11] MEDS: Atorvastatin Calcium 80 MG TABLET PO (08:26)
[2024-07-11] MEDS: Insulin Glargine,Hum.rec.anlog 100 UNIT/ML 10 ML VIAL 15 UNIT SUBCUT (08:26)
[2024-07-11] MEDS: carvediloL 25 MG TABLET PO ×2 (08:26→21:27)
[2024-07-11] MEDS: Donepezil HCl 5 MG TABLET PO (08:26)
--- NOTE | 2024-07-11 10:23 | P.CONCA_ITS ---
History of Present Illness History of Present Illness Date of Service: 07/11/24 Chief complaint: Abdominal Pain Narrative: This is a cardiology consultation regarding pericardial effusion. It seems that she was admitted to surgery for cholecystitis. 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 Then she became hypoxic and General Medicine was consulted. She got imaging studies done. Due to allergy to contrast, she had a V/Q scan that showed intermediate probability study. Then started on anticoagulation. She also was thought to have some pulmonary edema and started diuretics. Echocardiogram and CTA also showed a pericardial effusion and we are consulted. 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 Around 2021, they were told to have a pericardial effusion but not followed up. She has no clear-cut cardiac symptoms. She seems quite comfortable in the chair. Review of Systems 2 Review of Systems: Yes all other systems are reviewed and are negative Constitutional: Constitutional: Reports as per HPI and Reports no additional constitutional complaints Eyes: Eyes: Reports as per HPI and Denies no additional eye complaints ENT: Denies system reviewed and no additional complaints, except as documented and Reports as per HPI Cardiovascular: Cardiovascular: Reports as per HPI, Reports no additional cardiovascular complaints, Denies acrocyanosis, Denies cool extremities, Denies chest pain, Denies leg edema, Denies lightheadedness, Denies palpitations and Denies dyspnea Respiratory: Respiratory: Reports as per HPI, Denies no additional respiratory complaints and Denies dyspnea Gastrointestinal: Gastrointestinal: Reports as per HPI and Denies no additional gastrointestinal complaints Genitourinary: Genitourinary: Reports as per HPI Musculoskeletal: Musculoskeletal: Reports no additional musculoskeletal complaints and Reports as per HPI Integumentary/Breasts: Skin/Breast: Reports system reviewed and no additional complaints, except as docu Neurologic: Reports system reviewed and no additional complaints, except as documented and Reports as per HPI Psychiatric: Psychiatric: Reports no additional psychiatric complaints and Reports as per HPI Endocrine: Endocrine: Reports no additional endocrine complaints, Reports as per HPI and Denies palpitations Hematologic/Lymphatic: Hematologic/Lymphatic: Reports no additional hematologic/lymphatic complaints and Reports as per HPI Allergic/Immunologic: Allergic/Immunologic: Reports no additional allergic/immunologic complaints and Reports as per HPI [facility] Past Medical History Medical History Back pain History of mammogram Diabetes Hyperlipidemia HTN (hypertension) Family History Family History Father Unknown family medical history Mother Unknown family medical history Surgical History Surgical History History of bladder surgery H/O colonoscopy No pertinent past surgical history Social History Social History Household Members: Family Housing: Homeless Do you presently have visiting nurse or other home services: No Alcohol intake: current Alcohol intake frequency: holidays/special occasions only Patient Tobacco Use Status: Never used Tobacco e-Cigarette/Vaping Use: Never Used Advance Directives Date on File: 07/07/24 service: No Current occupational status: retired Cognitive needs: No Hearing needs: No Vision needs: Yes Meds Allergies Allergy/AdvReac Type Severity Reaction Status Date / Time Iodinated Contrast Media Allergy Unknown ANAPHYLAXIS Verified 07/06/24 21:47 [IV CONTRAST] poison den extract AdvReac Swelling Verified 07/06/24 21:47 Active Medications: Current Medications Acetaminophen (Acetaminophen 325 Mg Tablet) 650 mg PO Q6H PRN PRN Reason: Pain, Mild 1-3,fever,headache Last Admin: 07/11/24 08:25 Dose: 650 mg Amlodipine Besylate (Amlodipine Besylate 5 Mg Tablet) 5 mg PO DAILY [facility]; Protocol Last Admin: 07/11/24 08:26 Dose: 5 mg Atorvastatin Calcium (Atorvastatin Calcium 80 Mg Tablet) 80 mg PO DAILY [facility] Last Admin: 07/11/24 08:26 Dose: 80 mg Carvedilol (Carvedilol 25 Mg Tablet) 25 mg PO BID [facility]; Protocol Last Admin: 07/11/24 08:26 Dose: 25 mg Dextrose (Dextrose 50 % 25 Gm/50 Ml Syringe) 25 gm IVPUSH Q15M PRN; Protocol PRN Reason: per Hypoglycemia Standing Ord. Donepezil HCl (Donepezil Hcl 5 Mg Tablet) 5 mg PO DAILY [facility] Last Admin: 07/11/24 08:26 Dose: 5 mg Enoxaparin Sodium (Enoxaparin Sodium 80 Mg/0.8 Ml Syringe) 70 mg SUBCUT Q12H [facility] Last Admin: 07/11/24 00:12 Dose: 70 mg Furosemide (Furosemide 20 Mg/2 Ml Vial) 20 mg IVPUSH BID@0900,1800 [facility]; Protocol Last Admin: 07/11/24 08:25 Dose: 20 mg Glucose (Glucose Gel 15 Gm Gel..Gram.) 15 gm PO Q15M PRN; Protocol PRN Reason: per Hypoglycemia Standing Ord. Guaifenesin (Guaifenesin La 600 Mg Tab.Er.12h) 600 mg PO BID [facility] Last Admin: 07/11/24 08:25 Dose: 600 mg Hydromorphone HCl (Hydromorphone Hcl 1 Mg/Ml Syringe) 0.5 mg IVPUSH Q4H PRN; Protocol PRN Reason: Pain, Severe (Pain Scale 7-10) Last Admin: 07/09/24 08:04 Dose: 0.5 mg Piperacillin Sod/Tazobactam (Sod 3.375 gm/ Sodium Chloride) 50 mls @ 100 mls/hr IV Q6H [facility] Last Infusion: 07/11/24 09:14 Dose: Infused Insulin Glargine (Insulin Glargine,Hum.Rec.Anlog 100 Unit/Ml 10 Ml Vial) 15 unit SUBCUT DAILY [facility] Last Admin: 07/11/24 08:26 Dose: 15 unit Insulin Human Lispro (Insulin Lispro 100 Unit/Ml 3 Ml Vial) 0 unit SUBCUT QIDACHS [facility]; Protocol Last Admin: 07/11/24 07:59 Dose: Not Given Lisinopril (Lisinopril 40 Mg Tablet) 40 mg PO DAILY [facility]; Protocol Last Admin: 07/11/24 08:25 Dose: 40 mg Melatonin (Melatonin 3 Mg Tablet) 6 mg PO BEDTIME PRN PRN Reason: Insomnia Naloxone HCl (Naloxone Hcl 0.4 Mg/Ml Vial) 0.04 mg IVPUSH Q5M PRN PRN Reason: Excessive sedation or RR < 8 Ondansetron HCl (Ondansetron Hcl 4 Mg/2 Ml Vial) 4 mg IVPUSH Q8H PRN PRN Reason: Nausea and Vomiting Last Admin: 07/09/24 08:05 Dose: 4 mg Ondansetron HCl (Ondansetron Hcl 4 Mg/2 Ml Vial) 4 mg IVPUSH QID PRN PRN Reason: Nausea Oxycodone HCl (Oxycodone Hcl Immed Release 5 Mg Tablet) 5 mg PO Q6H PRN PRN Reason: Pain, Moderate(Pain Scale 4-6) Last Admin: 07/10/24 16:06 Dose: 5 mg Sodium Chloride (0.9 % Sodium Chloride Flush 3 Ml Syringe) 3 ml IVFLUSH [facility] Last Admin: 07/11/24 08:26 Dose: 3 ml Home Medications ?Medication ?Instructions ?Recorded ?Confirmed ?Last Taken ?Type blood sugar diagnostic #10 ea 03/22/20 12/19/23 Unknown History aspirin 325 mg tablet 325 mg PO DAILY 03/15/21 07/07/24 07/06/24 History acetaminophen 500 mg tablet 500 mg PO DAILY PRN pain 07/07/24 07/07/24 Unknown History insulin glargine 100 unit/mL (3 25 unit subcut DAILY 07/07/24 07/07/24 07/06/24 History mL) subcutaneous pen (Basaglar KwikPen U-100 Insulin) Physical Exam 2 Vital Signs: Vital Signs: Last Vital Signs Temp 97.4 F 07/11/24 07:29 Pulse 72 07/11/24 07:29 Resp 20 07/11/24 07:29 BP 132/60 07/11/24 07:29 Pulse Ox 96 07/11/24 07:29 O2 Del Method Nasal Cannula 07/11/24 07:29 O2 Flow Rate 3 07/11/24 07:29 BMI result Body Mass Index 27.1 Const: General: comfortable and no acute distress O rientation/consciousness: patient oriented x3 HEENT: Other: Unremarkable Head: Yes normal to inspection Neck: Neck: Yes normal visual inspection Chest: Chest palpation & inspection: normal inspection of the chest Resp: Other: Few basal crackles Cardio: Palpation: normal PMI Heart sounds: S1 normal heart sound present, S2 normal heart sound present, no gallops, no murmurs and no rubs GI: Palpation (GI): Soft to palpation Back/Spine/Pelvis: Other: unremarkable Skin: General skin exam: no rashes or lesions noted Neuro: General: patient oriented x3 Extrem: General: Yes normal to inspection Psych: Mental Status: mental status grossly normal Objective Labs and Meds 07/10/24 05:55 07/11/24 07:09 Lab results: Laboratory Results - last 24 hr 07/10/24 07/10/2407/10/25 10:15 11:14 15:50 Sodium Potassium Chloride Carbon Dioxide Anion Gap BUN Creatinine Estim Creat Clear Calc Estimated GFR POC Glucose 230 H 245 H Random Glucose Calcium Magnesium B-Natriuretic Peptide Influenza Type A (PCR) NEGATIVE Influenza Type B (PCR) NEGATIVE RSV RNA Qual (PCR) NEGATIVE SARS-CoV-2 RNA (RT-PCR) NEGATIVE 07/10/24 07/11/24 07/11/24 20:23 07:08 07:09 Sodium 142 Potassium 3.7 Chloride 105 Carbon Dioxide 31 H Anion Gap 10 L BUN 18 H Creatinine 0.76 Estim Creat Clear Calc 48.4 Estimated GFR > 60 POC Glucose 168 H Random Glucose 139 H Calcium 8.1 L Magnesium 1.7 B-Natriuretic Peptide 161 H Influenza Type A (PCR) Influenza Type B (PCR) RSV RNA Qual (PCR) SARS-CoV-2 RNA (RT-PCR) 07/11/24 07:24 Sodium Potassium Chloride Carbon Dioxide Anion Gap BUN Creatinine Estim Creat Clear Calc Estimated GFR POC Glucose 139 H Random Glucose Calcium Magnesium B-Natriuretic Peptide Influenza Type A (PCR) Influenza Type B (PCR) RSV RNA Qual (PCR) SARS-CoV-2 RNA (RT-PCR) ECG Interpretation: EKG shows sinus bradycardia at 56/Min; no significant ST-T changes and otherwise unremarkable. Normal AL and corrected QT. Assessment and Plan (1) Pericardial effusion: Status: Acute (2) Acute diastolic (congestive) heart failure: Status: Acute Plan Echocardiogram with moderate circumferential pericardial effusion. Compared to the prior study from 2021, slight increased. CT scan has reported rather a large size pericardial effusion increased in size from 2021. Clinically, she does not have any definitive symptoms to suggest tamponade physiology. She seems in fact well compensated. We discussed the pros and cons of doing a pericardiocentesis for fluid assessment. After going over this in detail, family felt that they would rather leave it alone for now. They would like her to continue with anticoagulation for the presumed pulmonary embolism. Explained the fact that if we are to do pericardiocentesis, then anticoagulation will need to be temporarily interrupted. Also they would like to wait for definitive finding from possible gallbladder malignancy. We can plan to repeat an echocardiogram later this week to decide if there is any change in fluid. If indeed there is anything increasing substantially, then we need to reassess indication for pericardiocentesis. Otherwise, there is also concern for pulmonary edema. However, even previous CTs shows diffuse bronchial wall thickening from presumed airways inflammation/bronchiectasis. Hence I am not entirely clear how much is heart failure. We can diurese but try to avoid anything too aggressive as it can sometimes provoked tamponade physiology. We will follow up with you. Discussed with family at the bedside. Discussed with Dr. Azevedo. Procedures Date of Service Date of Service: 07/11/24
[2024-07-11 10:42] LABS: Adenovirus PCR Not Detected (Not Detect.); Bordetella parapertussis PCR Not Detected (Not Detect.); Bordetella pertussis PCR Not Detected (Not Detect.); Chlamydia pneumoniae PCR Not Detected (Not Detect.); Coronavirus 229E PCR Not Detected (Not Detect.); Coronavirus HKU1 PCR Not Detected (Not Detect.); Coronavirus NL63 PCR Not Detected (Not Detect.); Coronavirus OC43 PCR Not Detected (Not Detect.); Human metapneumovirus PCR Not Detected (Not Detect.); Influenza A PCR Not Detected (Not Detect.); Influenza B PCR Not Detected (Not Detect.); Mycoplasma pneumoniae PCR Not Detected (Not Detect.); Parainfluenza 1 PCR Not Detected (Not Detect.); Parainfluenza 2 PCR Not Detected (Not Detect.); Parainfluenza 3 PCR Not Detected (Not Detect.); Parainfluenza 4 PCR Not Detected (Not Detect.); RSV PCR Not Detected (Not Detect.); Rhino/Enterovirus PCR Not Detected (Not Detect.)
[2024-07-11 11:14] LABS: Influenza A H1 PCR Not Detected (Not Detect.); Influenza A H1-2009 PCR Not Detected (Not Detect.); Influenza A H3 PCR Not Detected (Not Detect.); SARS-CoV-2 PCR Not Detected (Not Detect.)
[2024-07-11] MEDS: Insulin Lispro 100 UNIT/ML 3 ML VIAL SUBCUT ×2 (11:47→16:25)
[2024-07-11 11:50] LABS: Glucose, Whole Blood 177 mg/dL (60-115)
--- NOTE | 2024-07-11 12:11 | P.PNIM_ITS ---
Subjective Subjective Date of Service: 07/11/24 Interval History: hypoxia improving; O2 requirement decreased from 7L to 1.5L denies cough minimal abd pain, no N/V, tolerating diet Review of Systems Review of Systems: Yes all other systems are reviewed and are negative Physical Exam 2 Vital Signs: Vital Signs: Last Vital Signs Temp 97.4 F 07/11/24 10:53 Pulse 69 07/11/24 10:53 Resp 20 07/11/24 10:53 BP 130/60 07/11/24 10:53 Pulse Ox 94 07/11/24 10:53 O2 Del Method Nasal Cannula 07/11/24 10:53 O2 Flow Rate 2 07/11/24 10:53 BMI result Body Mass Index 27.1 Gen: in no acute distress HEENT: sclera anicteric, moist mucus membranes Neck: supple Lungs: diminished Heart: regular rate and rhythm, no murmurs Abd: soft, surgical incisions dry/intact, LAURA drain with serosanguinous fluid Ext: no edema Skin: warm/well-perfused Neuro: alert and oriented x3, no focal findings Psych: appropriate affect Objective Data Active Medications Acetaminophen (Acetaminophen 325 Mg Tablet) 650 mg PO Q6H PRN PRN Reason: Pain, Mild 1-3,fever,headache Last Admin: 07/11/24 08:25 Dose: 650 mg Documented By: ERIC Amlodipine Besylate (Amlodipine Besylate 5 Mg Tablet) 5 mg PO DAILY [facility]; Protocol Last Admin: 07/11/24 08:26 Dose: 5 mg Documented By: ERIC Atorvastatin Calcium (Atorvastatin Calcium 80 Mg Tablet) 80 mg PO DAILY [facility] Last Admin: 07/11/24 08:26 Dose: 80 mg Documented By: ERIC Carvedilol (Carvedilol 25 Mg Tablet) 25 mg PO BID [facility]; Protocol Last Admin: 07/11/24 08:26 Dose: 25 mg Documented By: ERIC Dextrose (Dextrose 50 % 25 Gm/50 Ml Syringe) 25 gm IVPUSH Q15M PRN; Protocol PRN Reason: per Hypoglycemia Standing Ord. Donepezil HCl (Donepezil Hcl 5 Mg Tablet) 5 mg PO DAILY [facility] Last Admin: 07/11/24 08:26 Dose: 5 mg Documented By: ERIC Enoxaparin Sodium (Enoxaparin Sodium 80 Mg/0.8 Ml Syringe) 70 mg SUBCUT Q12H [facility] Last Admin: 07/11/24 11:47 Dose: 70 mg Documented By: ERIC Furosemide (Furosemide 20 Mg/2 Ml Vial) 20 mg IVPUSH BID@0900,1800 [facility]; Protocol Last Admin: 07/11/24 08:25 Dose: 20 mg Documented By: ERIC Glucose (Glucose Gel 15 Gm Gel..Gram.) 15 gm PO Q15M PRN; Protocol PRN Reason: per Hypoglycemia Standing Ord. Guaifenesin (Guaifenesin La 600 Mg Tab.Er.12h) 600 mg PO BID [facility] Last Admin: 07/11/24 08:25 Dose: 600 mg Documented By: ERIC Hydromorphone HCl (Hydromorphone Hcl 1 Mg/Ml Syringe) 0.5 mg IVPUSH Q4H PRN; Protocol PRN Reason: Pain, Severe (Pain Scale 7-10) Last Admin: 07/09/24 08:04 Dose: 0.5 mg Documented By: CITLALLI Piperacillin Sod/Tazobactam (Sod 3.375 gm/ Sodium Chloride) 50 mls @ 100 mls/hr IV Q6H [facility] Last Infusion: 07/11/24 09:14 Dose: Infused Documented By: ERIC Insulin Glargine (Insulin Glargine,Hum.Rec.Anlog 100 Unit/Ml 10 Ml Vial) 15 unit SUBCUT DAILY [facility] Last Admin: 07/11/24 08:26 Dose: 15 unit Documented By: ERIC Insulin Human Lispro (Insulin Lispro 100 Unit/Ml 3 Ml Vial) 0 unit SUBCUT QIDACHS [facility]; Protocol Last Admin: 07/11/24 11:47 Dose: 2 unit Documented By: ERIC Lisinopril (Lisinopril 40 Mg Tablet) 40 mg PO DAILY [facility]; Protocol Last Admin: 07/11/24 08:25 Dose: 40 mg Documented By: ERIC Melatonin (Melatonin 3 Mg Tablet) 6 mg PO BEDTIME PRN PRN Reason: Insomnia Naloxone HCl (Naloxone Hcl 0.4 Mg/Ml Vial) 0.04 mg IVPUSH Q5M PRN PRN Reason: Excessive sedation or RR < 8 Ondansetron HCl (Ondansetron Hcl 4 Mg/2 Ml Vial) 4 mg IVPUSH Q8H PRN PRN Reason: Nausea and Vomiting Last Admin: 07/09/24 08:05 Dose: 4 mg Documented By: CITLALLI Ondansetron HCl (Ondansetron Hcl 4 Mg/2 Ml Vial) 4 mg IVPUSH QID PRN PRN Reason: Nausea Oxycodone HCl (Oxycodone Hcl Immed Release 5 Mg Tablet) 5 mg PO Q6H PRN PRN Reason: Pain, Moderate(Pain Scale 4-6) Last Admin: 07/10/24 16:06 Dose: 5 mg Documented By: ERIC Sodium Chloride (0.9 % Sodium Chloride Flush 3 Ml Syringe) 3 ml IVFLUSH [facility] Last Admin: 07/11/24 08:26 Dose: 3 ml Documented By: ERIC Labs 07/10/24 05:55 07/11/24 07:09 Labs: Laboratory Results - last 24 hr 07/10/24 07/10/24 07/11/24 15:50 20:23 07:08 Anion Gap Estim Creat Clear Calc Estimated GFR POC Glucose 245 H 168 H Random Glucose Calcium Magnesium B-Natriuretic Peptide 161 H Respiratory Panel Estevez Adenovirus (Rapid PCR) B.pert (TEM-PCR) B.parapertussis DNA PCR C. pneumoniae DNA (PCR) Coronavirus OC43 (PCR) Coronavirus HKU1 (PCR) Coronavirus 229E (PCR) Coronavirus NL63 (PCR) Human Metapneumovir PCR Influenza A (RT-PCR) Influenza A (H1) PCR Influ A (H1/09) PCR Influenza A (H3) PCR Influenza B (RT-PCR) M. pneumoniae (PCR) Parainfluenza 1 (PCR) Parainfluenza 2 (PCR) Parainfluenza 3 (PCR) Parainfluenza 4 (PCR) RSV (PCR) Entero/Rhino (PCR) SARS-CoV-2 RNA (RT-PCR) 07/11/24 07/11/24 07/11/24 07:09 07:24 09:18 Anion Gap 10 L Estim Creat Clear Calc 48.4 Estimated GFR > 60 POC Glucose 139 H Random Glucose 139 H Calcium 8.1 L Magnesium 1.7 B-Natriuretic Peptide Respiratory Panel Estevez See Note Adenovirus (Rapid PCR) Not Detected B.pert (TEM-PCR) Not Detected B.parapertussis DNA PCR Not Detected C. pneumoniae DNA (PCR) Not Detected Coronavirus OC43 (PCR) Not Detected Coronavirus HKU1 (PCR) Not Detected Coronavirus 229E (PCR) Not Detected Coronavirus NL63 (PCR) Not Detected Human Metapneumovir PCR Not Detected Influenza A (RT-PCR) Not Detected Influenza A (H1) PCR Not Detected Influ A () PCR Not Detected Influenza A (H3) PCR Not Detected Influenza B (RT-PCR) Not Detected M. pneumoniae (PCR) Not Detected Parainfluenza 1 (PCR) Not Detected Parainfluenza 2 (PCR) Not Detected Parainfluenza 3 (PCR) Not Detected Parainfluenza 4 (PCR) Not Detected RSV (PCR) Not Detected Entero/Rhino (PCR) Not Detected SARS-CoV-2 RNA (RT-PCR) Not Detected 07/11/24 11:34 Anion Gap Estim Creat Clear Calc Estimated GFR POC Glucose 177 H Random Glucose Calcium Magnesium B-Natriuretic Peptide Respiratory Panel Estevez Adenovirus (Rapid PCR) B.pert (TEM-PCR) B.parapertussis DNA PCR C. pneumoniae DNA (PCR) Coronavirus OC43 (PCR) Coronavirus HKU1 (PCR) Coronavirus 229E (PCR) Coronavirus NL63 (PCR) Human Metapneumovir PCR Influenza A (RT-PCR) Influenza A (H1) PCR Influ A () PCR Influenza A (H3) PCR Influenza B (RT-PCR) M. 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 noted intraoperatively medicine consultation for management of comorbid conditions; became hypoxic postoperatively acute cholecystitis with 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 - POD4, postop care per Gen Surg, pathology of gallbladder and liver biopsy pending, continue piperacillin-tazobactam /- acute hypoxic respiratory failure - possibly due to PE and/or CHF - cannot get CT angio chest due to hx life-threatening anaphylaxis with IV contrast; V/Q intermediate-probability; empirically anticoagulate with enoxaparin 1 mg/kg q12h and eventually switch to apixaban per Heme-Onc; US Duplex negative; no R heart strain on TTE; no MRPA available here per Radiology acute diastolic HF - interstitial edema + ground-glass infiltrates on CT chest - grade 2 diastolic HF on echo - giving IV furosemide, monitor lytes, BNP, I+O - Cardiology consulted pericardial effusion - larger on CT; Cardiology consulted; no tamponade; no pericardiocentesis in light of anticoagulation + likely stage IV CA; repeat limited TTE mid-week; avoid over-aggressive diuresis UTI, elias-sensitive E. coli - adequately covered by piperacillin-tazobactam HTN - continue amlodipine, carvedilol, and lisinopril DM2 - hold MTF, continue Lantus + correction-dose lispro HLD - continue statin MCI - donepezil VTE ppx - enoxaparin Thank you for allowing us to participate in the care of this pt. Will continue to follow along with you. Total time managing care of this patient today: 50 minutes. Quality Stroke Does the patient have a stroke diagnosis?: No VTE Prior VTE?: No VTE Risk Level:: Surgical - low VTE Device Contraindication: Treatment Not Indicated VTE Drug Contraindication: Treatment Not Indicated
--- NOTE | 2024-07-11 13:33 | HE.PHANOTE ---
Spoke to patient's nurse Jayla and she reports mechanical failure of lovenox syringe when she administered 70 mg dose this morning. She thinks the patient got about 25% of the 70 mg intended dose. Based on this, Dr Azevedo and myself agreed it would be fair to give 50% of the dose (35 mg) to cover patient as she is being treated for probable PE. Order was entered and RN notified.
[2024-07-11] MEDS: Enoxaparin Sodium 40 MG/0.4 ML SYRINGE 35 MG SUBCUT (13:42)
[2024-07-11 15:27] LABS: Glucose, Whole Blood 156 mg/dL (60-115)
[2024-07-11] MEDS: oxyCODONE HCl Immed Release 5 MG TABLET PO (15:30)
--- NOTE | 2024-07-11 15:30 | P.PNGS_ITS ---
Subjective Subjective Date of Service: 07/11/24 Interval history: pt is doing better eating well less output from jodi drain- breathing much better now on nasal canula 3L Physical Exam 2 Vital Signs: Vital Signs: Last Vital Signs Temp 97.4 F 07/11/24 10:53 Pulse 69 07/11/24 10:53 Resp 20 07/11/24 10:53 BP 130/60 07/11/24 10:53 Pulse Ox 94 07/11/24 10:53 O2 Del Method Nasal Cannula 07/11/24 10:53 O2 Flow Rate 2 07/11/24 10:53 BMI result Body Mass Index 27.1 GI: Other: abdomen soft nontender incisions clean Objective Data Active Medications Acetaminophen (Acetaminophen 325 Mg Tablet) 650 mg PO Q6H PRN PRN Reason: Pain, Mild 1-3,fever,headache Last Admin: 07/11/24 08:25 Dose: 650 mg Documented By: ERIC Amlodipine Besylate (Amlodipine Besylate 5 Mg Tablet) 5 mg PO DAILY [facility]; Protocol Last Admin: 07/11/24 08:26 Dose: 5 mg Documented By: ERIC Atorvastatin Calcium (Atorvastatin Calcium 80 Mg Tablet) 80 mg PO DAILY [facility] Last Admin: 07/11/24 08:26 Dose: 80 mg Documented By: ERIC Carvedilol (Carvedilol 25 Mg Tablet) 25 mg PO BID [facility]; Protocol Last Admin: 07/11/24 08:26 Dose: 25 mg Documented By: ERIC Dextrose (Dextrose 50 % 25 Gm/50 Ml Syringe) 25 gm IVPUSH Q15M PRN; Protocol PRN Reason: per Hypoglycemia Standing Ord. Donepezil HCl (Donepezil Hcl 5 Mg Tablet) 5 mg PO DAILY [facility] Last Admin: 07/11/24 08:26 Dose: 5 mg Documented By: ERIC Enoxaparin Sodium (Enoxaparin Sodium 80 Mg/0.8 Ml Syringe) 70 mg SUBCUT Q12H [facility] Last Admin: 07/11/24 11:47 Dose: 70 mg Documented By: ERIC Furosemide (Furosemide 20 Mg/2 Ml Vial) 20 mg IVPUSH BID@0900,1800 [facility]; Protocol Last Admin: 07/11/24 08:25 Dose: 20 mg Documented By: ERIC Glucose (Glucose Gel 15 Gm Gel..Gram.) 15 gm PO Q15M PRN; Protocol PRN Reason: per Hypoglycemia Standing Ord. Guaifenesin (Guaifenesin La 600 Mg Tab.Er.12h) 600 mg PO BID [facility] Last Admin: 07/11/24 08:25 Dose: 600 mg Documented By: ERIC Hydromorphone HCl (Hydromorphone Hcl 1 Mg/Ml Syringe) 0.5 mg IVPUSH Q4H PRN; Protocol PRN Reason: Pain, Severe (Pain Scale 7-10) Last Admin: 07/09/24 08:04 Dose: 0.5 mg Documented By: CITLALLI Piperacillin Sod/Tazobactam (Sod 3.375 gm/ Sodium Chloride) 50 mls @ 100 mls/hr IV Q6H [facility] Last Infusion: 07/11/24 15:10 Dose: Infused Documented By: ERIC Insulin Glargine (Insulin Glargine,Hum.Rec.Anlog 100 Unit/Ml 10 Ml Vial) 15 unit SUBCUT DAILY [facility] Last Admin: 07/11/24 08:26 Dose: 15 unit Documented By: ERIC Insulin Human Lispro (Insulin Lispro 100 Unit/Ml 3 Ml Vial) 0 unit SUBCUT QIDACHS [facility]; Protocol Last Admin: 07/11/24 11:47 Dose: 2 unit Documented By: ERIC Lisinopril (Lisinopril 40 Mg Tablet) 40 mg PO DAILY [facility]; Protocol Last Admin: 07/11/24 08:25 Dose: 40 mg Documented By: ERIC Melatonin (Melatonin 3 Mg Tablet) 6 mg PO BEDTIME PRN PRN Reason: Insomnia Naloxone HCl (Naloxone Hcl 0.4 Mg/Ml Vial) 0.04 mg IVPUSH Q5M PRN PRN Reason: Excessive sedation or RR < 8 Ondansetron HCl (Ondansetron Hcl 4 Mg/2 Ml Vial) 4 mg IVPUSH Q8H PRN PRN Reason: Nausea and Vomiting Last Admin: 07/09/24 08:05 Dose: 4 mg Documented By: CITLALLI Ondansetron HCl (Ondansetron Hcl 4 Mg/2 Ml Vial) 4 mg IVPUSH QID PRN PRN Reason: Nausea Oxycodone HCl (Oxycodone Hcl Immed Release 5 Mg Tablet) 5 mg PO Q6H PRN PRN Reason: Pain, Moderate(Pain Scale 4-6) Last Admin: 07/10/24 16:06 Dose: 5 mg Documented By: ERIC Sodium Chloride (0.9 % Sodium Chloride Flush 3 Ml Syringe) 3 ml IVFLUSH [facility] Last Admin: 07/11/24 08:26 Dose: 3 ml Documented By: ERIC Labs 07/10/24 05:55 07/11/24 07:09 Labs: Laboratory Results - last 24 hr 07/10/24 07/10/24 07/11/24 15:50 20:23 07:08 Anion Gap Estim Creat Clear Calc Estimated GFR POC Glucose 245 H 168 H Random Glucose Calcium Magnesium B-Natriuretic Peptide 161 H Respiratory Panel Estevez Adenovirus (Rapid PCR) B.pert (TEM-PCR) B.parapertussis DNA PCR C. pneumoniae DNA (PCR) Coronavirus OC43 (PCR) Coronavirus HKU1 (PCR) Coronavirus 229E (PCR) Coronavirus NL63 (PCR) Human Metapneumovir PCR Influenza A (RT-PCR) Influenza A (H1) PCR Influ A (H1/09) PCR Influenza A (H3) PCR Influenza B (RT-PCR) M. pneumoniae (PCR) Parainfluenza 1 (PCR) Parainfluenza 2 (PCR) Parainfluenza 3 (PCR) Parainfluenza 4 (PCR) RSV (PCR) Entero/Rhino (PCR) SARS-CoV-2 RNA (RT-PCR) 07/11/24 07/11/24 07/11/24 07:09 07:24 09:18 Anion Gap 10 L Estim Creat Clear Calc 48.4 Estimated GFR > 60 POC Glucose 139 H Random Glucose 139 H Calcium 8.1 L Magnesium 1.7 B-Natriuretic Peptide Respiratory Panel Estevez See Note Adenovirus (Rapid PCR) Not Detected B.pert (TEM-PCR) Not Detected B.parapertussis DNA PCR Not Detected C. pneumoniae DNA (PCR) Not Detected Coronavirus OC43 (PCR) Not Detected Coronavirus HKU1 (PCR) Not Detected Coronavirus 229E (PCR) Not Detected Coronavirus NL63 (PCR) Not Detected Human Metapneumovir PCR Not Detected Influenza A (RT-PCR) Not Detected Influenza A (H1) PCR Not Detected Influ A (H1/09) PCR Not Detected Influenza A (H3) PCR Not Detected Influenza B (RT-PCR) Not Detected M. pneumoniae (PCR) Not Detected Parainfluenza 1 (PCR) Not Detected Parainfluenza 2 (PCR) Not Detected Parainfluenza 3 (PCR) Not Detected Parainfluenza 4 (PCR) Not Detected RSV (PCR) Not Detected Entero/Rhino (PCR) Not Detected SARS-CoV-2 RNA (RT-PCR) Not Detected 07/11/24 07/11/24 11:34 15:22 Anion Gap Estim Creat Clear Calc Estimated GFR POC Glucose 177 H 156 H Random Glucose Calcium Magnesium B-Natriuretic Peptide Respiratory Panel Estevez Adenovirus (Rapid PCR) B.pert (TEM-PCR) B.parapertussis DNA PCR C. pneumoniae DNA (PCR) Coronavirus OC43 (PCR) Coronavirus HKU1 (PCR) Coronavirus 229E (PCR) Coronavirus NL63 (PCR) Human Metapneumovir PCR Influenza A (RT-PCR) Influenza A (H1) PCR Influ A (H1/09) PCR Influenza A (H3) PCR Influenza B (RT-PCR) M. pneumoniae (PCR) Parainfluenza 1 (PCR) Parainfluenza 2 (PCR) Parainfluenza 3 (PCR) Parainfluenza 4 (PCR) RSV (PCR) Entero/Rhino (PCR) SARS-CoV-2 RNA (RT-PCR) Procedures Date of Service Date of Service: 07/11/24 Progress Note: A&P Assessment and plan (1) Acute cholecystitis: Status: Acute Assessment and Plan: pt s/p lap sharee - GB cancer - awaiting final pathology - cont with advancing diet and jodi in place med team to manage PE issues and anticoagulation Time Spent With Patient Time: Total time managing care of this patient today ____ minutes. Quality Stroke Does the patient have a stroke diagnosis?: No VTE Prior VTE?: No VTE Risk Level:: Surgical - low VTE Device Contraindication: Treatment Not Indicated VTE Drug Contraindication: Treatment Not Indicated
[2024-07-11 20:29] LABS: Glucose, Whole Blood 193 mg/dL (60-115)
[2024-07-12] VITALS (7 sets, daily range): BP systolic 111–147; BP diastolic 57–67; PULSE 68–77; RESP 15–24; TEMP 36.1–36.8; O2SAT 93–97; BMI 27.1
[2024-07-12] MEDS: Enoxaparin Sodium 80 MG/0.8 ML SYRINGE 70 MG SUBCUT ×2 (00:16→11:40)
[2024-07-12] MEDS: HYDROmorphone HCl 1 MG/ML SYRINGE 0.5 MG IVPUSH (00:22)
[2024-07-12] MEDS: Piperacillin Sodium/Tazobactam 3.375 GM in 0.9 % Sodium Chloride 50 ML IV ×3 (02:51→16:36)
--- NOTE | 2024-07-12 06:55 | PM.PNGS ---
Subjective Subjective Date of Service: 07/12/24 <Phyllis Emeterio - Last Filed: 07/12/24 07:05> 07/16/24 <Kiki Robertson PA-C - Last Filed: 07/16/24 15:08> Interval history: Patient states she is feeling better today, on nasal canula 3L, tolerating liquids and advanced diet. <Personal MedicineEmeterio - Last Filed: 07/12/24 07:05> Physical Exam Vital Signs: Vital Signs: Last Vital Signs Temp 97.4 F 07/12/24 06:52 Pulse 72 07/12/24 06:52 Resp 15 07/12/24 06:52 BP 147/67 H 07/12/24 06:52 Pulse Ox 95 07/12/24 06:52 O2 Del Method Nasal Cannula 07/12/24 06:52 O2 Flow Rate 2 07/12/24 06:52 BMI result Body Mass Index 27.1 <[employer] Last Filed: 07/12/24 07:05> Const: General: alert and awake <[employer] Last Filed: 07/12/24 07:05> Orientation/consciousness: patient oriented x3 <Very [place] Arto Edgar Last Filed: 07/12/24 07:05> Resp: Effort & Inspection: normal respiratory effort <[employer] Last Filed: 07/12/24 07:05> Cardio: Rate: regular rate <[employer] - Last Filed: 07/12/24 07:05> Rhythm: regular rhythm <[employer] Last Filed: 07/12/24 07:05> Peripheral pulses: radial pulses present <[employer] Last Filed: 07/12/24 07:05> GI: Other: Danny intact, no erythema or purulent discharge LAURA drain present, serosangenous fluid present Abdomen non tender, soft <[employer] Last Filed: 07/12/24 07:05> Neuro: General: patient oriented x3 <[employer] [place] Arto Edgar Last Filed: 07/12/24 07:05> Objective Data Active Medications Acetaminophen (Acetaminophen 325 Mg Tablet) 650 mg PO Q6H PRN PRN Reason: Pain, Mild 1-3,fever,headache Last Admin: 07/11/24 15:30 Dose: 650 mg Documented By: ERIC Amlodipine Besylate (Amlodipine Besylate 5 Mg Tablet) 5 mg PO DAILY [facility]; Protocol Last Admin: 07/11/24 08:26 Dose: 5 mg Documented By: ERIC Atorvastatin Calcium (Atorvastatin Calcium 80 Mg Tablet) 80 mg PO DAILY [facility] Last Admin: 07/11/24 08:26 Dose: 80 mg Documented By: ERIC Carvedilol (Carvedilol 25 Mg Tablet) 25 mg PO BID [facility]; Protocol Last Admin: 07/11/24 21:27 Dose: 25 mg Documented By: ANTBAL Dextrose (Dextrose 50 % 25 Gm/50 Ml Syringe) 25 gm IVPUSH Q15M PRN; Protocol PRN Reason: per Hypoglycemia Standing Ord. Donepezil HCl (Donepezil Hcl 5 Mg Tablet) 5 mg PO DAILY [facility] Last Admin: 07/11/24 08:26 Dose: 5 mg Documented By: ERIC Enoxaparin Sodium (Enoxaparin Sodium 80 Mg/0.8 Ml Syringe) 70 mg SUBCUT Q12H [facility] Last Admin: 07/12/24 00:16 Dose: 70 mg Documented By: ROSA Furosemide (Furosemide 20 Mg/2 Ml Vial) 20 mg IVPUSH BID@0900,1800 [facility]; Protocol Last Admin: 07/11/24 16:25 Dose: 20 mg Documented By: ERIC Glucose (Glucose Gel 15 Gm Gel..Gram.) 15 gm PO Q15M PRN; Protocol PRN Reason: per Hypoglycemia Standing Ord. Guaifenesin (Guaifenesin La 600 Mg Tab.Er.12h) 600 mg PO BID [facility] Last Admin: 07/11/24 21:27 Dose: 600 mg Documented By: ANTBAL Hydromorphone HCl (Hydromorphone Hcl 1 Mg/Ml Syringe) 0.5 mg IVPUSH Q4H PRN; Protocol PRN Reason: Pain, Severe (Pain Scale 7-10) Last Admin: 07/12/24 00:22 Dose: 0.5 mg Documented By: ANTOINBaron Piperacillin Sod/Tazobactam (Sod 3.375 gm/ Sodium Chloride) 50 mls @ 100 mls/hr IV Q6H [facility] Last Infusion: 07/12/24 03:21 Dose: Infused Documented By: ROSA Insulin Glargine (Insulin Glargine,Hum.Rec.Anlog 100 Unit/Ml 10 Ml Vial) 15 unit SUBCUT DAILY [facility] Last Admin: 07/11/24 08:26 Dose: 15 unit Documented By: ERIC Insulin Human Lispro (Insulin Lispro 100 Unit/Ml 3 Ml Vial) 0 unit SUBCUT QIDACHS [facility]; Protocol Last Admin: 07/11/24 20:41 Dose: Not Given Documented By: ROSA Non-Admin Reason: No Insulin Coverage Lisinopril (Lisinopril 40 Mg Tablet) 40 mg PO DAILY [facility]; Protocol Last Admin: 07/11/24 08:25 Dose: 40 mg Documented By: ERIC Melatonin (Melatonin 3 Mg Tablet) 6 mg PO BEDTIME PRN PRN Reason: Insomnia Naloxone HCl (Naloxone Hcl 0.4 Mg/Ml Vial) 0.04 mg IVPUSH Q5M PRN PRN Reason: Excessive sedation or RR < 8 Ondansetron HCl (Ondansetron Hcl 4 Mg/2 Ml Vial) 4 mg IVPUSH Q8H PRN PRN Reason: Nausea and Vomiting Last Admin: 07/09/24 08:05 Dose: 4 mg Documented By: CITLALLI Ondansetron HCl (Ondansetron Hcl 4 Mg/2 Ml Vial) 4 mg IVPUSH QID PRN PRN Reason: Nausea Oxycodone HCl (Oxycodone Hcl Immed Release 5 Mg Tablet) 5 mg PO Q6H PRN PRN Reason: Pain, Moderate(Pain Scale 4-6) Last Admin: 07/11/24 15:30 Dose: 5 mg Documented By: ERIC Sodium Chloride (0.9 % Sodium Chloride Flush 3 Ml Syringe) [facility] Last Admin: 07/11/24 21:27 Dose: 3 ml Documented By: ROSA <Phyllis Emeterio - Last Filed: 07/12/24 07:05> Labs CBC & Chem 7: 07/12/24 07:29 07/15/24 07:00 <Phyllis Emeterio - Last Filed: 07/12/24 07:05> Labs: Laboratory Results - last 24 hr 07/11/24 07/11/24 07/11/24 07:08 07:09 07:24 Anion Gap 10 L Estim Creat Clear Calc 48.4 Estimated GFR > 60 POC Glucose 139 H Random Glucose 139 H Calcium 8.1 L Magnesium 1.7 B-Natriuretic Peptide 161 H Respiratory Panel Estevez Adenovirus (Rapid PCR) B.pert (TEM-PCR) B.parapertussis DNA PCR C. pneumoniae DNA (PCR) Coronavirus OC43 (PCR) Coronavirus HKU1 (PCR) Coronavirus 229E (PCR) Coronavirus NL63 (PCR) Human Metapneumovir PCR Influenza A (RT-PCR) Influenza A (H1) PCR Influ A () PCR Influenza A (H3) PCR Influenza B (RT-PCR) M. pneumoniae (PCR) Parainfluenza 1 (PCR) Parainfluenza 2 (PCR) Parainfluenza 3 (PCR) Parainfluenza 4 (PCR) RSV (PCR) Entero/Rhino (PCR) SARS-CoV-2 RNA (RT-PCR) 07/11/24 07/11/24 07/11/24 09:18 11:34 15:22 Anion Gap Estim Creat Clear Calc Estimated GFR POC Glucose 177 H 156 H Random Glucose Calcium Magnesium B-Natriuretic Peptide Respiratory Panel Estevez See Note Adenovirus (Rapid PCR) Not Detected B.pert (TEM-PCR) Not Detected B.parapertussis DNA PCR Not Detected C. pneumoniae DNA (PCR) Not Detected Coronavirus OC43 (PCR) Not Detected Coronavirus HKU1 (PCR) Not Detected Coronavirus 229E (PCR) Not Detected Coronavirus NL63 (PCR) Not Detected Human Metapneumovir PCR Not Detected Influenza A (RT-PCR) Not Detected Influenza A (H1) PCR Not Detected Influ A () PCR Not Detected Influenza A (H3) PCR Not Detected Influenza B (RT-PCR) Not Detected M. pneumoniae (PCR) Not Detected Parainfluenza 1 (PCR) Not Detected Parainfluenza 2 (PCR) Not Detected Parainfluenza 3 (PCR) Not Detected Parainfluenza 4 (PCR) Not Detected RSV (PCR) Not Detected Entero/Rhino (PCR) Not Detected SARS-CoV-2 RNA (RT-PCR) Not Detected 07/11/24 20:20 Anion Gap Estim Creat Clear Calc Estimated GFR POC Glucose 193 H Random Glucose Calcium Magnesium B-Natriuretic Peptide Respiratory Panel Estevez Adenovirus (Rapid PCR) B.pert (TEM-PCR) B.parapertussis DNA PCR C. pneumoniae DNA (PCR) Coronavirus OC43 (PCR) Coronavirus HKU1 (PCR) Coronavirus 229E (PCR) Coronavirus NL63 (PCR) Human Metapneumovir PCR Influenza A (RT-PCR) Influenza A (H1) PCR Influ A (H1/09) PCR Influenza A (H3) PCR Influenza B (RT-PCR) M. pneumoniae (PCR) Parainfluenza 1 (PCR) Parainfluenza 2 (PCR) Parainfluenza 3 (PCR) Parainfluenza 4 (PCR) RSV (PCR) Entero/Rhino (PCR) SARS-CoV-2 RNA (RT-PCR) <Phyllis Storm - Last Filed: 07/12/24 07:05> Microbiology Microbiology Results: Microbiology 07/07/24 01:40 Blood Culture - Final Blood - Venous No growth after 5 days. 07/07/24 01:40 Blood Culture - Final Blood - Venous No growth after 5 days. <Phyllis Storm - Last Filed: 07/12/24 07:05> Procedures Date of Service Date of Service: 07/12/24 <Phyllis Storm - Last Filed: 07/12/24 07:05> 07/16/24 <Kiki Robertson PA-C - Last Filed: 07/16/24 15:08> Progress Note: A&P Assessment and plan Assessment and Plan: Madeline is post op day 5 from laparoscopic turned open cholecystectomy, presenting with a tumor on the gallbladder fundus and mets to the liver. She reports less abdominal pain today, LAURA drain present with serosangenous fluid. Her last bowel movement was yesterday, urinating regularly. She will continue the zoysn, and ofirmev and hydromorphone for pain as needed. 3L nasal cannula in place, encouraging spirometry 10x every hour and increasing ambulation with assistance. <Phyllis Storm - Last Filed: 07/12/24 07:05> Time Spent With Patient Time: Total time managing care of this patient today ____ minutes. <Phyllis Emeterio - Last Filed: 07/12/24 07:05> Quality Stroke Does the patient have a stroke diagnosis?: No <Phyllis Emeterio - Last Filed: 07/12/24 07:05> VTE Prior VTE?: No <Phyllis Emeterio - Last Filed: 07/12/24 07:05> VTE Risk Level:: Surgical - low <Phyllis Emeterio - Last Filed: 07/12/24 07:05> VTE Device Contraindication: Treatment Not Indicated <Phyllis Emeterio - Last Filed: 07/12/24 07:05> VTE Drug Contraindication: Treatment Not Indicated <Phyllis Emeterio - Last Filed: 07/12/24 07:05>
[2024-07-12 07:15] LABS: Glucose, Whole Blood 124 mg/dL (60-115)
[2024-07-12 08:14] LABS: Hematocrit 30.9 % (37.0-47.0); Hemoglobin 10.2 g/dl (12.0-16.0); Mean Corpuscular Hemoglobin 28.4 pg (27.0-33.0); Mean Corpuscular Volume 86.1 fL (80.0-98.0); Mean Platelet Volume 9.6 fL (9.4-12.3); Platelet Count 334 X10*3/uL (160-400); Red Blood Count 3.59 X10*6/uL (4.20-5.50); Red Cell Distribution Width 14.4 % (11.0-16.0); White Blood Count 11.2 X10*3/uL (4.8-10.8)
[2024-07-12] MEDS: guaiFENesin LA 600 MG TAB.ER.12H PO ×2 (08:20→21:28)
[2024-07-12] MEDS: Furosemide 20 MG/2 ML VIAL IVPUSH ×2 (08:20→18:17)
[2024-07-12] MEDS: Atorvastatin Calcium 80 MG TABLET PO (08:20)
[2024-07-12] MEDS: Insulin Glargine,Hum.rec.anlog 100 UNIT/ML 10 ML VIAL 15 UNIT SUBCUT (08:21)
[2024-07-12] MEDS: carvediloL 25 MG TABLET PO ×2 (08:21→21:28)
[2024-07-12] MEDS: lisinopriL 40 MG TABLET PO (08:21)
[2024-07-12] MEDS: Donepezil HCl 5 MG TABLET PO (08:21)
[2024-07-12] MEDS: amLODIPine Besylate 5 MG TABLET PO (08:21)
[2024-07-12 08:38] LABS: Anion Gap 10 (12-20); Blood Urea Nitrogen 19 mg/dL (9-16); Calcium 8.3 mg/dL (8.4-10.2); Carbon Dioxide 33 mmol/L (22-29); Chloride 102 mmol/L (96-108); Creatinine Clr Calc Pharmacy 49.6; Estimated Glomerular Filt Rate > 60; Glucose Random 120 mg/dL (60-115); Magnesium 1.8 mg/dL (1.6-2.6); Potassium 3.4 mmol/L (3.3-5.1); Sodium 142 mmol/L (135-145)
[2024-07-12] MEDS: Acetaminophen 325 MG TABLET 650 MG PO (08:39)
[2024-07-12 08:40] LABS: B Type Natriuretic Peptide 139 pg/mL (<100)
[2024-07-12 11:25] LABS: Glucose, Whole Blood 286 mg/dL (60-115)
[2024-07-12] MEDS: Insulin Lispro 100 UNIT/ML 3 ML VIAL SUBCUT ×2 (11:38→21:28)
[2024-07-12] MEDS: 0.9 % Sodium Chloride Flush 3 ML SYRINGE IVFLUSH ×3 (11:45→21:29)
--- NOTE | 2024-07-12 12:36 | HO.PM.IMPN ---
Subjective Subjective Date of Service: 07/12/24 Interval History: breathing improving negative 1485 mL in last 48 hr minimal abd pain ambulating Review of Systems Review of Systems: Yes all other systems are reviewed and are negative Physical Exam Vital Signs: Vital Signs: Last Vital Signs Temp 97.2 F 07/12/24 11:34 Pulse 71 07/12/24 11:34 Resp 16 07/12/24 11:34 BP 118/57 L 07/12/24 11:34 Pulse Ox 96 07/12/24 11:34 O2 Del Method Nasal Cannula 07/12/24 11:34 O2 Flow Rate 2 07/12/24 11:34 BMI result Body Mass Index 27.1 Gen: in no acute distress HEENT: sclera anicteric, moist mucus membranes Neck: supple Lungs: clear Heart: regular rate and rhythm, no murmurs Abd: soft, surgical incisions dry/intact, LAURA drain with serosanguinous fluid Ext: no edema Skin: warm/well-perfused Neuro: alert and oriented x3, no focal findings Psych: appropriate affect Objective Data Active Medications Acetaminophen (Acetaminophen 325 Mg Tablet) 650 mg PO Q6H PRN PRN Reason: Pain, Mild 1-3,fever,headache Last Admin: 07/12/24 08:39 Dose: 650 mg Documented By: NINI Amlodipine Besylate (Amlodipine Besylate 5 Mg Tablet) 5 mg PO DAILY [facility]; Protocol Last Admin: 07/12/24 08:21 Dose: 5 mg Documented By: NINI Atorvastatin Calcium (Atorvastatin Calcium 80 Mg Tablet) 80 mg PO DAILY [facility] Last Admin: 07/12/24 08:20 Dose: 80 mg Documented By: NINI Carvedilol (Carvedilol 25 Mg Tablet) 25 mg PO BID [facility]; Protocol Last Admin: 07/12/24 08:21 Dose: 25 mg Documented By: NINI Dextrose (Dextrose 50 % 25 Gm/50 Ml Syringe) 25 gm IVPUSH Q15M PRN; Protocol PRN Reason: per Hypoglycemia Standing Ord. Donepezil HCl (Donepezil Hcl 5 Mg Tablet) 5 mg PO DAILY [facility] Last Admin: 07/12/24 08:21 Dose: 5 mg Documented By: NINI Enoxaparin Sodium (Enoxaparin Sodium 80 Mg/0.8 Ml Syringe) 70 mg SUBCUT Q12H [facility] Last Admin: 07/12/24 11:40 Dose: 70 mg Documented By: NINI Furosemide (Furosemide 20 Mg/2 Ml Vial) 20 mg IVPUSH BID@0900,1800 [facility]; Protocol Last Admin: 07/12/24 08:20 Dose: 20 mg Documented By: NINI Glucose (Glucose Gel 15 Gm Gel..Gram.) 15 gm PO Q15M PRN; Protocol PRN Reason: per Hypoglycemia Standing Ord. Guaifenesin (Guaifenesin La 600 Mg Tab.Er.12h) 600 mg PO BID [facility] Last Admin: 07/12/24 08:20 Dose: 600 mg Documented By: NINI Hydromorphone HCl (Hydromorphone Hcl 1 Mg/Ml Syringe) 0.5 mg IVPUSH Q4H PRN; Protocol PRN Reason: Pain, Severe (Pain Scale 7-10) Last Admin: 07/12/24 00:22 Dose: 0.5 mg Documented By: ANDREWOINBaron Piperacillin Sod/Tazobactam (Sod 3.375 gm/ Sodium Chloride) 50 mls @ 100 mls/hr IV Q6H [facility] Last Infusion: 07/12/24 08:51 Dose: Infused Documented By: NINI Insulin Glargine (Insulin Glargine,Hum.Rec.Anlog 100 Unit/Ml 10 Ml Vial) 15 unit SUBCUT DAILY [facility] Last Admin: 07/12/24 08:21 Dose: 15 unit Documented By: NINI Insulin Human Lispro (Insulin Lispro 100 Unit/Ml 3 Ml Vial) 0 unit SUBCUT QIDACHS [facility]; Protocol Last Admin: 07/12/24 11:38 Dose: 6 unit Documented By: NINI Lisinopril (Lisinopril 40 Mg Tablet) 40 mg PO DAILY [facility]; Protocol Last Admin: 07/12/24 08:21 Dose: 40 mg Documented By: NINI Melatonin (Melatonin 3 Mg Tablet) 6 mg PO BEDTIME PRN PRN Reason: Insomnia Naloxone HCl (Naloxone Hcl 0.4 Mg/Ml Vial) 0.04 mg IVPUSH Q5M PRN PRN Reason: Excessive sedation or RR < 8 Ondansetron HCl (Ondansetron Hcl 4 Mg/2 Ml Vial) 4 mg IVPUSH Q8H PRN PRN Reason: Nausea and Vomiting Last Admin: 07/09/24 08:05 Dose: 4 mg Documented By: CITLALLI Ondansetron HCl (Ondansetron Hcl 4 Mg/2 Ml Vial) 4 mg IVPUSH QID PRN PRN Reason: Nausea Oxycodone HCl (Oxycodone Hcl Immed Release 5 Mg Tablet) 5 mg PO Q6H PRN PRN Reason: Pain, Moderate(Pain Scale 4-6) Last Admin: 07/11/24 15:30 Dose: 5 mg Documented By: ERIC Sodium Chloride (0.9 % Sodium Chloride Flush 3 Ml Syringe) 3 ml IVFLUSH [facility] Last Admin: 07/12/24 11:45 Dose: 3 ml Documented By: NINI Labs 07/12/24 07:29 07/12/24 07:29 Labs: Laboratory Results - last 24 hr 07/11/24 07/11/24 07/12/24 15:22 20:20 06:58 MCV MCH MCHC RDW Plt Count MPV Absolute Nucleated RBC Nucleated RBC % (auto) Anion Gap Estim Creat Clear Calc Estimated GFR POC Glucose 156 H 193 H 124 H Random Glucose Calcium Magnesium B-Natriuretic Peptide 07/12/24 07/12/24 07:29 11:16 MCV 86.1 MCH 28.4 MCHC 33.0 RDW 14.4 Plt Count 334 MPV 9.6 Absolute Nucleated RBC 0.000 Nucleated RBC % (auto) 0.0 Anion Gap 10 L Estim Creat Clear Calc 49.6 Estimated GFR > 60 POC Glucose 286 H Random Glucose 120 H Calcium 8.3 L Magnesium 1.8 B-Natriuretic Peptide 139 H Microbiology Microbiology Results: Microbiology 07/07/24 01:40 Blood Culture - Final Blood - Venous No growth after 5 days. 07/07/24 01:40 Blood Culture - Final Blood - Venous No growth after 5 days. 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 - POD5, postop care per Gen Surg, pathology of gallbladder and liver biopsy pending, d/c piperacillin-tazobactam 07/07-07/12 acute hypoxic respiratory failure - possibly due to PE and/or CHF - cannot get CT angio chest due to hx life-threatening anaphylaxis with IV contrast and pt/family do not wish to risk it again even with premedication; V/Q intermediate-probability; US Duplex negative; no R heart strain on TTE; no MRPA available here per Radiology - empirically anticoagulated with enoxaparin 1 mg/kg q12h; transition to apixaban 10 mg bid 07/12-07/16 then 5 mg bid acute diastolic HF - interstitial edema + ground-glass infiltrates on CT chest - grade 2 diastolic HF on echo - continue IV furosemide, monitor lytes, BNP, I+O - Cardiology consulted + following pericardial effusion - larger on CT; Cardiology consulted; no tamponade; no pericardiocentesis in light of anticoagulation + likely stage IV CA; repeat limited TTE tomorrow; avoid over-aggressive diuresis UTI, elias-sensitive E. coli - adequately covered by piperacillin-tazobactam and completed 5d HTN - continue amlodipine, carvedilol, and lisinopril DM2 - hold MTF, continue Lantus + correction-dose lispro HLD - continue statin MCI - donepezil VTE ppx - apixaban dispo - plan home with VNA Thank you for allowing us to participate in the care of this pt. Will continue to follow along with you. Total time managing care of this patient today: 45 minutes. Quality Stroke Does the patient have a stroke diagnosis?: No VTE Prior VTE?: No VTE Risk Level:: Surgical - low VTE Device Contraindication: Treatment Not Indicated VTE Drug Contraindication: Treatment Not Indicated
--- NOTE | 2024-07-12 13:26 | P.PNGS_ITS ---
Subjective Subjective Date of Service: 07/12/24 Interval history: She reports not much energy this morning. Feels less short of breath. Eating well. Physical Exam 2 Vital Signs: Vital Signs: Last Vital Signs Temp 97.2 F 07/12/24 11:34 Pulse 71 07/12/24 11:34 Resp 16 07/12/24 11:34 BP 118/57 L 07/12/24 11:34 Pulse Ox 96 07/12/24 11:34 O2 Del Method Nasal Cannula 07/12/24 11:34 O2 Flow Rate 2 07/12/24 11:34 BMI result Body Mass Index 27.1 Const: General: no acute distress Nutritional Appearance: well nourished Orientation/consciousness: patient oriented x3 Resp: Other: Nasal cannula O2, no apparent shortness of breath GI: Other: Abdominal incision is clean and intact. LAURA with serosanguineous output Skin: Other: Warm, dry, no rash Neuro: General: patient oriented x3 Objective Data Active Medications Acetaminophen (Acetaminophen 325 Mg Tablet) 650 mg PO Q6H PRN PRN Reason: Pain, Mild 1-3,fever,headache Last Admin: 07/12/24 08:39 Dose: 650 mg Documented By: NINI Amlodipine Besylate (Amlodipine Besylate 5 Mg Tablet) 5 mg PO DAILY [facility]; Protocol Last Admin: 07/12/24 08:21 Dose: 5 mg Documented By: NINI Apixaban (Apixaban 5 Mg Tablet) 10 mg PO BID [facility] Stop: 07/19/24 09:01 Atorvastatin Calcium (Atorvastatin Calcium 80 Mg Tablet) 80 mg PO DAILY [facility] Last Admin: 07/12/24 08:20 Dose: 80 mg Documented By: NINI Carvedilol (Carvedilol 25 Mg Tablet) 25 mg PO BID [facility]; Protocol Last Admin: 07/12/24 08:21 Dose: 25 mg Documented By: NINI Dextrose (Dextrose 50 % 25 Gm/50 Ml Syringe) 25 gm IVPUSH Q15M PRN; Protocol PRN Reason: per Hypoglycemia Standing Ord. Donepezil HCl (Donepezil Hcl 5 Mg Tablet) 5 mg PO DAILY [facility] Last Admin: 07/12/24 08:21 Dose: 5 mg Documented By: NINI Furosemide (Furosemide 20 Mg/2 Ml Vial) 20 mg IVPUSH BID@0900,1800 [facility]; Protocol Last Admin: 07/12/24 08:20 Dose: 20 mg Documented By: NINI Glucose (Glucose Gel 15 Gm Gel..Gram.) 15 gm PO Q15M PRN; Protocol PRN Reason: per Hypoglycemia Standing Ord. Guaifenesin (Guaifenesin La 600 Mg Tab.Er.12h) 600 mg PO BID [facility] Last Admin: 07/12/24 08:20 Dose: 600 mg Documented By: NINI Hydromorphone HCl (Hydromorphone Hcl 1 Mg/Ml Syringe) 0.5 mg IVPUSH Q4H PRN; Protocol PRN Reason: Pain, Severe (Pain Scale 7-10) Last Admin: 07/12/24 00:22 Dose: 0.5 mg Documented By: ANDREWOINBaron Piperacillin Sod/Tazobactam (Sod 3.375 gm/ Sodium Chloride) 50 mls @ 100 mls/hr IV Q6H [facility] Stop: 07/12/24 14:30 Last Infusion: 07/12/24 08:51 Dose: Infused Documented By: NINI Insulin Glargine (Insulin Glargine,Hum.Rec.Anlog 100 Unit/Ml 10 Ml Vial) 15 unit SUBCUT DAILY [facility] Last Admin: 07/12/24 08:21 Dose: 15 unit Documented By: NINI Insulin Human Lispro (Insulin Lispro 100 Unit/Ml 3 Ml Vial) 0 unit SUBCUT QIDACHS [facility]; Protocol Last Admin: 07/12/24 11:38 Dose: 6 unit Documented By: NINI Lisinopril (Lisinopril 40 Mg Tablet) 40 mg PO DAILY [facility]; Protocol Last Admin: 07/12/24 08:21 Dose: 40 mg Documented By: NINI Melatonin (Melatonin 3 Mg Tablet) 6 mg PO BEDTIME PRN PRN Reason: Insomnia Naloxone HCl (Naloxone Hcl 0.4 Mg/Ml Vial) 0.04 mg IVPUSH Q5M PRN PRN Reason: Excessive sedation or RR < 8 Ondansetron HCl (Ondansetron Hcl 4 Mg/2 Ml Vial) 4 mg IVPUSH Q8H PRN PRN Reason: Nausea and Vomiting Last Admin: 07/09/24 08:05 Dose: 4 mg Documented By: CITLALLI Ondansetron HCl (Ondansetron Hcl 4 Mg/2 Ml Vial) 4 mg IVPUSH QID PRN PRN Reason: Nausea Oxycodone HCl (Oxycodone Hcl Immed Release 5 Mg Tablet) 5 mg PO Q6H PRN PRN Reason: Pain, Moderate(Pain Scale 4-6) Last Admin: 07/11/24 15:30 Dose: 5 mg Documented By: ERIC Sodium Chloride (0.9 % Sodium Chloride Flush 3 Ml Syringe) [facility] Last Admin: 07/12/24 11:45 Dose: 3 ml Documented By: YASHPAT Labs 07/12/24 07:29 07/12/24 07:29 Labs: Laboratory Results - last 24 hr 07/11/24 07/11/24 07/12/24 15:22 20:20 06:58 MCV MCH MCHC RDW Plt Count MPV Absolute Nucleated RBC Nucleated RBC % (auto) Anion Gap Estim Creat Clear Calc Estimated GFR POC Glucose 156 H 193 H 124 H Random Glucose Calcium Magnesium B-Natriuretic Peptide 07/12/24 07/12/24 07:29 11:16 MCV 86.1 MCH 28.4 MCHC 33.0 RDW 14.4 Plt Count 334 MPV 9.6 Absolute Nucleated RBC 0.000 Nucleated RBC % (auto) 0.0 Anion Gap 10 L Estim Creat Clear Calc 49.6 Estimated GFR > 60 POC Glucose 286 H Random Glucose 120 H Calcium 8.3 L Magnesium 1.8 B-Natriuretic Peptide 139 H Microbiology Microbiology Results: Microbiology 07/07/24 01:40 Blood Culture - Final Blood - Venous No growth after 5 days. 07/07/24 01:40 Blood Culture - Final Blood - Venous No growth after 5 days. Procedures Date of Service Date of Service: 07/12/24 Progress Note: A&P Assessment and plan (1) Pulmonary embolism: Status: Acute (2) Metastasis to liver: Status: Acute Plan Status post open cholecystectomy with a apparent gallbladder cancer with metastasis to the liver awaiting final pathology. Patient tolerating regular diet without nausea or vomiting. She was reasonably comfortable today. Patient diagnosed with pulmonary embolism on Friday, now anticoagulated with transition to oral anticoagulation. LAURA with mainly serosanguineous output. Drain can be removed. Further management will be based on pathology results. Time Spent With Patient Time: Total time managing care of this patient today ____ minutes. Quality Stroke Does the patient have a stroke diagnosis?: No VTE Prior VTE?: No VTE Risk Level:: Surgical - low VTE Device Contraindication: Treatment Not Indicated VTE Drug Contraindication: Treatment Not Indicated
--- NOTE | 2024-07-12 13:41 | PM.PNCARD ---
Subjective Subjective Date of Service: 07/12/24 Interval history: Seen examined at bedside. On supplemental oxygen. Denying any active symptoms currently. Physical Exam Vital Signs: Last Vital Signs Temp 97.2 F 07/12/24 11:34 Pulse 71 07/12/24 11:34 Resp 16 07/12/24 11:34 BP 118/57 L 07/12/24 11:34 Pulse Ox 96 07/12/24 11:34 O2 Del Method Nasal Cannula 07/12/24 11:34 O2 Flow Rate 2 07/12/24 11:34 BMI result Body Mass Index 27.1 GENERAL APPEARANCE: in no acute distress, on supplemental oxygen. NECK: no jugular venous distention. SKIN: no suspicious lesions, warm and dry. HEART: no murmurs, regular rate and rhythm. LUNGS: Crackles both bases-appear to be due to atelectasis. ABDOMEN: soft, nontender. EXTREMITIES: no edema. PERIPHERAL PULSES: equal. NEUROLOGIC: No gross deficits, AAO X 3 Objective Labs and Meds 07/12/24 07:29 07/12/24 07:29 Lab results: Laboratory Results - last 24 hr 07/11/24 07/11/24 07/12/24 15:22 20:20 06:58 WBC RBC Hgb Hct MCV MCH MCHC RDW Plt Count MPV Absolute Nucleated RBC Nucleated RBC % (auto) Sodium Potassium Chloride Carbon Dioxide Anion Gap BUN Creatinine Estim Creat Clear Calc Estimated GFR POC Glucose 156 H 193 H 124 H Random Glucose Calcium Magnesium B-Natriuretic Peptide 07/12/24 07/12/24 07:29 11:16 WBC 11.2 H RBC 3.59 L Hgb 10.2 L Hct 30.9 L MCV 86.1 MCH 28.4 MCHC 33.0 RDW 14.4 Plt Count 334 MPV 9.6 Absolute Nucleated RBC 0.000 Nucleated RBC % (auto) 0.0 Sodium 142 Potassium 3.4 Chloride 102 Carbon Dioxide 33 H Anion Gap 10 L BUN 19 H Creatinine 0.74 Estim Creat Clear Calc 49.6 Estimated GFR > 60 POC Glucose 286 H Random Glucose 120 H Calcium 8.3 L Magnesium 1.8 B-Natriuretic Peptide 139 H Progress Note: A&P Assessment and plan (1) Pericardial effusion: Status: Acute Plan [age] year female who is presenting for acute cholecystitis and further workup has raise concern for gallbladder malignancy with liver metastasis. She was also noticed to have pericardial effusion by CT scan and echocardiography has confirmed moderate pericardial effusion without any tamponade physiology. Clinically she does not have any evidence of tamponade. She is on anticoagulation for presumed diagnosis of PE. She had a intermediate probability V/Q scan. No indication for pericardiocentesis currently. It any change in clinical status like hypotension or dyspnea then we can reassess the pericardial effusion. Currently family feels that they do not want to stop the anticoagulation to do any procedures. Thank you for allowing me to participate in the care of your patient. Please feel free to contact me if you have any questions. Time Spent With Patient Time: Total time managing care of this patient today ____ minutes. Progress Note: Quality Stroke Does the patient have a stroke diagnosis?: No Procedures Date of Service Date of Service: 07/12/24
--- NOTE | 2024-07-12 14:00 | MHC.CM.PN ---
PER MD ROUNDS, PT IS EXPECTED TO BE READY TO DC IN ONE TO TWO DAYS AND WILL NEED [facility] FOLLOWING
[2024-07-12 16:18] LABS: Glucose, Whole Blood 183 mg/dL (60-115)
[2024-07-12] MEDS: oxyCODONE HCl Immed Release 5 MG TABLET PO (16:46)
[2024-07-12 21:04] LABS: Glucose, Whole Blood 310 mg/dL (60-115)
[2024-07-12] MEDS: Apixaban 5 MG TABLET 10 MG PO (21:28)
[2024-07-13] VITALS (7 sets, daily range): BP systolic 109–153; BP diastolic 55–76; PULSE 68–83; RESP 16–20; TEMP 36.1–36.7; O2SAT 92–97; BMI 24.4
--- NOTE | 2024-07-13 06:55 | PM.PNGS ---
Subjective Subjective Date of Service: 07/13/24 <Phyllis Emeterio - Last Filed: 07/13/24 07:07> 07/13/24 <Kiki Robertson PA-C - Last Filed: 07/13/24 09:40> 07/13/24 <Kelby Arechiga MD - Last Filed: 07/13/24 14:52> Interval history: Patient states she is feeling okay today, has an appetite, and was able to ambulate yesterday. <Click Quote Savecomo - Last Filed: 07/13/24 07:07> Physical Exam Vital Signs: Vital Signs: Last Vital Signs Temp 98.0 F 07/13/24 03:40 Pulse 71 07/13/24 03:40 Resp 18 07/13/24 03:40 BP 153/69 H 07/13/24 03:40 Pulse Ox 93 07/13/24 03:40 O2 Del Method Room Air 07/13/24 03:40 O2 Flow Rate 0.5 07/12/24 19:30 BMI result Body Mass Index 24.4 <[employer]o - Last Filed: 07/13/24 07:07> Const: General: awake <Chubbies Shortso - Last Filed: 07/13/24 07:07> Orientation/consciousness: patient oriented x3 <[email or web address] - Last Filed: 07/13/24 07:07> Resp: Effort & Inspection: normal respiratory effort <Chubbies Shortso - Last Filed: 07/13/24 07:07> Cardio: Rate: regular rate <Chubbies Shortso - Last Filed: 07/13/24 07:07> Rhythm: regular rhythm <Chubbies Shortso - Last Filed: 07/13/24 07:07> GI: Other: tender to palpation in the right lower quadrant incision clear and intact, drain out <Chubbies Shortso - Last Filed: 07/13/24 07:07> Neuro: General: patient oriented x3 <Click Qu[employer] [email or web address] - Last Filed: 07/13/24 07:07> Objective Data Active Medications Acetaminophen (Acetaminophen 325 Mg Tablet) 650 mg PO Q6H PRN PRN Reason: Pain, Mild 1-3,fever,headache Last Admin: 07/12/24 08:39 Dose: 650 mg Documented By: NINI Amlodipine Besylate (Amlodipine Besylate 5 Mg Tablet) 5 mg PO DAILY [facility]; Protocol Last Admin: 07/12/24 08:21 Dose: 5 mg Documented By: NINI Apixaban (Apixaban 5 Mg Tablet) 10 mg PO BID [facility] Stop: 07/19/24 09:01 Last Admin: 07/12/24 21:28 Dose: 10 mg Documented By: ROSA Atorvastatin Calcium (Atorvastatin Calcium 80 Mg Tablet) 80 mg PO DAILY [facility] Last Admin: 07/12/24 08:20 Dose: 80 mg Documented By: NINI Carvedilol (Carvedilol 25 Mg Tablet) 25 mg PO BID [facility]; Protocol Last Admin: 07/12/24 21:28 Dose: 25 mg Documented By: ROSA Dextrose (Dextrose 50 % 25 Gm/50 Ml Syringe) 25 gm IVPUSH Q15M PRN; Protocol PRN Reason: per Hypoglycemia Standing Ord. Donepezil HCl (Donepezil Hcl 5 Mg Tablet) 5 mg PO DAILY [facility] Last Admin: 07/12/24 08:21 Dose: 5 mg Documented By: NINI Furosemide (Furosemide 20 Mg/2 Ml Vial) 20 mg IVPUSH BID@0900,1800 [facility]; Protocol Last Admin: 07/12/24 18:17 Dose: 20 mg Documented By: NINI Glucose (Glucose Gel 15 Gm Gel..Gram.) 15 gm PO Q15M PRN; Protocol PRN Reason: per Hypoglycemia Standing Ord. Guaifenesin (Guaifenesin La 600 Mg Tab.Er.12h) 600 mg PO BID [facility] Last Admin: 07/12/24 21:28 Dose: 600 mg Documented By: ROSA Hydromorphone HCl (Hydromorphone Hcl 1 Mg/Ml Syringe) 0.5 mg IVPUSH Q4H PRN; Protocol PRN Reason: Pain, Severe (Pain Scale 7-10) Last Admin: 07/12/24 00:22 Dose: 0.5 mg Documented By: ROSA Insulin Glargine (Insulin Glargine,Hum.Rec.Anlog 100 Unit/Ml 10 Ml Vial) 15 unit SUBCUT DAILY [facility] Last Admin: 07/12/24 08:21 Dose: 15 unit Documented By: NINI Insulin Human Lispro (Insulin Lispro 100 Unit/Ml 3 Ml Vial) 0 unit SUBCUT QIDACHS [facility]; Protocol Last Admin: 07/12/24 21:28 Dose: 8 unit Documented By: ROSA Lisinopril (Lisinopril 40 Mg Tablet) 40 mg PO DAILY [facility]; Protocol Last Admin: 07/12/24 08:21 Dose: 40 mg Documented By: NINI Melatonin (Melatonin 3 Mg Tablet) 6 mg PO BEDTIME PRN PRN Reason: Insomnia Naloxone HCl (Naloxone Hcl 0.4 Mg/Ml Vial) 0.04 mg IVPUSH Q5M PRN PRN Reason: Excessive sedation or RR < 8 Ondansetron HCl (Ondansetron Hcl 4 Mg/2 Ml Vial) 4 mg IVPUSH Q8H PRN PRN Reason: Nausea and Vomiting Last Admin: 07/09/24 08:05 Dose: 4 mg Documented By: CITLALLI Ondansetron HCl (Ondansetron Hcl 4 Mg/2 Ml Vial) 4 mg IVPUSH QID PRN PRN Reason: Nausea Oxycodone HCl (Oxycodone Hcl Immed Release 5 Mg Tablet) 5 mg PO Q6H PRN PRN Reason: Pain, Moderate(Pain Scale 4-6) Last Admin: 07/12/24 16:46 Dose: 5 mg Documented By: NINI Sodium Chloride (0.9 % Sodium Chloride Flush 3 Ml Syringe) 3 ml IVFLUSH [facility] Last Admin: 07/12/24 21:29 Dose: 3 ml Documented By: ROSA <Phyllis Emeterio - Last Filed: 07/13/24 07:07> Labs CBC & Chem 7: 07/12/24 07:29 07/12/24 07:29 <Phyllis Emeterio - Last Filed: 07/13/24 07:07> Labs: Laboratory Results - last 24 hr 07/12/24 07/12/24 07/12/24 06:58 07:29 11:16 MCV 86.1 MCH 28.4 MCHC 33.0 RDW 14.4 Plt Count 334 MPV 9.6 Absolute Nucleated RBC 0.000 Nucleated RBC % (auto) 0.0 Anion Gap 10 L Estim Creat Clear Calc 49.6 Estimated GFR > 60 POC Glucose 124 H 286 H Random Glucose 120 H Calcium 8.3 L Magnesium 1.8 B-Natriuretic Peptide 139 H 07/12/24 07/12/24 16:09 20:59 MCV MCH MCHC RDW Plt Count MPV Absolute Nucleated RBC Nucleated RBC % (auto) Anion Gap Estim Creat Clear Calc Estimated GFR POC Glucose 183 H 310 H Random Glucose Calcium Magnesium B-Natriuretic Peptide <Phyllis Emeterio - Last Filed: 07/13/24 07:07> Microbiology Microbiology Results: Microbiology 07/07/24 01:40 Blood Culture - Final Blood - Venous No growth after 5 days. 07/07/24 01:40 Blood Culture - Final Blood - Venous No growth after 5 days. <Phyllis Emeterio - Last Filed: 07/13/24 07:07> Procedures Date of Service Date of Service: 07/13/24 <Phyllis Emeterio - Last Filed: 07/13/24 07:07> 07/13/24 <Kiki Robertson PA-C - Last Filed: 07/13/24 09:40> 07/13/24 <Kelby Arechiga MD - Last Filed: 07/13/24 14:52> Progress Note: A&P Assessment and plan (1) Gallbladder cancer: Status: Acute <Phyllis Emeterio - Last Filed: 07/13/24 07:07> (2) S/P cholecystectomy: Status: Acute <Phyllis Emeterio - Last Filed: 07/13/24 07:07> (3) Pulmonary embolism: Status: Acute <Phyllis Emeterio - Last Filed: 07/13/24 07:07> Assessment and Plan: Madeline is post op from laparoscopic converted to open cholecystectomy, with a tumor found on the fundus of the gallbladder and mets to the liver. Waiting for pathology report. She is tolerating the advanced diet, with nausea or vomiting. She did state a great deal with tenderness while palpating the right lower quadrant. Patient has been able to ambulate with assistance, and encouraged to continue spirometry 10x per hour. She is being anticoagulated with apixaban for the PE from last friday. TTE will be repeated today to monitor the pericardial effusion that was reported yesterday. <Phyllis De La Rosao - Last Filed: 07/13/24 07:07> Madeline is post op from laparoscopic converted to open cholecystectomy, with a tumor found on the fundus of the gallbladder and mets to the liver. Waiting for pathology report. She is tolerating the advanced diet, with nausea or vomiting. She did state a great deal with tenderness while palpating the right lower quadrant. Patient has been able to ambulate with assistance, and encouraged to continue spirometry 10x per hour. She is being anticoagulated with apixaban for the PE from last friday. TTE will be repeated today to monitor the pericardial effusion that was reported yesterday. Above-noted and appreciated See my previously completed progress note from today <Kelby Arechiga MD - Last Filed: 07/13/24 14:52> Time Spent With Patient Time: Total time managing care of this patient today ____ minutes. <Phyllisedward De La Rosao - Last Filed: 07/13/24 07:07> Quality Stroke Does the patient have a stroke diagnosis?: No <Phyllis Emeterio - Last Filed: 07/13/24 07:07> VTE Prior VTE?: No <Phyllis Emeterio - Last Filed: 07/13/24 07:07> VTE Risk Level:: Surgical - low <Phyllisedward GuevaraEmeterio - Last Filed: 07/13/24 07:07> VTE Device Contraindication: Treatment Not Indicated <Phyllis Emeterio - Last Filed: 07/13/24 07:07> VTE Drug Contraindication: Treatment Not Indicated <Phyllis Emeterio - Last Filed: 07/13/24 07:07>
--- NOTE | 2024-07-13 07:00 | CA_ITS ---
Transthoracic Echocardiogram Patient (Last, First, Middle): Madeline Duff, Gender: Female Date of : 1940 Age: 83 Procedure Date: 07/13/2024 Procedure Type: Transthoracic Echocardiogram [place] [facility] [place] Height: 154.94 cm Weight: 58.06 kg BSA: 1.56 m2 Heart Rate: 71 bpm BP: 153 / 69 mmHg Instructor Robotics: SB Referring MD: Sonido Azevedo MD Symptoms: recheck pericardial effusion Study Quality: Adequate/limited echo ordered ECG Rhythm: Sinus Conclusions: - Normal left ventricular cavity size. The left ventricular systolic function is hyperdynamic. The visually estimated ejection fraction is >70%. - Circumferential pericardial effusion which is mostly moderate but appears to be large in size around the right atrium and the lateral wall. No definitive signs of pericardial tamponade noted. Findings Left Ventricle Normal left ventricular cavity size. The left ventricular systolic function is hyperdynamic. The visually estimated ejection fraction is >70%. Venous The inferior vena cava is normal in size and collapses greater than 50% with inspiration. Pericardium/Pleural Circumferential pericardial effusion which is mostly moderate but appears to be large in size around the right atrium and the lateral wall. No definitive signs of pericardial tamponade noted. Prior Study Comparison No significant change compared to prior study dated: 07/09/2024. Measurements 2D Linear Measurements LVIDd: 3.92 3.9-5.3/4.2-5.9 cm LVIDd Index: 2.51 2.4-3.2/2.2-3.1 cm/m2 LVIDs: 2.53 2.0-3.6 cm Mitral Valve E'Medial: 4.35 Diastolic Function E'Medial: 4.35 Tricuspid Valve RA Press: 3.00 Updated in Other Vendor System with Status of Final Jc Avila MD electronically signed on 07/13/2024 3:20:11 PM with status of Final
[2024-07-13 07:22] LABS: Glucose, Whole Blood 181 mg/dL (60-115)
--- NOTE | 2024-07-13 07:48 | P.PNGS_ITS ---
Subjective Subjective Date of Service: 07/13/24 Interval history: I feel about the same, no change. Denies abdominal pain at this time. Currently breathing comfortably on 0.5 L nasal cannula Physical Exam 2 Vital Signs: Vital Signs: Last Vital Signs Temp 97.7 F 07/13/24 07:19 Pulse 71 07/13/24 07:19 Resp 20 07/13/24 07:19 BP 151/76 H 07/13/24 07:19 Pulse Ox 92 07/13/24 07:19 O2 Del Method Room Air 07/13/24 07:19 O2 Flow Rate 0.5 07/12/24 19:30 BMI result Body Mass Index 24.4 Const: General: comfortable Nutritional Appearance: well nourished O rientation/consciousness: patient oriented x3 Resp: Other: Breathing comfortably with nasal cannula GI: Other: Abdominal incision and drain site is clean, dry, and intact Skin: Other: Warm, dry, normal color Neuro: General: patient oriented x3 Objective Data Active Medications Acetaminophen (Acetaminophen 325 Mg Tablet) 650 mg PO Q6H PRN PRN Reason: Pain, Mild 1-3,fever,headache Last Admin: 07/12/24 08:39 Dose: 650 mg Documented By: NINI Amlodipine Besylate (Amlodipine Besylate 5 Mg Tablet) 5 mg PO DAILY [facility]; Protocol Last Admin: 07/12/24 08:21 Dose: 5 mg Documented By: NINI Apixaban (Apixaban 5 Mg Tablet) 10 mg PO BID [facility] Stop: 07/19/24 09:01 Last Admin: 07/12/24 21:28 Dose: 10 mg Documented By: ROSA Atorvastatin Calcium (Atorvastatin Calcium 80 Mg Tablet) 80 mg PO DAILY [facility] Last Admin: 07/12/24 08:20 Dose: 80 mg Documented By: NINI Carvedilol (Carvedilol 25 Mg Tablet) 25 mg PO BID [facility]; Protocol Last Admin: 07/12/24 21:28 Dose: 25 mg Documented By: ROSA Dextrose (Dextrose 50 % 25 Gm/50 Ml Syringe) 25 gm IVPUSH Q15M PRN; Protocol PRN Reason: per Hypoglycemia Standing Ord. Donepezil HCl (Donepezil Hcl 5 Mg Tablet) 5 mg PO DAILY [facility] Last Admin: 07/12/24 08:21 Dose: 5 mg Documented By: NINI Furosemide (Furosemide 20 Mg/2 Ml Vial) 20 mg IVPUSH BID@0900,1800 [facility]; Protocol Last Admin: 07/12/24 18:17 Dose: 20 mg Documented By: NINI Glucose (Glucose Gel 15 Gm Gel..Gram.) 15 gm PO Q15M PRN; Protocol PRN Reason: per Hypoglycemia Standing Ord. Guaifenesin (Guaifenesin La 600 Mg Tab.Er.12h) 600 mg PO BID [facility] Last Admin: 07/12/24 21:28 Dose: 600 mg Documented By: ANTOINBaron Hydromorphone HCl (Hydromorphone Hcl 1 Mg/Ml Syringe) 0.5 mg IVPUSH Q4H PRN; Protocol PRN Reason: Pain, Severe (Pain Scale 7-10) Last Admin: 07/12/24 00:22 Dose: 0.5 mg Documented By: ROSA Insulin Glargine (Insulin Glargine,Hum.Rec.Anlog 100 Unit/Ml 10 Ml Vial) 15 unit SUBCUT DAILY [facility] Last Admin: 07/12/24 08:21 Dose: 15 unit Documented By: NINI Insulin Human Lispro (Insulin Lispro 100 Unit/Ml 3 Ml Vial) 0 unit SUBCUT QIDACHS [facility]; Protocol Last Admin: 07/13/24 07:24 Dose: Not Given Documented By: NINI Non-Admin Reason: No Insulin Coverage Lisinopril (Lisinopril 40 Mg Tablet) 40 mg PO DAILY [facility]; Protocol Last Admin: 07/12/24 08:21 Dose: 40 mg Documented By: NINI Melatonin (Melatonin 3 Mg Tablet) 6 mg PO BEDTIME PRN PRN Reason: Insomnia Naloxone HCl (Naloxone Hcl 0.4 Mg/Ml Vial) 0.04 mg IVPUSH Q5M PRN PRN Reason: Excessive sedation or RR < 8 Ondansetron HCl (Ondansetron Hcl 4 Mg/2 Ml Vial) 4 mg IVPUSH Q8H PRN PRN Reason: Nausea and Vomiting Last Admin: 07/09/24 08:05 Dose: 4 mg Documented By: CITLALLI Ondansetron HCl (Ondansetron Hcl 4 Mg/2 Ml Vial) 4 mg IVPUSH QID PRN PRN Reason: Nausea Oxycodone HCl (Oxycodone Hcl Immed Release 5 Mg Tablet) 5 mg PO Q6H PRN PRN Reason: Pain, Moderate(Pain Scale 4-6) Last Admin: 07/12/24 16:46 Dose: 5 mg Documented By: NINI Sodium Chloride (0.9 % Sodium Chloride Flush 3 Ml Syringe) 3 ml IVFLUSH QSHIFT [facility] Last Admin: 07/12/24 21:29 Dose: 3 ml Documented By: ANTOINC Labs 07/12/24 07:29 07/12/24 07:29 Labs: Laboratory Results - last 24 hr 07/12/24 07/12/24 07/12/24 07:29 11:16 16:09 MCV 86.1 MCH 28.4 MCHC 33.0 RDW 14.4 Plt Count 334 MPV 9.6 Absolute Nucleated RBC 0.000 Nucleated RBC % (auto) 0.0 Anion Gap 10 L Estim Creat Clear Calc 49.6 Estimated GFR > 60 POC Glucose 286 H 183 H Random Glucose 120 H Calcium 8.3 L Magnesium 1.8 B-Natriuretic Peptide 139 H 07/12/24 07/13/24 20:59 07:18 MCV MCH MCHC RDW Plt Count MPV Absolute Nucleated RBC Nucleated RBC % (auto) Anion Gap Estim Creat Clear Calc Estimated GFR POC Glucose 310 H 181 H Random Glucose Calcium Magnesium B-Natriuretic Peptide Procedures Date of Service Date of Service: 07/13/24 Progress Note: A&P Assessment and plan (1) Metastasis to liver: Status: Acute (2) Gallbladder cancer: Status: Acute (3) Pulmonary embolism: Status: Acute (4) S/P cholecystectomy: Status: Acute Plan 83-year-old female patient presenting with right upper quadrant abdominal pain found to have gallstones and sludge in the gallbladder by ultrasound, status post laparoscopic cholecystectomy converted to open cholecystectomy on 07/07/2024. 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 Patient was now POD 6. Postoperative course significant for shortness of breath, increased FiO2 requirement. Patient with evidence of pulmonary edema, V/Q scan with intermediate probability of pulmonary embolus. She was unable to obtain a CT chest with IV contrast due to a severe contrast allergy. Patient being treated with Eliquis. Patient also with a chronic pericardial effusion which is being observed. Awaiting results of pathology after which oncology will be reconsulted. Patient is eating without nausea or vomiting. Abdominal incisions are clean and intact. Plan is for discharge to home with VNA once medically cleared. Time Spent With Patient Time: Total time managing care of this patient today ____ minutes. Quality Stroke Does the patient have a stroke diagnosis?: No VTE Prior VTE?: No VTE Risk Level:: Surgical - low VTE Device Contraindication: Treatment Not Indicated VTE Drug Contraindication: Treatment Not Indicated
[2024-07-13] MEDS: Insulin Glargine,Hum.rec.anlog 100 UNIT/ML 10 ML VIAL 15 UNIT SUBCUT (10:48)
[2024-07-13] MEDS: lisinopriL 40 MG TABLET PO (10:49)
[2024-07-13] MEDS: Atorvastatin Calcium 80 MG TABLET PO (10:49)
[2024-07-13] MEDS: Apixaban 5 MG TABLET 10 MG PO ×2 (10:49→20:28)
[2024-07-13] MEDS: Furosemide 20 MG/2 ML VIAL IVPUSH ×2 (10:49→17:33)
[2024-07-13] MEDS: carvediloL 25 MG TABLET PO ×2 (10:49→20:28)
[2024-07-13] MEDS: amLODIPine Besylate 5 MG TABLET PO (10:49)
[2024-07-13] MEDS: guaiFENesin LA 600 MG TAB.ER.12H PO ×2 (10:49→20:28)
[2024-07-13] MEDS: Donepezil HCl 5 MG TABLET PO (10:49)
[2024-07-13] MEDS: 0.9 % Sodium Chloride Flush 3 ML SYRINGE IVFLUSH ×2 (10:50→22:43)
[2024-07-13 11:06] LABS: Glucose, Whole Blood 298 mg/dL (60-115)
[2024-07-13] MEDS: Insulin Lispro 100 UNIT/ML 3 ML VIAL SUBCUT ×3 (11:07→20:54)
[2024-07-13] MEDS: Acetaminophen 325 MG TABLET 650 MG PO ×2 (11:11→17:32)
[2024-07-13 16:26] LABS: Glucose, Whole Blood 289 mg/dL (60-115)
[2024-07-13 20:41] LABS: Glucose, Whole Blood 269 mg/dL (60-115)
[2024-07-14] VITALS (7 sets, daily range): BP systolic 105–145; BP diastolic 54–71; PULSE 67–85; RESP 14–20; TEMP 36.2–37.3; O2SAT 88–97; BMI 24.7
[2024-07-14] MEDS: oxyCODONE HCl Immed Release 5 MG TABLET PO (06:03)
--- NOTE | 2024-07-14 06:51 | PM.PNGS ---
Subjective Subjective Date of Service: 07/14/24 <Phyllis Emeterio - Last Filed: 07/14/24 07:05> 07/14/24 <Kiki Robertson PA-C - Last Filed: 07/14/24 13:56> 07/14/24 <Kelby Arechiga MD - Last Filed: 07/14/24 14:24> Interval history: Patient stated she was 'not doing well today' and reported pain in her right lower quadrant. Continues to tolerate advanced diet and liquids, no bowel movement yesterday reported by patient. <[email or web address] - Last Filed: 07/14/24 07:05> Physical Exam Vital Signs: Vital Signs: Last Vital Signs Temp 97.1 F 07/14/24 03:57 Pulse 67 07/14/24 03:57 Resp 20 07/14/24 03:57 BP 145/71 H 07/14/24 03:57 Pulse Ox 95 07/14/24 03:57 O2 Del Method Nasal Cannula 07/14/24 03:57 O2 Flow Rate 1 07/14/24 03:57 BMI result Body Mass Index 24.7 <[email or web address] - Last Filed: 07/14/24 07:05> Const: General: alert and awake <Phyllis Emeterio - Last Filed: 07/14/24 07:05> Orientation/consciousness: patient oriented x3 <Phyllis Emeterio - Last Filed: 07/14/24 07:05> Resp: Other: on 1L nasal cannula <[email or web address] - Last Filed: 07/14/24 07:05> Effort & Inspection: normal respiratory effort <Phyllis Emeterio - Last Filed: 07/14/24 07:05> Cardio: Rate: regular rate <Phyllis Emeterio - Last Filed: 07/14/24 07:05> Rhythm: regular rhythm <Phyllis Emeterio - Last Filed: 07/14/24 07:05> GI: Other: Incision intact, clear Soft, tenderness to palpation on right lower quadrant Negative for rosving sign and rebound tenderness <Phyllis Emeterio - Last Filed: 07/14/24 07:05> Neuro: General: patient oriented x3 <Phyllis Emeterio - Last Filed: 07/14/24 07:05> Objective Data Active Medications Acetaminophen (Acetaminophen 325 Mg Tablet) 650 mg PO Q6H PRN PRN Reason: Pain, Mild 1-3,fever,headache Last Admin: 07/13/24 17:32 Dose: 650 mg Documented By: NINI Amlodipine Besylate (Amlodipine Besylate 5 Mg Tablet) 5 mg PO DAILY [facility]; Protocol Last Admin: 07/13/24 10:49 Dose: 5 mg Documented By: NINI Apixaban (Apixaban 5 Mg Tablet) 10 mg PO BID [facility] Stop: 07/19/24 09:01 Last Admin: 07/13/24 20:28 Dose: 10 mg Documented By: SUHA Atorvastatin Calcium (Atorvastatin Calcium 80 Mg Tablet) 80 mg PO DAILY [facility] Last Admin: 07/13/24 10:49 Dose: 80 mg Documented By: NINI Carvedilol (Carvedilol 25 Mg Tablet) 25 mg PO BID [facility]; Protocol Last Admin: 07/13/24 20:28 Dose: 25 mg Documented By: SUHA Dextrose (Dextrose 50 % 25 Gm/50 Ml Syringe) 25 gm IVPUSH Q15M PRN; Protocol PRN Reason: per Hypoglycemia Standing Ord. Donepezil HCl (Donepezil Hcl 5 Mg Tablet) 5 mg PO DAILY [facility] Last Admin: 07/13/24 10:49 Dose: 5 mg Documented By: NINI Furosemide (Furosemide 20 Mg/2 Ml Vial) 20 mg IVPUSH BID@0900,1800 [facility]; Protocol Last Admin: 07/13/24 17:33 Dose: 20 mg Documented By: NINI Glucose (Glucose Gel 15 Gm Gel..Gram.) 15 gm PO Q15M PRN; Protocol PRN Reason: per Hypoglycemia Standing Ord. Guaifenesin (Guaifenesin La 600 Mg Tab.Er.12h) 600 mg PO BID [facility] Last Admin: 07/13/24 20:28 Dose: 600 mg Documented By: SUHA Hydromorphone HCl (Hydromorphone Hcl 1 Mg/Ml Syringe) 0.5 mg IVPUSH Q4H PRN; Protocol PRN Reason: Pain, Severe (Pain Scale 7-10) Last Admin: 07/12/24 00:22 Dose: 0.5 mg Documented By: ROSA Insulin Glargine (Insulin Glargine,Hum.Rec.Anlog 100 Unit/Ml 10 Ml Vial) 15 unit SUBCUT DAILY [facility] Last Admin: 07/13/24 10:48 Dose: 15 unit Documented By: NINI Insulin Human Lispro (Insulin Lispro 100 Unit/Ml 3 Ml Vial) 0 unit SUBCUT QIDACHS [facility]; Protocol Last Admin: 07/13/24 20:54 Dose: 6 unit Documented By: SUHA Lisinopril (Lisinopril 40 Mg Tablet) 40 mg PO DAILY [facility]; Protocol Last Admin: 07/13/24 10:49 Dose: 40 mg Documented By: NINI Melatonin (Melatonin 3 Mg Tablet) 6 mg PO BEDTIME PRN PRN Reason: Insomnia Naloxone HCl (Naloxone Hcl 0.4 Mg/Ml Vial) 0.04 mg IVPUSH Q5M PRN PRN Reason: Excessive sedation or RR < 8 Ondansetron HCl (Ondansetron Hcl 4 Mg/2 Ml Vial) 4 mg IVPUSH Q8H PRN PRN Reason: Nausea and Vomiting Last Admin: 07/09/24 08:05 Dose: 4 mg Documented By: CITLALLI Ondansetron HCl (Ondansetron Hcl 4 Mg/2 Ml Vial) 4 mg IVPUSH QID PRN PRN Reason: Nausea Oxycodone HCl (Oxycodone Hcl Immed Release 5 Mg Tablet) 5 mg PO Q6H PRN PRN Reason: Pain, Moderate(Pain Scale 4-6) Last Admin: 07/14/24 06:03 Dose: 5 mg Documented By: SUHA Sodium Chloride (0.9 % Sodium Chloride Flush 3 Ml Syringe) [facility] Last Admin: 07/13/24 22:43 Dose: 3 ml Documented By: SUHA <Phyllis Emeterio - Last Filed: 07/14/24 07:05> Labs CBC & Chem 7: 07/12/24 07:29 07/12/24 07:29 <Phyllis Emeterio - Last Filed: 07/14/24 07:05> Labs: Laboratory Results - last 24 hr 07/13/24 07/13/24 07/13/24 07:18 10:53 16:22 POC Glucose 181 H 298 H 289 H 07/13/24 20:35 POC Glucose 269 H <Phyllis Guevaracomo - Last Filed: 07/14/24 07:05> Procedures Date of Service Date of Service: 07/14/24 <Phyllis Emeterio - Last Filed: 07/14/24 07:05> 07/14/24 <Kiki Robertson PA-C - Last Filed: 07/14/24 13:56> 07/14/24 <Kelby Arechiga MD - Last Filed: 07/14/24 14:24> Progress Note: A&P Assessment and plan (1) Gallbladder cancer: Status: Acute <Phyllis Guevraacomo - Last Filed: 07/14/24 07:05> (2) Pericardial effusion: Status: Acute <Phyllis Emeterio - Last Filed: 07/14/24 07:05> (3) Acute diastolic (congestive) heart failure: Status: Acute <Phyllis Emeterio - Last Filed: 07/14/24 07:05> (4) Pulmonary embolism: Status: Acute <Phyllis Emeterio - Last Filed: 07/14/24 07:05> Assessment and Plan: Patient is post op day 7 from laparoscopic converted to open cholecystectomy, with a tumor found on the fundus of the gallbladder and mets to the liver. Pathology report is pending. She is tolerating the advanced diet, without nausea or vomiting. Patient reports right lower quadrant pain again this morning. She has been able to ambulate with assistance, and encouraged to continue spirometry 10x per hour. She continues to be anticoagulated with apixaban for the PE from last friday. Echocardiogram from 07/13 states, Circumferential pericardial effusion which is mostly moderate but appears to be large in size around the right atrium and the lateral wall. No definitive signs of pericardial tamponade noted'. Incisions are intact and clean, plan to discharge home when medically cleared. <Phyllis Guevaracomo - Last Filed: 07/14/24 07:05> Patient is post op day 7 from laparoscopic converted to open cholecystectomy, with a tumor found on the fundus of the gallbladder and mets to the liver. Pathology report is pending. She is tolerating the advanced diet, without nausea or vomiting. Patient reports right lower quadrant pain again this morning. She has been able to ambulate with assistance, and encouraged to continue spirometry 10x per hour. She continues to be anticoagulated with apixaban for the PE from last friday. Echocardiogram from 07/13 states, Circumferential pericardial effusion which is mostly moderate but appears to be large in size around the right atrium and the lateral wall. No definitive signs of pericardial tamponade noted'. Incisions are intact and clean, plan to discharge home when medically cleared. Abd benign. No acute surgical issues, Will ask hospitalists to resee for acute medical issues. <Kiki Robertson PA-C - Last Filed: 07/14/24 13:56> Patient is post op day 7 from laparoscopic converted to open cholecystectomy, with a tumor found on the fundus of the gallbladder and mets to the liver. Pathology report is pending. She is tolerating the advanced diet, without nausea or vomiting. Patient reports right lower quadrant pain again this morning. She has been able to ambulate with assistance, and encouraged to continue spirometry 10x per hour. She continues to be anticoagulated with apixaban for the PE from last friday. Echocardiogram from 07/13 states, Circumferential pericardial effusion which is mostly moderate but appears to be large in size around the right atrium and the lateral wall. No definitive signs of pericardial tamponade noted'. Incisions are intact and clean, plan to discharge home when medically cleared. Abd benign. No acute surgical issues, Will ask hospitalists to resee for acute medical issues. Patient seen and examined independently. 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 Tumor invades the perimuscular connective tissue perforates the visceral peritoneum (pT3). Tumor is present at the radial margin. Cystic duct mucosal margin is free of tumor but tumor in the wall and blood vessels is close to the deep cystic duct margin. Liver is positive for metastatic adenocarcinoma. Results of the pathology were discussed with the patient and her family this afternoon. We will need oncology consultation to discuss her options at this point. Patient and family expressed understanding and agree with the plan. <Kelby Arechiga MD - Last Filed: 07/14/24 14:24> Time Spent With Patient Time: Total time managing care of this patient today ____ minutes. <Phyllis Emeterio - Last Filed: 07/14/24 07:05> Quality Stroke Does the patient have a stroke diagnosis?: No <Phyllis Emeterio - Last Filed: 07/14/24 07:05> VTE Prior VTE?: No <Phyllis Emeterio - Last Filed: 07/14/24 07:05> VTE Risk Level:: Surgical - low <Phyllis Emeterio - Last Filed: 07/14/24 07:05> VTE Device Contraindication: Treatment Not Indicated <Phyllis Emeterio - Last Filed: 07/14/24 07:05> VTE Drug Contraindication: Treatment Not Indicated <Phyllis Emeterio - Last Filed: 07/14/24 07:05>
[2024-07-14 07:17] LABS: Glucose, Whole Blood 208 mg/dL (60-115)
[2024-07-14] MEDS: Furosemide 20 MG/2 ML VIAL IVPUSH (09:39)
[2024-07-14] MEDS: Apixaban 5 MG TABLET 10 MG PO ×2 (09:40→20:04)
[2024-07-14] MEDS: lisinopriL 40 MG TABLET PO (09:40)
[2024-07-14] MEDS: carvediloL 25 MG TABLET PO ×2 (09:40→20:04)
[2024-07-14] MEDS: Donepezil HCl 5 MG TABLET PO (09:40)
[2024-07-14] MEDS: Atorvastatin Calcium 80 MG TABLET PO (09:40)
[2024-07-14] MEDS: 0.9 % Sodium Chloride Flush 3 ML SYRINGE IVFLUSH ×3 (09:41→20:05)
[2024-07-14] MEDS: Insulin Glargine,Hum.rec.anlog 100 UNIT/ML 10 ML VIAL 15 UNIT SUBCUT (09:41)
[2024-07-14] MEDS: Insulin Lispro 100 UNIT/ML 3 ML VIAL SUBCUT ×6 (09:41→20:55)
[2024-07-14] MEDS: amLODIPine Besylate 5 MG TABLET PO (09:49)
[2024-07-14 11:03] LABS: Glucose, Whole Blood 321 mg/dL (60-115)
--- NOTE | 2024-07-14 12:01 | PM.PNCARD ---
Subjective Subjective Date of Service: 07/14/24 Interval history: Seen examined at bedside. Repeat echocardiography has shown [id number] pericardial effusion. Appears fairly unchanged compared to previous echocardiography. Continues to be hemodynamically stable. Physical Exam Vital Signs: Last Vital Signs Temp 98.8 F 07/14/24 10:59 Pulse 73 07/14/24 10:59 Resp 15 07/14/24 10:59 BP 120/65 07/14/24 10:59 Pulse Ox 95 07/14/24 10:59 O2 Del Method Nasal Cannula 07/14/24 10:59 O2 Flow Rate 1 07/14/24 10:59 BMI result Body Mass Index 24.7 GENERAL APPEARANCE: in no acute distress, on supplemental oxygen. NECK: no jugular venous distention. SKIN: no suspicious lesions, warm and dry. HEART: no murmurs, regular rate and rhythm. LUNGS: Crackles both bases-appear to be due to atelectasis. ABDOMEN: soft, nontender. EXTREMITIES: no edema. PERIPHERAL PULSES: equal. NEUROLOGIC: No gross deficits, AAO X 3 Objective Labs and Meds 07/12/24 07:29 07/12/24 07:29 Lab results: Laboratory Results - last 24 hr 07/13/24 07/13/24 07/14/24 16:22 20:35 07:10 POC Glucose 289 H 269 H 208 H 07/14/24 10:57 POC Glucose 321 H Progress Note: A&P Assessment and plan (1) Pericardial effusion: Status: Acute Plan 83-year-old female who is presenting for acute cholecystitis and further workup has raise concern for gallbladder malignancy with liver metastasis. She was also noticed to have pericardial effusion by CT scan and echocardiography has confirmed moderate pericardial effusion without any tamponade physiology. Repeat echocardiography has shown [id number] pericardial effusion. On comparison the her 2 echocardiogram so quite comparable. She does not have any clinical evidence of tamponade. She is on anticoagulation for presumed diagnosis of PE. She had a intermediate probability V/Q scan. No indication for pericardiocentesis currently. It any change in clinical status like hypotension then we can reassess the pericardial effusion. Currently family feels that they do not want to stop the anticoagulation to do any procedures. Also with gallbladder malignancy and potential metastasis-overall prognosis maybe affected by these issues more than any other cardiovascular issue currently. Thank you for allowing me to participate in the care of your patient. Please feel free to contact me if you have any questions. Time Spent With Patient Time: Total time managing care of this patient today ____ minutes. Progress Note: Quality Stroke Does the patient have a stroke diagnosis?: No Procedures Date of Service Date of Service: 07/14/24
[2024-07-14] MEDS: guaiFENesin LA 600 MG TAB.ER.12H PO ×2 (13:02→20:04)
--- NOTE | 2024-07-14 14:58 | HO.PM.IMPN ---
Subjective Subjective Date of Service: 07/14/24 Interval History: Seen and examined this afternoon with family at bedside who do assist with Jordanian interpretation Interval history: The patient has no complaints at that time, sitting up in her chair. She has been weaned from supplemental O2 and is currently 96% on room air. She denies any shortness of breath, orthopnea, dyspnea on exertion. No chest pain. Denies any abdominal pain, nausea, vomiting. She is eating and drinking without difficulty. Has been hyperglycemic. Review of Systems Review of Systems: Yes all other systems are reviewed and are negative Physical Exam Vital Signs: Vital Signs: Last Vital Signs Temp 98.8 F 07/14/24 10:59 Pulse 73 07/14/24 10:59 Resp 15 07/14/24 10:59 BP 120/65 07/14/24 10:59 Pulse Ox 95 07/14/24 10:59 O2 Del Method Nasal Cannula 07/14/24 10:59 O2 Flow Rate 1 07/14/24 10:59 BMI result Body Mass Index 24.7 Constitutional - Awake and Alert, No apparent distress Eyes - PERRLA, EOMI Cardiovascular - S1S2, RRR, No edema, no jvd Respiratory - Normal lung expansion, Normal respiratory effort, No respiratory distress, rales LLL Extremities - no calf tenderness bilaterally, no swelling Skin - Warm/Dry. contraction alkalosis Neurological - Alert & oriented x3 Psychological - Appropriate affect Objective Data Active Medications Acetaminophen (Acetaminophen 325 Mg Tablet) 650 mg PO Q6H PRN PRN Reason: Pain, Mild 1-3,fever,headache Last Admin: 07/13/24 17:32 Dose: 650 mg Documented By: NINI Amlodipine Besylate (Amlodipine Besylate 5 Mg Tablet) 5 mg PO DAILY [facility]; Protocol Last Admin: 07/14/24 09:49 Dose: 5 mg Documented By: TONIA Apixaban (Apixaban 5 Mg Tablet) 10 mg PO BID [facility] Stop: 07/19/24 09:01 Last Admin: 07/14/24 09:40 Dose: 10 mg Documented By: TONIA Atorvastatin Calcium (Atorvastatin Calcium 80 Mg Tablet) 80 mg PO DAILY [facility] Last Admin: 07/14/24 09:40 Dose: 80 mg Documented By: TONIA Carvedilol (Carvedilol 25 Mg Tablet) 25 mg PO BID [facility]; Protocol Last Admin: 07/14/24 09:40 Dose: 25 mg Documented By: TONIA Dextrose (Dextrose 50 % 25 Gm/50 Ml Syringe) 25 gm IVPUSH Q15M PRN; Protocol PRN Reason: per Hypoglycemia Standing Ord. Donepezil HCl (Donepezil Hcl 5 Mg Tablet) 5 mg PO DAILY [facility] Last Admin: 07/14/24 09:40 Dose: 5 mg Documented By: TONIA Furosemide (Furosemide 20 Mg/2 Ml Vial) 20 mg IVPUSH BID@0900,1800 [facility]; Protocol Last Admin: 07/14/24 09:39 Dose: 20 mg Documented By: TONIA Glucose (Glucose Gel 15 Gm Gel..Gram.) 15 gm PO Q15M PRN; Protocol PRN Reason: per Hypoglycemia Standing Ord. Guaifenesin (Guaifenesin La 600 Mg Tab.Er.12h) 600 mg PO BID [facility] Last Admin: 07/14/24 13:02 Dose: 600 mg Documented By: TONIA Hydromorphone HCl (Hydromorphone Hcl 1 Mg/Ml Syringe) 0.5 mg IVPUSH Q4H PRN; Protocol PRN Reason: Pain, Severe (Pain Scale 7-10) Last Admin: 07/12/24 00:22 Dose: 0.5 mg Documented By: ANTOINBaron Insulin Glargine (Insulin Glargine,Hum.Rec.Anlog 100 Unit/Ml 10 Ml Vial) 15 unit SUBCUT DAILY [facility] Last Admin: 07/14/24 09:41 Dose: 15 unit Documented By: TONIA Insulin Human Lispro (Insulin Lispro 100 Unit/Ml 3 Ml Vial) 0 unit SUBCUT QIDAS [facility]; Protocol Last Admin: 07/14/24 13:02 Dose: 8 unit Documented By: TONIA Insulin Human Lispro (Insulin Lispro 100 Unit/Ml 3 Ml Vial) 5 unit SUBCUT QIDAS [facility] Lisinopril (Lisinopril 40 Mg Tablet) 40 mg PO DAILY [facility]; Protocol Last Admin: 07/14/24 09:40 Dose: 40 mg Documented By: TONIA Melatonin (Melatonin 3 Mg Tablet) 6 mg PO BEDTIME PRN PRN Reason: Insomnia Naloxone HCl (Naloxone Hcl 0.4 Mg/Ml Vial) 0.04 mg IVPUSH Q5M PRN PRN Reason: Excessive sedation or RR < 8 Ondansetron HCl (Ondansetron Hcl 4 Mg/2 Ml Vial) 4 mg IVPUSH Q8H PRN PRN Reason: Nausea and Vomiting Last Admin: 07/09/24 08:05 Dose: 4 mg Documented By: CITLALLI Ondansetron HCl (Ondansetron Hcl 4 Mg/2 Ml Vial) 4 mg IVPUSH QID PRN PRN Reason: Nausea Oxycodone HCl (Oxycodone Hcl Immed Release 5 Mg Tablet) 5 mg PO Q6H PRN PRN Reason: Pain, Moderate(Pain Scale 4-6) Last Admin: 07/14/24 06:03 Dose: 5 mg Documented By: SUHA Sodium Chloride (0.9 % Sodium Chloride Flush 3 Ml Syringe) 3 ml IVFLUSH QSHIFT [facility] Last Admin: 07/14/24 09:41 Dose: 3 ml Documented By: IRONMAT Labs 07/12/24 07:29 07/14/24 14:21 Labs: Laboratory Results - last 24 hr 07/13/24 07/13/24 07/14/24 16:22 20:35 07:10 POC Glucose 289 H 269 H 208 H 07/14/24 10:57 POC Glucose 321 H 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 - POD5, postop care per Gen Surg, pathology of gallbladder and liver biopsy pending, d/c piperacillin-tazobactam 07/07-07/12 acute hypoxic respiratory failure- resolved - possibly due to PE and/or CHF - cannot get CT angio chest due to hx life-threatening anaphylaxis with IV contrast and pt/family do not wish to risk it again even with premedication; V/Q intermediate-probability; US Duplex negative; no R heart strain on TTE; no MRPA available here per Radiology - empirically anticoagulated with enoxaparin 1 mg/kg q12h; transition to apixaban 10 mg bid 07/12-07/16 then 5 mg bid -Repeat CXR shows atelectasis vs pneumonia. Low suspicion for pneumonia in absence of cough/fever -wean supplemental O2 per protocol -Encourage IS acute diastolic HF - interstitial edema + ground-glass infiltrates on CT chest - grade 2 diastolic HF on echo - 07/13 diuresis slowing, now with contraction alkalosis and slight bump in creat. DC IV lasix and hold diuretics at this time. Initiate 20mg PO lasix as appropriate - Cardiology consulted + following pericardial effusion - larger on CT; Cardiology consulted; no tamponade; no pericardiocentesis in light of anticoagulation + likely stage IV CA; repeat limited TTE tomorrow; avoid over-aggressive diuresis -diuresis as above UTI, elias-sensitive E. coli - adequately covered by piperacillin-tazobactam and completed 5d HTN - continue amlodipine, carvedilol, and lisinopril DM2 - uncontrolled with hyperglycemia. Hgb A1c 10.2% - hold MTF, continue Lantus + correction-dose lispro - add standing 5units lispro QIDACHS HLD - continue statin MCI - donepezil VTE ppx - apixaban dispo - plan home with VNA vs STR Thank you for allowing us to participate in the care of this pt. Will continue to follow along with you. Total time managing care of this patient today: 45 minutes. Quality Stroke Does the patient have a stroke diagnosis?: No VTE Prior VTE?: No VTE Risk Level:: Surgical - low VTE Device Contraindication: Treatment Not Indicated VTE Drug Contraindication: Treatment Not Indicated
[2024-07-14 15:14] LABS: Anion Gap 15 (12-20); Blood Urea Nitrogen 30 mg/dL (9-16); Calcium 8.6 mg/dL (8.4-10.2); Carbon Dioxide 29 mmol/L (22-29); Chloride 98 mmol/L (96-108); Estimated Glomerular Filt Rate 47; Glucose Random 308 mg/dL (60-115); Potassium 3.7 mmol/L (3.3-5.1); Sodium 138 mmol/L (135-145)
[2024-07-14 15:20] LABS: B Type Natriuretic Peptide 114 pg/mL (<100)
[2024-07-14 16:05] LABS: Glucose, Whole Blood 222 mg/dL (60-115)
[2024-07-14 20:17] LABS: Glucose, Whole Blood 354 mg/dL (60-115)
[2024-07-14] MEDS: Melatonin 3 MG TABLET 6 MG PO (20:58)
[2024-07-15 04:00] VITALS: BP 108/59; PULSE 75; RESP 18; TEMP 36.4; O2SAT 92
[2024-07-15 05:59] VITALS: BMI 24.6
--- NOTE | 2024-07-15 07:04 | PM.PNGS ---
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 Patient reports feeling 'good' today. <Phyllis Emeterio - Last Filed: 07/15/24 07:33> Physical Exam Vital Signs: Vital Signs: Last Vital Signs Temp 97.6 F 07/15/24 04:00 Pulse 75 07/15/24 04:00 Resp 18 07/15/24 04:00 BP 108/59 L 07/15/24 04:00 Pulse Ox 92 07/15/24 04:00 O2 Del Method Nasal Cannula 07/15/24 04:00 O2 Flow Rate 2 07/15/24 04:00 BMI result Body Mass Index 24.6 <Phyllis Emeterio - Last Filed: 07/15/24 07:33> Const: General: awake <Phyllis Emeterio - Last Filed: 07/15/24 07:33> Orientation/consciousness: patient oriented x3 <Phyllis Emeterio - Last Filed: 07/15/24 07:33> Resp: Effort & Inspection: normal respiratory effort and able to speak in complete sentences <Phyllis Emeterio - Last Filed: 07/15/24 07:33> Cardio: Rate: regular rate <Phyllis Emeterio - Last Filed: 07/15/24 07:33> Rhythm: regular rhythm <Phyllis Emeterio - Last Filed: 07/15/24 07:33> Peripheral pulses: radial pulses present <Phyllis Emeterio - Last Filed: 07/15/24 07:33> GI: Other: abdomen soft, mild tenderness to palpation incision site in tact, clean <Phyllis Emeterio - Last Filed: 07/15/24 07:33> Other: abdomen soft, no significant tenderness incision sites clean <Kiki Robertson PA-C - Last Filed: 07/15/24 11:12> Skin: General skin exam: no rashes or lesions noted and no jaundice <Kiki Robertson PA-C - Last Filed: 07/15/24 11:12> Neuro: General: patient oriented x3 <Phyllis Guevaracomo - Last Filed: 07/15/24 07:33> Objective Data Active Medications Acetaminophen (Acetaminophen 325 Mg Tablet) 650 mg PO Q6H PRN PRN Reason: Pain, Mild 1-3,fever,headache Last Admin: 07/13/24 17:32 Dose: 650 mg Documented By: NINI Amlodipine Besylate (Amlodipine Besylate 5 Mg Tablet) 5 mg PO DAILY [facility]; Protocol Last Admin: 07/14/24 09:49 Dose: 5 mg Documented By: TONIA Apixaban (Apixaban 5 Mg Tablet) 10 mg PO BID [facility] Stop: 07/19/24 09:01 Last Admin: 07/14/24 20:04 Dose: 10 mg Documented By: ALFONSO Atorvastatin Calcium (Atorvastatin Calcium 80 Mg Tablet) 80 mg PO DAILY [facility] Last Admin: 07/14/24 09:40 Dose: 80 mg Documented By: TONIA Carvedilol (Carvedilol 25 Mg Tablet) 25 mg PO BID [facility]; Protocol Last Admin: 07/14/24 20:04 Dose: 25 mg Documented By: ALFONSO Dextrose (Dextrose 50 % 25 Gm/50 Ml Syringe) 25 gm IVPUSH Q15M PRN; Protocol PRN Reason: per Hypoglycemia Standing Ord. Donepezil HCl (Donepezil Hcl 5 Mg Tablet) 5 mg PO DAILY [facility] Last Admin: 07/14/24 09:40 Dose: 5 mg Documented By: TONIA Glucose (Glucose Gel 15 Gm Gel..Gram.) 15 gm PO Q15M PRN; Protocol PRN Reason: per Hypoglycemia Standing Ord. Guaifenesin (Guaifenesin La 600 Mg Tab.Er.12h) 600 mg PO BID [facility] Last Admin: 07/14/24 20:04 Dose: 600 mg Documented By: ALFONSO Hydromorphone HCl (Hydromorphone Hcl 1 Mg/Ml Syringe) 0.5 mg IVPUSH Q4H PRN; Protocol PRN Reason: Pain, Severe (Pain Scale 7-10) Last Admin: 07/12/24 00:22 Dose: 0.5 mg Documented By: ANTOINBaron Insulin Glargine (Insulin Glargine,Hum.Rec.Anlog 100 Unit/Ml 10 Ml Vial) 15 unit SUBCUT DAILY [facility] Last Admin: 07/14/24 09:41 Dose: 15 unit Documented By: TONIA Insulin Human Lispro (Insulin Lispro 100 Unit/Ml 3 Ml Vial) [facility]; Protocol Last Admin: 07/14/24 20:55 Dose: 10 unit Documented By: ALFONSO Insulin Human Lispro (Insulin Lispro 100 Unit/Ml 3 Ml Vial) 5 [facility] Last Admin: 07/14/24 20:55 Dose: 5 unit Documented By: ALFONSO Lisinopril (Lisinopril 40 Mg Tablet) 40 mg PO DAILY [facility]; Protocol Last Admin: 07/14/24 09:40 Dose: 40 mg Documented By: TONIA Melatonin (Melatonin 3 Mg Tablet) 6 mg PO BEDTIME PRN PRN Reason: Insomnia Last Admin: 07/14/24 20:58 Dose: 6 mg Documented By: ALFONSO Naloxone HCl (Naloxone Hcl 0.4 Mg/Ml Vial) 0.04 mg IVPUSH Q5M PRN PRN Reason: Excessive sedation or RR < 8 Ondansetron HCl (Ondansetron Hcl 4 Mg/2 Ml Vial) 4 mg IVPUSH Q8H PRN PRN Reason: Nausea and Vomiting Last Admin: 07/09/24 08:05 Dose: 4 mg Documented By: CITLALLI Ondansetron HCl (Ondansetron Hcl 4 Mg/2 Ml Vial) 4 mg IVPUSH QID PRN PRN Reason: Nausea Oxycodone HCl (Oxycodone Hcl Immed Release 5 Mg Tablet) 5 mg PO Q6H PRN PRN Reason: Pain, Moderate(Pain Scale 4-6) Last Admin: 07/14/24 06:03 Dose: 5 mg Documented By: SUHA Sodium Chloride (0.9 % Sodium Chloride Flush 3 Ml Syringe) [facility] Last Admin: 07/14/24 20:05 Dose: 3 ml Documented By: ALFONSO <Phyllis Emeterio - Last Filed: 07/15/24 07:33> Labs CBC & Chem 7: 07/12/24 07:29 07/15/24 07:00 <Phyllis Emeterio - Last Filed: 07/15/24 07:33> Labs: Laboratory Results - last 24 hr 07/14/24 07/14/24 07/14/24 07:10 10:57 14:21 Anion Gap 15 Estim Creat Clear Calc 32.0 Estimated GFR 47 POC Glucose 208 H 321 H Random Glucose 308 H Calcium 8.6 B-Natriuretic Peptide 114 H 07/14/24 07/14/24 15:50 20:12 Anion Gap Estim Creat Clear Calc Estimated GFR POC Glucose 222 H 354 H* Random Glucose Calcium B-Natriuretic Peptide <Phyllis Emeterio - Last Filed: 07/15/24 07:33> Procedures Date of Service Date of Service: 07/15/24 <Phyllis Emeterio - Last Filed: 07/15/24 07:33> 07/15/24 <Kiki Robertson PA-C - Last Filed: 07/15/24 11:12> 07/15/24 <Kelby Arecihga MD - Last Filed: 07/15/24 15:24> Progress Note: A&P Assessment and plan (1) Gallbladder cancer: Status: Acute <Phyllis Emeterio - Last Filed: 07/15/24 07:33> (2) Pericardial effusion: Status: Acute <Phyllis Emeterio - Last Filed: 07/15/24 07:33> (3) Acute diastolic (congestive) heart failure: Status: Acute <Phyllis Emeterio - Last Filed: 07/15/24 07:33> (4) Pulmonary embolism: Status: Acute <Phyllis Emeterio - Last Filed: 07/15/24 07:33> (5) S/P cholecystectomy: Status: Acute <Phyllis Emeterio - Last Filed: 07/15/24 07:33> Assessment and Plan: Patient is post op day 8 from laparoscopic converted to open cholecystectomy, with a tumor found on the fundus of the gallbladder and mets to the liver. 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 Tumor invades the perimuscular connective tissue perforates the visceral peritoneum (pT3). Tumor is present at the radial margin. Cystic duct mucosal margin is free of tumor but tumor in the wall and blood vessels is close to the deep cystic duct margin. Liver is positive for metastatic adenocarcinoma, with need for oncology consultation to discuss her options at this point. She is tolerating the advanced diet, without nausea or vomiting. She has been able to ambulate with assistance, and encouraged to continue spirometry 10x per hour. 1.5 L nasal cannula overnight, her nurse Radha removed it while in the room this morning to see how she responds. She continues to be anticoagulated with apixaban for the PE from last friday. <Phyllis Storm - Last Filed: 07/15/24 07:33> Patient is post op day 8 from laparoscopic converted to open cholecystectomy, with a tumor found on the fundus of the gallbladder and mets to the liver. 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 Tumor invades the perimuscular connective tissue perforates the visceral peritoneum (pT3). Tumor is present at the radial margin. Cystic duct mucosal margin is free of tumor but tumor in the wall and blood vessels is close to the deep cystic duct margin. Liver is positive for metastatic adenocarcinoma, with need for oncology consultation to discuss her options at this point. She is tolerating the advanced diet, without nausea or vomiting. She has been able to ambulate with assistance, and encouraged to continue spirometry 10x per hour. 1.5 L nasal cannula overnight, her nurse Radha removed it while in the room this morning to see how she responds. She continues to be anticoagulated with apixaban for the PE from last friday. Agree with above assessment and plan. Doing well from surgical standpoint and now medically cleared for DC. VSS- off supplemental O2. Abd benign. Plan for STR when bed available. Oncology reconsulted for adenoCA as above. Discussed with patient and daughter in law at bedside. F/u in office with Dr. Arechiga in 1 week, f/u with PCP and oncology. <Kiki Robertson PA-C - Last Filed: 07/15/24 11:12> Time Spent With Patient Time: Total time managing care of this patient today ____ minutes. <[facility] - Last Filed: 07/15/24 07:33> Quality Stroke Does the patient have a stroke diagnosis?: No <[facility] - Last Filed: 07/15/24 07:33> VTE Prior VTE?: No <[facility] - Last Filed: 07/15/24 07:33> VTE Risk Level:: Surgical - low <[facility] - Last Filed: 07/15/24 07:33> VTE Device Contraindication: Treatment Not Indicated <[facility] - Last Filed: 07/15/24 07:33> VTE Drug Contraindication: Treatment Not Indicated <[facility] - Last Filed: 07/15/24 07:33>
[2024-07-15 07:17] VITALS: BP 125/59; PULSE 72; RESP 18; TEMP 36.1; O2SAT 94
[2024-07-15 07:29] LABS: Anion Gap 14 (12-20); Blood Urea Nitrogen 38 mg/dL (9-16); Calcium 8.8 mg/dL (8.4-10.2); Carbon Dioxide 29 mmol/L (22-29); Chloride 101 mmol/L (96-108); Creatinine Clr Calc Pharmacy 40.5; Estimated Glomerular Filt Rate > 60; Glucose Random 179 mg/dL (60-115); Potassium 3.5 mmol/L (3.3-5.1); Sodium 140 mmol/L (135-145)
[2024-07-15 07:55] LABS: Glucose, Whole Blood 187 mg/dL (60-115)
[2024-07-15] MEDS: 0.9 % Sodium Chloride Flush 3 ML SYRINGE IVFLUSH (08:12)
[2024-07-15 08:13] VITALS: BP 125/59; PULSE 72
[2024-07-15] MEDS: Atorvastatin Calcium 80 MG TABLET PO (08:13)
[2024-07-15] MEDS: carvediloL 25 MG TABLET PO (08:13)
[2024-07-15] MEDS: guaiFENesin LA 600 MG TAB.ER.12H PO (08:13)
[2024-07-15] MEDS: amLODIPine Besylate 5 MG TABLET PO (08:13)
[2024-07-15] MEDS: Donepezil HCl 5 MG TABLET PO (08:13)
[2024-07-15] MEDS: lisinopriL 40 MG TABLET PO (08:13)
[2024-07-15] MEDS: Apixaban 5 MG TABLET 10 MG PO (08:13)
[2024-07-15] MEDS: Insulin Glargine,Hum.rec.anlog 100 UNIT/ML 10 ML VIAL 15 UNIT SUBCUT (08:14)
[2024-07-15 10:48] VITALS: BP 98/50; PULSE 74; RESP 18; TEMP 36.4; O2SAT 92
[2024-07-15 11:43] LABS: Glucose, Whole Blood 344 mg/dL (60-115)
--- NOTE | 2024-07-15 11:46 | MHC.CM.PN ---
Second IMM given 07/15. Pt is medically cleared for discharge to [facility] today. Pt will transport there via BLS/[facility] today. Pt and her family aware and in agreement with discharge plan. New HCP completed with pt, now on file.
--- NOTE | 2024-07-15 12:11 | HO.PM.IMPN ---
Subjective Subjective Date of Service: 07/15/24 Interval History: had asymptomatic desat last night, now on room air Physical Exam Vital Signs: Vital Signs: Last Vital Signs Temp 97.6 F 07/15/24 10:48 Pulse 74 07/15/24 10:48 Resp 18 07/15/24 10:48 BP 98/50 L 07/15/24 10:48 Pulse Ox 92 07/15/24 10:48 O2 Del Method Room Air 07/15/24 10:48 O2 Flow Rate 2 07/15/24 04:00 BMI result Body Mass Index 24.6 Const: General: awake Orientation/consciousness: patient oriented x3 Resp: Effort & Inspection: normal respiratory effort and able to speak in complete sentences Cardio: Rate: regular rate Rhythm: regular rhythm Peripheral pulses: radial pulses present GI: Other: abdomen soft, no significant tenderness incision sites clean Skin: General skin exam: no rashes or lesions noted and no jaundice Neuro: General: patient oriented x3 Objective Data Active Medications Acetaminophen (Acetaminophen 325 Mg Tablet) 650 mg PO Q6H PRN PRN Reason: Pain, Mild 1-3,fever,headache Last Admin: 07/13/24 17:32 Dose: 650 mg Documented By: NINI Amlodipine Besylate (Amlodipine Besylate 5 Mg Tablet) 5 mg PO DAILY [facility]; Protocol Last Admin: 07/15/24 08:13 Dose: 5 mg Documented By: FADI Apixaban (Apixaban 5 Mg Tablet) 10 mg PO BID [facility] Stop: 07/19/24 09:01 Last Admin: 07/15/24 08:13 Dose: 10 mg Documented By: FADI Atorvastatin Calcium (Atorvastatin Calcium 80 Mg Tablet) 80 mg PO DAILY [facility] Last Admin: 07/15/24 08:13 Dose: 80 mg Documented By: FADI Carvedilol (Carvedilol 25 Mg Tablet) 25 mg PO BID [facility]; Protocol Last Admin: 07/15/24 08:13 Dose: 25 mg Documented By: FADI Dextrose (Dextrose 50 % 25 Gm/50 Ml Syringe) 25 gm IVPUSH Q15M PRN; Protocol PRN Reason: per Hypoglycemia Standing Ord. Donepezil HCl (Donepezil Hcl 5 Mg Tablet) 5 mg PO DAILY [facility] Last Admin: 07/15/24 08:13 Dose: 5 mg Documented By: FADI Glucose (Glucose Gel 15 Gm Gel..Gram.) 15 gm PO Q15M PRN; Protocol PRN Reason: per Hypoglycemia Standing Ord. Guaifenesin (Guaifenesin La 600 Mg Tab.Er.12h) 600 mg PO BID [facility] Last Admin: 07/15/24 08:13 Dose: 600 mg Documented By: FADI Hydromorphone HCl (Hydromorphone Hcl 1 Mg/Ml Syringe) 0.5 mg IVPUSH Q4H PRN; Protocol PRN Reason: Pain, Severe (Pain Scale 7-10) Last Admin: 07/12/24 00:22 Dose: 0.5 mg Documented By: ANTOINBaron Insulin Glargine (Insulin Glargine,Hum.Rec.Anlog 100 Unit/Ml 10 Ml Vial) 15 unit SUBCUT DAILY [facility] Last Admin: 07/15/24 08:14 Dose: 15 unit Documented By: FADI Insulin Human Lispro (Insulin Lispro 100 Unit/Ml 3 Ml Vial) 0 unit SUBCUT QIDACHS [facility]; Protocol Last Admin: 07/15/24 08:01 Dose: Not Given Documented By: FADI Non-Admin Reason: per sliding scale Insulin Human Lispro (Insulin Lispro 100 Unit/Ml 3 Ml Vial) 5 unit SUBCUT QIDACHS [facility] Last Admin: 07/15/24 08:01 Dose: Not Given Documented By: FADI Non-Admin Reason: per sliding scale Lisinopril (Lisinopril 40 Mg Tablet) 40 mg PO DAILY [facility]; Protocol Last Admin: 07/15/24 08:13 Dose: 40 mg Documented By: FADI Melatonin (Melatonin 3 Mg Tablet) 6 mg PO BEDTIME PRN PRN Reason: Insomnia Last Admin: 07/14/24 20:58 Dose: 6 mg Documented By: ALFONSO Naloxone HCl (Naloxone Hcl 0.4 Mg/Ml Vial) 0.04 mg IVPUSH Q5M PRN PRN Reason: Excessive sedation or RR < 8 Ondansetron HCl (Ondansetron Hcl 4 Mg/2 Ml Vial) 4 mg IVPUSH Q8H PRN PRN Reason: Nausea and Vomiting Last Admin: 07/09/24 08:05 Dose: 4 mg Documented By: CITLALLI Ondansetron HCl (Ondansetron Hcl 4 Mg/2 Ml Vial) 4 mg IVPUSH QID PRN PRN Reason: Nausea Oxycodone HCl (Oxycodone Hcl Immed Release 5 Mg Tablet) 5 mg PO Q6H PRN PRN Reason: Pain, Moderate(Pain Scale 4-6) Last Admin: 07/14/24 06:03 Dose: 5 mg Documented By: SUHA Sodium Chloride (0.9 % Sodium Chloride Flush 3 Ml Syringe) [facility] Last Admin: 07/15/24 08:12 Dose: 3 ml Documented By: FADI Labs 07/12/24 07:29 07/15/24 07:00 Labs: Laboratory Results - last 24 hr 07/14/24 07/14/24 07/14/24 14:21 15:50 20:12 Hold Purple Top Anion Gap 15 Estim Creat Clear Calc 32.0 Estimated GFR 47 POC Glucose 222 H 354 H* Random Glucose 308 H Calcium 8.6 B-Natriuretic Peptide 114 H 07/15/24 07/15/24 07/15/24 07:00 07:22 11:01 Hold Purple Top SEE NOTE Anion Gap 14 Estim Creat Clear Calc 40.5 Estimated GFR > 60 POC Glucose 187 H 344 H Random Glucose 179 H Calcium 8.8 B-Natriuretic Peptide Assessment and Plan (1) HTN (hypertension): Status: Acute Plan 83F PMH hypertension, hyperlipidemia, diabetes, chronic pericardial effusion, mood disorder, mild cognitive impairment admitted to general surgery for acute cholecystitis status post cholecystectomy found to have metastatic gallbladder cancer Acute cholecystitis with metastatic gallbladder cancer Completed antibiotics, status post cholecystectomy, follow up Oncology Acute hypoxic respiratory failure Resolved Acute diastolic CHF Resolved Chronic pericardial effusion Appears stable without tamponade UTI due to E coli Completed treatment Hypertension Will hold amlodipine and lisinopril for low normal blood pressures Diabetes with hyperglycemia Continue basal bolus insulin Patient appears medically stable will sign off for now please recall if needed Quality Stroke Does the patient have a stroke diagnosis?: No VTE Prior VTE?: No VTE Risk Level:: Surgical - low VTE Device Contraindication: Treatment Not Indicated VTE Drug Contraindication: Treatment Not Indicated
[2024-07-15] MEDS: Insulin Lispro 100 UNIT/ML 3 ML VIAL SUBCUT ×2 (12:28)
--- NOTE | 2024-07-15 12:39 | PM.DS ---
DS: Providers Provider Date of Service: 07/15/24 Date of admission: 07/07/24 01:49 Date of discharge: 07/15/24 Primary care physician: Yola Rowell MD Attending physician on admission: Tang Ramirez Consults: 07/07/24 14:30 Consult to Hospitalist Routine Comment: Consulting Provider: [facility] Reason For Exam: gallbladder cancer, diabetes, med management 07/09/24 12:16 Consult to Hematology / Oncology Routine Consulting Provider[place] [facility] Reason for consultation: Hypoxia. ?PE- interm prob on V/Q. Cannot CTA. On empiric Lovenox 07/10/24 12:57 Consult to Cardiology Routine Consulting Provider: [facility] Reason for consultation: larger pericardial effusion 07/14/24 14:24 Consult to Hematology / Oncology Routine Consulting Provider: Garry Orta Reason for consultation: Biliary adenocarcinoma with liver metastasis Attending physician on discharge: Kelby Arechiga DS: Diagnosis Discharge Diagnosis (1) HTN (hypertension): Status: Acute DS: Summary Hospital Course Hospital Course: HPI AT ADMISSION: 83-year-old female patient with 1 day history of right upper quadrant abdominal pain with several episodes in the past similar pain. Patient currently reports right upper quadrant abdominal pain but denies nausea or vomiting. She presented to the emergency department for further evaluation and was found to have an elevated WBC of 13.5 with normal LFTs. An ultrasound of the abdomen revealed gallstones and biliary sludge with wall thickening suggestive of acute cholecystitis. There was a negative sonographic Castro sign. HOSPITAL COURSE: She was admitted to the surgical service for further treatment of the acute cholecystitis. It was recommended to proceed with laparoscopic cholecystectomy, possible open and she agreed. She was added onto the operative schedule for that day. On 07/07/24, laparoscopic converted to open cholecystectomy, liver biopsy was performed by Dr. Arechiga without immediate complication. Operative findings included a hard mass of the gallbladder fundus suggestive of a gallbladder cancer with multiple liver mets noted. The patient tolerated the procedure well. She was started on IV zosyn post op. This also covered her UTI on admission and she completed this course. Hospitalist consult was obtained for management of her medical comorbidities. She had a slow post operative course. CT scan abd/pelvis was obtained post op which did no show any evidence of metastatic disease but did show b/l pleural effusions with adjacent atelectasis vs pneumonia. She developed hypoxia on POD #1. BNP/d dimer was ordered by medicine. BNP mildly elevated at 178. V/Q perfusion scan was ordered to assess for PE due to contrast allergy however was not able to be performed until the following day and she was started on therapeutic Lovenox of 70 mg subq. V/Q intermediate-probability and she was empirically anticoagulate with enoxaparin 1 mg/kg q12h; US Duplex of b/l LE negative. TTE showed moderate circumferential pericardial effusion, slight increased from prior study in 2021. She was also found to have acute diastolic HF with interstitial edema and ground-glass infiltrates on CT chest, grade 2 diastolic HF on echo and was given IV furosemide. She did not have definitive symptoms to suggest tamponade physiology and therefore she was just monitored with repeat echocardiogram a few days later which was unchanged. No current indication for pericardiocentesis and family did not want to hold anticoagulation for any procedure. Heme/onc was consutled for anticoagulation who recommended apixaban 10 mg BID 07/12-07/16 then 5 mg BID for 3-4 months. Her LAURA drain had scant serosanguineous output and was removed. Her respiratory status slowly improved and she was weaned from supplemental oxygen. Her activity was increased as tolerated. PT was consulted for her deconditioning who recommended STR or home with ATC services. Family chose STR. Arrangements were made. Oncology was reconsulted as pathology came back adenoCA, biliary type who rec outpatient f/u in oncology clinic for evaluation for treatment. On the day of discharge, she was tolerating a solid diet without nausea or vomiting, had minimal pain, was ambulating, had good GI function. Her abdomen was benign with clean incisions. She was hemodynamically stable and off supplemental oxygen. She was transferred to [facility] on 07/15/24 in stable condition. She is to follow up with Dr. Arechiga in the office in 1week. She is to follow up with oncology and PCP upon discharge. Status at Discharge Overall status at discharge: patient is not back to baseline Time Attestation Discharge Coordination Time (in mins): 50 Quality: Safe Use of Opioids Does Pt have an Active Cancer Diagnosis on the Problem List?: Yes Opioid Measure Date for [facility] Report: 06/15/24 Opioid Measure Time for [facility] Report: 14:01 Quality: Stroke Does the patient have a stroke diagnosis?: No Physical Exam Vital Signs: Vital Signs: Last Vital Signs Temp 97.6 F 07/15/24 10:48 Pulse 74 07/15/24 10:48 Resp 18 07/15/24 10:48 BP 98/50 L 07/15/24 10:48 Pulse Ox 92 07/15/24 10:48 O2 Del Method Room Air 07/15/24 10:48 O2 Flow Rate 2 07/15/24 04:00 BMI result Body Mass Index 24.6 Const: General: comfortable, no acute distress and alert Orientation/consciousness: patient oriented x3 Resp: Effort & Inspection: normal respiratory effort, not labored, not tachypneic and no use of accessory muscles GI: Other: soft incisions clean, well approximated nontender Inspection: No distended Skin: General skin exam: no rashes or lesions noted Neuro: General: patient oriented x3 DS: Data Data Completed and Pending Completed studies during hospitalization [Text1]: 07/07/24 13:01 Surgical [PTH] Routine A. Gallbladder cholecystectomy: -Adenocarcinoma, biliary type, moderate to poorly differentiated. -Arises in high grade dysplasia/adenocarcinoma in situ. -Tumor invades the perimuscular connective tissue, perforates the visceral peritoneum (pT3), and is present at the radial margin, (see synoptic report) -Cystic duct margin is free of tumor (but close, see synoptic report). -Blood vessel and lymphatic vessel invasion present. -Perineural invasion is present. -Chronic cholecystitis with intestinal metaplasia, and cholelithiasis. B. Liver, biopsy: -Metastatic adenocarcinoma (pM1). Labs on day of discharge: Laboratory Results - last 24 hr 07/14/24 07/14/24 07/14/24 14:21 15:50 20:12 Hold Purple Top Sodium 138 Potassium 3.7 Chloride 98 Carbon Dioxide 29 Anion Gap 15 BUN 30 H Creatinine 1.10 Estim Creat Clear Calc 32.0 Estimated GFR 47 POC Glucose 222 H 354 H* Random Glucose 308 H Calcium 8.6 B-Natriuretic Peptide 114 H 07/15/24 07/15/24 07/15/24 07:00 07:22 11:01 Hold Purple Top SEE NOTE Sodium 140 Potassium 3.5 Chloride 101 Carbon Dioxide 29 Anion Gap 14 BUN 38 H Creatinine 0.87 Estim Creat Clear Calc 40.5 Estimated GFR > 60 POC Glucose 187 H 344 H Random Glucose 179 H Calcium 8.8 B-Natriuretic Peptide Discharge Plan Discharge Anticipated Discharge Date/Time: 07/09/24 14:55 Patient Disposition: Home Health Service Discharge Diagnosis: s/p cholecystectomy Referrals: [facility] [Outside] - 1 Week Yola Rowell MD [Primary Care Provider] - 1 Week Kelby Arechiga MD [Physician] - 1 Week Discharge Medications: New Eliquis 5 mg tablet 5 mg PO BID Qty: 90 0RF Rx Instructions: 10mg BID through 07/16/24 then 5mg PO BID Continued (DME) pen needle, diabetic 31 gauge x 3/16 needle See Rx Instructions .Route Qty: 200 2RF Rx Instructions: Use to inject insulin twice a day (DME) blood-glucose meter [FreeStyle Lite Meter] Kit See Rx Instructions .Route Qty: 1 0RF Rx Instructions: As directed (DME) lancets [FreeStyle Lancets] 28 gauge misc See Rx Instructions .Route Qty: 100 5RF Rx Instructions: Test blood sugar 3 times per day (DME) FreeStyle Lite Strips Strip See Rx Instructions .Route Qty: 100 5RF Rx Instructions: Test blood sugar 3 times per day carvedilol 25 mg tablet 25 mg PO BID Qty: 180 3RF Rx Instructions: must administer with a meal/food lisinopril 40 mg tablet 40 mg PO DAILY Qty: 90 3RF metformin 1,000 mg tablet 1,000 mg PO BID Qty: 180 3RF atorvastatin 80 mg tablet 80 mg PO DAILY Qty: 90 3RF amlodipine 5 mg tablet 5 mg PO DAILY Qty: 90 3RF donepezil 5 mg tablet 5 mg PO DAILY Qty: 90 3RF acetaminophen 500 mg tablet 500 mg PO DAILY PRN (Reason: pain) insulin glargine [Basaglar KwikPen U-100 Insulin] 100 unit/mL (3 mL) insulin pen 25 unit subcut DAILY (DME) blood sugar diagnostic Strip See Rx Instructions .ROUTE BID Qty: 10 Rx Instructions: As directed (DME) Custom heat molded inserts See Rx Instructions .Route .MEDSUPPLY Qty: 3 0RF Rx Instructions: 3 pair (DME) extra depth diabetic shoes See Rx Instructions .Route .MEDSUPPLY Qty: 1 0RF Rx Instructions: 1 pair (DME) diabetic supplies, miscellan. Misc See Rx Instructions .Route Qty: 1 1RF Rx Instructions: diabetic shoes Held aspirin 325 mg tablet 325 mg PO DAILY Hold Instructions: Resume on 08/19/24. per PCP Discharge Orders: Discharge Order (Routine); Ordered 07/15/24 Ordered By: Kiki Robertson Diet: Low fat, low cholesterol Activity on Discharge: No heavy lifting Stand Alone Forms: Patient Portal Discharge page Print Language: Kittitian Activity Restrictions/Additional Instructions: If the incision area is tender, you may apply an ice pack for short intervals (No more than 20 minutes on, followed by at least 20 minutes off). Do not apply heat. Do not use creams, lotions, or topical antibiotics. Ok to shower. You have blossom closing your incision and these will be removed around 14 days after your surgery. No heavy lifting (>10lbs) or strenuous activity! Take Tylenol Extra-strength 1-2 tabs every 6 hours as needed. Oxycodone every 6-8 hours as needed for pain. Colace 100 mg every day as needed for constipation. Follow up in office with Dr. Arechiga in 1 week. ([phone]) Call Your Doctor If: -Your temperature exceeds 101 F -You experience excessive pain or swelling -You have an unexpected reaction to medication -You have excessive bleeding -You experience continued vomiting/nausea -Your incision begins to separate -Your incision shows signs of infection such as increased redness, swelling, excessive pain, drainage (light blood or clear fluid is normal) or heat Care Plan Goals: Return to baseline health and resume normal activities following recovery period. Health Concerns: acute cholecystitis, metastatic gallbladder cancer PE heart failure HTN diabetes Plan of Treatment: s/p laparoscopic cholecystectomy f/u in office with Dr. Arechiga in 1 week Follow up with PCP, oncology oral eliquis for PE Assessment: Stable
--- NOTE | 2024-07-15 13:18 | P.PNHO-ONC_ITS ---
Medical Summary - Medical Summary Date of Service: 07/15/24 Primary Care Provider: Yola Rowell MD Medical Summary: 83 year old woman knoown to me from this hospitalization. The pathology from the cholecystectomy shows adenocarcinoma metastatic to the surface of the liver. Her wound is healing well. She still has moderate pain. Her exam shows no evidence of wide spread disease. Die Polisher Utilized?: No - Azeri Speaking Interval History Interval history: Madeline Duff is a 83 year old female presenting with SOB. She is allergic to IV contrast so a CTA cannot be done and MRI for PE is not available at [facility]. Her D-dimer is very elevated at 1073. She has normal renal function. An ultrasound of both legs is negative for DVT. A V\Q scan is intermediate. She has been empirically anticoagulated with enoxaparin. She is medically stable. Review of Systems - Constitutional Reports anorexia - ENT Reports hoarseness - Cardiovascular Reports generalized swelling - Respiratory Reports chest congestion - Gastrointestinal Reports abdominal pain - Genitourinary Reports frequent nighttime urination - Neurologic Reports system reviewed and no additional complaints, except as documented [facility] Medical History: Medical History (Last Updated 07/13/24 @ 07:51 by Kelby Arechiga MD) Back pain Diabetes History of mammogram HTN (hypertension) Hyperlipidemia Functional capacity: independent ambulation Family History: Family History (Last Reviewed 07/07/24 @ 20:25 by GIO Purdy) Father Unknown family medical history Mother Unknown family medical history Surgical History: Surgical History (Last Reviewed 07/08/24 @ 12:27 by Ingrid Price, PT) H/O colonoscopy History of bladder surgery No pertinent past surgical history Social History: Social History (Last Reviewed 07/07/24 @ 20:25 by GIO Purdy) Living Situation History: Household Members: Family Housing: Homeless Do you presently have visiting nurse or other home services: No Tobacco History: Patient Tobacco Use Status: Never used Tobacco e-Cigarette/Vaping Use: Never Used Advance Directives: Advance Directives Date on File: 07/07/24 Occupation Assessmet: service: No Current occupational status: retired Home Medications and Allergies Current Medications: Current Medications Acetaminophen (Acetaminophen 325 Mg Tablet) 650 mg PO Q6H PRN PRN Reason: Pain, Mild 1-3,fever,headache Last Admin: 07/13/24 17:32 Dose: 650 mg Apixaban (Apixaban 5 Mg Tablet) 10 mg PO BID [facility] Stop: 07/19/24 09:01 Last Admin: 07/15/24 08:13 Dose: 10 mg Atorvastatin Calcium (Atorvastatin Calcium 80 Mg Tablet) 80 mg PO DAILY [facility] Last Admin: 07/15/24 08:13 Dose: 80 mg Carvedilol (Carvedilol 25 Mg Tablet) 25 mg PO BID [facility]; Protocol Last Admin: 07/15/24 08:13 Dose: 25 mg Dextrose (Dextrose 50 % 25 Gm/50 Ml Syringe) 25 gm IVPUSH Q15M PRN; Protocol PRN Reason: per Hypoglycemia Standing Ord. Donepezil HCl (Donepezil Hcl 5 Mg Tablet) 5 mg PO DAILY [facility] Last Admin: 07/15/24 08:13 Dose: 5 mg Glucose (Glucose Gel 15 Gm Gel..Gram.) 15 gm PO Q15M PRN; Protocol PRN Reason: per Hypoglycemia Standing Ord. Guaifenesin (Guaifenesin La 600 Mg Tab.Er.12h) 600 mg PO BID [facility] Last Admin: 07/15/24 08:13 Dose: 600 mg Hydromorphone HCl (Hydromorphone Hcl 1 Mg/Ml Syringe) 0.5 mg IVPUSH Q4H PRN; Protocol PRN Reason: Pain, Severe (Pain Scale 7-10) Last Admin: 07/12/24 00:22 Dose: 0.5 mg Insulin Glargine (Insulin Glargine,Hum.Rec.Anlog 100 Unit/Ml 10 Ml Vial) 15 unit SUBCUT DAILY [facility] Last Admin: 07/15/24 08:14 Dose: 15 unit Insulin Human Lispro (Insulin Lispro 100 Unit/Ml 3 Ml Vial) 0 unit SUBCUT QIDACHS [facility]; Protocol Last Admin: 07/15/24 12:28 Dose: 8 unit Insulin Human Lispro (Insulin Lispro 100 Unit/Ml 3 Ml Vial) 5 unit SUBCUT QIDACHS [facility] Last Admin: 07/15/24 12:28 Dose: 5 unit Melatonin (Melatonin 3 Mg Tablet) 6 mg PO BEDTIME PRN PRN Reason: Insomnia Last Admin: 07/14/24 20:58 Dose: 6 mg Naloxone HCl (Naloxone Hcl 0.4 Mg/Ml Vial) 0.04 mg IVPUSH Q5M PRN PRN Reason: Excessive sedation or RR < 8 Ondansetron HCl (Ondansetron Hcl 4 Mg/2 Ml Vial) 4 mg IVPUSH Q8H PRN PRN Reason: Nausea and Vomiting Last Admin: 07/09/24 08:05 Dose: 4 mg Ondansetron HCl (Ondansetron Hcl 4 Mg/2 Ml Vial) 4 mg IVPUSH QID PRN PRN Reason: Nausea Oxycodone HCl (Oxycodone Hcl Immed Release 5 Mg Tablet) 5 mg PO Q6H PRN PRN Reason: Pain, Moderate(Pain Scale 4-6) Last Admin: 07/14/24 06:03 Dose: 5 mg Sodium Chloride (0.9 % Sodium Chloride Flush 3 Ml Syringe) 3 ml IVFLUSH [facility] Last Admin: 07/15/24 08:12 Dose: 3 ml Home Medications ?Medication ?Instructions ?Recorded ?Confirmed ?Type blood sugar diagnostic #10 ea 03/22/20 12/19/23 History aspirin 325 mg tablet 325 mg PO DAILY 03/15/21 07/07/24 History acetaminophen 500 mg tablet 500 mg PO DAILY PRN pain 07/07/24 07/07/24 History insulin glargine 100 unit/mL (3 25 unit subcut DAILY 07/07/24 07/07/24 History mL) subcutaneous pen (Basaglar KwikPen U-100 Insulin) Allergies Allergy/AdvReac Type Severity Reaction Status Date / Time Iodinated Contrast Media Allergy Unknown ANAPHYLAXIS Verified 07/06/24 21:47 [IV CONTRAST] poison den extract AdvReac Swelling Verified 07/06/24 21:47 Exam Vital signs: Vital Signs Temp 97.6 F 07/15/24 10:48 Pulse 74 07/15/24 10:48 Resp 18 07/15/24 10:48 BP 98/50 L 07/15/24 10:48 Pulse Ox 92 07/15/24 10:48 O2 Del Method Room Air 07/15/24 10:48 O2 Flow Rate 2 07/15/24 04:00 Intake & Output 07/14/24 07/15/24 07/15/24 18:59 06:59 18:59 Output Total 1150 / 1150 200 / 200 Balance -1150 / -1150 -200 / -200 Urine Output (Average ml/kg/hr) 1.62 1.62 0.28 Output: Output, Urine Amount 1150 / 1150 200 / 200 Other: Meal Refused No NPO No Breakfast % Eaten 100% Lunch % Eaten 75% Eating (Feeding) Ability Independent Number of Unmeasured Voids 1 Number of Bowel Movements 1 Urine Bedside Commode Bathroom Urine Color Yellow Last Bowel Movement 07/14/24 07/14/24 07/15/24 Stool Bedside Commode Stool Amount Moderate Stool Color Brown Stool Consistency Loose Weight 59.1 kg Weight in Grams 23447 Weight 59.1 kg BMI result Body Mass Index 24.6 - Constitutional Present: no acute distress, mild distress - Routine HEENT Exam Head: Present: atraumatic ENT: Present: mucous membranes moist - Routine Neck Exam Present: full ROM - Routine Respiratory Exam Present: decreased breath sounds, prolonged expiratory phase - Routine Cardiovascular Exam Cardiovascular: Present: RRR - Routine Abdominal Exam Present: diminished bowel sounds Comments: Danny remain, wounds clean and healing without infection - Routine Extremities Exam Present: nontender Data - Labs CBC & Chem 7: 07/12/24 07:29 07/15/24 07:00 Labs: Laboratory Last Values WBC 11.2 X10*3/uL (4.8-10.8) H 07/12/24 07:29 RBC 3.59 X10*6/uL (4.20-5.50) L 07/12/24 07:29 Hgb 10.2 g/dl (12.0-16.0) L 07/12/24 07:29 Hct 30.9 % (37.0-47.0) L 07/12/24 07: MCV 86.1 fL (80.0-98.0) 07/12/24 07:29 MCH 28.4 pg (27.0-33.0) 07/12/24 07: MCHC 33.0 g/dl (31.0-35.0) 07/12/24 07:29 RDW 14.4 % (11.0-16.0) 07/12/24 07:29 Plt Count 334 X10*3/uL (160-400) 07/12/24 07:29 MPV 9.6 fL (9.4-12.3) 07/12/24 07: Immature Gran % (Auto) 0.4 % (0.0-0.4) 07/06/24 22:34 Neut % (Auto) 71.9 % (45-73) 07/06/24 22:34 Lymph % (Auto) 16.2 % (20-40) L 07/06/24 22:34 Russell % (Auto) 9.5 % (2-11) 07/06/24 22:34 Eos % (Auto) 1.6 % (0-4) 07/06/24 22:34 Baso % (Auto) 0.4 % (0-2) 07/06/24 22:34 Lymph # (Auto) 2.2 X10*3/uL (1.2-4.9) 07/06/24 22:34 Russell # (Auto) 1.3 X10*3/uL (0.1-1.2) H 07/06/24 22:34 Eos # (Auto) 0.2 X10*3/uL (0.0-0.4) 07/06/24:34 Baso # (Auto) 0.1 X10*3/uL (0.0-0.2) 07/06/24 22:34 Abs Immat Gran (auto) 0.05 X10*3/uL (0.00-0.03) H 07/06/24 22:34 Absolute Neuts (auto) 9.8 x10*3/uL (2.0-8.3) H 07/06/24 22:34 Absolute Nucleated RBC 0.000 X10*3/uL (0.0-0.012) 07/12/24 07:29 Nucleated RBC % (auto) 0.0 /100WBC (0.0-0.2) 07/12/24 07:29 Hold Purple Top SEE NOTE 07/15/24 07:00 D-Dimer High Sensitivty 1073 NG/ML 07/08/24 19:21 Sodium 140 mmol/L (135-145) 07/15/24 07:00 Potassium 3.5 mmol/L (3.3-5.1) 07/15/24 07:00 Chloride 101 mmol/L (96-108) 07/15/24 07:00 Carbon Dioxide 29 mmol/L (22-29) 07/15/24 07:00 Anion Gap 14 (12-20) 07/15/24 07:00 BUN 38 mg/dL (9-16) H 07/15/24 07:00 Creatinine 0.87 mg/dL (0.5-1.4) 07/15/24 07:00 Estim Creat Clear Calc 40.5 07/15/24 07:00 Estimated GFR > 60 07/15/24 07:00 POC Glucose 344 mg/dL (60-115) H 07/15/24 11:01 Random Glucose 179 mg/dL (60-115) H 07/15/24 07:00 Calcium 8.8 mg/dL (8.4-10.2) 07/15/24 07:00 Magnesium 1.8 mg/dL (1.6-2.6) 07/12/24 07:29 Total Bilirubin 0.7 mg/dL (0.0-1.0) 07/08/24 06:13 Direct Bilirubin 0.3 mg/dL (0.0-0.5) 07/08/24 06:13 AST 46 U/L (5-31) H 07/08/24 06:13 ALT 20 U/L (0-31) 07/08/24 06:13 Alkaline Phosphatase 91 U/L (39-117) 07/08/24 06:13 Troponin I High Sens 4.9 ng/L (<3.5-17.0) 07/06/24 22:34 B-Natriuretic Peptide 114 pg/mL (<100) H 07/14/24 14:21 Total Protein 5.7 g/dL (6.5-8.0) L 07/08/24 06:13 Albumin 2.6 g/dL (3.5-5.0) L 07/08/24 06:13 Lipase 30 U/L (8-78) 07/06/24 22:34 Procalcitonin 0.05 ng/mL 07/10/24 09:00 Urine Color Dark Yellow 07/07/24 03:10 Urine Appearance Cloudy 07/07/24 03:10 Urine pH 5.0 (5.0-9.0) 07/07/24 03:10 Ur Specific Longs 1.025 (1.005-1.025) 07/07/24 03:10 Urine Protein Trace mg/dL (Neg-Trace) 07/07/24 03:10 Urine Glucose (UA) >=1000 mg/dL (Negative) H 07/07/24 03:10 Urine Ketones Trace mg/dL (Negative) 07/07/24 03:10 Urine Blood Negative (Negative) 07/07/24 03:10 Urine Nitrite Positive (Negative) H 07/07/24 03:10 Ur Leukocyte Esterase Small (1+) (Negative) H 07/07/24 03:10 Urine RBC 0-2 /HPF (0-2) 07/07/24 03:10 Urine WBC 11-20 /HPF (0-5) H 07/07/24 03:10 Ur Squamous Epith Cells 3-5 /HPF (0-2) 07/07/24 03:10 Urine Bacteria 4+ (None Seen) 07/07/24 03:10 Hyaline Casts 0-2 /LPF (0-2) 07/07/24 03:10 Respiratory Panel Estevez See Note 07/11/24 09:18 Adenovirus (Rapid PCR) Not Detected (Not Detect.) 07/11/24 09:18 B.pert (TEM-PCR) Not Detected (Not Detect.) 07/11/24 09:18 B.parapertussis DNA PCR Not Detected (Not Detect.) 07/11/24 09:18 C. pneumoniae DNA (PCR) Not Detected (Not Detect.) 07/11/24 09:18 Coronavirus OC43 (PCR) Not Detected (Not Detect.) 07/11/24 09:18 Coronavirus HKU1 (PCR) Not Detected (Not Detect.) 07/11/24 09:18 Coronavirus 229E (PCR) Not Detected (Not Detect.) 07/11/24 09:18 Coronavirus NL63 (PCR) Not Detected (Not Detect.) 07/11/24 09:18 Human Metapneumovir PCR Not Detected (Not Detect.) 07/11/24 09:18 Influenza A (RT-PCR) Not Detected (Not Detect.) 07/11/24 09:18 Influenza A (H1) PCR Not Detected (Not Detect.) 07/11/24 09:18 Influ A (H1/09) PCR Not Detected (Not Detect.) 07/11/24 09:18 Influenza A (H3) PCR Not Detected (Not Detect.) 07/11/24 09:18 Influenza Type A (PCR) NEGATIVE (Negative) 07/10/24 10:15 Influenza B (RT-PCR) Not Detected (Not Detect.) 07/11/24 09:18 Influenza Type B (PCR) NEGATIVE (Negative) 07/10/24 10:15 M. pneumoniae (PCR) Not Detected (Not Detect.) 07/11/24 09:18 Parainfluenza 1 (PCR) Not Detected (Not Detect.) 07/11/24 09:18 Parainfluenza 2 (PCR) Not Detected (Not Detect.) 07/11/24 09:18 Parainfluenza 3 (PCR) Not Detected (Not Detect.) 07/11/24 09:18 Parainfluenza 4 (PCR) Not Detected (Not Detect.) 07/11/24 09:18 RSV (PCR) Not Detected (Not Detect.) 07/11/24 09:18 RSV RNA Qual (PCR) NEGATIVE (Negative) 07/10/24 10:15 Entero/Rhino (PCR) Not Detected (Not Detect.) 07/11/24 09:18 SARS-CoV-2 RNA (RT-PCR) Not Detected (Not Detect.) 07/11/24 09:18 - Imaging Radiologist's impression: ITS Impressions Abdomen/Pelvis CT 07/08/24 10:50 IMPRESSION: 1. Status post cholecystectomy with postoperative changes noted in the gallbladder fossa. The liver has an unremarkable unenhanced appearance. Please note it is not possible to exclude hepatic metastatic disease on unenhanced CT. This could be further evaluated with MRI of the liver without and with contrast, if indicated. 2. Small bilateral pleural effusions with adjacent atelectasis or pneumonia. 3. Moderate pericardial effusion without change. 4. Fibroid uterus. Colonic diverticulosis without evidence of diverticulitis. Electronically signed by: Garry Mayfield MD 07/08/2024 12:04 PM EDT RP Pulmonary Perfusion Imaging 07/09/24 08:25 IMPRESSION: Intermediate probability examination for pulmonary emboli. Electronically signed by: Garry Mayfield MD 07/09/2024 09:04 AM EDT RP Venous Duplex 07/09/24 13:27 IMPRESSION: No evidence of acute DVT in the bilateral lower extremities. Electronically signed by: Garry Mayfield MD 07/09/2024 02:05 PM EDT RP Chest X-Ray 07/14/24 15:00 IMPRESSION: 1. Cardiac enlargement with water bottle appearance suggesting pericardial effusion (as seen on the CT chest examination 07/10/2024). 2. Coarsened markings in the left lower lobe and medial right base, findings which could represent atelectasis and/or pneumonia. Electronically signed by: Arley Pacheco MD 07/14/2024 03:26 PM EDT Assessment and Plan Patient Active problem list reviewed?: Yes (1) Pulmonary embolism Status: Acute Assessment and plan: The evidence for PE is a high D-dimer and an intermediate lung scan. I recommend she be anticoagulated fully for 3 or 4 months with a DOAC such as apixaban. (2) Gallbladder cancer Status: Acute Assessment and plan: She will need nutrition and rehab and reambulation. She should be seen in our oncology clinic for evaluation for treatment as the surgery was not curative. She may be discharged today or tomorrow. - Time Spent With Patient Time Spent with Patient (in minutes): 20
[2024-07-15 13:39] LABS: CDiff Gene PCR NEGATIVE (Negative)
[2024-07-15 15:11] VITALS: BP 110/59; PULSE 76; RESP 18; TEMP 36.3; O2SAT 92
[2024-07-15 17:04] LABS: Glucose, Whole Blood 220 mg/dL (60-115)
== END 2024-07-15 17:25 | disposition home health service (06) | DRG 414 ==
LOC: HO.ED 07-07 01:22 → HO.EDOVER 07-07 01:54 → HO.S3 07-07 10:55 → HO.IMC 07-10 14:42
PROVIDERS: Family Medicine; Internal Medicine; Physician Assistant; Student in an Organized Health Care Education/Training Program; Surgery; Admitting Provider Surgery; Emergency Provider Emergency Medicine; PCP Internal Medicine; Visit Provider Surgery
PROC: 0FT44ZZ Resection of Gallbladder, Percutaneous Endoscopic Approach (ICD-10-PCS; CPT 47562; principal; 2024-07-07 11:40)
DX: C23 Malignant neoplasm of gallbladder (principal); I26.99 Other pulmonary embolism without acute cor pulmonale; I50.31 Acute diastolic (congestive) heart failure; J96.01 Acute respiratory failure with hypoxia; C78.7 Secondary malignant neoplasm of liver and intrahepatic bile duct; K80.00 Calculus of gallbladder with acute cholecystitis without obstruction; N39.0 Urinary tract infection, site not specified; E87.3 Alkalosis; E78.5 Hyperlipidemia, unspecified; B96.20 Unspecified Escherichia coli [E. coli] as the cause of diseases classified elsewhere; I11.0 Hypertensive heart disease with heart failure; E11.9 Type 2 diabetes mellitus without complications; G31.84 Mild cognitive impairment of uncertain or unknown etiology; Z20.822 Contact with and (suspected) exposure to COVID-19; Z91.041 Radiographic dye allergy status; Z87.892 Personal history of anaphylaxis; Z79.4 Long term (current) use of insulin; Z79.01 Long term (current) use of anticoagulants; Z79.82 Long term (current) use of aspirin; Z79.84 Long term (current) use of oral hypoglycemic drugs; Z79.899 Other long term (current) drug therapy
CPT/HCPCS: 0241U; 36415; 71045; 71250; 74176; 76705; 78580; 80048; 80053; 81001; 82248; 82947; 83690; 83735; 83880; 84145; 84484; 85025; 85027; 85379; 87040; 87086; 87088; 87186; 87493; 87633; 88304; 88307; 88313; 93005; 93306; 93308; 93970; 97116; 97162; 97530; 99285; A9540; C1052; J0131; J1100; J1171; J1650; J1940; J2003; J2250; J2270; J2405; J2543; J2704; J2795; J3010; J7120; Q9957

== ENCOUNTER → 2024-07-06 21:57 | Outpatient (BNV) | payer MEDICARE, SELFPAY | PROVIDERS: Admitting Provider Surgery; Emergency Provider Emergency Medicine; PCP Internal Medicine; Visit Provider Internal Medicine | DX: R00.1 Bradycardia, unspecified (principal) | CPT/HCPCS: 93010 ==

== ENCOUNTER → 2024-07-06 22:20 | Outpatient (BNV) | payer MEDICARE, SELFPAY | PROVIDERS: Emergency Provider Emergency Medicine; PCP Internal Medicine; Visit Provider Radiology Diagnostic Radiology | DX: J84.10 Pulmonary fibrosis, unspecified (principal) | CPT/HCPCS: 71045; 76705 ==

== ENCOUNTER 2024-07-07 01:49 | Outpatient (BNV) | payer MEDICARE, SELFPAY | END 2024-07-09 08:25 | PROVIDERS: Admitting Provider Surgery; Emergency Provider Emergency Medicine; PCP Internal Medicine; Visit Provider Radiology Diagnostic Radiology | DX: J98.4 Other disorders of lung (principal); M79.604 Pain in right leg; M79.605 Pain in left leg | CPT/HCPCS: 78580; 93970 ==

== ENCOUNTER 2024-07-07 01:49 | Outpatient (BNV) | payer MEDICARE, SELFPAY | END 2024-07-13 07:00 | PROVIDERS: Admitting Provider Surgery; Emergency Provider Emergency Medicine; PCP Internal Medicine; Visit Provider Internal Medicine Cardiovascular Disease | DX: I31.39 Other pericardial effusion (noninflammatory) (principal) | CPT/HCPCS: 93308 ==

== ENCOUNTER 2024-07-07 01:49 | Outpatient (BNV) | payer MEDICARE, SELFPAY | END 2024-07-10 10:48 | PROVIDERS: Admitting Provider Surgery; Emergency Provider Emergency Medicine; PCP Internal Medicine; Visit Provider Radiology Diagnostic Radiology | DX: I31.39 Other pericardial effusion (noninflammatory) (principal); J90 Pleural effusion, not elsewhere classified; J98.11 Atelectasis | CPT/HCPCS: 71250 ==

== ENCOUNTER 2024-07-07 01:49 | Outpatient (BNV) | payer MEDICARE, SELFPAY | END 2024-07-08 10:50 | PROVIDERS: Admitting Provider Surgery; Emergency Provider Emergency Medicine; PCP Internal Medicine; Visit Provider Radiology Diagnostic Radiology | DX: I31.39 Other pericardial effusion (noninflammatory) (principal); J90 Pleural effusion, not elsewhere classified | CPT/HCPCS: 74176 ==

== ENCOUNTER 2024-07-07 01:49 | Outpatient (BNV) | payer MEDICARE, SELFPAY | END 2024-07-09 12:30 | PROVIDERS: Admitting Provider Surgery; Emergency Provider Emergency Medicine; PCP Internal Medicine; Visit Provider Internal Medicine | DX: I34.81 Nonrheumatic mitral (valve) annulus calcification (principal); I31.39 Other pericardial effusion (noninflammatory) | CPT/HCPCS: 93306 ==

== ENCOUNTER 2024-07-07 01:49 | Outpatient (BNV) | payer MEDICARE, SELFPAY | END 2024-07-14 15:00 | PROVIDERS: Admitting Provider Surgery; Emergency Provider Emergency Medicine; PCP Internal Medicine; Visit Provider Radiology Diagnostic Radiology | DX: I51.7 Cardiomegaly (principal); I31.39 Other pericardial effusion (noninflammatory); J98.11 Atelectasis | CPT/HCPCS: 71045 ==

== ENCOUNTER → 2024-07-07 01:49 | Outpatient (BNV) | payer MEDICARE, SELFPAY | PROVIDERS: Admitting Provider Surgery; Emergency Provider Emergency Medicine; PCP Internal Medicine; Visit Provider Student in an Organized Health Care Education/Training Program | DX: Z90.49 Acquired absence of other specified parts of digestive tract (principal) | CPT/HCPCS: 99222; 99232; 99233 ==

== ENCOUNTER → 2024-07-07 01:49 | Outpatient (BNV) | payer MEDICARE, SELFPAY | PROVIDERS: Admitting Provider Surgery; Emergency Provider Emergency Medicine; PCP Internal Medicine; Visit Provider Surgery | DX: C78.7 Secondary malignant neoplasm of liver and intrahepatic bile duct (principal); C23 Malignant neoplasm of gallbladder; I26.99 Other pulmonary embolism without acute cor pulmonale; Z90.49 Acquired absence of other specified parts of digestive tract | CPT/HCPCS: 99024 ==

== ENCOUNTER → 2024-07-07 01:49 | Outpatient (BNV) | payer MEDICARE, SELFPAY | PROVIDERS: Admitting Provider Surgery; Emergency Provider Emergency Medicine; PCP Internal Medicine; Visit Provider Internal Medicine | DX: I31.39 Other pericardial effusion (noninflammatory) (principal); I50.31 Acute diastolic (congestive) heart failure | CPT/HCPCS: 99223 ==

== ENCOUNTER 2024-07-23 10:55 | Outpatient (AMB) | payer MEDICARE, SELFPAY ==
--- NOTE | 2024-07-23 11:03 | MHC.OFFVIS ---
Vital Signs 07/23/24 11:14 Height 5 ft 1 in Weight 130 lb 1.164 oz BMI 24.6 BP 135/63 Blood Pressure Location Lt brachial Position Sitting Pulse 68 Intake Visit Reasons: S/P cholecystectomy Intake Note: Patient is seen in office for post op assessment post laparoscopic cholecystectomy. Pt c/o: denies any concerns, healing as expected Staff Field Engineer Required: No Accompanied by: Family/Other Allergies Iodinated Contrast Media [IV CONTRAST] Allergy (Unknown, Verified 07/23/24 11:14) ANAPHYLAXIS poison den extract Adverse Reaction (Verified 07/23/24 11:14) Swelling HPI Comments Details: 83-year-old female patient returning to the office 1 week following discharge from the hospital. She was discharged to a [facility] following her hospitalization but reports that she is being discharged from rehab today. She has been eating well and denies any nausea or vomiting. Abdominal pain is mild in her bowels have been moving regularly. She was scheduled to see Dr. 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 [facility] Medical History Back pain History of mammogram Diabetes Hyperlipidemia HTN (hypertension) Surgical History Hx laparoscopic cholecystectomy (07/07/24) History of bladder surgery H/O colonoscopy No pertinent past surgical history Family History Father Unknown family medical history Mother Unknown family medical history Social History Household Members: Family Housing: Homeless Do you presently have visiting nurse or other home services: No Alcohol intake: current Alcohol intake frequency: holidays/special occasions only Patient Tobacco Use Status: Never used Tobacco e-Cigarette/Vaping Use: Never Used Advance Directives Date on File: 07/07/24 service: No Current occupational status: retired Cognitive needs: No Hearing needs: No Vision needs: Yes Physical Exam Vital Signs: Last Vital Signs Pulse 68 07/23/24 11:14 BP 135/63 07/23/24 11:14 BMI result Body Mass Index 24.6 Const General: comfortable Nutritional Appearance: well nourished Orientation/consciousness: patient oriented x3 Limitations: no limitations Resp Effort & Inspection: normal respiratory effort, no audible wheezes, no cough and no respiratory distress GI Other: Well-healed Amanda incision right upper quadrant with no redness or discharge. Trocar incisions are clean and intact as well. Danny removed and wounds found to be well healed. Abdomen is otherwise soft and nondistended. 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 She was recovering well from the surgery and her wounds are healing nicely. [place] removed today wounds found to be well healed. She is due to see medical oncology at [facility] next week for further management of the metastatic gallbladder cancer. I have asked her to return approximately 1 month for wound check. She is welcome to call sooner for any new concerns. Coding Level of Care Code Global (03403) Diagnoses S/P cholecystectomy Z90.49 Metastasis to liver C78.7 Gallbladder cancer C23
[2024-07-23 11:14] VITALS: BP 135/63; PULSE 68; BMI 24.6
--- OUTSIDE RECORDS SUMMARY | 2024-07-23 12:00 | XMS_ITS ---
Author Organization [facility] Address [address] [place] [address] Care Team Providers Care Teacher Education Director Name Role Phone Yola Rowell MD Primary Care Provider Joaquin Covington [phone] REASON FOR VISIT seen sooner Encounters Encounter Location Date Provider Diagnosis [facility] [address] [place] [address] 12/29/2023 Joaquin Maza Plan Of Treatment Next Appt Details Provider Name:Cielo adair, 11/08/2024 09:00:00 AM, [address] [place], [address], Progress Notes * Hoa HSIEHB:[birth year] (83 yo F)Acc No.[id number]:12/29/2023 Progress Note Patient:?Madeline HSIEH Provider:?Joaquin Maza DPM :1940???Age:83 Y???Sex:Female D ate:12/29/2023 Address:[address] [id number] Pcp:Yola Rowell MD Subjective: * Chief Complaints: [...] DPM Date:? 024 Generated for Ruthie cowan/Clint/Jan on:?07/23/2024 12:00 PM EDT
--- OUTSIDE RECORDS SUMMARY | 2024-07-23 12:00 | XMS_ITS ---
Author Organization [facility] Care Team Providers Care Paint Roller Cover Machine Setter Name Role Phone Ana Negrete Unavailable Unavailable Emi Fang Unavailable Unavailable Noemi Nix Unavailable Alvaro He Unavailable Allergies and adverse reactions Code CodeSystem Substance Reaction Severity StartDate Concern Status Poison den extract Swelling (code- 76258430, SNOMED CT) Severe 07/15/[address] Iodinated Contrast Media Anaphylaxis (code- 04807865, SNOMED CT) Severe 07/15/2024 active Care Team Name Role Address Phone Organization Dates Alvaro He PCP [address] [place] [address], [facility], [facility] (Office): : [facility] 07/15/2024 - 07/23/2024 Ana Negrete Attending Physician [address] [place] [address], [facility], [facility] (Office): : [facility] 07/15/2024 - 07/23/2024 Emi Fang Attending Physician [address] [place] [address], [id number], [facility] (Office): : [facility] 07/15/2024 - 07/23/2024 Noemi Nix Attending Physician [address] [place] [address], [id number], [facility] (Office): : [facility] 07/15/2024 - 07/23/2024 Goals Section Description Status Target Date I plan to discharge back to live with my DTR in her [place] home. Pending outcome of therapy sessions, clinical medical stability progress reviewed weekly. Active 10/08/2024 I will attend/participate in activities of choice (Specify i.e.3-5 times weekly) by next review date. Active 10/08/2024 I will be at reduced risk fo r adverse drug reactions through the review date. Active 10/08/2024 I will be at reduced risk fo r complications of self care performance deficit and impaired mobility daily through the review date. Active 10/08/2024 I will be at reduced risk fo r new or worsened impaired skin integrity daily through the review date. Active 10/08/2024 I will be free from discomfo rt or adverse side effects of diuretic therapy through the review date. Active 10/08/2024 I will be free from discomfo rt or adverse side effects related to anti-psychotic therapy through the review date. Active 2024 I will be free from s/sx of dehydration through next review date. Active 10/08/2024 I will be free of fall relat ed injury through the next review date. Active 10/08/2024 I will maintain adequate nut ritional status as evidenced by maintaining weight within +/-5% of CBW, no s/sx of malnutrition, and consuming at least 76% of at least 2 meals daily through review date. Active 10/08/2024 I will verbalize adequate re lief of pain or ability to cope with incompletely relieved pain through the review date. Active My skin integrity will be im proved or maintained by next review date. Active 10/08/2024 The resident's advance direc tives are in effect and their wishes will be carried out through the next review. Active Functional Status Code Name Recorded Time Value Entered By Eating 07/23/2024 Setup or clean-up assistance rbrodeur Lying to sitting on side of bed 07/23/2024 Independent rbrodeur Oral hygiene 07/23/2024 Setup or clean-up assistance rbrodeur Personal hygiene 07/23/2024 Dependent rbrodeur Shower/bathe self 07/23/2024 Substantial/maximal ass istance rbrodeur Sit to lying 07/23/2024 Independent rbrodeur Toilet transfer 07/23/2024 Substantial/maximal robel tance rbrodeur Toileting hygiene 07/23/2024 Partial/moderate assist ance rbrodeur Immunizations Immunization Status Vaccine Details Vaccine Code CodeSystem Santino e Notes TB 1 Step Mantoux (PPD) new tuberculin skin test; unspecified formulation 98 CVX created date: 07/16/2024 consent date: 07/15/2024 Medications Section Medication Name Status Code CodeSystem Dose Route Frequency Admin Type Sig Text Start Date End Date Eliquis Oral Tablet 5 MG active 258680 7 RXNORM 5 mg Oral two times a day Routine Give 5 mg by mouth two times a day for antico agulat ion 10mg BID throug h 5 then 5mg BID 2024 - amLODIPine Besylate Oral Tablet 5 MG active 868220 RXNORM 1 tablet Oral one time a day Routine Give 1 tablet by mouth one time a day for HTN 2024 - Atorvastatin Calcium Oral Tablet 80 MG aborted 259974 RXNORM 1 tablet Oral one time a day Routine Give 1 tablet by mouth one time a day for loweri ng choles terol 07/16 Acetaminophen Extra Strength Oral Tablet 500 MG aborted 1 tablet Oral as needed PRN Give 1 tablet by mouth every 24 hours as needed for pain 07/16 Carvedilol Oral Tablet 25 MG active 941472 RXNORM 25 mg Oral two times a day Routine Give 25 mg by mouth two times a day for cardia c health must admini ster with meal/f ood 2024 - Donepezil HCl Oral Tablet 5 MG active 374518 RXNORM 5 mg Oral one time a day Routine Give 5 mg by mouth one time a day for sugey ia 2024 - Insulin Glargine Solution 100 UNIT/ML active 904804 RXNORM 25 unit Subcuta neous one time a day Routine Inject 25 unit subcut aneous ly one time a day for diabet es 2024 - Lisinopril Oral Tablet 40 MG active 428699 RXNORM 40 mg Oral one time a day Routine Give 40 mg by mouth one time a day for HTN 2024 - metFORMIN HCl Oral Tablet 1000 MG active 978385 RXNORM 1 tablet Oral two times a day Routine Give 1 tablet by mouth two times a day for diabet es contro l 2024 - Tubersol Solution 5 UNIT/0.1ML complete d 336154 RXNORM 0.1 ml Intrade rmal one time only One Time Only Inject 0.1 ml intrad ermall y one time only for screen ing until 2024 10:00 record indura tion in millim eters; Read PPD in 48 hours, notify physic car if positi ve and discon tinue 2-step . 07/16 Tubersol Solution 5 UNIT/0.1ML complete d 914583 RXNORM 0.1 ml Intrade rmal one time only One Time Only Inject 0.1 ml intrad ermall y one time only for screen ing until 2024 10:00 record indura tion in millim eters; Read PPD in 48 hours, notify physic car if positi ve. 07/18 Acetaminophen Oral Tablet 325 MG active 402755 RXNORM 2 tablet Oral as needed PRN Give 2 tablet by mouth every 6 hours as needed for Pain Total Dose 650mg * *DO NOT EXCEED 3 grams in 24 hours* * 2024 - Milk of Magnesia Oral Suspension 400 MG/5ML active 725047 RXNORM 30 ml Oral as needed PRN Give 30 ml by mouth every 24 hours as needed for Consti pation Give 30ml by mouth if no bowel moveme nt in 3 days (9 Shifts ). 2024 - Bisacodyl Rectal Suppository 10 MG active 793252 RXNORM 1 suppos itory Rectal as needed PRN Insert 1 suppos itory rectal ly every 24 hours as needed for Consti pation Give 1 Suppos itory (10mg) via rectum if no result s from Milk of Magnes ia after 24 hours. 2024 - Fleet Enema Rectal Enema 7-19 GM/118ML active 548347 RXNORM 1 applic ator Rectal as needed PRN Insert 1 applic ator rectal ly as needed for Consti pation Give 1 applic ator full (118 ml)if no result s from Bisaco dyl suppos itory. 2024 - Colace Oral Capsule active 100 mg Oral as needed PRN Give 100 mg by mouth every 24 hours as needed for consti pation 2024 - Acetaminophen Extra Strength Oral Tablet 500 MG aborted 2 tablet Oral as needed PRN Give 2 tablet by mouth every 6 hours as needed for pain 07/16 Atorvastatin Calcium Oral Tablet 80 MG active 782578 RXNORM 1 tablet Oral in the evening Routine Give 1 tablet by mouth in the evenin g for loweri ng choles terol 2024 - traMADol HCl Oral Tablet 50 MG active 110086 RXNORM 50 mg Oral as needed PRN Give 50 mg by mouth every 8 hours as needed for pain contro l for 14 Days 07/30 Problems Problem # Description Date of onset Resolved Date Code CodeSystem Concern Status 1 ACQUIRED ABSENCE OF OTHER SPECIFIED PARTS OF DIGESTIVE TRACT 07/15/[address] active 2 ACUTE CHOLECYSTITIS 07/15/2024 0815[address]OM[address] C T active 3 ENCOUNTER FOR SURGICAL AFTERCARE FOLLOWING SURGERY ON THE DIGESTIVE SYSTEM 07/15/[address] active 4 ESSENTIAL (PRIMARY) HYPERTENSION 07/15/[address] active 5 MILD COGNITIVE IMPAIRMENT OF UNCERTAIN OR UNKNOWN ETIOLOGY 07/15/[address] active 6 MUSCLE WASTING AND ATROPHY, NOT ELSEWHERE CLASSIFIED, MULTIPLE SITES 07/15/[address] active 7 SECONDARY MALIGNANT NEOPLASM OF LIVER AND INTRAHEPATIC BILE DUCT 07/15/2024 C78.7 ICD-10-CM active 8 TYPE 2 DIABETES MELLITUS WITHOUT COMPLICATIONS 07/15/[address] active 9 UNSPECIFIED MOOD [AFFECTIVE] DISORDER 07/15/[address] active 10 UNSPECIFIED PROTEIN-CALORIE MALNUTRITION 07/15/[address] active Reason for Referral No Reasons for Referral Entered Social History Social History Observation Description Start Date End Date Code Code System Current Smoking Status Tobacco smoking consumption unknown 436069550 SNOMED CT Sex Assigned At Female 1940 91472-4 [facility] Vital Signs Code Code System Vitals Name Values and Units Timing Information 31446-9 [facility] Pain Level Value=0.0 07/23/2024 9279-1 [facility] Respiratory Rate Value=18.0 Units=/m in 07/23/2024 8462-4 [facility] Blood Pressure-Diastolic Value=63 Un its=mmHg 07/23/2024 8480-6 [facility] Blood Pressure-Systolic Lcrkd=206 Un its=mmHg 07/23/2024 8310-5 [facility] Body Temperature Value=97.7 Units=?? F 07/23/2024 8867-4 [facility] Heart rate Value=76.0 Units=/min 14952-1 [facility] O2 % dC Oximetry Value=93.0 Units= % 07/23/2024 95255-0 [facility] Weight Pfqkw=559.6 Units=Lbs 8302-2 [facility] Height Value=62.0 Units=Inches 07/16/2024
--- OUTSIDE RECORDS SUMMARY | 2024-07-23 12:00 | XMS_ITS | Patient Health Record ---
[facility] Address [address] [place] [address] Care Team Providers Care Seaman Officer Name Role Phone Yola Rowell MD Primary Care Provider Joaquin Covington Unavailable [phone] Allergies Allergen (clinical drug ingredient) Drug/Non Drug Allergy documented on EMR Reaction Allergy Type Onset Date Status IVP Dye (uncoded) Unknown Allergy Ac tive Red Dye (uncoded) Unknown Allergy Ac tive Reason For Referral No Information Medications Medication SIG (Take, Route, Frequency, Duration) Notes Start Date End Date Status glyBURIDE 5 MG 1 tablet Orally Once a day for 30 day(s) Active baby asprin as directed Active amLODIPine Besylate 10 MG 1 tablet Orall y Once a day for 30 day(s) Active Ciclopirox Olamine 0.77 % 1 application to affected area Externally Twice a day to effected areas on feet for 30 days 12/13/2020 Active Carvedilol 25 MG 1 tablet with food Orally Twice a day for 30 day(s) Active Insulin Active Metformin & Diet Manage Prod 500 MG as directed Orally Active Atorvastatin Calcium 20 MG 1 tablet Orally Once a day for 30 day(s) Active Physical Therapy . . . 2-3x/week for 3- 4 weeks Not-Taking Night Splint AFO - L1930 as directed 12/01/2017 Active Lisinopril 40 MG 1 tablet Orally Once a day for 30 day(s) Active Januvia 50 MG 2 tablets Orally Onc e a day Active Extra Depth Diabetic Shoes with 3 Pair Custom heat-molded multi-density innersoles for 1 year Dx: Active Immunizations Vaccine Route Administration Date Status Comme nts COVID-19 Moderna Vaccine Unknown 08/16/2020 Administere d 1st 07/19/2020 Influenza Unknown 12/09/2019 Refused Social History Tobacco Use: Social History Observation [...] Status Risk Notes Problem Acquired hallux rigidus (9858076) Hallux rigidus, left foot (M20.22) Active confirmed Problem Acquired hammer toe of right foot (4042163209716569 ) Other hammer toe(s) (acquired), right foot (M20.41) Active confirmed Problem Acquired hammer toe of left foot (7272386203728267 ) Other hammer toe(s) (acquired), left foot (M20.42) Active confirmed Problem Polyneuropathy due to type 2 diabetes mellitus (440173488) Type 2 diabetes mellitus with diabetic polyneuropathy (E11.42) Active confirmed Vital Signs Height 5 ft 3 in in 2023 Weight 144 lbs 2023 BMI 25.51 kg/m2 2023 Procedures Procedure Date Ordered Date Performed Result Body Sit e 56542-KJXD SKIN LESIONS, 2 TO 4 2023 N/A 81086, E0893-LGUFY/INJECT, JOINT/BURSA 2023 N/A Encounters Encounter Location Date Provider Diagnosis [facility] [address] [place] [address] 2023 Joaquin Maza Tinea unguium B35.1 ; [...] foot (ICD-10 - M20.22) Plan Of Treatment Pending Test Test Name Order Date X ray : Foot, left 2V 05/10/2013 X ray : Foot, left 2V 12/01/2017 X ray : Foot, right 2V 05/10/2013 X ray : Foot, left 3V 2023 68362-IRLLBON NAIL, 6 OR MORE 04/13/2014 92564-UNUQUET NAIL, 6 OR MORE 08/02/2013 24716-LPSCMIK NAIL, 6 OR MORE 12/15/2013 05438-OVWNXLB NAIL, 6 OR MORE 02/25/2013 22683-SKJHUVL NAIL, 6 OR MORE 05/10/2013 41643-YBIKFIA NAIL, 1-5 11/20/2016 37726-LJZPYUF NAIL, 1-5 11/19/2017 84135-ZMHX SKIN LESIONS, OVER 4 04/13/19 15 70963-XHPY SKIN LESIONS, OVER 4 05/10/19 14 62244-IGIR SKIN LESIONS, OVER 4 12/16/19 14 64247-UUGW SKIN LESIONS, OVER 4 08/03/19 14 04898-BMIQ SKIN LESIONS, OVER 4 12/09/19 20 64740-EBMC SKIN LESIONS, OVER 4 12/14/19 21 11391-MCIJ SKIN LESIONS, 2 TO 4 11/10/19 24 93672-TXBR SKIN LESIONS, 2 TO 4 11/19/19 19 42731-RGTW SKIN LESIONS, 2 TO 4 02/26/20 13 97602-ZTND SKIN LESIONS, 2 TO 4 11/21/19 17 80318-OTBB SKIN LESIONS, 2 TO 4 11/20/19 18 35552, U2330-AZSBF/INJECT, JOINT/BURSA 0 2023 24890-WASG NAIL(S) 11/20/2016 C0194-BUIVMADC DYSTROPHIC NAILS ANY # W2238-HVZRPMAG DYSTROPHIC NAILS ANY # 63717,J1046-FQY TENDON SHEATH/LIGAMENT 0 12/01/2017 Next Appt Details Provider Name:Cielo Saravia mana, 11/08/2024 09:00:00 AM, [address] [place], [address], Insurance Providers Payer Name Payer Address Payer Phone Subscriber Number Group Number Insured Name Patient Relationship to Insured Coverage Start Date Coverage End Date Medicare National [employer] [address] [facility] [place] [address] [id number] Madeline Duff Self - patient is the insured [employer] [address] [address] [place] [address] [phone] [id number] Madeline Duff Self - patient is the insured Medical (General) History Medical History History ICD Code diabetic type ll high blood pressure Surgical History Surgery Date(Month/Year) bladder surgery 03/11/2013
--- OUTSIDE RECORDS SUMMARY | 2024-07-23 12:01 | XMS_ITS ---
Author Organization [facility] Address [address] [facility] [place] [address] Care Team Providers Care Interlocking And Signal Mechanic Name Role Phone Yola Rowell MD Primary Care Provider Joaquin Covington Unavailable [phone] Allergies Allergen (clinical drug ingredient) Drug/Non Drug [...] Status Risk Notes Problem Acquired hallux rigidus (5996267) Hallux rigidus, left foot (M20.22) Active confirmed Vital Signs Height 5 ft 3 in in 2023 Weight 144 lbs 2023 BMI 25.51 kg/m2 2023 Procedures Procedure Date Ordered Date Performed Result Body Sit e 43153-XCYR SKIN LESIONS, 2 TO 4 2023 N/A 68249, F7285-KUIUO/INJECT, JOINT/BURSA 2023 N/A Encounters Encounter Location Date Provider Diagnosis [facility] [place] [place] [address] 2023 Joaquin Maza Tinea unguium B35.1 ; [...] X ray : Foot, left 3V 2023 09184-LITD SKIN LESIONS, 2 TO 4 11/10/19 24 , W6809-FRYEU/INJECT, JOINT/BURSA 0 2023 Next Appt Details Follow Up: 1 Year, Reason: Provider Name:Cielo adair, 11/08/2024 09:00:00 AM, [address] [place] [address], [phone], Procedure Notes * Category Sub-Category Detail Notes [...] as necessary. Patient chooses, no pharmaceutical tx (82130) Keratoma Treatment Parring or Cutting o f Benign Hyperkeratotic Lesion(s) 88588 ( 2-4 Lesions ) - The Benign hyperkeratotic lesions, as described above were pared, and/or cut utilizing a sterile 15 blade, tissue nippers, and/or dremel Progress Notes * Hoa HSIEHB:[birth year] (82 yo F)Acc No.[id number]:2023 Progress Note Patient:?Madeline Hsieh Provider:?Joaquin Maza DPM :1940???Age:82 Y???Sex:Female D ate:2023 [facility] Pcp:Yola Rowell MD Subjective: * Chief Complaints: * ??? Painful nail(s) aggrevat ed by shoes and causing difficulty standing/walking. * HPI: ???Painful Nails:?Pt States Last PCP Visit:?Date:?12/16/2022 ???Skin problems:?Nature:?itching, redness.?Location:?B/L , 4th, 5th, Toe(s).?Course:?improved.?Treatments:?Topical antifungal.?Foot Pain:?Nature:?numbness, aching, dull, sharp.?Location:?Great toe joint, LEFT, Forefoot, Midfoot, Rearfoot.?Duration:?1 year or more.?Onset:?unknown, denies trauma.?Course:?worse.?Aggravated:?any pressure, standing, walking.?Treatments:?tx at [facility] .?Severity/Quality:?moderate.? * ROS:?General/Constitutional:?Nausea?denies.?Vomiting?denies.?Hunger Thirst?denies.?Loss appetite?denies.?Chills?denies.?Fatigue?denies.?Fever?denies.?Night Sweats?denies.?Unexplained [...] 3V 3.?Hallux rigidus, left foot ?Procedure: , G7190-IQVSJ/INJECT, JOINT/BURSA * Procedures:?Debride Nail 6-10:?Nail debridement?Nail debridement performed extensively to reduce/remove overall nail length and girth, subungual debris, and necrotic tissue, by manual and electrical means with use of a nail nipper and/or dremel, to more viable healthy nail plate or bed tissue 6-10. Silver nitrate used for any petechial bleeding as necessary. Patient chooses, no pharmaceutical tx (63853).?Injection:?Sm. Joint, Bursa?, Injection - sm/med joint bursa/capsule [...] mtpj--dorsum.?Keratoma Treatment:?Parring or Cutting of Benign Hyperkeratotic Lesion(s)?44362 ( 2-4 Lesions ) - The Benign hyperkeratotic lesions, as described above were pared, and/or cut utilizing a sterile 15 blade, tissue nippers, and/or dremel.? * Procedure Codes:?97775 DEBRI DE NAIL, 6 OR MORE, Modifiers: XS 20207 X-RAY EXAM OF LEFT FOOT 3V, Modifiers: 26 , [id number] INJ BETAMETHSN ACTAT&SOD [id number] DRAIN/INJECT, JOINT/BURSA, Modifiers: XS 31655 TRIM SKIN LESIONS, 2 TO 4, Modifiers: [...] DPM Date:? 024 Generated for Printi ng/Fasoyg/eTransmitting on:?07/23/2024 12:00 PM EDT History and Physical Notes * [...] pressure, standi ng, walking Treatments: tx at [facility] Severity/Quality: moderate Examination Category Sub-Category Detail [...]
== END 2024-07-23 11:27 | disposition home or self-care (01) ==
LOC: HO.HGS 10:56
PROVIDERS: PCP Internal Medicine; Visit Provider Surgery
DX: Z90.49 Acquired absence of other specified parts of digestive tract (principal); C78.7 Secondary malignant neoplasm of liver and intrahepatic bile duct; C23 Malignant neoplasm of gallbladder
CPT/HCPCS: 99024

== ENCOUNTER → 2024-07-23 10:55 | Outpatient (BNVA) | payer MEDICARE, SELFPAY | PROVIDERS: PCP Internal Medicine; Visit Provider Surgery | DX: C23 Malignant neoplasm of gallbladder (principal); C78.7 Secondary malignant neoplasm of liver and intrahepatic bile duct; Z90.49 Acquired absence of other specified parts of digestive tract | CPT/HCPCS: 99212 ==

== ENCOUNTER 2024-07-29 13:45 | Outpatient (AMB) | payer SELFPAY ==
[2024-07-29 13:52] VITALS: BP 108/66; PULSE 72; RESP 18; TEMP 36.6; O2SAT 94; BMI 25.5
--- NOTE | 2024-07-29 13:52 | A.OFFPC_ITS ---
Vital Signs 07/29/24 13:52 Height 5 ft 1 in Weight 135 lb BMI 25.5 BP 108/66 Blood Pressure Location Lt brachial Position Sitting Respiration 18 Pulse 72 Pulse Source Pulse Oximeter Temp 97.8 F Temp Source Oral Pulse Oximetry (%) 94 Oxygen Delivery Method Room Air Intake Visit Reasons: TCM Intake Note: Pt is here today for TCM. Allergies Iodinated Contrast Media [IV CONTRAST] Allergy (Unknown, Verified 07/29/24 14:00) ANAPHYLAXIS poison den extract Adverse Reaction (Verified 07/29/24 14:00) Swelling Tobacco use date assessed: 07/29/24 Fall risk assessment: No Falls in past year Last assessed Fall Risk: 07/29/24 Dental Screening Dental Screen Date: 07/29/24 Did you have a dental visit in the last 12 months?: No Did you have a dental problem in the last 6 months where you did not have access to dental care?: No Was dental information given to patient?: Patient declined HPI TCM HPI Details Patient presents for transitional care management after hospitalization and short-term rehab stay. 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 Patient was hypoxic during the hospitalization and had elevated D-dimer. She could not have CT angiogram of the chest because of history of allergic reaction to contrast. She was started on Eliquis but complains of a very high cost of the medication. CT of the chest without contrast revealed large pericardial infusion increasing size since 2021. Small bilateral pleural effusion, bilateral peribronchial thickening and ground-glass densities. Patient reports poor appetite and some abdominal discomfort since the discharge. She reports low blood glucose readings at night to 80. She has been taking 25 units of Lantus and metformin. TCM TCM Information Date of Discharge 07/15/24 Discharged From [facility] Interactive Contact Date (Reference documentation from this date) 07/19/24 [facility] Medical History (Updated 07/29/24 @ 14:36 by Yola Rowell MD) Gallbladder cancer Acute diastolic (congestive) heart failure Pericardial effusion Back pain History of mammogram Diabetes Hyperlipidemia HTN (hypertension) Surgical History Hx laparoscopic cholecystectomy (07/07/24) History of bladder surgery H/O colonoscopy No pertinent past surgical history Family History Father Unknown family medical history Mother Unknown family medical history Social History (Updated 07/29/24 @ 14:36 by Yola Rowell MD) Household Members: Family Housing: Apartment Do you presently have visiting nurse or other home services: No Alcohol intake: current Alcohol intake frequency: holidays/special occasions only Patient Tobacco Use Status: Never used Tobacco e-Cigarette/Vaping Use: Never Used Advance Directives Date on File: 07/07/24 service: No Current occupational status: retired Cognitive needs: No Hearing needs: No Vision needs: Yes Questionnaire Thrive Questionnaire Date Thrive assessed: 07/07/24 AUDIT C Alcohol Use Questionnaire (AUDIT-C) 1. How often do you have a drink containing alcohol?: Never 3. How often do you have six or more drinks on one occasion?: Never Total Score: 0 EMILE-7 AMB Questionnaire EMILE-7 Date EMILE - 7 assessed: 04/27/24 Source: Developed by Drs. Garry Lock, Amanda Donovan, Moe Mariee and colleagues, with an educational herminia from [employer]. Review of Systems Const All systems reviewed & are unremarkable except as noted in HPI and below Eyes Reports no additional complaints Card Reports no additional complaints Resp Reports no additional complaints GI Reports no additional complaints Reports no additional complaints Physical exam (Primary Care) Vital Signs: Last Vital Signs Temp 97.8 F 07/29/24 13:52 Pulse 72 07/29/24 13:52 Resp 18 07/29/24 13:52 BP 108/66 07/29/24 13:52 Pulse Ox 94 07/29/24 13:52 Oxygen Delivery Method Room Air 07/29/24 13:52 BMI result Body Mass Index 25.5 Tobacco/Smoking Status: Tobacco use Status Tobacco use date assessed 07/29/24 07/29/24 13:56 Patient Tobacco Use Status Never used Tobacco 07/29/24 13:56 e-Cigarette/Vaping Use Never Used 07/29/24 13:52 Thrive Assessment: Date of Thrive Assessment Date Thrive assessed 07/07/24 07/29/24 13:52 Const General: no acute distress HENMT Head: Yes normal to inspection Mouth: Normal oral and palatal mucosa present Eyes General: appearance normal, both eyes and all related structures Cardio Rhythm: regular rhythm Heart sounds: S1 normal heart sound present and S2 normal heart sound present GI Inspection: Yes normal to inspection Palpation (GI): Soft to palpation Percussion: Yes normal to percussion Auscultation: normal bowel sounds Coding Level of Care Code Est Pt Level 4 (61329) Diagnoses Pericardial effusion I31.39 Acute diastolic (congestive) heart failure I50.31 Pulmonary embolism I26.99 Gallbladder cancer C23 Diabetes E11.9 Assessment & Plan Assessment & Plan (1) Pericardial effusion: Comment: large on chest CT 07/2024 Code(s): I31.39 - Other pericardial effusion (noninflammatory) Category: Medical Plan: Obtain echocardiogram to evaluate (2) Acute diastolic (congestive) heart failure: Code(s): I50.31 - Acute diastolic (congestive) heart failure Category: Medical Plan: Continue current medications including carvedilol lisinopril and furosemide will be added p.r.n. (3) Pulmonary embolism: Comment: Question of PE based on elevated D-dimers an episode of hypoxia during the hospitalization. Intermittent V/Q scan negative lower extremity ultrasound. CT angiogram not performed due to patient history of anaphylactic reaction to contrast, started on Eliquis 07/2024 Code(s): I26.99 - Other pulmonary embolism without acute cor pulmonale Category: Medical Plan: Continue Eliquis (4) Gallbladder cancer: Comment: adenoca status post cholecystectomy 07/07/2024, referred to [facility] oncology Code(s): C23 - Malignant neoplasm of gallbladder Category: Medical Plan: Follow-up with oncology (5) Diabetes: Comment: A1C <9 Code(s): E11.9 - Type 2 diabetes mellitus without complications Category: Medical Plan: Decrease Lantus to 15 units continue metformin and monitor blood glucose t.i.d. follow-up in 1 month with a fasting labs before Orders: Orders CA echo transthoracic complete Today I26.99 - Other pulmonary embolism without acute cor pulmonale, I31.39 - Other pericardial effusion (noninflammatory), I50.31 - Acute diastolic (congestive) heart failure Medications: Refilled lisinopril 40 mg PO DAILY 90 tabs 3RF carvedilol must administer with a meal/food 25 mg PO BID 180 tabs 3RF metformin 1,000 mg PO BID 180 tabs 3RF
--- OUTSIDE RECORDS SUMMARY | 2024-07-29 16:08 | XMS_ITS ---
Author Organization [facility] Address [address] [place] [address] Care Team Providers Care Interior Mechanic Name Role Phone Yola Rowell MD Primary Care Provider Joaquin Covington Unavailable [phone] Allergies Allergen (clinical drug ingredient) Drug/Non Drug [...] Status Risk Notes Problem Acquired hallux rigidus (3594596) Hallux rigidus, left foot (M20.22) Active confirmed Vital Signs Height 5 ft 3 in in 2023 Weight 144 lbs 2023 BMI 25.51 kg/m2 2023 Procedures Procedure Date Ordered Date Performed Result Body Sit e 26371-PPDE SKIN LESIONS, 2 TO 4 2023 N/A 09213, J9656-ZZBDI/INJECT, JOINT/BURSA 2023 N/A Encounters Encounter Location Date Provider Diagnosis [facility] [place] [address] [place] [address] 2023 Joaquin Maza Tinea unguium B35.1 ; [...] X ray : Foot, left 3V 2023 73241-VDCC SKIN LESIONS, 2 TO 4 11/10/19 24 , E5424-LJGQQ/INJECT, JOINT/BURSA 0 2023 Next Appt Details Follow Up: 1 Year, Reason: Provider Name:Cielo adair, 11/08/2024 09:00:00 AM, [address] [place] [address], [id number], Procedure Notes * Category Sub-Category Detail Notes [...] as necessary. Patient chooses, no pharmaceutical tx (28001) Keratoma Treatment Parring or Cutting o f Benign Hyperkeratotic Lesion(s) 22600 ( 2-4 Lesions ) - The Benign hyperkeratotic lesions, as described above were pared, and/or cut utilizing a sterile 15 blade, tissue nippers, and/or dremel Progress Notes * Hoa HSIEHB:[birth year] (82 yo F)Acc No.[id number]:2023 Progress Note Patient:?Madeline Hsieh Provider:?Joaquin Maza DPM :1940???Age:82 Y???Sex:Female D ate:2023 [facility] Pcp:Yola Rowell MD Subjective: * Chief Complaints: * ??? Painful nail(s) aggrevat ed by shoes and causing difficulty standing/walking. * HPI: ???Painful Nails:?Pt States Last PCP Visit:?Date:?12/16/2022 ???Skin problems:?Nature:?itching, redness.?Location:?B/L , 4th, 5th, Toe(s).?Course:?improved.?Treatments:?Topical antifungal.?Foot Pain:?Nature:?numbness, aching, dull, sharp.?Location:?Great toe joint, LEFT, Forefoot, Midfoot, Rearfoot.?Duration:?1 year or more.?Onset:?unknown, denies trauma.?Course:?worse.?Aggravated:?any pressure, standing, walking.?Treatments:?tx at [facility] .?Severity/Quality:?moderate.? * ROS:?General/Constitutional:?Nausea?denies.?Vomiting?denies.?Hunger Thirst?denies.?Loss appetite?denies.?Chills?denies.?Fatigue?denies.?Fever?denies.?Night Sweats?denies.?Unexplained [...] 3V 3.?Hallux rigidus, left foot ?Procedure: , S3798-EYYKB/INJECT, JOINT/BURSA * Procedures:?Debride Nail 6-10:?Nail debridement?Nail debridement performed extensively to reduce/remove overall nail length and girth, subungual debris, and necrotic tissue, by manual and electrical means with use of a nail nipper and/or dremel, to more viable healthy nail plate or bed tissue 6-10. Silver nitrate used for any petechial bleeding as necessary. Patient chooses, no pharmaceutical tx (63755).?Injection:?Sm. Joint, Bursa?, Injection - sm/med joint bursa/capsule [...] mtpj--dorsum.?Keratoma Treatment:?Parring or Cutting of Benign Hyperkeratotic Lesion(s)?94029 ( 2-4 Lesions ) - The Benign hyperkeratotic lesions, as described above were pared, and/or cut utilizing a sterile 15 blade, tissue nippers, and/or dremel.? * Procedure Codes:?96381 DEBRI DE NAIL, 6 OR MORE, Modifiers: XS 39448 X-RAY EXAM OF LEFT FOOT 3V, Modifiers: 26 , [id number] INJ BETAMETHSN ACTAT&SOD [id number] DRAIN/INJECT, JOINT/BURSA, Modifiers: XS 99234 TRIM SKIN LESIONS, 2 TO 4, Modifiers: [...] DPM Date:? 024 Generated for Printi ng/Fasoyg/eTransmitting on:?07/29/2024 04:07 PM EDT History and Physical Notes * [...] pressure, standi ng, walking Treatments: tx at [facility] Severity/Quality: moderate Examination Category Sub-Category Detail [...]
--- OUTSIDE RECORDS SUMMARY | 2024-07-29 16:08 | XMS_ITS | Patient Health Record ---
Author Organization [facility] Address [address] [place] [address] Care Team Providers Care Italian Tutor Name Role Phone Yola Rowell MD Primary Care Provider Joaquin Covington Unavailable [phone] Allergies Allergen (clinical drug ingredient) Drug/Non Drug [...] Status Risk Notes Problem Acquired hallux rigidus (1804786) Hallux rigidus, left foot (M20.22) Active confirmed Problem Acquired hammer toe of right foot (9826319352298468 ) Other hammer toe(s) (acquired), right foot (M20.41) Active confirmed Problem Acquired hammer toe of left foot (7101886478264056 ) Other hammer toe(s) (acquired), left foot (M20.42) Active confirmed Problem Polyneuropathy due to type 2 diabetes mellitus (967736756) Type 2 diabetes mellitus with diabetic polyneuropathy (E11.42) Active confirmed Vital Signs Height 5 ft 3 in in 2023 Weight 144 lbs 2023 BMI 25.51 kg/m2 2023 Procedures Procedure Date Ordered Date Performed Result Body Sit e 72266-XIYW SKIN LESIONS, 2 TO 4 2023 N/A 95050, G4955-TPNAX/INJECT, JOINT/BURSA 2023 N/A Encounters Encounter Location Date Provider Diagnosis [facility] [place] [address] [place] [address] 2023 Joaquin Maza Tinea unguium B35.1 ; [...] X ray : Foot, left 3V 2023 04836-NWUFNVE NAIL, 6 OR MORE 04/13/2014 23219-WXSSTLI NAIL, 6 OR MORE 08/02/2013 15887-XBYJILA NAIL, 6 OR MORE 12/15/2013 22623-RMFIPDP NAIL, 6 OR MORE 02/25/2013 20404-CICWLWK NAIL, 6 OR MORE 05/10/2013 86254-NYKVLVI NAIL, 1-5 11/20/2016 94662-RGVMCQM NAIL, 1-5 11/19/2017 20457-EBVO SKIN LESIONS, OVER 4 04/13/19 15 98866-FYYI SKIN LESIONS, OVER 4 05/10/19 14 55667-MYMV SKIN LESIONS, OVER 4 12/16/19 14 69815-ZSZJ SKIN LESIONS, OVER 4 08/03/19 14 70305-BUGH SKIN LESIONS, OVER 4 12/09/19 20 62719-XTSH SKIN LESIONS, OVER 4 12/14/19 21 88225-RBGT SKIN LESIONS, 2 TO 4 11/10/19 24 28559-HSGM SKIN LESIONS, 2 TO 4 11/19/19 19 02320-TQPB SKIN LESIONS, 2 TO 4 02/26/20 13 00525-KHME SKIN LESIONS, 2 TO 4 11/21/19 17 70912-RMPJ SKIN LESIONS, 2 TO 4 11/20/19 18 24415, B7067-LCEOO/INJECT, JOINT/BURSA 0 2023 46318-BYLB NAIL(S) 11/20/2016 B8875-NUBKWFIO DYSTROPHIC NAILS ANY # K7651-WEHJNFUC DYSTROPHIC NAILS ANY # 94734,R3796-JSQ TENDON SHEATH/LIGAMENT 0 12/01/2017 Next Appt Details Provider Name:Cielo Saravia mana, 11/08/2024 09:00:00 AM, [address] [place], [address], Insurance Providers Payer Name Payer Address Payer Phone Subscriber Number Group Number Insured Name Patient Relationship to Insured Coverage Start Date Coverage End Date Medicare National [employer] [address] [facility] [place] [address] [id number] Madeline Duff Self - patient is the insured [employer] [address] [place] [address] [phone] [id number] Madeline Duff Self - patient is the insured Medical (General) History Medical History History ICD Code diabetic type ll high blood pressure Surgical History Surgery Date(Month/Year) bladder surgery 03/11/2013
--- OUTSIDE RECORDS SUMMARY | 2024-07-29 16:08 | XMS_ITS ---
Author Organization [facility] Address [address] [place] [address] Care Team Providers Care Ingot Buggy Operator Name Role Phone Yola Rowell MD Primary Care Provider Joaquin Covington [phone] REASON FOR VISIT seen sooner Encounters Encounter Location Date Provider Diagnosis [facility] [address] [place] [address] 12/29/2023 Joaquin Maza Plan Of Treatment Next Appt Details Provider Name:Cielo adair, 11/08/2024 09:00:00 AM, [address] [place], [address], Progress Notes * Hoa HSIEHB:[birth year] (83 yo F)Acc No.[id number]:12/29/2023 Progress Note Patient:?Madeline HSIEH Provider:?Joaquin Maza DPM :1940???Age:83 Y???Sex:Female D ate:12/29/2023 Address:[address] [place] Pcp:Yola oRwell MD Subjective: * Chief Complaints: * ???1. [...] DPM Date:? 024 Generated for Ruthie cowan/Clint/Jan on:?07/29/2024 04:07 PM EDT
== END 2024-07-29 14:24 | disposition home or self-care (01) ==
LOC: HO.HMCC 13:45
PROVIDERS: PCP Internal Medicine; Visit Provider Internal Medicine
DX: E11.9 Type 2 diabetes mellitus without complications (principal); I50.31 Acute diastolic (congestive) heart failure; I26.99 Other pulmonary embolism without acute cor pulmonale; C23 Malignant neoplasm of gallbladder; I31.39 Other pericardial effusion (noninflammatory)

== ENCOUNTER → 2024-07-29 13:45 | Outpatient (BNVA) | payer SELFPAY | PROVIDERS: PCP Internal Medicine; Visit Provider Internal Medicine | DX: I31.39 Other pericardial effusion (noninflammatory) (principal); I50.31 Acute diastolic (congestive) heart failure; I26.99 Other pulmonary embolism without acute cor pulmonale; C23 Malignant neoplasm of gallbladder; E11.9 Type 2 diabetes mellitus without complications; Z79.01 Long term (current) use of anticoagulants; Z79.4 Long term (current) use of insulin; Z79.84 Long term (current) use of oral hypoglycemic drugs; Z79.899 Other long term (current) drug therapy | CPT/HCPCS: 99212 ==

== ENCOUNTER → 2024-09-09 23:59 | Outpatient (BNV) | payer MEDICARE, SELFPAY | PROVIDERS: PCP Internal Medicine; Visit Provider Internal Medicine | DX: K81.0 Acute cholecystitis (principal); I26.99 Other pulmonary embolism without acute cor pulmonale; N39.0 Urinary tract infection, site not specified | CPT/HCPCS: G0180 ==